=== PATIENT | female | born 1940 | race Caucasian/White ===

== ENCOUNTER → 2017-12-10 16:22 | Outpatient (CLI) | payer MEDICARE, SELFPAY ==
[2017-12-10 17:37] LABS: Absolute Lymphocyte Count 1.61 X10^3/ul (0.83-4.51); Absolute Neutrophil Count 7.6 X10^3/uL (2.0-7.7); Basophil# 0.01 X10^3/uL; Basophil% 0.1 % (0-1); Hematocrit 39.4 % (37-47); Hemoglobin 12.5 g/dl (12.0-15.0); Lymphocyte # 1.61 X10^3/ul (4.0); Lymphocyte % 16.7 % (19-41); Mean Corp Hgb Conc 31.7 g/gl (32-36); Mean Corpuscular Hgb 28.2 pg (27.0-32.0); Mean Corpuscular Volume 88.7 fL (81-99); Mean Platelet Vol. 10.1 fl (6.2-12.0); Monocyte# 0.37 X10^3/uL; Monocyte% 3.8 % (0-10); Neutrophil # 7.59 X10^3/uL (2.7-7.7); Neutrophil % 78.9 % (47-70); Platelet Count 373 K/mm3 (150-450); RBC Distribution Width SD 51.9 fl (35.1-43.9); Red Blood Count 4.44 M/mm3 (4.2-5.4); White Blood Count 9.6 K/mm3 (4.4-11.0)
[2017-12-10 17:45] LABS: POSITIVE COUNT NO; POSITIVE DIFFERENTIAL NO; POSITIVE MORPHOLOGY NO
[2017-12-10 18:10] LABS: ALB/GLOB Ratio 0.9 RATIO (0.9-2.4); AST(SGOT) 12 U/L (15-37); Alanine Aminotransfer ALT/SGPT 16 U/L (13-56); Albumin, Serum 3.5 g/dL (3.2-5.0); Alkaline Phosphatase 145 U/L (45-117); Anion Gap 9 (5-15); BUN 31 mg/dL (7-18); BUN/Creat Ratio 24.6 RATIO (10-20); Calcium,Total 9.5 mg/dL (8.5-10.1); Chloride 109 mmol/L (98-107); Creatinine, Serum 1.26 mg/dL (0.55-1.02); EST Glomerular Filtration Rate 44 mL/min (>60); Est Glom Filt Rate - Afr Amer 53 mL/min (>60); Glucose 130 mg/dL (74-106); Potassium 4.3 mmol/L (3.5-5.1); Protein, Total 7.5 g/dL (6.4-8.2); Sodium Level 143 mmol/L (136-145); Thyroid Stim Hormone (TSH) 0.48 uIU/mL (0.358-3.74)
[2017-12-11 09:48] LABS: Vitamin D,25 Hydroxy 20.3 ng/mL (29.95-100.01)
== END ==
PROVIDERS: Visit Provider Family Medicine Geriatric Medicine
DX: I50.9 Heart failure, unspecified (principal); E55.9 Vitamin D deficiency, unspecified; R68.83 Chills (without fever)
CPT/HCPCS: 36415; 80053; 82306; 84443; 85025; 87633

== ENCOUNTER 2018-01-10 20:33 | Emergency (ER) | payer MEDICARE, SELFPAY ==
[2018-01-10 20:35] VITALS: BP 104/63; PULSE 68; PULSE 70; RESP 15; RESP 17; TEMP 36.8; O2SAT 96; O2SAT 99; BMI 35.1
--- NOTE | 2018-01-10 20:51 | ED.VISSUMM ---
- ER Visit Summary Date of Service: 01/10/18 Chief Complaint: Vomiting and diarrhea History of Present Illness: The patient is a 77 F who states this morning she had a very large bowel movement. This was followed by diarrhea and vomiting. This is going on most the day. At one point she felt like she was could have a syncopal episode. She found her way back to her chair and called the ambulance. No reported fevers. She has a history of partial small bowel obstruction/ileus. Last admitted in October with vomiting diarrhea with acute kidney injury. Physical Examination: Afebrile vital signs are stable Gen: Well-nourished well-developed Head: Normocephalic atraumatic Eyes: Perrl EOMI ENT: TMs clear no rhinorrhea moist mucous membranes Neck: Supple no lymphadenopathy no JVD nontender CVS: Regular rate rhythm no murmurs normal S1-S2 Respiratory: No distress clear to auscultation bilaterally chest nontender Abdomen: Soft nontender nondistended normal bowel sounds no masses Back: Nontender Extremity: Nontender no edema Skin: Normal color no rash Neuro: alert orientated ?3 CN II-XII intact normal strength sensation reflexes gait cerebellar Psych: Normal affect normal mood Test Results: White count is 8.5. BUN is 53 with a creatinine 1.66. Liver lipase negative. Emergency Department Course and Treatment: Patient received a liter of IV fluids and Zofran. She has been resting comfortably has had no further symptoms since arriving in the department. Patient is drinking fluids and tolerating them normally. We discussed the possibility of admission for fluid hydration versus outpatient oral hydration and the patient and I both agree that outpatient oral hydration would be better. If she should worsen she can return for repeat examination. Impression: 1. Acute gastroenteritis 2. Dehydration This note was generated with [employer] dictation software. It may contain incorrect words, spelling, and punctuation that were not noted in review of the chart prior to signing ED Disposition - Plan for ED Patient: Disposition: Home or Assisted Living Chief Complaint: Nausea/Vomiting/Diarrhea Instructions: ED Gastroenteritis Viral Prescriptions: Ondansetron [Zofran Odt] 4 mg PO Q6H PRN PRN #20 tab PRN Reason: Nausea Referrals: Corey Nicole Chi, MD [Primary Care Provider] - 3-5 Days if not improving
[2018-01-10 21:09] LABS: Absolute Lymphocyte Count 1.62 X10^3/ul (0.83-4.51); Absolute Neutrophil Count 6.4 X10^3/uL (2.0-7.7); Basophil# 0.02 X10^3/uL; Basophil% 0.2 % (0-1); Eosinophil# 0.05 X10^3/uL; Eosinophils% 0.6 % (0-5); Hematocrit 46.2 % (37-47); Hemoglobin 14.5 g/dl (12.0-15.0); Lymphocyte # 1.62 X10^3/ul (4.0); Mean Corp Hgb Conc 31.4 g/gl (32-36); Mean Corpuscular Hgb 28.3 pg (27.0-32.0); Mean Corpuscular Volume 90.2 fL (81-99); Mean Platelet Vol. 10.2 fl (6.2-12.0); Monocyte% 4.7 % (0-10); Neutrophil # 6.42 X10^3/uL (2.7-7.7); Neutrophil % 75.4 % (47-70); Platelet Count 394 K/mm3 (150-450); RBC Distribution Width CV 16.3 % (11.6-14.6); RBC Distribution Width SD 53.9 fl (35.1-43.9); Red Blood Count 5.12 M/mm3 (4.2-5.4); White Blood Count 8.5 K/mm3 (4.4-11.0)
[2018-01-10 21:11] LABS: POSITIVE COUNT NO; POSITIVE DIFFERENTIAL NO; POSITIVE MORPHOLOGY NO
[2018-01-10] MEDS: 0.9% Normal Saline 1,000 ML 1000 ML IV (21:20)
[2018-01-10] MEDS: Ondansetron 4 MG/2 ML Vial IV (21:20)
[2018-01-10 21:22] VITALS: BP 109/59; PULSE 62; RESP 16; O2SAT 95
[2018-01-10 21:23] LABS: ALB/GLOB Ratio 0.9 RATIO (0.9-2.4); AST(SGOT) 17 U/L (15-37); Alanine Aminotransfer ALT/SGPT 22 U/L (13-56); Albumin, Serum 3.9 g/dL (3.2-5.0); Alkaline Phosphatase 147 U/L (45-117); Anion Gap 9 (5-15); BUN 53 mg/dL (7-18); BUN/Creat Ratio 31.9 RATIO (10-20); Calcium,Total 9.8 mg/dL (8.5-10.1); Chloride 110 mmol/L (98-107); Creatinine, Serum 1.66 mg/dL (0.55-1.02); EST Glomerular Filtration Rate 32 mL/min (>60); Est Glom Filt Rate - Afr Amer 38 mL/min (>60); Estimated Creatinine Clearance 25.54 ml/min; Globulin 4.2 g/dL (2.2-4.2); Glucose 144 mg/dL (74-106); Lipase 97 U/L (73-393); Potassium 4.2 mmol/L (3.5-5.1); Protein, Total 8.1 g/dL (6.4-8.2); Sodium Level 143 mmol/L (136-145)
[2018-01-10] MEDS: Ondansetron ODT 4 MG Tablet PO (23:07)
[2018-01-10 23:08] VITALS: BP 109/54; PULSE 64; RESP 16; O2SAT 96
--- NOTE | 2018-01-10 23:52 | ED.RN ---
PT WAITING FOR RIDE HOME FROM FRIEND. SENT HOME WITH HOME OF [facility] X [facility] TABS. REVIEWED INSTRUCTION FOR HOME USE. PT DENIES ANY QUESTIONS OR CONCERNS.
== END 2018-01-11 00:41 | disposition home or self-care (01) ==
PROVIDERS: Emergency Provider Emergency Medicine; Family Provider Family Medicine Geriatric Medicine; PCP Family Medicine Geriatric Medicine
DX: K52.9 Noninfective gastroenteritis and colitis, unspecified (principal); E86.0 Dehydration; I48.91 Unspecified atrial fibrillation; I10 Essential (primary) hypertension; F20.9 Schizophrenia, unspecified; Z79.01 Long term (current) use of anticoagulants; Z79.899 Other long term (current) drug therapy; Z87.19 Personal history of other diseases of the digestive system; Z86.73 Personal history of transient ischemic attack (TIA), and cerebral infarction without residual deficits
CPT/HCPCS: 80053; 83690; 85025; 96361; 96374; 99283; J7030; J2405

== ENCOUNTER → 2018-03-30 10:36 | Outpatient (CLI) | payer MEDICARE, SELFPAY ==
[2018-03-30 12:44] LABS: Absolute Lymphocyte Count 2.11 X10^3/ul (0.83-4.51); Basophil# 0.05 X10^3/uL; Basophil% 0.7 % (0-1); Eosinophil# 0.16 X10^3/uL; Eosinophils% 2.3 % (0-5); Hematocrit 40.6 % (37-47); Hemoglobin 12.9 g/dl (12.0-15.0); Lymphocyte # 2.11 X10^3/ul (4.0); Lymphocyte % 30.8 % (19-41); Mean Corp Hgb Conc 31.8 g/gl (32-36); Mean Corpuscular Hgb 28.5 pg (27.0-32.0); Mean Corpuscular Volume 89.8 fL (81-99); Mean Platelet Vol. 10.5 fl (6.2-12.0); Monocyte# 0.49 X10^3/uL; Monocyte% 7.2 % (0-10); Neutrophil # 4.01 X10^3/uL (2.7-7.7); Neutrophil % 58.7 % (47-70); Platelet Count 302 K/mm3 (150-450); RBC Distribution Width CV 15.6 % (11.6-14.6); RBC Distribution Width SD 50.6 fl (35.1-43.9); Red Blood Count 4.52 M/mm3 (4.2-5.4); White Blood Count 6.8 K/mm3 (4.4-11.0)
[2018-03-30 12:51] LABS: POSITIVE COUNT NO; POSITIVE DIFFERENTIAL NO; POSITIVE MORPHOLOGY NO
[2018-03-30 13:03] LABS: ALB/GLOB Ratio 0.9 RATIO (0.9-2.4); AST(SGOT) 12 U/L (15-37); Alanine Aminotransfer ALT/SGPT 18 U/L (13-56); Albumin, Serum 3.3 g/dL (3.2-5.0); Alkaline Phosphatase 120 U/L (45-117); Anion Gap 8 (5-15); BUN 33 mg/dL (7-18); BUN/Creat Ratio 25.8 RATIO (10-20); Chloride 109 mmol/L (98-107); Creatinine, Serum 1.28 mg/dL (0.55-1.02); EST Glomerular Filtration Rate 43 mL/min (>60); Est Glom Filt Rate - Afr Amer 52 mL/min (>60); Globulin 3.6 g/dL (2.2-4.2); Glucose 108 mg/dL (74-106); Potassium 4.3 mmol/L (3.5-5.1); Protein, Total 6.9 g/dL (6.4-8.2); Sodium Level 145 mmol/L (136-145); Thyroid Stim Hormone (TSH) 4.28 uIU/mL (0.358-3.74)
[2018-03-31 10:20] LABS: Vitamin D,25 Hydroxy 28.3 ng/mL (29.95-100.01)
== END ==
PROVIDERS: Family Provider Family Medicine Geriatric Medicine; PCP Family Medicine Geriatric Medicine; Visit Provider Family Medicine Geriatric Medicine
DX: E55.9 Vitamin D deficiency, unspecified (principal); R53.83 Other fatigue
CPT/HCPCS: 36415; 80053; 82306; 84443; 85025

== ENCOUNTER 2018-04-28 20:16 | Emergency (ER) | payer MEDICARE, SELFPAY ==
[2018-04-28 20:18] VITALS: BP 120/73; PULSE 74; RESP 16; TEMP 37.3; O2SAT 93; BMI 35.9
--- NOTE | 2018-04-28 20:34 | US_ITS ---
STUDY: VENOUS DOPPLER ULTRASOUND - BILATERAL LOWER EXTREMITIES REASON FOR EXAM: Female, 78 years old. Right calf pain and bruising TECHNIQUE: Ultrasound evaluation of the deep vein system to include sosa-scale imaging and compression was performed. Sosa-scale imaging and Doppler sonographic evaluation, including duplex spectral analysis and qualitative color flow sonography, was performed. COMPARISON: None. FINDINGS: RIGHT LEG Common Femoral Vein: Normal compression, spontaneity and augmentation. Normal color Doppler. Common Femoral Vein/Greater Saphenous Junction: Normal compression, spontaneity and augmentation. Normal color Doppler. Deep Femoral Vein: Normal compression, spontaneity and augmentation. Normal color Doppler. Femoral Proximal: Normal compression, spontaneity and augmentation. Normal color Doppler. Femoral Middle: Normal compression, spontaneity and augmentation. Normal color Doppler. Femoral Distal: Normal compression, spontaneity and augmentation. Normal color Doppler. Popliteal Vein: Partial compression with internal echoes in the right popliteal vein noted. Posterior Tibial Vein: Normal compression, spontaneity and augmentation. Normal color Doppler. Peroneal Vein: Normal compression, spontaneity and augmentation. Normal color Doppler. LEFT LEG Common Femoral Vein: Normal compression, spontaneity and augmentation. Normal color Doppler. Common Femoral Vein/Greater Saphenous Junction: Normal compression, spontaneity and augmentation. Normal color Doppler. Deep Femoral Vein: Normal compression, spontaneity and augmentation. Normal color Doppler. Femoral Proximal: Normal compression, spontaneity and augmentation. Normal color Doppler. Femoral Middle: Normal compression, spontaneity and augmentation. Normal color Doppler. Femoral Distal: Normal compression, spontaneity and augmentation. Normal color Doppler. Popliteal Vein: Normal compression, spontaneity and augmentation. Normal color Doppler. Posterior Tibial Vein: Normal compression, spontaneity and augmentation. Normal color Doppler. Peroneal Vein: Normal compression, spontaneity and augmentation. Normal color Doppler. US/Venous Duplex Imag/Juan Extrem IMPRESSION: Partial compression of the right popliteal vein with internal echoes suggestive of thrombosis Electronically Signed: Iván Jimenez, at 21:34 EDT Tel , Service support ,
[2018-04-28 20:57] LABS: Absolute Lymphocyte Count 2.32 X10^3/ul (0.83-4.51); Absolute Neutrophil Count 4.2 X10^3/uL (2.0-7.7); Basophil# 0.04 X10^3/uL; Basophil% 0.5 % (0-1); Eosinophil# 0.19 X10^3/uL; Eosinophils% 2.6 % (0-5); Hematocrit 36.5 % (37-47); Hemoglobin 11.5 g/dl (12.0-15.0); Lymphocyte # 2.32 X10^3/ul (4.0); Lymphocyte % 31.6 % (19-41); Mean Corp Hgb Conc 31.5 g/gl (32-36); Mean Platelet Vol. 9.4 fl (6.2-12.0); Monocyte# 0.57 X10^3/uL; Monocyte% 7.8 % (0-10); Neutrophil # 4.22 X10^3/uL (2.7-7.7); Neutrophil % 57.4 % (47-70); Platelet Count 264 K/mm3 (150-450); RBC Distribution Width CV 14.7 % (11.6-14.6); White Blood Count 7.4 K/mm3 (4.4-11.0)
[2018-04-28 20:58] LABS: POSITIVE COUNT NO; POSITIVE DIFFERENTIAL NO; POSITIVE MORPHOLOGY NO
[2018-04-28 21:12] LABS: Anion Gap 5 (5-15); BUN 30 mg/dL (7-18); BUN/Creat Ratio 23.8 RATIO (10-20); Calcium,Total 9.1 mg/dL (8.5-10.1); Chloride 105 mmol/L (98-107); Creatinine, Serum 1.26 mg/dL (0.55-1.02); EST Glomerular Filtration Rate 44 mL/min (>60); Est Glom Filt Rate - Afr Amer 53 mL/min (>60); Estimated Creatinine Clearance 33.11 ml/min; Glucose 101 mg/dL (74-106); Potassium 3.9 mmol/L (3.5-5.1); Prothrombin Time (Protime)PT. 13.5 SECONDS (11.7-14.9); Sodium Level 142 mmol/L (136-145)
--- NOTE | 2018-04-28 22:56 | ED.DCSUM_ITS ---
- ER Visit Summary Date of Service: 04/28/18 Chief Complaint: Right leg pain History of Present Illness: The patient is a 78 F reports a red spot on her right lower leg for the past 1 month. It is mildly tender to palpation. She noted bruises on her legs as well. Patient states her dust mop maker wanted her to come in for some blood work. She is currently on Eliquis for A. fib. Physical Examination: Vital signs unremarkable. Patient sitting upright in bed no acute distress. Head and neck examination is unremarkable with no sign of trauma. Heart is slightly irregular. Lung sounds are clear. Abdomen is soft. She is a few ecchymoses on the abdominal wall with no focal tenderness. Lower external examination reveals a 3 cm diameter area of erythema on the medial right calf. It is mildly firm to touch. She has strong distal pulses. She has 2+ symmetric edema. There is an old appearing ecchymosis in the left thigh. Test Results: CBC reveals a normal white count with hemoglobin 11.5. Chemistry studies revealed creatinine 1.26. Coags are normal. Venous ultrasound of the right leg shows partial compression of the right popliteal vein with internal echoes suggestive of thrombosis. Emergency Department Course and Treatment: When I went back to discuss the test results with the patient, she now admits to me that she has not been taking her Eliquis since April 06. She was seen by her commercial green building architect in the [place] at that time who recommended she stop taking the Eliquis due to her bruising. She never restarted the medication but has not advised her dust mop maker of this. At this time patient will be given her dose of Eliquis here. She has the medication to restart at home. I recommended following with her primary care physician for repeat ultrasound of her leg. Treatment Plan: [] Disposition: Discharge Impression: DVT right leg This note was generated with [employer] dictation software. It may contain incorrect words, spelling, and punctuation that were not noted in review of the chart prior to signing ED Disposition - Plan for ED Patient: Disposition: Home or Assisted Living Chief Complaint: Lower Extremity Injury Instructions: ED DVT Referrals: Corey Nicole Chi, MD [Primary Care Provider] - 1 Week Additional Instructions: Restart your Eliquis as discussed. Call Dr Nicole for follow-up. You will likely need a repeat ultrasound of your leg.
[2018-04-28 22:58] VITALS: BP 154/62; PULSE 69; RESP 18; O2SAT 97
[2018-04-28] MEDS: APIXABAN 5 MG TABLET PO (23:05)
== END 2018-04-28 23:13 | disposition home or self-care (01) ==
PROVIDERS: Emergency Provider Emergency Medicine; Family Provider Family Medicine Geriatric Medicine; PCP Family Medicine Geriatric Medicine
DX: I82.431 Acute embolism and thrombosis of right popliteal vein (principal); T45.516A Underdosing of anticoagulants, initial encounter; Z91.128 Patient's intentional underdosing of medication regimen for other reason; Y92.9 Unspecified place or not applicable; I48.91 Unspecified atrial fibrillation; M54.9 Dorsalgia, unspecified; K21.9 Gastro-esophageal reflux disease without esophagitis; F20.9 Schizophrenia, unspecified; Z79.01 Long term (current) use of anticoagulants; Z79.899 Other long term (current) drug therapy; Z86.73 Personal history of transient ischemic attack (TIA), and cerebral infarction without residual deficits
CPT/HCPCS: 80048; 85025; 85610; 85730; 93970; 99285; A4216

== ENCOUNTER 2018-05-07 14:33 | Inpatient (IN) | payer MEDICARE, SELFPAY ==
[2018-05-07] VITALS (15 sets, daily range): BP systolic 98–125; BP diastolic 50–57; PULSE 50–70; RESP 12–18; TEMP 36.6–36.8; O2SAT 95–98; BMI 36.0; BMI 35.2
--- NOTE | 2018-05-07 15:08 | EKG12_ITS ---
Test Reason : SOB Blood Pressure : / mmHG Vent. Rate : 062 BPM Atrial Rate : 062 BPM P-R Int : 198 ms QRS Dur : 098 ms QT Int : 410 ms P-R-T Axes : 031 009 046 degrees QTc Int : 416 ms Normal sinus rhythm Normal ECG Confirmed by CIELO AYALA, MANJIT ([id number]), editor city [place] BR[place]GES ([id number]) on 05/10/2018 1:25:10 PM Referred By: Lizeth Dutton Confirmed By:MANJIT BUCK MD
--- NOTE | 2018-05-07 15:08 | CT_ITS ---
STUDY: CTA CHEST REASON FOR EXAM: Female, 78 years old. Shortness of breath. RADIATION DOSAGE (If Supplied By Facility): CTDIvol = ( 15.06 ) mGy, DLP = ( 665.4 ) mGycm TECHNIQUE: The examination was performed with the intravenous administration of 100 ml of Isovue 370 contrast material. Post-processing of the angiographic images was performed, with multiplanar reformation and 3D reconstruction. Individualized dose optimization techniques were used for this CT. COMPARISON: None. FINDINGS: There are filling defects within subsegmental pulmonary arteries throughout the right lung consistent with pulmonary emboli. There is atherosclerotic calcification of the aortic arch and descending thoracic aorta. There is no demonstrated aortic dissection. There are calcifications of the coronary arteries. There is a small hiatal hernia present. Normal hilar regions. Normal visualized trachea and bronchi. There is minimal bibasilar atelectasis. Normal chest wall structures. Normal osseous structures. Limited images of the upper abdomen demonstrate peripheral calcifications of the abdominal aorta branches. CT/CTA Chest W/WO Contrast IMPRESSION: Pulmonary emboli throughout the right lung. Atherosclerosis. N.B. : The above information has been verbally conveyed by Jessica Pierre MD to Dr Tracey , Referring Physician, on 05/07/2018 16:28:48 (ET). Electronically Signed: Jessica Pierre MD at 16:18 EDT Tel , Service support ,
[2018-05-07] MEDS: Ipratropium/Albuterol Sulfate 3 ML AMPUL.NEB INHALATION (15:19)
[2018-05-07 15:43] LABS: Anion Gap 4 (5-15); BUN 25 mg/dL (7-18); BUN/Creat Ratio 21.9 RATIO (10-20); Calcium,Total 8.9 mg/dL (8.5-10.1); Chloride 111 mmol/L (98-107); Creatinine, Serum 1.14 mg/dL (0.55-1.02); EST Glomerular Filtration Rate 49 mL/min (>60); Est Glom Filt Rate - Afr Amer 59 mL/min (>60); Glucose 115 mg/dL (74-106); Potassium 4.1 mmol/L (3.5-5.1); Sodium Level 145 mmol/L (136-145)
[2018-05-07 15:53] LABS: Absolute Neutrophil Count 4.2 X10^3/uL (2.0-7.7); Basophil# 0.03 X10^3/uL; Basophil% 0.5 % (0-1); Eosinophils% 1.5 % (0-5); Hematocrit 38.5 % (37-47); Hemoglobin 11.9 g/dl (12.0-15.0); Lymphocyte % 27.2 % (19-41); Mean Corp Hgb Conc 30.9 g/gl (32-36); Mean Corpuscular Hgb 28.1 pg (27.0-32.0); Mean Platelet Vol. 9.8 fl (6.2-12.0); Monocyte# 0.51 X10^3/uL; Monocyte% 7.7 % (0-10); Neutrophil # 4.16 X10^3/uL (2.7-7.7); Neutrophil % 62.9 % (47-70); Platelet Count 263 K/mm3 (150-450); RBC Distribution Width CV 15.2 % (11.6-14.6); RBC Distribution Width SD 50.5 fl (35.1-43.9); Red Blood Count 4.23 M/mm3 (4.2-5.4); White Blood Count 6.6 K/mm3 (4.4-11.0)
[2018-05-07 16:01] LABS: POSITIVE COUNT NO; POSITIVE DIFFERENTIAL NO; POSITIVE MORPHOLOGY NO
[2018-05-07 16:30] LABS: BNP,B-Type NATRIURETIC PEPTIDE 46.4 pg/mL (0-100)
--- NOTE | 2018-05-07 16:56 | NURSING ---
DR LARISA SCHWARZ
--- NOTE | 2018-05-07 16:57 | NURSING ---
PCU ACUTE RT LUNG SUBSEGMENTAL MULTIPLE PE ASEHELFAH
--- NOTE | 2018-05-07 16:58 | ED.VISSUMM ---
- ER Visit Summary Date of Service: 05/07/18 Chief Complaint: Shortness of breath History of Present Illness: The patient is a 78 F with shortness of breath and trouble breathing that came on this morning when she woke up. She denies cough or sputum. Denies fevers. Denies any chest pain. She has a history of CHF, atrial fibrillation, [place], and DVT. She does take Eliquis. She is not on home oxygen and denies any history of COPD. Physical Examination: Borderline blood pressure 98/52. Otherwise vitals unremarkable. Afebrile. No acute distress. Sitting and breathing comfortably. Heart regular. Lungs clear. Abdomen soft. Trace bilateral lower extremity edema. Strong pulses. Legs nontender. Test Results: EKG showed sinus rhythm at a rate of 62. No sign of acute ischemia or infarction pattern. Hemoglobin 11.9. Platelets normal. BUN 25 and creatinine 1.14. GFR 49. Troponin normal. BNP 46. CT chest showed subsegmental pulmonary emboli throughout the right lung. Emergency Department Course and Treatment: Patient was placed on a monitor and IV was obtained while awaiting results. She was treated with a DuoNeb. This seemed to help some of her breathing. She did have very brief right-sided chest pain while in CT. Results indicated right side subsegmental pulmonary emboli. These are small, but I am concerned that she is having symptoms despite taking Eliquis regularly. She says she is taking it as scheduled and is not out of it. Patient was on warfarin in the past but switched to Eliquis because she thought the warfarin was causing her hair to fall out. She is willing to take warfarin if it is the best option for her. I spoke with the hospitalist who will admit for further care. He did request that we start heparin. Patient is stable and symptom-free on reevaluation. Treatment Plan: As above Disposition: Admission to PCU Impression: 1. Pulmonary emboli right lung This note was generated with [employer] dictation software. It may contain incorrect words, spelling, and punctuation that were not noted in review of the chart prior to signing ED Disposition - Plan for ED Patient: Chief Complaint: Shortness of Breath Referrals: Corey Nicole Chi, MD [Primary Care Provider] -
--- NOTE | 2018-05-07 17:02 | ED.DCSUM_ITS ---
- ER Visit Summary Date of Service: 05/07/18 Chief Complaint: Shortness of breath History of Present Illness: The patient is a 78 F with shortness of breath and trouble breathing that came on this morning when she woke up. She denies cough or sputum. Denies fevers. Denies any chest pain. She has a history of CHF, atrial fibrillation, [place], and DVT. She does take Eliquis. She is not on home oxygen and denies any history of COPD. Physical Examination: Borderline blood pressure 98/52. Otherwise vitals unremarkable. Afebrile. No acute distress. Sitting and breathing comfortably. Heart regular. Lungs clear. Abdomen soft. Trace bilateral lower extremity edema. Strong pulses. Legs nontender. Test Results: EKG showed sinus rhythm at a rate of 62. No sign of acute ischemia or infarction pattern. Hemoglobin 11.9. Platelets normal. BUN 25 and creatinine 1.14. GFR 49. Troponin normal. BNP 46. CT chest showed subsegmental pulmonary emboli throughout the right lung. Emergency Department Course and Treatment: Patient was placed on a monitor and IV was obtained while awaiting results. She was treated with a DuoNeb. This seemed to help some of her breathing. She did have very brief right-sided chest pain while in CT. Results indicated right side subsegmental pulmonary emboli. These are small, but I am concerned that she is having symptoms despite taking Eliquis regularly. She says she is taking it as scheduled and is not out of it. Patient was on warfarin in the past but switched to Eliquis because she thought the warfarin was causing her hair to fall out. She is willing to take warfarin if it is the best option for her. I spoke with the hospitalist who will admit for further care. He did request that we start heparin. Patient is stable and symptom-free on reevaluation. Treatment Plan: As above Disposition: Admission to PCU Impression: 1. Pulmonary emboli right lung This note was generated with [employer] dictation software. It may contain incorrect words, spelling, and punctuation that were not noted in review of the chart prior to signing ED Disposition - Plan for ED Patient: Chief Complaint: Shortness of Breath Referrals: Corey Nicole Chi, MD [Primary Care Provider] -
--- NOTE | 2018-05-07 17:11 | HP.PCM_ITS ---
Problem List (1) HLD (hyperlipidemia) Status: Chronic (2) GERD (gastroesophageal reflux disease) Status: Chronic (3) Schizophrenia Status: Chronic Qualifiers: (4) Hypertension Status: Chronic Qualifiers: (5) Atrial fibrillation Status: Chronic Qualifiers: History of Present Illness Date of Admission: 05/07/18 Chief Complaint: Shortness of breath. The patient is a 78 year old F with past medical history as mentioned above presented to the medicine because of shortness of breath. Her illness started today morning around 11 AM with shortness of breath on minimal exertion, aggravated by activity, somewhat relieved by rest and associated with generalized weakness and fatigue. She denied cough or sputum production. She denied fever chills. She denied chest pain but she mentioned that when she went to CT scan chest, she was asked her to move her arms up and she had little pain on the right side. At this time, she has no chest pain. She has history of paroxysmal atrial fibrillation and she has been on metoprolol for rate control as well as Eliquis for anti-cognition for almost 2 years now and she stated that she is compliant and she takes her Eliquis every day but she missed one dose yesterday. She has a history of hypertension which seemed to be under control with lisinopril and metoprolol. She has history of schizophrenia and she has been on Seroquel and Klonopin. Upon review of her chart, she had a history of chronic CHF, unspecified type and she has been following up with [facility] cardiology as outpatient. In the emergency department, her blood pressure was borderline, other vital signs are stable. Her routine blood work was remarkable for BUN of 25 and creatinine 1.14, GFR is 49. EKG revealed normal sinus rhythm, normal VA interval, normal QRS, no acute ischemic changes. Troponin is negative. BNP was normal. CTA chest revealed multiple filling defects within the subsegmental pulmonary arteries throughout the right lung consistent with multiple subsegmental PEs. She is being admitted for acute subsegmental right multiple pulmonary emboli. Past Medical History Past Medical History (Chronic Problems): Chronic Problems (Last Reviewed 05/07/18 @ 17:19 by Lizeth Dutton MD) Schizophrenia (Chronic) Hypertension (Chronic) Rotator cuff syndrome of left shoulder (Chronic) Atrial fibrillation (Chronic) GERD (gastroesophageal reflux disease) (Chronic) HLD (hyperlipidemia) (Chronic) Segmental and somatic dysfunction of pelvic region (Chronic) Segmental and somatic dysfunction of thoracic region (Chronic) DDD (degenerative disc disease), lumbar (Chronic) Medical History: Medical History (Last Reviewed 05/07/18 @ 17:19 by Lizeth Dutton MD) DDD (degenerative disc disease), lumbar (Chronic) M51.36 Arthritis M19.90 Atrial fibrillation with RVR I48.91 Cataracts, bilateral H26.9 Environmental allergies Z91.09 Heart disease I51.9 Heart failure I50.9 High cholesterol E78.00 High triglycerides E78.1 History of gallstones Z87.19 History of stroke Z86.73 History of uterine cancer Z85.42 Melanoma C43.9 Osteoarthritis M19.90 Allergies risperidone [From Risperdal] Allergy (Verified 05/07/18 14:40) Shortness of breath verapamil [Verapamil] Allergy (Verified 05/07/18 14:40) Itching baclofen Adverse Reaction (Verified 05/07/18 14:40) agitation, mean benztropine mesylate [From Cogentin] Adverse Reaction (Verified 05/07/18 14:40) Itching codeine Adverse Reaction (Verified 05/07/18 14:40) Nausea Home Medications: Ambulatory Orders Medication Instructions Recorded Apixaban [Eliquis] 5 mg PO BID 12/04/16 Atorvastatin Calcium [Lipitor] 10 mg PO QHS 12/04/16 Lisinopril [Zestril] 5 mg PO DAILY 12/04/16 Metoprolol Tartrate [Lopressor 12.5 mg PO BID 12/04/16 (beta juan f)] Omeprazole [Prilosec] 20 mg PO DAILY 12/04/16 Polyethylene Glycol 3350 [Miralax] 17 gm PO DAILY PRN PRN 05/20/17 Furosemide [Lasix] 20 mg PO DAILY 06/09/17 Loratadine 10 mg PO DAILY 10/13/17 Quetiapine Fumarate [Seroquel XR] 50 mg PO QHS 10/13/17 Clonazepam [Klonopin] 1 mg PO BID 05/07/18 Surgical History: Surgical History (Last Reviewed 04/01/18 @ 10:11 by Melisa Dodd) History of appendectomy Z90.49 History of cholecystectomy Z90.49 History of hysterectomy Z90.710 Surgical History: appendectomy, cholecystectomy, hysterectomy - For a uterine cancer, rotator cuff repair, - - Resection of melanomas Psychiatric History: Schizophrenia, - NETWORK DIRECTOR History: No pertinent NETWORK DIRECTOR history Smoking Status: Former smoker Alcohol: None Drugs: None - *Family History Maternal Family History: Family History (Last Reviewed 04/01/18 @ 10:11 by Melisa Dodd) Other Arthritis Asthma COPD (chronic obstructive pulmonary disease) Hypertension Kidney disease History Items: Diabetes, - - No underlying lung disease Paternal Family History: Family History (Last Reviewed 04/01/18 @ 10:11 by Melisa Dodd) Other Arthritis Asthma COPD (chronic obstructive pulmonary disease) Hypertension Kidney disease History Items: Diabetes, - - No underlying lung disease Sibling Family History: Family History (Last Reviewed 04/01/18 @ 10:11 by Melisa Dodd) Other Arthritis Asthma COPD (chronic obstructive pulmonary disease) Hypertension Kidney disease History Items: Diabetes Review of Systems Constitutional: Reports: Weakness. Denies: Anorexia, Chills, Fever Eyes: Denies: Blurred vision, Double vision, Drainage, Redness HEENT: Denies: Difficulty Hearing, Ear Pain, Eye Pain, Nasal Congestion, Sore Throat Cardiovascular: Denies: Chest Pain, Chest Pressure, Chest Tightness, Palpitations, Syncope Respiratory: Reports: Shortness of Breath, Shortness of breath upon exertion. Denies: Cough, Pleuritic Pain, Sputum production, Wheezing Gastrointestinal: Denies: Abdominal Pain, Constipation, Diarrhea, Nausea, Vomiting Genitourinary: Denies: Dysuria, Frequency, Hematuria Musculoskeletal: Denies: Arm Pain, Back Pain, Foot Pain Skin: Denies: Dryness, Rash Neurological: Denies: Balance problems, Double vision, Change in Speech, Slurred speech, Confusion, Focal weakness, Headaches, Incoordination, Numbness Psychiatric: Denies: Anxiety, Depression Endocrine: Denies: Change in Body Habitus, Polydipsia VTE Information - Inpt Only VTE Present on Admission: No VTE Mechan Device Prophylaxis: None VTE Pharm Prophylaxis ordered?: No - Physical Exam General: Alert, Oriented x3, Cooperative, No apparent distress HEENT: Atraumatic, PERRLA, EOMI, Normocephalic Oral: Moist Mucosa, No Gingival or Mucosal Lesions/ Ulcerations Neck: Supple, No JVD, Negative Carotid Bruits, Trachea Midline, Thyroid Normal Size and Texture Lungs: Clear to auscultation, No wheeze, No rales, Diminished, Rhonchi Cardiovascular: Regular rate, Regular Rhythm, Normal S1, Normal S2, PMI Normal Abdomen: Bowel Sounds Present, Soft, Non Tender, Non-Distended, No Hepato- splenomegaly, Obese Extremities: No clubbing, No cyanosis, No edema Skin: No rashes, No breakdown Lymphatic: No Cervical, Supraclavicular, or Inguinal Adenopathy Neurological: Cranial nerves II-XII grossly intact, Motor Exam 5/5 strength throughout Psych/Mental Status: Normal Affect, Appropriate, Alert and oriented to time, place, person, mood and affect Vital Signs Temp Pulse Resp BP Pulse Ox 97.8 F 60 16 98/52 L 98 05/07/18 14:34 05/07/18 15:20 05/07/18 15:20 05/07/18 14:34 05/07/18 15:24 Oxygen Flow Rate (L/min) 2 Oxygen Delivery Method Nasal Cannula Weight: 216 lb 7.903 oz Body Mass Index (BMI) 36.0 Laboratory Tests Past 24 Hrs 05/07/18 05/07/18 05/07/18 15:20 15:20 15:20 WBC 6.6 RBC 4.23 Hgb 11.9 L Hct 38.5 MCV 91.0 MCH 28.1 MCHC 30.9 L RDW 15.2 H RDW Differential 50.5 H Plt Count 263 MPV 9.8 Immature Gran % (Auto) 0.200 Neut % (Auto) 62.9 Lymph % (Auto) 27.2 [place] % (Auto) 7.7 Eos % (Auto) 1.5 Baso % (Auto) 0.5 Absolute Neuts (auto) 4.2 Absolute Lymphs (auto) 1.80 Total Counted Not Reportable Sodium 145 Potassium 4.1 Chloride 111 H Carbon Dioxide 30.0 Anion Gap 4 L BUN 25 H Creatinine 1.14 H Estim Creat Clear Calc 36.60 Est GFR (MDRD) Af Amer 59 L Est GFR (MDRD) Non-Af 49 L BUN/Creatinine Ratio 21.9 H Glucose 115 H Calcium 8.9 Troponin I < 0.015 B-Natriuretic Peptide 46.4 Clinical Impression(s) from Imaging Studies Chest CTA 05/07/18 15:08 IMPRESSION: Pulmonary emboli throughout the right lung. Atherosclerosis. N.B. : The above information has been verbally conveyed by Jessica Pierre MD to Dr Tracey , Referring Physician, on 05/07/2018 16:28:48 (ET). Electronically Signed: Jessica Pierre MD at 16:18 EDT Tel , Service support , Assessment/Plan All Active Problems (Last Reviewed 05/07/18 @ 17:19 by Lizeth Dutton MD) Gram-negative pneumonia (Resolved) PARTIAL SBO (Resolved) This is a 78 years old female patient presented to the emergency room because of shortness of breath and she was found to have multiple acute right subsegmental pulmonary emboli and she is being admitted for treatment. #1 acute right multiple subsegmental pulmonary emboli: CTA chest reviewed. This is considered provoked secondary to her sedentary life although she was on Eliquis for paroxysmal atrial fibrillation. No indication for hypercoagulability workup. At this time, pulse ox is maintained on 2 L. Blood pressure borderline, improved when I saw the patient. Reviewed normal sinus rhythm, no ischemic changes and no cardiac arrhythmias. Troponin is negative. Plan: Admit to PCU, cardiac monitoring, start IV heparin drip, start Coumadin 5 mg p.o. daily, daily pro time and INR, venous Doppler of both lower extremities , repeat CBC and BMP tomorrow morning, PT OT evaluation and treatment. #2 paroxysmal atrial fibrillation: At this time, she is sinus rhythm, rate is controlled. Plan to continue metoprolol for rate control, discontinue liquids, start IV heparin drip as above. #3 hypertension: Blood pressure is borderline but improved. Plan to continue metoprolol, hold lisinopril and Lasix. #4 stage III chronic kidney disease: Baseline creatinine has been around 1.2- 1.6 mg/dL. Admission creatinine is 1.14, stable at baseline. Her GFR has been always around 40s-50s. Plan for gentle IV fluids for hydration, hold Lasix for now, repeat BMP tomorrow morning. #5 schizophrenia: Continue Seroquel and Klonopin. #6 hyperlipidemia: Continue statins. #7 GERD: Continue PPI. #8 DVT prophylaxis: She will be on IV heparin drip. This note was generated with [employer] software. It may contain incorrect words, spelling, and punctuation that were not noted in checking the note before signing. Code Visit Inpatient E&M: 99372 Init Hosp L3
[2018-05-07] MEDS: 0.9% Saline Lock 10 ML Syringe IV (18:01)
[2018-05-07] MEDS: 0.9% Normal Saline 1,000 ML 75 ML IV (18:01)
[2018-05-07 18:38] LABS: International Normalized Ratio 1.1; Prothrombin Time (Protime)PT. 14.6 SECONDS (11.7-14.9)
[2018-05-07 19:00] LABS: Partial Thromboplast Time 31.9 Seconds (24.1-36.2)
[2018-05-07] MEDS: HEPARIN/D5w 25,000 UNITS 25,000 UNITS/250 ML IV.SOLN. 14 UNITS IV (19:40)
[2018-05-07] MEDS: clonazePAM 1 MG Tablet PO (22:46)
[2018-05-07] MEDS: Atorvastatin Calcium 10 MG Tablet PO (22:50)
[2018-05-07] MEDS: QUEtiapine 25 MG Tablet 50 MG PO (22:51)
[2018-05-08] VITALS (15 sets, daily range): BP systolic 104–130; BP diastolic 44–56; PULSE 49–69; RESP 16–18; TEMP 36.3–37; O2SAT 93–98
[2018-05-08 02:32] LABS: International Normalized Ratio 1.1; Prothrombin Time (Protime)PT. 14.4 SECONDS (11.7-14.9)
[2018-05-08 06:51] LABS: Absolute Lymphocyte Count 2.05 X10^3/ul (0.83-4.51); Absolute Neutrophil Count 2.5 X10^3/uL (2.0-7.7); Basophil# 0.04 X10^3/uL; Basophil% 0.8 % (0-1); Eosinophils% 3.8 % (0-5); Hematocrit 35.5 % (37-47); Hemoglobin 10.9 g/dl (12.0-15.0); Lymphocyte # 2.05 X10^3/ul (4.0); Lymphocyte % 38.8 % (19-41); Mean Corp Hgb Conc 30.7 g/gl (32-36); Mean Corpuscular Hgb 28.7 pg (27.0-32.0); Mean Corpuscular Volume 93.4 fL (81-99); Mean Platelet Vol. 10.1 fl (6.2-12.0); Monocyte# 0.47 X10^3/uL; Monocyte% 8.9 % (0-10); Neutrophil # 2.51 X10^3/uL (2.7-7.7); Neutrophil % 47.5 % (47-70); Platelet Count 222 K/mm3 (150-450); RBC Distribution Width CV 15.4 % (11.6-14.6); RBC Distribution Width SD 50.3 fl (35.1-43.9); White Blood Count 5.3 K/mm3 (4.4-11.0)
[2018-05-08 06:53] LABS: POSITIVE COUNT NO; POSITIVE DIFFERENTIAL NO; POSITIVE MORPHOLOGY NO
[2018-05-08 07:01] LABS: Anion Gap 5 (5-15); BUN 23 mg/dL (7-18); BUN/Creat Ratio 24.8 RATIO (10-20); Calcium,Total 8.2 mg/dL (8.5-10.1); Chloride 114 mmol/L (98-107); Creatinine, Serum 0.93 mg/dL (0.55-1.02); EST Glomerular Filtration Rate 62 mL/min (>60); Est Glom Filt Rate - Afr Amer 75 mL/min (>60); Estimated Creatinine Clearance 44.86 ml/min; Glucose 89 mg/dL (74-106); Potassium 3.8 mmol/L (3.5-5.1); Sodium Level 146 mmol/L (136-145)
[2018-05-08] MEDS: Pantoprazole Sodium 20 MG Tablet PO (07:49)
[2018-05-08] MEDS: QUEtiapine 25 MG Tablet 50 MG PO ×2 (07:49→22:25)
[2018-05-08] MEDS: Loratadine 10 MG Tablet PO (07:49)
[2018-05-08] MEDS: clonazePAM 1 MG Tablet PO ×2 (07:53→22:24)
[2018-05-08 08:55] LABS: Partial Thromboplast Time 91.1 Seconds (24.1-36.2)
--- NOTE | 2018-05-08 09:14 | PCM.PN.HOSP ---
Subjective: Patient reports no interval complaints but would like to restart her furosemide Objective: Resting comfortably Vitals/I&O's: Vital Signs Temp Pulse Resp BP Pulse Ox 97.5 F L 56 L 18 130/52 H 97 05/08/18 07:36 05/08/18 07:48 05/08/18 07:36 05/08/18 07:48 05/08/18 07:36 Oxygen Flow Rate (L/min) 2 Oxygen Delivery Method Room Air Weight: 211 lb 6.773 oz Body Mass Index (BMI) 35.2 Intake and Output for Last 24 Hours 05/06/18 05/07/18 05/08/18 23:59 23:59 23:59 Intake Total 618.4 / 618.4 500.3 / 500.3 Output Total 200 / 200 Balance 618.4 / 618.4 300.3 / 300.3 General: Alert, Cooperative, Well developed, Well nourished, - - Obese HEENT: PERRLA Oral: Moist Mucosa Neck: No JVD Lungs: Clear to auscultation Cardiovascular: Regular rate, Regular Rhythm, Normal S1, Normal S2 Abdomen: Soft, Non Tender, Obese Extremities: - - Trace edema Psych/Mental Status: Appropriate Laboratory Results 05/07/18 18:05: PT 14.6, INR 1.1 05/07/18 18:05: APTT 31.9 05/08/18 02:00: PT 14.4, INR 1.1 05/08/18 02:00: APTT 149.0 H* 05/08/18 06:10: Sodium 146 H, Potassium 3.8, Chloride 114 H, Carbon Dioxide 27.0, Anion Gap 5, BUN 23 H, Creatinine 0.93, Estim Creat Clear Calc 44.86, Est GFR (MDRD) Af Amer 75, Est GFR (MDRD) Non-Af 62, BUN/Creatinine Ratio 24.8 H, Glucose 89, Calcium 8.2 L 05/08/18 06:10: WBC 5.3, RBC 3.80 L, Hgb 10.9 L, Hct 35.5 L, MCV 93.4, MCH 28.7, MCHC 30.7 L, RDW 15.4 H, RDW Differential 50.3 H, Plt Count 222, MPV 10.1, Immature Gran % (Auto) 0.200, Neut % (Auto) 47.5, Lymph % (Auto) 38.8, [place] % (Auto) 8.9, Eos % (Auto) 3.8, Baso % (Auto) 0.8, Absolute Neuts (auto) 2.5, Absolute Lymphs (auto) 2.05, Total Counted Not Reportable 05/08/18 08:28: APTT 91.1 H* Current Medications Atorvastatin Calcium (Lipitor) 10 mg PO QHS [facility] Last Admin: 05/07/18 22:50 Dose: 10 mg Clonazepam (Klonopin) 1 mg PO BID [facility] Last Admin: 05/08/18 07:53 Dose: 1 mg Furosemide (Lasix) 20 mg PO DAILY [facility] Heparin Sodium/Dextrose () 25,000 units in 250 mls @ 14 mls/hr IV .[id number] [facility]; As Directed PRN Reason: Protocol Last Admin: 05/07/18 19:40 Dose: 14 mls/hr Loratadine (Claritin) 10 mg PO DAILY [facility] Last Admin: 05/08/18 07:49 Dose: 10 mg Magnesium Hydroxide (Milk Of Magnesia) 30 ml PO DAILY PRN PRN Reason: Constipation Metoprolol Tartrate (Lopressor (Beta Stephen)) 12.5 mg PO BID [facility] Last Admin: 05/08/18 07:48 Dose: Not Given Pantoprazole Sodium (Protonix) 20 mg PO DAILY [facility] Last Admin: 05/08/18 07:49 Dose: 20 mg Quetiapine Fumarate (Seroquel) 50 mg PO BID [facility] Last Admin: 05/08/18 07:49 Dose: 50 mg Warfarin Sodium (Coumadin (Pbkc)) 10 mg PO DAILY@1700 [facility] Medical Necessity - Tobacco Use Smoking Status: Former smoker Assessment/Plan All Active Problems (Last Reviewed 05/07/18 @ 17:19 by Lizeth Dutton MD) Gram-negative pneumonia (Resolved) PARTIAL SBO (Resolved) 78-year-old female with past medical history hyperlipidemia, obesity, GERD, hypertension, schizophrenia, paroxysmal atrial fibrillation prior on Eliquis, chronic CHF followed at [facility], who presented to the emergency department 05/07/2018 with shortness of breath and right-sided pain. She had missed 1 dose of Eliquis prior to admission. Routine blood work was remarkable for BUN 25, creatinine 1.14, GFR 49, EKG normal, troponin normal, BNP normal. CTA chest revealed multiple filling defects within the subsegmental right lung pulmonary arteries consistent with multiple sub-segmental PEs. She was placed on IV heparin bridge to Coumadin anticoagulation. She has done well overnight. She feels a bit puffy and would like to restart her Lasix. She does not feel short of breath and denies pain. music publicist reveals normal sinus rhythm. Today's laboratories reviewed, acceptable/stable, creatinine 0.93 hemoglobin and platelet count stable. Medications prior to admission included metoprolol 12.5 mg twice daily, Eliquis 5 mg twice daily, omeprazole 20 mg daily, atorvastatin gram at bedtime, lisinopril 5 mg daily, Lasix 20 mg daily, Klonopin 1 mg p.o. twice daily, Seroquel 50 mg twice daily, vitamin D2 50,000 unit weekly, loratadine 10 mg daily 1. Acute right lung subsegmental PE. Treating as Eliquis failure. Heparin drip to warfarin bridge. Increase warfarin to 10 mg daily. Continue heparin drip protocol, INR daily. Continue mobilization and IS. PT/OT ordered. Awaiting LE ultrasounds 2. PAF. Continue metoprolol hold heart rate less than 60, continue heparin drip/warfarin protocol; stop drip when INR greater than 2 3. Hypertension Continue furosemide 20 mg daily, metoprolol 12.5 mg twice daily hold heart rate less than 60. Lisinopril held. Can restart prn 4. Hyperlipidemia On statin 5. GERD On PPI 6. Schizophrenia Quetiapine, clonazepam No evidence of QT prolongation 7. DVT prophy - on therapeutic anticoagulation Code Visit Inpatient E&M: 17048 Subs Hosp L2
[2018-05-08] MEDS: Furosemide 20 MG Tablet PO (09:23)
--- NOTE | 2018-05-08 09:27 | PN_ITS ---
Subjective: Patient reports no interval complaints but would like to restart her furosemide Objective: Resting comfortably Vitals/I&O's: Vital Signs Temp Pulse Resp BP Pulse Ox 97.5 F L 56 L 18 130/52 H 97 05/08/18 07:36 05/08/18 07:48 05/08/18 07:36 05/08/18 07:48 05/08/18 07:36 Oxygen Flow Rate (L/min) 2 Oxygen Delivery Method Room Air Weight: 211 lb 6.773 oz Body Mass Index (BMI) 35.2 Intake and Output for Last 24 Hours 05/06/18 05/07/18 05/08/18 23:59 23:59 23:59 Intake Total 618.4 / 618.4 500.3 / 500.3 Output Total 200 / 200 Balance 618.4 / 618.4 300.3 / 300.3 General: Alert, Cooperative, Well developed, Well nourished, - - Obese HEENT: PERRLA Oral: Moist Mucosa Neck: No JVD Lungs: Clear to auscultation Cardiovascular: Regular rate, Regular Rhythm, Normal S1, Normal S2 Abdomen: Soft, Non Tender, Obese Extremities: - - Trace edema Psych/Mental Status: Appropriate Laboratory Results 05/07/18 18:05: PT 14.6, INR 1.1 05/07/18 18:05: APTT 31.9 05/08/18 02:00: PT 14.4, INR 1.1 05/08/18 02:00: APTT 149.0 H* 05/08/18 06:10: Sodium 146 H, Potassium 3.8, Chloride 114 H, Carbon Dioxide 27.0 , Anion Gap 5, BUN 23 H, Creatinine 0.93, Estim Creat Clear Calc 44.86, Est GFR (MDRD) Af Amer 75, Est GFR (MDRD) Non-Af 62, BUN/Creatinine Ratio 24.8 H, Glucose 89, Calcium 8.2 L 05/08/18 06:10: WBC 5.3, RBC 3.80 L, Hgb 10.9 L, Hct 35.5 L, MCV 93.4, MCH 28.7 , MCHC 30.7 L, RDW 15.4 H, RDW Differential 50.3 H, Plt Count 222, MPV 10.1, Immature Gran % (Auto) 0.200, Neut % (Auto) 47.5, Lymph % (Auto) 38.8, [place] % ( Auto) 8.9, Eos % (Auto) 3.8, Baso % (Auto) 0.8, Absolute Neuts (auto) 2.5, Absolute Lymphs (auto) 2.05, Total Counted Not Reportable 05/08/18 08:28: APTT 91.1 H* Current Medications Atorvastatin Calcium (Lipitor) 10 mg PO QHS [facility] Last Admin: 05/07/18 22:50 Dose: 10 mg Clonazepam (Klonopin) 1 mg PO BID [facility] Last Admin: 05/08/18 07:53 Dose: 1 mg Furosemide (Lasix) 20 mg PO DAILY [facility] Heparin Sodium/Dextrose () 25,000 units in 250 mls @ 14 mls/hr IV .[id number] [facility] ; As Directed PRN Reason: Protocol Last Admin: 05/07/18 19:40 Dose: 14 mls/hr Loratadine (Claritin) 10 mg PO DAILY [facility] Last Admin: 05/08/18 07:49 Dose: 10 mg Magnesium Hydroxide (Milk Of Magnesia) 30 ml PO DAILY PRN PRN Reason: Constipation Metoprolol Tartrate (Lopressor (Beta Stephen)) 12.5 mg PO BID [facility] Last Admin: 05/08/18 07:48 Dose: Not Given Pantoprazole Sodium (Protonix) 20 mg PO DAILY [facility] Last Admin: 05/08/18 07:49 Dose: 20 mg Quetiapine Fumarate (Seroquel) 50 mg PO BID [facility] Last Admin: 05/08/18 07:49 Dose: 50 mg Warfarin Sodium (Coumadin (Pbkc)) 10 mg PO DAILY@1700 [facility] Medical Necessity - Tobacco Use Smoking Status: Former smoker Assessment/Plan All Active Problems (Last Reviewed 05/07/18 @ 17:19 by Lizeth Dutton MD) Gram-negative pneumonia (Resolved) PARTIAL SBO (Resolved) 78-year-old female with past medical history hyperlipidemia, obesity, GERD, hypertension, schizophrenia, paroxysmal atrial fibrillation prior on Eliquis, chronic CHF followed at [facility], who presented to the emergency department 05/07/2018 with shortness of breath and right-sided pain. She had missed 1 dose of Eliquis prior to admission. Routine blood work was remarkable for BUN 25, creatinine 1.14, GFR 49, EKG normal, troponin normal, BNP normal. CTA chest revealed multiple filling defects within the subsegmental right lung pulmonary arteries consistent with multiple sub-segmental PEs. She was placed on IV heparin bridge to Coumadin anticoagulation. She has done well overnight. She feels a bit puffy and would like to restart her Lasix. She does not feel short of breath and denies pain. product support sales representative reveals normal sinus rhythm. Today's laboratories reviewed, acceptable/stable, creatinine 0.93 hemoglobin and platelet count stable. Medications prior to admission included metoprolol 12.5 mg twice daily, Eliquis 5 mg twice daily, omeprazole 20 mg daily, atorvastatin gram at bedtime, lisinopril 5 mg daily, Lasix 20 mg daily, Klonopin 1 mg p.o. twice daily, Seroquel 50 mg twice daily, vitamin D2 50,000 unit weekly, loratadine 10 mg daily 1. Acute right lung subsegmental PE. Treating as Eliquis failure. Heparin drip to warfarin bridge. Increase warfarin to 10 mg daily. Continue heparin drip protocol, INR daily. Continue mobilization and IS. PT/OT ordered. Awaiting LE ultrasounds 2. PAF. Continue metoprolol hold heart rate less than 60, continue heparin drip/ warfarin protocol; stop drip when INR greater than 2 3. Hypertension Continue furosemide 20 mg daily, metoprolol 12.5 mg twice daily hold heart rate less than 60. Lisinopril held. Can restart prn 4. Hyperlipidemia On statin 5. GERD On PPI 6. Schizophrenia Quetiapine, clonazepam No evidence of QT prolongation 7. DVT prophy - on therapeutic anticoagulation Code Visit Inpatient E&M: 25733 Subs Hosp L2
--- NOTE | 2018-05-08 11:20 | CASEMGMT ---
TARUN ALTMAN Face to Face with patient for initial transition planning/care coordination assessment. TARUN ALTMAN introduced self and role at [facility]. Patient lying in bed, alert and oriented. Patient willing to participate in assessment and is able to answer all questions appropriately. Care providers, pharmacy, and demographics verified. See link attached. Patient wishes to discharge home with possible HHC, no preference for HHC. Patient receives waiver program and was told by [employer] that she would need to find aide service. SW updated regarding waiver program and request for aide services. Patient states she has no further needs or concerns at this time. CM to follow for discharge planning needs that may arise. Disposition Plan: Patient to discharge with possible HHC, waiver program, family support, and follow-up plans in place. Will monitor for need for home oxygen.
--- NOTE | 2018-05-08 12:59 | CASEMGMT ---
Social Work Case management reporting that patient is requesting for an increase in [employer] services in regards to aides. Telephone call to [email or web address] (patient corrections caseworker) - [phone]. Voicemail left requesting for an increase in services. Social Work to follow as needed. Colleen ALEJANDRA, RESIDENT HALL DIRECTOR
[2018-05-08 15:09] LABS: Partial Thromboplast Time 82.2 Seconds (24.1-36.2)
[2018-05-08] MEDS: HEPARIN/D5w 25,000 UNITS 25,000 UNITS/250 ML IV.SOLN. 14 UNITS IV (16:29)
[2018-05-08] MEDS: Ketoconazole Cream 1 APPLIC TOPICAL (22:24)
[2018-05-08] MEDS: Metoprolol Tartrate 25 MG Tablet 12.5 MG PO (22:24)
[2018-05-08] MEDS: Atorvastatin Calcium 10 MG Tablet PO (22:26)
[2018-05-08 22:33] LABS: Partial Thromboplast Time 62.8 Seconds (24.1-36.2)
[2018-05-09] VITALS (13 sets, daily range): BP systolic 99–140; BP diastolic 47–65; PULSE 57–64; RESP 16–20; TEMP 36.1–36.9; O2SAT 92–98
[2018-05-09 06:51] LABS: Absolute Lymphocyte Count 1.68 X10^3/ul (0.83-4.51); Absolute Neutrophil Count 2.6 X10^3/uL (2.0-7.7); Basophil# 0.02 X10^3/uL; Basophil% 0.4 % (0-1); Hematocrit 35.8 % (37-47); Hemoglobin 11.1 g/dl (12.0-15.0); Lymphocyte # 1.68 X10^3/ul (4.0); Lymphocyte % 33.4 % (19-41); Mean Corpuscular Hgb 28.5 pg (27.0-32.0); Mean Platelet Vol. 9.9 fl (6.2-12.0); Monocyte# 0.51 X10^3/uL; Monocyte% 10.1 % (0-10); Neutrophil # 2.62 X10^3/uL (2.7-7.7); Neutrophil % 52.1 % (47-70); Platelet Count 223 K/mm3 (150-450); RBC Distribution Width CV 15.1 % (11.6-14.6); RBC Distribution Width SD 49.3 fl (35.1-43.9); Red Blood Count 3.89 M/mm3 (4.2-5.4)
[2018-05-09 06:58] LABS: POSITIVE COUNT NO; POSITIVE DIFFERENTIAL NO; POSITIVE MORPHOLOGY NO
[2018-05-09 07:07] LABS: Partial Thromboplast Time 61.9 Seconds (24.1-36.2)
[2018-05-09 07:14] LABS: Anion Gap 7 (5-15); BUN 19 mg/dL (7-18); BUN/Creat Ratio 20.5 RATIO (10-20); Chloride 111 mmol/L (98-107); Creatinine, Serum 0.92 mg/dL (0.55-1.02); EST Glomerular Filtration Rate 62 mL/min (>60); Est Glom Filt Rate - Afr Amer 75 mL/min (>60); Estimated Creatinine Clearance 45.35 ml/min; Glucose 84 mg/dL (74-106); Potassium 3.9 mmol/L (3.5-5.1); Sodium Level 146 mmol/L (136-145)
[2018-05-09] MEDS: QUEtiapine 25 MG Tablet 50 MG PO ×2 (08:31→21:56)
[2018-05-09] MEDS: Pantoprazole Sodium 20 MG Tablet PO (08:31)
[2018-05-09] MEDS: Loratadine 10 MG Tablet PO (08:31)
[2018-05-09] MEDS: Furosemide 20 MG Tablet PO (08:32)
[2018-05-09] MEDS: Ketoconazole Cream 1 APPLIC TOPICAL ×2 (08:33→22:00)
[2018-05-09] MEDS: clonazePAM 1 MG Tablet PO ×2 (08:37→22:02)
--- NOTE | 2018-05-09 08:48 | PCM.PN.HOSP ---
Subjective: Would like Miralax Breathing stable R sided chest pain with interval improvement She has been OOB She is doing IS Objective: Pleasant and well appearing Vitals/I&O's: Vital Signs Temp Pulse Resp BP Pulse Ox 96.9 F L 58 L 18 140/65 H 98 05/09/18 08:30 05/09/18 08:30 05/09/18 08:30 05/09/18 08:30 05/09/18 08:30 Oxygen Flow Rate (L/min) 2 Oxygen Delivery Method Room Air Weight: 211 lb 6.773 oz Body Mass Index (BMI) 35.2 Intake and Output for Last 24 Hours 05/07/18 05/08/18 05/09/18 23:59 23:59 23:59 Intake Total 618.4 / 618.4 1163.3 / 1163.3 85.5 / 85.5 Output Total 400 / 400 600 / 600 Balance 618.4 / 618.4 763.3 / 763.3 -514.5 / -514.5 General: Alert, Oriented x3, Cooperative, No apparent distress Oral: Moist Mucosa Neck: No JVD Lungs: Clear to auscultation, Normal air movement, No wheeze Cardiovascular: Regular rate, Regular Rhythm, Normal S1, Normal S2, - Abdomen: Obese Extremities: Edema Psych/Mental Status: Normal Affect, Appropriate Laboratory Results 05/08/18 08:28: APTT 91.1 H* 05/08/18 14:50: APTT 82.2 H 05/08/18 21:36: APTT 62.8 H 05/09/18 06:15: Sodium 146 H, Potassium 3.9, Chloride 111 H, Carbon Dioxide 28.0, Anion Gap 7, BUN 19 H, Creatinine 0.92, Estim Creat Clear Calc 45.35, Est GFR (MDRD) Af Amer 75, Est GFR (MDRD) Non-Af 62, BUN/Creatinine Ratio 20.5 H, Glucose 84, Calcium 9.0 05/09/18 06:15: WBC 5.0, RBC 3.89 L, Hgb 11.1 L, Hct 35.8 L, MCV 92.0, MCH 28.5, MCHC 31.0 L, RDW 15.1 H, RDW Differential 49.3 H, Plt Count 223, MPV 9.9, Immature Gran % (Auto) 0.000, Neut % (Auto) 52.1, Lymph % (Auto) 33.4, [place] % (Auto) 10.1 H, Eos % (Auto) 4.0, Baso % (Auto) 0.4, Absolute Neuts (auto) 2.6, Absolute Lymphs (auto) 1.68, Total Counted Not Reportable 05/09/18 06:15: APTT 61.9 H Current Medications Acetaminophen (Tylenol) 650 mg PO Q6H PRN PRN PRN Reason: Non-cardiac pain, fever Atorvastatin Calcium (Lipitor) 10 mg PO QHS [facility] Last Admin: 05/08/18 22:26 Dose: 10 mg Clonazepam (Klonopin) 1 mg PO BID [facility] Last Admin: 05/09/18 08:37 Dose: 1 mg Furosemide (Lasix) 20 mg PO DAILY [facility] Last Admin: 05/09/18 08:32 Dose: 10 mg Heparin Sodium/Dextrose () 25,000 units in 250 mls @ 14 mls/hr IV .[id number] [facility]; As Directed PRN Reason: Protocol Last Admin: 05/08/18 16:29 Dose: 14 mls/hr Ketoconazole (Nizoral) 1 applic TOPICAL BID [facility] PRN Reason: Protocol Last Admin: 05/09/18 08:33 Dose: 1 applicatio Loratadine (Claritin) 10 mg PO DAILY [facility] Last Admin: 05/09/18 08:31 Dose: 10 mg Magnesium Hydroxide (Milk Of Magnesia) 30 ml PO DAILY PRN PRN Reason: Constipation Metoprolol Tartrate (Lopressor (Beta Stephen)) 12.5 mg PO BID [facility] Last Admin: 05/09/18 08:31 Dose: Not Given Pantoprazole Sodium (Protonix) 20 mg PO DAILY [facility] Last Admin: 05/09/18 08:31 Dose: 20 mg Quetiapine Fumarate (Seroquel) 50 mg PO BID [facility] Last Admin: 05/09/18 08:31 Dose: 50 mg Warfarin Sodium (Coumadin (Pbkc)) 10 mg PO DAILY@1700 [facility] Last Admin: 05/08/18 16:30 Dose: 10 mg Medical Necessity - Tobacco Use Smoking Status: Former smoker Assessment/Plan All Active Problems (Last Reviewed 05/09/18 @ 08:47 by Irina Wetzel MD) Gram-negative pneumonia (Resolved) PARTIAL SBO (Resolved) 78-year-old female with past medical history hyperlipidemia, obesity, GERD, hypertension, schizophrenia, paroxysmal atrial fibrillation prior on Eliquis, chronic CHF followed at [facility], who presented to the emergency department 05/07/2018 with shortness of breath and right-sided pain. She had missed 1 dose of Eliquis prior to admission. Routine blood work was remarkable for BUN 25, creatinine 1.14, GFR 49, EKG normal, troponin normal, BNP normal. CTA chest revealed multiple filling defects within the subsegmental right lung pulmonary arteries consistent with multiple sub-segmental PEs. She was placed on IV heparin bridge to Coumadin anticoagulation. laboratory monitor reveals normal sinus rhythm. Today's laboratories reviewed, acceptable/stable, creatinine 0.92 hemoglobin and platelet count stable. Medications prior to admission included metoprolol 12.5 mg twice daily, Eliquis 5 mg twice daily, omeprazole 20 mg daily, atorvastatin gram at bedtime, lisinopril 5 mg daily, Lasix 20 mg daily, Klonopin 1 mg p.o. twice daily, Seroquel 50 mg twice daily, vitamin D2 50,000 unit weekly, loratadine 10 mg daily 1. Acute right lung subsegmental PE. Treating as Eliquis failure. Heparin drip to warfarin bridge. Increase warfarin to 10 mg daily. Continue heparin drip protocol, INR daily. Continue mobilization and IS. PT/OT ordered. Awaiting LE ultrasounds RA sats 92 - 98% now off O2 2. PAF. Continue metoprolol hold heart rate less than 60, continue heparin drip/warfarin protocol; stop drip when INR greater than 2 3. Hypertension Home meds were lisinoprl 5 mg daily, Lasix 20 mg daily, metoprolol 12.5 mg BID Continue furosemide 20 mg daily, metoprolol 12.5 mg twice daily hold heart rate less than 60. Home lisinopril held. Can restart prn 4. Hyperlipidemia On statin 5. GERD On PPI 6. Schizophrenia Quetiapine, clonazepam No evidence of QT prolongation 7. constipation Miralax prn 8. DVT prophy - on therapeutic anticoagulation d/c planning PT OT eval ordered Code Visit Inpatient E&M: 43208 Subs Hosp L2
[2018-05-09] MEDS: Acetaminophen 325 MG Tablet 650 MG PO ×2 (08:53→20:02)
--- NOTE | 2018-05-09 08:57 | PN_ITS ---
Subjective: Would like Miralax Breathing stable R sided chest pain with interval improvement She has been OOB She is doing IS Objective: Pleasant and well appearing Vitals/I&O's: Vital Signs Temp Pulse Resp BP Pulse Ox 96.9 F L 58 L 18 140/65 H 98 05/09/18 08:30 05/09/18 08:30 05/09/18 08:30 05/09/18 08:30 05/09/18 08:30 Oxygen Flow Rate (L/min) 2 Oxygen Delivery Method Room Air Weight: 211 lb 6.773 oz Body Mass Index (BMI) 35.2 Intake and Output for Last 24 Hours 05/07/18 05/08/18 05/09/18 23:59 23:59 23:59 Intake Total 618.4 / 618.4 1163.3 / 1163.3 85.5 / 85.5 Output Total 400 / 400 600 / 600 Balance 618.4 / 618.4 763.3 / 763.3 -514.5 / -514.5 General: Alert, Oriented x3, Cooperative, No apparent distress Oral: Moist Mucosa Neck: No JVD Lungs: Clear to auscultation, Normal air movement, No wheeze Cardiovascular: Regular rate, Regular Rhythm, Normal S1, Normal S2, - Abdomen: Obese Extremities: Edema Psych/Mental Status: Normal Affect, Appropriate Laboratory Results 05/08/18 08:28: APTT 91.1 H* 05/08/18 14:50: APTT 82.2 H 05/08/18 21:36: APTT 62.8 H 05/09/18 06:15: Sodium 146 H, Potassium 3.9, Chloride 111 H, Carbon Dioxide 28.0 , Anion Gap 7, BUN 19 H, Creatinine 0.92, Estim Creat Clear Calc 45.35, Est GFR (MDRD) Af Amer 75, Est GFR (MDRD) Non-Af 62, BUN/Creatinine Ratio 20.5 H, Glucose 84, Calcium 9.0 05/09/18 06:15: WBC 5.0, RBC 3.89 L, Hgb 11.1 L, Hct 35.8 L, MCV 92.0, MCH 28.5 , MCHC 31.0 L, RDW 15.1 H, RDW Differential 49.3 H, Plt Count 223, MPV 9.9, Immature Gran % (Auto) 0.000, Neut % (Auto) 52.1, Lymph % (Auto) 33.4, [place] % ( Auto) 10.1 H, Eos % (Auto) 4.0, Baso % (Auto) 0.4, Absolute Neuts (auto) 2.6, Absolute Lymphs (auto) 1.68, Total Counted Not Reportable 05/09/18 06:15: APTT 61.9 H Current Medications Acetaminophen (Tylenol) 650 mg PO Q6H PRN PRN PRN Reason: Non-cardiac pain, fever Atorvastatin Calcium (Lipitor) 10 mg PO QHS [facility] Last Admin: 05/08/18 22:26 Dose: 10 mg Clonazepam (Klonopin) 1 mg PO BID [facility] Last Admin: 05/09/18 08:37 Dose: 1 mg Furosemide (Lasix) 20 mg PO DAILY [facility] Last Admin: 05/09/18 08:32 Dose: 10 mg Heparin Sodium/Dextrose () 25,000 units in 250 mls @ 14 mls/hr IV .[id number] [facility] ; As Directed PRN Reason: Protocol Last Admin: 05/08/18 16:29 Dose: 14 mls/hr Ketoconazole (Nizoral) 1 applic TOPICAL BID [facility] PRN Reason: Protocol Last Admin: 05/09/18 08:33 Dose: 1 applicatio Loratadine (Claritin) 10 mg PO DAILY [facility] Last Admin: 05/09/18 08:31 Dose: 10 mg Magnesium Hydroxide (Milk Of Magnesia) 30 ml PO DAILY PRN PRN Reason: Constipation Metoprolol Tartrate (Lopressor (Beta Stephen)) 12.5 mg PO BID [facility] Last Admin: 05/09/18 08:31 Dose: Not Given Pantoprazole Sodium (Protonix) 20 mg PO DAILY [facility] Last Admin: 05/09/18 08:31 Dose: 20 mg Quetiapine Fumarate (Seroquel) 50 mg PO BID [facility] Last Admin: 05/09/18 08:31 Dose: 50 mg Warfarin Sodium (Coumadin (Pbkc)) 10 mg PO DAILY@1700 [facility] Last Admin: 05/08/18 16:30 Dose: 10 mg Medical Necessity - Tobacco Use Smoking Status: Former smoker Assessment/Plan All Active Problems (Last Reviewed 05/09/18 @ 08:47 by Irina Wetzel MD) Gram-negative pneumonia (Resolved) PARTIAL SBO (Resolved) 78-year-old female with past medical history hyperlipidemia, obesity, GERD, hypertension, schizophrenia, paroxysmal atrial fibrillation prior on Eliquis, chronic CHF followed at [facility], who presented to the emergency department 05/07/2018 with shortness of breath and right-sided pain. She had missed 1 dose of Eliquis prior to admission. Routine blood work was remarkable for BUN 25, creatinine 1.14, GFR 49, EKG normal, troponin normal, BNP normal. CTA chest revealed multiple filling defects within the subsegmental right lung pulmonary arteries consistent with multiple sub-segmental PEs. She was placed on IV heparin bridge to Coumadin anticoagulation. monitoring coordinator reveals normal sinus rhythm. Today's laboratories reviewed, acceptable/stable, creatinine 0.92 hemoglobin and platelet count stable. Medications prior to admission included metoprolol 12.5 mg twice daily, Eliquis 5 mg twice daily, omeprazole 20 mg daily, atorvastatin gram at bedtime, lisinopril 5 mg daily, Lasix 20 mg daily, Klonopin 1 mg p.o. twice daily, Seroquel 50 mg twice daily, vitamin D2 50,000 unit weekly, loratadine 10 mg daily 1. Acute right lung subsegmental PE. Treating as Eliquis failure. Heparin drip to warfarin bridge. Increase warfarin to 10 mg daily. Continue heparin drip protocol, INR daily. Continue mobilization and IS. PT/OT ordered. Awaiting LE ultrasounds RA sats 92 - 98% now off O2 2. PAF. Continue metoprolol hold heart rate less than 60, continue heparin drip/ warfarin protocol; stop drip when INR greater than 2 3. Hypertension Home meds were lisinoprl 5 mg daily, Lasix 20 mg daily, metoprolol 12.5 mg BID Continue furosemide 20 mg daily, metoprolol 12.5 mg twice daily hold heart rate less than 60. Home lisinopril held. Can restart prn 4. Hyperlipidemia On statin 5. GERD On PPI 6. Schizophrenia Quetiapine, clonazepam No evidence of QT prolongation 7. constipation Miralax prn 8. DVT prophy - on therapeutic anticoagulation d/c planning PT OT eval ordered Code Visit Inpatient E&M: 93172 Subs Hosp L2
[2018-05-09 09:30] LABS: Prothrombin Time (Protime)PT. 13.6 SECONDS (11.7-14.9)
[2018-05-09] MEDS: Polyethylene Glycol 3350 17 GM PACKET PO (10:11)
[2018-05-09] MEDS: Metoprolol Tartrate 25 MG Tablet 12.5 MG PO (22:01)
[2018-05-09] MEDS: HEPARIN/D5w 25,000 UNITS 25,000 UNITS/250 ML IV.SOLN. 14 UNITS IV (22:03)
[2018-05-09] MEDS: Atorvastatin Calcium 10 MG Tablet PO (22:09)
[2018-05-10] VITALS (8 sets, daily range): BP systolic 109–139; BP diastolic 57–62; PULSE 53–62; RESP 16–18; TEMP 36.5–37.1; O2SAT 93–98
[2018-05-10 05:26] LABS: Anion Gap 8 (5-15); BUN 23 mg/dL (7-18); BUN/Creat Ratio 23.8 RATIO (10-20); Calcium,Total 8.8 mg/dL (8.5-10.1); Chloride 109 mmol/L (98-107); Creatinine, Serum 0.97 mg/dL (0.55-1.02); EST Glomerular Filtration Rate 59 mL/min (>60); Est Glom Filt Rate - Afr Amer 72 mL/min (>60); Estimated Creatinine Clearance 43.01 ml/min; Glucose 89 mg/dL (74-106); Potassium 4.3 mmol/L (3.5-5.1); Sodium Level 146 mmol/L (136-145)
[2018-05-10 05:55] LABS: International Normalized Ratio 1.3; Prothrombin Time (Protime)PT. 16.1 SECONDS (11.7-14.9)
[2018-05-10 05:57] LABS: Partial Thromboplast Time 70.7 Seconds (24.1-36.2)
--- NOTE | 2018-05-10 07:00 | VDLE_ITS ---
Reason For Study: PE RIGHT LEFT GSV is normal. GSV is normal. CFV is compressible, spontaneous, phasic, CFV is compressible, spontaneous, phasic, competent and demonstrates normal competent, and demonstrates normal augmentation. augmentation. FV is compressible, spontaneous, phasic, FV is compressible, spontaneous, phasic, competent and demonstrates normal competent and demonstrates normal augmentation. augmentation. POP V is compressible, spontaneous, phasic, POP V is compressible, spontaneous, phasic, competent and demonstrates normal competent and demonstrates normal augmentation. augmentation. T/P Trunk is compressible. T/P Trunk is compressible. PTV is compressible. PTV is compressible. RT PerV is compressible. LT PerV is compressible. Procedure Exam performed portable in patient room. A preliminary report was called and/or faxed to [facility]. Interpretation Summary Deep veins of the lower extremities are bilaterally patent and compressible segmentally. There is no evidence of deep vein thrombosis on either side. Valvular competence appears intact within the proximal deep venous systems bilaterally. The greater saphenous veins appear bilaterally patent and compressible segmentally. Ordering Physician: Irina Wetzel Referring Physician: Corey Nicole Chi Performed By: Janina Guerrero RVT
[2018-05-10] MEDS: Loratadine 10 MG Tablet PO (10:08)
[2018-05-10] MEDS: Furosemide 20 MG Tablet PO (10:08)
[2018-05-10] MEDS: Pantoprazole Sodium 20 MG Tablet PO (10:10)
[2018-05-10] MEDS: Ketoconazole Cream 1 APPLIC TOPICAL (10:10)
[2018-05-10] MEDS: QUEtiapine 25 MG Tablet 50 MG PO (10:10)
[2018-05-10] MEDS: Metoprolol Tartrate 25 MG Tablet 12.5 MG PO (10:18)
[2018-05-10] MEDS: Acetaminophen 325 MG Tablet 650 MG PO (10:20)
[2018-05-10] MEDS: clonazePAM 1 MG Tablet PO (10:22)
--- NOTE | 2018-05-10 11:26 | CASEMGMT ---
TARUN CM prescription review. Per [facility] prescription review-2018. Eliquis is covered Tier 2 cost $3.70-8.35. No Prior Auth is required. Saji DIAZN RN ACM
--- NOTE | 2018-05-10 12:18 | DCINST_ITS ---
You will use the following diet at home:: Cardiac Your food should be the consistency of: Regular Your liquids should be the consistency of: Regular/Thin Discharge Activity: Return to Normal Activity Allergies/Adverse Reactions: Allergies benztropine mesylate [From Cogentin] Allergy (Verified 05/07/18 17:27) Itching risperidone [From Risperdal] Allergy (Verified 05/07/18 14:40) Shortness of breath verapamil [Verapamil] Allergy (Verified 05/07/18 14:40) Itching baclofen Adverse Reaction (Verified 05/07/18 14:40) agitation, mean codeine Adverse Reaction (Verified 05/07/18 14:40) Nausea Medications to take at Discharge Atorvastatin Calcium [Lipitor] 10 mg PO QHS 12/04/16 Lisinopril [Zestril] 5 mg PO DAILY 12/04/16 Metoprolol Tartrate [Lopressor (beta juan f)] 12.5 mg PO BID 12/04/16 Omeprazole [Prilosec] 20 mg PO DAILY 12/04/16 Polyethylene Glycol 3350 [Miralax] 17 gm PO DAILY PRN PRN 05/20/17 Furosemide [Lasix] 20 mg PO DAILY 06/09/17 Loratadine 10 mg PO DAILY 10/13/17 Ammonium Lactate [Amlactin] 1 applicatio TP BID 05/07/18 Cholecalciferol (Vitamin D3) [Vitamin D3] 50,000 unit PO QWEEK 05/07/18 Clonazepam [Klonopin] 1 mg PO BID 05/07/18 Ketoconazole 1 applic TP BID 05/07/18 Quetiapine Fumarate [Seroquel] 50 mg PO BID 05/07/18 Apixaban [Eliquis] 5 mg PO BID #28 05/10/18 Apixaban [Eliquis] 10 mg PO BID #26 tab 05/10/18 The following prescriptions were given: Apixaban [Eliquis] 10 mg PO BID #26 tab Primary Care Physician: Corey Nicole Chi, MD [Primary Care Provider] - Please follow up with your Primary Care Physician in: 1-2 weeks Test Results: Test results from this visit will be discussed in further detail at your follow- up appointment, if applicable. Please Follow Up With: Psychiatry - your own When: 1-2 weeks Proposed Discharge Date: 05/10/18
--- NOTE | 2018-05-10 12:18 | PCM.DC.SUM ---
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 Schizophrenia HLD GERD HTN Paroxysmal Afib - Secondary Discharge Diagnosis Chronic Problems (Last Reviewed 05/09/18 @ 08:47 by Irina Wetzel MD) Schizophrenia (Chronic) Hypertension (Chronic) Rotator cuff syndrome of left shoulder (Chronic) Atrial fibrillation (Chronic) GERD (gastroesophageal reflux disease) (Chronic) HLD (hyperlipidemia) (Chronic) Segmental and somatic dysfunction of pelvic region (Chronic) Segmental and somatic dysfunction of thoracic region (Chronic) DDD (degenerative disc disease), lumbar (Chronic) Hospital Course and Treatment Imaging Results: CT/CTA Chest W/WO Contrast IMPRESSION: Pulmonary emboli throughout the right lung. Atherosclerosis. Operations: None Procedures: None Summary of Care Provided: Physical exam on day of discharge: General: Resting comfortably NAD Psych: A/Ox3 normal affect HEENT: PEARRLA AT NC Neck: Supple NT CV: RRR no m/t/r/g/h Resp: CTA Abd: [id number] Soft NT no guarding or rigidity Ext: DP2+= no edema Skin: W/D normal turgor Lymph/Heme: No active bleeding or adenopathy Neuro: CN2-12 intact Hospital course: The patient is a 78 year old F with a hx of PE, paroxysmal Afib, htn, hld, schizophrenia, who presented to the ER with increased SOB worse with light activity, weakness, fatigue, some pain on the right side. A CTA was obtained showing right sided PEs. She initially had reported complaince with eliquis, however later admitted that about April 06 that something had told her she should not be taking it anymore and she had discontinued its use. Initially she was placed on heparin and warfarin bridge therapy. After it was revealed that she had been noncompliant, she was resumed on eliquis. She did not require O2 going forward. She will need to follow up with her PCP. She also inquired about having her schizophrenia medications decreased while here as she felt they were making her too tired. I did not alter these, and advised her instead to follow up sooner with her psychiatrist to see if they need adjusted. She was discharged home in stable condition. She will complete Eliquis 10mg BID for 7 days and then go back to the normal dose of 5 bid. This patient was seen by Lazaro Dias PA-C under the supervision of Dr. Domingo. [] Discharge Diet: Low fat/ Low Cholesterol, 2000 mg Sodium Diet Discharge Activity: Return to Normal Activity Home Medications: Medications to take at Discharge Atorvastatin Calcium [Lipitor] 10 mg PO QHS 12/04/16 Lisinopril [Zestril] 5 mg PO DAILY 12/04/16 Metoprolol Tartrate [Lopressor (beta juan f)] 12.5 mg PO BID 12/04/16 Omeprazole [Prilosec] 20 mg PO DAILY 12/04/16 Polyethylene Glycol 3350 [Miralax] 17 gm PO DAILY PRN PRN 05/20/17 Furosemide [Lasix] 20 mg PO DAILY 06/09/17 Loratadine 10 mg PO DAILY 10/13/17 Ammonium Lactate [Amlactin] 1 applicatio TP BID 05/07/18 Cholecalciferol (Vitamin D3) [Vitamin D3] 50,000 unit PO QWEEK 05/07/18 Clonazepam [Klonopin] 1 mg PO BID 05/07/18 Ketoconazole 1 applic TP BID 05/07/18 Quetiapine Fumarate [Seroquel] 50 mg PO BID 05/07/18 Apixaban [Eliquis] 5 mg PO BID #28 05/10/18 Apixaban [Eliquis] 10 mg PO BID #26 tab 05/10/18 Following Prescrptions Were Given to Patient: Apixaban [Eliquis] 10 mg PO BID #26 tab Primary Care Physician: Corey Nicole Chi, MD [Primary Care Provider] - Please follow up with your Primary Care Physician in: 1-2 weeks Please Follow Up With: Psychiatry - your own When: 1-2 weeks Disposition: Home Minutes spent on discharge:: 35 Patient Condition:: Stable Medical Necessity - Tobacco Use Smoking Status: Former smoker Meaningful Use Info Meaningful Use Diagnoses (Choose all that apply): VTE - VTE Anticoag overlap given w/in hospital stay or rx'd at id?: No Pt receive overlap for 5 days?: No Reason overlap not ordered, prescribed, or given for 5 days: Procedure Not Indicated
[2018-05-10] MEDS: APIXABAN 5 MG TABLET 10 MG PO (12:47)
--- NOTE | 2018-05-10 14:54 | CHAPLAIN ---
Type of Pastoral Visit _x__ Initial Visit ___ Follow-up Visit ___ On-call Visit ___ General Patient Visit ___ Spiritual Assessment ___ Family Conference ___ Bereavement ___ Rapid Response ___ Code Blue ___ Other (describe below) Pastoral Care Referral From _x__ Patient ___ Family ___ Nurse ___ Physician ___ Production Sampler ___ Ceramic Tiler ___ Other (describe below) Sacrament/Intervention _x__ Active listening ___ Anointing ___ Muslim ___ Bereavement ___ Communion ___ Kelly exploration ___ _x__ Life review _x__ Prayer ___ Reconciliation ___ Sacrament of Sick _x__ Supportive presence ___ Wedding ___ Other (describe below) Pastoral Comments
--- NOTE | 2018-05-10 15:07 | CASEMGMT ---
TARUN ALTMAN Note. Referral made to [facility] for PT/OT/Aide on dc. Call to Agency, they will review insurance and notify TARUN ALTMAN if they can accomodate pt. [facility] PH: FX:
--- NOTE | 2018-05-10 16:43 | CASEMGMT ---
TARUN Note: Call to [facility] requesting call back. Call back received. Order for [facility] needs to have physician signature, date and NPI#. Will have physician sign order and refax in am. [facility] can then accept pt and see her on Thu am. Saji RODRIGUEZ RN AC
--- NOTE | 2018-05-10 16:55 | CASEMGMT ---
Social Work Met with pt in room. Pt currently has Waiver Services which include 14 meals a week, a medical alert and pt had previously had a APPLICATIONS PROGRAMMER 6xweek from 9-12. Pt has fired the two companies that she was previously using. Message from Neel casework supervisor states she is attempting to find pt a new home home company. Pt does go to [facility] 2x week. SW suggested pt go more frequently to assist through her day however pt denies stating it wears her out too much to go more. [facility] for OT/PT/Aid to be set up. TARUN FisherCM notified. Pt notified of home health and of conversation with Neel. She is agreeable. Pt does have transportation to return home. [facility] waiver program involved. JUSTYN Poe
--- NOTE | 2018-05-11 11:08 | CASEMGMT ---
TARUN CM Note. Face to Face, signed order for home health faxed to [facility]. Saji RODRIGUEZ RN ACM
--- NOTE | 2018-05-11 15:07 | CASEMGMT ---
RN CM Discharge Phone Call. Home Health is seeing pt this afternoon. Pt has [employer] CM working on aides for home Saji BSN RN ACM
== END 2018-05-10 17:56 | disposition home health service (06) | DRG 176 ==
LOC: ED 15:46 → PCU 17:40
PROVIDERS: Internal Medicine; Admitting Provider Hospitalist; Emergency Provider Emergency Medicine; Family Provider Family Medicine Geriatric Medicine; PCP Family Medicine Geriatric Medicine; Visit Provider Internal Medicine
DX: I26.99 Other pulmonary embolism without acute cor pulmonale (principal); T45.516A Underdosing of anticoagulants, initial encounter; Z91.128 Patient's intentional underdosing of medication regimen for other reason; Y92.9 Unspecified place or not applicable; I13.0 Hypertensive heart and chronic kidney disease with heart failure and stage 1 through stage 4 chronic kidney disease, or unspecified chronic kidney disease; I50.9 Heart failure, unspecified; N18.3 Chronic kidney disease, stage 3 (moderate); I48.0 Paroxysmal atrial fibrillation; K59.00 Constipation, unspecified; E78.5 Hyperlipidemia, unspecified; F20.9 Schizophrenia, unspecified; M19.90 Unspecified osteoarthritis, unspecified site; K21.9 Gastro-esophageal reflux disease without esophagitis; I25.2 Old myocardial infarction; Z79.01 Long term (current) use of anticoagulants; Z79.899 Other long term (current) drug therapy; Z86.718 Personal history of other venous thrombosis and embolism; Z86.73 Personal history of transient ischemic attack (TIA), and cerebral infarction without residual deficits; Z85.42 Personal history of malignant neoplasm of other parts of uterus; Z87.891 Personal history of nicotine dependence
CPT/HCPCS: 36415; 71275; 80048; 83880; 84484; 85025; 85610; 85730; 93005; 93970; 94640; 97110; 97162; 97166; 97535; 99285; J7030; Q9967; A4216

== ENCOUNTER → 2018-05-20 15:14 | Outpatient (CLI) | payer MEDICARE, SELFPAY | PROVIDERS: Family Provider Family Medicine Geriatric Medicine; PCP Family Medicine Geriatric Medicine; Visit Provider Family Medicine Geriatric Medicine | DX: R60.0 Localized edema (principal) | CPT/HCPCS: 93970 ==

== ENCOUNTER 2018-06-06 13:17 | Emergency (ER) | payer MEDICARE, SELFPAY ==
[2018-06-06 13:19] VITALS: BP 145/68; PULSE 60; RESP 22; TEMP 36.6; O2SAT 97; BMI 33.9
--- NOTE | 2018-06-06 13:50 | ED.VISSUMM ---
- ER Visit Summary Date of Service: 06/06/18 Chief Complaint: Abdominal wound History of Present Illness: The patient is a 78 F was recently placed on Eliquis for DVT and PE her grandson who is autistic pulled at her belly and she developed ecchymoses. She is wondering if these are blood clots consistent with her prior blood clots. She wants to know if they are dangerous or not. She has no other injuries. She has no chest pain shortness of breath fever chills or any other symptoms. Physical Examination: Not appear in acute distress. Moist mucous membranes, no obvious facial deformity No C-spine tenderness supple neck. Regular rate and rhythm without any obvious murmurs Clear lungs bilaterally speaking in full sentences without any obvious respiratory distress Abdomen soft and nontender no guarding or rebound. She has tenderness only over to different regions of ecchymoses on the right side of her abdomen. Each is about 5 cm in diameter. Moves all extremities without any difficulty or pain. Skin does not show any other obvious rashes or lesions, no other trauma other than the abdomen.. Alert oriented ?3 with no gross focal deficit Emergency Department Course and Treatment: Patient was reassured, these are abdominal wall ecchymoses and no further treatment is needed. I did educate her about Eliquis and the fact that she will be more prone to bleeding and bruising. Discharge stable condition Impression: Abdominal wall ecchymoses This note was generated with Vpon dictation software. It may contain incorrect words, spelling, and punctuation that were not noted in review of the chart prior to signing ED Disposition - Plan for ED Patient: Disposition: Home or Assisted Living Chief Complaint: Wound Check Instructions: ED Contusion Soft Tissue Referrals: Corey Nicole Chi, MD [Primary Care Provider] - 3-5 Days
[2018-06-06 13:58] VITALS: BP 121/56; PULSE 85; RESP 16; O2SAT 98
== END 2018-06-06 13:58 | disposition home or self-care (01) ==
PROVIDERS: Emergency Provider Emergency Medicine; Family Provider Family Medicine Geriatric Medicine; PCP Family Medicine Geriatric Medicine
DX: S30.1XXA Contusion of abdominal wall, initial encounter (principal); W23.0XXA Caught, crushed, jammed, or pinched between moving objects, initial encounter; Y93.9 Activity, unspecified; Y92.9 Unspecified place or not applicable; Y99.9 Unspecified external cause status; M06.9 Rheumatoid arthritis, unspecified; I10 Essential (primary) hypertension; Z79.01 Long term (current) use of anticoagulants; Z79.899 Other long term (current) drug therapy; Z86.711 Personal history of pulmonary embolism; Z86.718 Personal history of other venous thrombosis and embolism
CPT/HCPCS: 99284

== ENCOUNTER 2018-06-17 16:42 | Emergency (ER) | payer MEDICARE, MEDICAID, SELFPAY ==
[2018-06-17 16:43] VITALS: BP 134/58; PULSE 68; RESP 18; TEMP 36.8; O2SAT 98; BMI 33.9
--- NOTE | 2018-06-17 16:51 | ED.VISSUMM ---
- ER Visit Summary Date of Service: 06/17/18 Chief Complaint: Right leg pain History of Present Illness: The patient is a 78 F who has right leg pain. She is concerned for another DVT. At the beginning of May she was diagnosed with a DVT. She was started on Eliquis area today she noted a hardened area in the proximal medial calf on the right side. She states it was turning méndez. She called 911 and came in. She has been compliant with Eliquis, taking 5 mg twice a day. Denies any shortness of breath. Denies any fevers. Physical Examination: Vital signs reviewed. Right leg exam reveals a small tender area in the right medial proximal thigh. There is a varicose vein there. There is no palpable cord. There is no erythema. No drainage. She has no popliteal pain. There is no leg swelling. No leg erythema Test Results: Ultrasound reveals no evidence of DVT Emergency Department Course and Treatment: Patient will continue her Eliquis will follow up with her PCP. Pain is likely due to a small varicose vein. She will use ice and warm compresses Treatment Plan: [] Disposition: Discharge Impression: Right leg pain This note was generated with [employer] dictation software. It may contain incorrect words, spelling, and punctuation that were not noted in review of the chart prior to signing ED Disposition - Plan for ED Patient: Chief Complaint: Lower Extremity Injury Referrals: Corey Nicole Chi, MD [Primary Care Provider] -
--- NOTE | 2018-06-17 16:54 | US_ITS ---
STUDY: VENOUS DOPPLER ULTRASOUND - RIGHT LOWER EXTREMITY REASON FOR EXAM: Female, 78 years old. Calf pain. TECHNIQUE: Ultrasound evaluation of the deep vein system to include sosa-scale imaging and compression was performed. Sosa-scale imaging and Doppler sonographic evaluation, including duplex spectral analysis and qualitative color flow sonography, was performed. COMPARISON: None. FINDINGS: Common Femoral Vein: Normal compression, spontaneity and augmentation. Normal color Doppler. Common Femoral Vein/Greater Saphenous Junction: Normal compression. Femoral Proximal: Normal compression. Femoral Middle: Normal compression, spontaneity and augmentation. Normal color Doppler. Femoral Distal: Normal compression. Popliteal Vein: Normal compression, spontaneity and augmentation. Normal color Doppler. Visualized calf veins are patent. Door Closer Mechanic reports superficial thrombophlebitis, not clearly demonstrated on the images submitted. US/Venous Duplex Imag/Limited/Uni IMPRESSION: No evidence of DVT. Electronically Signed: Shelli Barakat MD at 17:55 EDT Tel , Service support ,
--- NOTE | 2018-06-17 18:22 | ED.DEP ---
ED Disposition - Plan for ED Patient: Disposition: Home or Assisted Living Chief Complaint: Lower Extremity Injury Instructions: ED Leg Swelling Unilateral Referrals: Corey Nicole Chi, MD [Primary Care Provider] -
== END 2018-06-17 18:33 | disposition home or self-care (01) ==
PROVIDERS: Emergency Provider Emergency Medicine; Family Provider Family Medicine Geriatric Medicine; PCP Family Medicine Geriatric Medicine
DX: M79.604 Pain in right leg (principal); I83.91 Asymptomatic varicose veins of right lower extremity; I48.91 Unspecified atrial fibrillation; I10 Essential (primary) hypertension; K21.9 Gastro-esophageal reflux disease without esophagitis; Z79.01 Long term (current) use of anticoagulants; Z79.899 Other long term (current) drug therapy; Z86.711 Personal history of pulmonary embolism; Z86.718 Personal history of other venous thrombosis and embolism
CPT/HCPCS: 93971; 99284

== ENCOUNTER → 2018-07-14 10:40 | Outpatient (CLI) | payer MEDICARE, MEDICAID, SELFPAY ==
[2018-07-14 12:44] LABS: Absolute Lymphocyte Count 1.71 X10^3/ul (0.83-4.51); Basophil# 0.03 X10^3/uL; Basophil% 0.5 % (0-1); Eosinophil# 0.19 X10^3/uL; Eosinophils% 2.9 % (0-5); Hematocrit 37.8 % (37-47); Lymphocyte # 1.71 X10^3/ul (4.0); Lymphocyte % 26.3 % (19-41); Mean Corp Hgb Conc 31.7 g/gl (32-36); Mean Corpuscular Hgb 28.5 pg (27.0-32.0); Mean Corpuscular Volume 89.8 fL (81-99); Mean Platelet Vol. 10.8 fl (6.2-12.0); Monocyte# 0.56 X10^3/uL; Monocyte% 8.6 % (0-10); Neutrophil % 61.5 % (47-70); Platelet Count 261 K/mm3 (150-450); RBC Distribution Width CV 14.9 % (11.6-14.6); RBC Distribution Width SD 49.3 fl (35.1-43.9); Red Blood Count 4.21 M/mm3 (4.2-5.4); White Blood Count 6.5 K/mm3 (4.4-11.0)
[2018-07-14 12:50] LABS: POSITIVE COUNT NO; POSITIVE DIFFERENTIAL NO; POSITIVE MORPHOLOGY NO
[2018-07-14 13:00] LABS: Vitamin D,25 Hydroxy 33.1 ng/mL (29.95-100.01)
[2018-07-14 13:16] LABS: ALB/GLOB Ratio 0.8 RATIO (0.9-2.4); AST(SGOT) 11 U/L (15-37); Alanine Aminotransfer ALT/SGPT 14 U/L (13-56); Albumin, Serum 3.1 g/dL (3.2-5.0); Alkaline Phosphatase 137 U/L (45-117); Anion Gap 8 (5-15); BUN 31 mg/dL (7-18); BUN/Creat Ratio 25.4 RATIO (10-20); Calcium,Total 8.8 mg/dL (8.5-10.1); Chloride 107 mmol/L (98-107); Creatinine, Serum 1.22 mg/dL (0.55-1.02); EST Glomerular Filtration Rate 45 mL/min (>60); Est Glom Filt Rate - Afr Amer 55 mL/min (>60); Globulin 3.7 g/dL (2.2-4.2); Glucose 92 mg/dL (74-106); Potassium 3.3 mmol/L (3.5-5.1); Protein, Total 6.8 g/dL (6.4-8.2); Sodium Level 142 mmol/L (136-145); Thyroid Stim Hormone (TSH) 2.35 uIU/mL (0.358-3.74)
== END ==
PROVIDERS: Family Provider Family Medicine Geriatric Medicine; PCP Family Medicine Geriatric Medicine; Visit Provider Family Medicine Geriatric Medicine
DX: R53.83 Other fatigue (principal); E55.9 Vitamin D deficiency, unspecified
CPT/HCPCS: 36415; 80053; 82306; 84443; 85025

== ENCOUNTER → 2018-12-15 11:15 | Outpatient (CLI) | payer MEDICARE, SELFPAY ==
[2018-12-15 12:44] LABS: Absolute Lymphocyte Count 1.63 X10^3/ul (0.83-4.51); Absolute Neutrophil Count 6.9 X10^3/uL (2.0-7.7); Basophil# 0.01 X10^3/uL; Basophil% 0.1 % (0-1); Hematocrit 41.1 % (37-47); Hemoglobin 12.8 g/dl (12.0-15.0); Lymphocyte # 1.63 X10^3/ul (4.0); Lymphocyte % 17.8 % (19-41); Mean Corp Hgb Conc 31.1 g/gl (32-36); Mean Corpuscular Hgb 27.9 pg (27.0-32.0); Mean Corpuscular Volume 89.5 fL (81-99); Mean Platelet Vol. 11.2 fl (6.2-12.0); Monocyte# 0.55 X10^3/uL; Neutrophil # 6.94 X10^3/uL (2.7-7.7); Platelet Count 202 K/mm3 (150-450); RBC Distribution Width CV 16.3 % (11.6-14.6); RBC Distribution Width SD 53.7 fl (35.1-43.9); Red Blood Count 4.59 M/mm3 (4.2-5.4); White Blood Count 9.1 K/mm3 (4.4-11.0)
[2018-12-15 12:47] LABS: POSITIVE COUNT NO; POSITIVE DIFFERENTIAL NO; POSITIVE MORPHOLOGY NO
[2018-12-15 13:06] LABS: Vitamin D,25 Hydroxy 21.2 ng/mL (29.95-100.01)
[2018-12-15 13:11] LABS: ALB/GLOB Ratio 0.8 RATIO (0.9-2.4); AST(SGOT) 28 U/L (15-37); Alanine Aminotransfer ALT/SGPT 16 U/L (13-56); Albumin, Serum 3.2 g/dL (3.2-5.0); Alkaline Phosphatase 94 U/L (45-117); Anion Gap 11 (5-15); BUN 43 mg/dL (7-18); BUN/Creat Ratio 14.9 RATIO (10-20); Calcium,Total 8.3 mg/dL (8.5-10.1); Chloride 103 mmol/L (98-107); Creatinine, Serum 2.89 mg/dL (0.55-1.02); EST Glomerular Filtration Rate 17 mL/min (>60); Est Glom Filt Rate - Afr Amer 20 mL/min (>60); Globulin 3.8 g/dL (2.2-4.2); Glucose 106 mg/dL (74-106); Potassium 3.5 mmol/L (3.5-5.1); Sodium Level 137 mmol/L (136-145); Thyroid Stim Hormone (TSH) 1.02 uIU/mL (0.358-3.74)
== END ==
LOC: POLAB3 11:33 → PSN 12:25
PROVIDERS: Family Provider Family Medicine Geriatric Medicine; PCP Family Medicine Geriatric Medicine; Referring Provider Family Medicine Geriatric Medicine; Visit Provider Family Medicine Geriatric Medicine
DX: R50.9 Fever, unspecified (principal); E55.9 Vitamin D deficiency, unspecified; R53.83 Other fatigue
CPT/HCPCS: 36415; 80053; 82306; 84443; 85025; 87633

== ENCOUNTER → 2018-12-23 12:28 | Outpatient (CLI) | payer MEDICARE, SELFPAY ==
--- NOTE | 2018-12-23 12:31 | RAD_ITS ---
STUDY: X-RAY CHEST REASON FOR EXAM: Female, 78 years old. Flulike symptoms x2 weeks TECHNIQUE: PA and lateral views of the chest. COMPARISON: 02/20/2017 FINDINGS: There are interstitial fibrotic changes of the lungs. There is no demonstrated pleural abnormality. Normal size heart. Normal mediastinum and or[place]. Normal visualized pulmonary arteries. There is atherosclerotic calcification of the aortic arch with tortuosity. There are diffuse degenerative changes of the visualized thoracic spine. There is degenerative osteoarthritis of the bilateral shoulders. There is no demonstrated abnormality of the visualized soft tissue structures of the upper abdomen. RAD/Chest PA and Lateral IMPRESSION: No acute pulmonary process Electronically Signed: Cooper Vivas MD at 18:19 EDT , Service support ,
[2018-12-23 14:34] LABS: Anion Gap 7 (5-15); BUN 16 mg/dL (7-18); BUN/Creat Ratio 13.9 RATIO (10-20); Calcium,Total 7.9 mg/dL (8.5-10.1); Chloride 115 mmol/L (98-107); Creatinine, Serum 1.15 mg/dL (0.55-1.02); EST Glomerular Filtration Rate 48 mL/min (>60); Est Glom Filt Rate - Afr Amer 59 mL/min (>60); Glucose 98 mg/dL (74-106); Potassium 3.7 mmol/L (3.5-5.1); Sodium Level 146 mmol/L (136-145)
== END ==
PROVIDERS: Family Provider Family Medicine Geriatric Medicine; PCP Family Medicine Geriatric Medicine; Referring Provider Family Medicine Geriatric Medicine; Visit Provider Family Medicine Geriatric Medicine
DX: R06.89 Other abnormalities of breathing (principal); N17.9 Acute kidney failure, unspecified
CPT/HCPCS: 36415; 71046; 80048

== ENCOUNTER 2019-01-18 16:08 | Emergency (ER) | payer MEDICARE, SELFPAY ==
[2019-01-18 16:09] VITALS: BP 128/86; PULSE 69; RESP 20; TEMP 36.6; O2SAT 96; BMI 32.3
--- NOTE | 2019-01-18 16:47 | ED.DCSUM_ITS ---
- ER Visit Summary Date of Service: 01/18/19 Chief Complaint: Nausea, vomiting, diarrhea History of Present Illness: The patient is a 78 F with GI illness for the past 3 days. She states she had similar illness recently with the flu but has been feeling better. She does describe some lower abdominal pain. She had subjective fever at home but states it only measured 99. She denies dysuria. She states she has been able to keep her medications down. Physical Examination: Vital signs are unremarkable. Patient lying in bed no acute distress. She is nontoxic appearing. Head neck examination is unremarkable. Heart is regular rate and rhythm. Lung sounds are clear. Abdomen is soft with mild diffuse tenderness, worse in the lower abdomen. No guarding or rebound. Hypoactive bowel sounds are present throughout. Test Results: CBC is unremarkable. Chemistry studies reveal BUN of 29 and creatinine 1.36. LFTs and lipase are normal. Urinalysis shows 10-25 white cells but no bacteria. Emergency Department Course and Treatment: Patient was given IV fluids and Zofran. On repeat evaluation she feels significantly improved. She is able to tolerate p.o. We discussed possibility of cystitis and she does have pain in that area. She will be covered with 5 days of Macrobid and sent home with Zofran. Treatment Plan: [] Disposition: Discharge Impression: 1. Vomiting, improved 2. Cystitis This note was generated with [employer] dictation software. It may contain incorrect words, spelling, and punctuation that were not noted in review of the chart prior to signing ED Disposition - Plan for ED Patient: Referrals: Corey Nicole Chi, MD [Primary Care Provider] -
[2019-01-18] MEDS: Ondansetron 4 MG/2 ML Vial IV (17:19)
[2019-01-18 17:37] LABS: Absolute Lymphocyte Count 2.22 X10^3/ul (0.83-4.51); Absolute Neutrophil Count 4.4 X10^3/uL (2.0-7.7); Basophil# 0.05 X10^3/uL; Basophil% 0.7 % (0-1); Eosinophil# 0.15 X10^3/uL; Hematocrit 43.2 % (37-47); Hemoglobin 13.7 g/dl (12.0-15.0); Lymphocyte # 2.22 X10^3/ul (4.0); Lymphocyte % 30.2 % (19-41); Mean Corp Hgb Conc 31.7 g/gl (32-36); Mean Corpuscular Hgb 27.8 pg (27.0-32.0); Mean Corpuscular Volume 87.6 fL (81-99); Mean Platelet Vol. 10.3 fl (6.2-12.0); Monocyte# 0.56 X10^3/uL; Monocyte% 7.6 % (0-10); Neutrophil # 4.35 X10^3/uL (2.7-7.7); Neutrophil % 59.2 % (47-70); Platelet Count 261 K/mm3 (150-450); RBC Distribution Width CV 16.7 % (11.6-14.6); RBC Distribution Width SD 53.1 fl (35.1-43.9); Red Blood Count 4.93 M/mm3 (4.2-5.4); White Blood Count 7.4 K/mm3 (4.4-11.0)
[2019-01-18 17:49] LABS: AST(SGOT) 11 U/L (15-37); Alanine Aminotransfer ALT/SGPT 14 U/L (13-56); Albumin, Serum 3.3 g/dL (3.2-5.0); Alkaline Phosphatase 125 U/L (45-117); Anion Gap 6 (5-15); BUN 29 mg/dL (7-18); BUN/Creat Ratio 21.3 RATIO (10-20); Calcium,Total 8.9 mg/dL (8.5-10.1); Chloride 114 mmol/L (98-107); Creatinine, Serum 1.36 mg/dL (0.55-1.02); EST Glomerular Filtration Rate 40 mL/min (>60); Est Glom Filt Rate - Afr Amer 48 mL/min (>60); Estimated Creatinine Clearance 30.68 ml/min; Globulin 3.8 g/dL (2.2-4.2); Glucose 109 mg/dL (74-106); Lipase 80 U/L (73-393); Protein, Total 7.1 g/dL (6.4-8.2); Sodium Level 144 mmol/L (136-145)
[2019-01-18 17:58] LABS: POSITIVE COUNT NO; POSITIVE DIFFERENTIAL NO; POSITIVE MORPHOLOGY NO
[2019-01-18] MEDS: 0.9% Normal Saline 1,000 ML 150 ML IV (18:08)
[2019-01-18 18:20] LABS: Bacteria 0 SEEN /hpf (None Seen); Red Blood Cells-Urine 0 SEEN /hpf (0-5)
[2019-01-18 18:25] LABS: Color, Urine Yellow (Yellow); Glucose, Dipstick Normal (Normal); Ketone-Dipstick 5 mg/dl (Negative); Leukocyte Esterase-Dipstick 100 /ul (Negative); Nitrite-Dipstick Negative (Negative); Occult Blood-Urine 10 /ul (Negative); Protein-Dipstick 30 mg/dl (Negative); Specific Gravity, Urine 1.025 (1.002-1.030); Urine Bilirubin Dipstick 1 mg/dL (Negative); Urine Clarity Sl. Cloudy (Clear); Urine Urobilinogen 1 mg/dl (Normal)
[2019-01-18 18:33] LABS: Calcium Oxalate Crystals Ur 1+ /hpf (<or=2+); Hyaline Cast 0-5 SEEN /lpf (0-5); Mucous, Urine RARE /hpf (<or=2+); Squamous Epithelial Cells - UA 0-5 SEEN /hpf (5-10); White Blood Cells 10-25 SEEN /hpf (0-5)
[2019-01-18 19:00] VITALS: BP 116/46; PULSE 63; RESP 16; O2SAT 97
--- NOTE | 2019-01-18 19:15 | ED.DEP ---
ED Disposition - Plan for ED Patient: Disposition: Home or Assisted Living Instructions: ED Diet Vomiting Diarrhea, ED UTI Cystitis Female Prescriptions: Ondansetron [Zofran Odt] 4 mg PO Q8H PRN PRN #10 tablet PRN Reason: Nausea Nitrofurantoin Macrocrystals [Macrobid] 100 mg PO Q12 #10 capsule Referrals: Corey Nicole Chi, MD [Primary Care Provider] - 5-7 Days
[2019-01-18 19:21] VITALS: BP 116/46; PULSE 60; RESP 16; O2SAT 96
[2019-01-18] MEDS: Nitrofurantoin Macrocrystals 100 MG Capsule PO (19:22)
== END 2019-01-18 19:31 | disposition home or self-care (01) ==
PROVIDERS: Emergency Provider Emergency Medicine; Family Provider Family Medicine Geriatric Medicine; PCP Family Medicine Geriatric Medicine
DX: R11.2 Nausea with vomiting, unspecified (principal); N30.00 Acute cystitis without hematuria; I10 Essential (primary) hypertension; K21.9 Gastro-esophageal reflux disease without esophagitis; F20.9 Schizophrenia, unspecified; I48.91 Unspecified atrial fibrillation; Z86.711 Personal history of pulmonary embolism; Z79.01 Long term (current) use of anticoagulants; Z79.899 Other long term (current) drug therapy
CPT/HCPCS: 80048; 80076; 81001; 83690; 85025; 96361; 96374; 99283; J7030; J7040; J2405

== ENCOUNTER → 2019-02-02 16:18 | Outpatient (CLI) | payer MEDICARE, SELFPAY ==
[2019-01-18 16:09] VITALS: BMI 32.3
--- NOTE | 2019-02-02 16:22 | RAD_ITS ---
STUDY: X-RAY - ABDOMEN/PELVIS REASON FOR EXAM: Female, 78 years old. Abdominal pain TECHNIQUE: AP supine and upright views of the abdomen and pelvis. COMPARISON: June 05, 2017. FINDINGS: Normal visualized lung bases. There is an unremarkable bowel gas pattern. There is no demonstrated free abdominal air. The visualized liver, spleen and kidneys are grossly normal in size and morphology. There are atherosclerotic calcifications. There are surgical clips in the right upper quadrant of the abdomen. There is degenerative change of the spine with levoscoliosis. RAD/Abd Inc Decub and/or Erect IMPRESSION: No obstruction. Electronically Signed: Noé Fox MD at 17:21 EDT , Service support ,
== END ==
PROVIDERS: Family Provider Family Medicine Geriatric Medicine; PCP Family Medicine Geriatric Medicine; Referring Provider Family Medicine Geriatric Medicine; Visit Provider Family Medicine Geriatric Medicine
DX: R10.9 Unspecified abdominal pain (principal)
CPT/HCPCS: 74019

== ENCOUNTER → 2019-03-29 14:17 | Outpatient (CLI) | payer MEDICARE, SELFPAY ==
[2019-03-29 17:25] LABS: Absolute Lymphocyte Count 2.64 X10^3/ul (0.83-4.51); Absolute Neutrophil Count 3.4 X10^3/uL (2.0-7.7); Basophil# 0.05 X10^3/uL; Basophil% 0.8 % (0-1); Eosinophil# 0.15 X10^3/uL; Eosinophils% 2.3 % (0-5); Hematocrit 42.1 % (37-47); Hemoglobin 13.1 g/dl (12.0-15.0); Lymphocyte # 2.64 X10^3/ul (4.0); Mean Corp Hgb Conc 31.1 g/gl (32-36); Mean Corpuscular Hgb 27.7 pg (27.0-32.0); Mean Platelet Vol. 10.3 fl (6.2-12.0); Monocyte% 6.1 % (0-10); Neutrophil # 3.35 X10^3/uL (2.7-7.7); Neutrophil % 50.6 % (47-70); Platelet Count 289 K/mm3 (150-450); RBC Distribution Width CV 15.8 % (11.6-14.6); RBC Distribution Width SD 51.7 fl (35.1-43.9); Red Blood Count 4.73 M/mm3 (4.2-5.4); White Blood Count 6.6 K/mm3 (4.4-11.0)
[2019-03-29 17:32] LABS: POSITIVE COUNT NO; POSITIVE DIFFERENTIAL NO; POSITIVE MORPHOLOGY NO
[2019-03-29 17:53] LABS: Vitamin D,25 Hydroxy 20.1 ng/mL (29.95-100.01)
[2019-03-29 18:06] LABS: ALB/GLOB Ratio 0.9 RATIO (0.9-2.4); AST(SGOT) 16 U/L (15-37); Alanine Aminotransfer ALT/SGPT 18 U/L (13-56); Albumin, Serum 3.4 g/dL (3.2-5.0); Alkaline Phosphatase 126 U/L (45-117); Anion Gap 11 (5-15); BUN 34 mg/dL (7-18); BUN/Creat Ratio 26.8 RATIO (10-20); Calcium,Total 9.1 mg/dL (8.5-10.1); Chloride 105 mmol/L (98-107); Creatinine, Serum 1.27 mg/dL (0.55-1.02); EST Glomerular Filtration Rate 43 mL/min (>60); Est Glom Filt Rate - Afr Amer 52 mL/min (>60); Globulin 3.7 g/dL (2.2-4.2); Glucose 89 mg/dL (74-106); Potassium 3.9 mmol/L (3.5-5.1); Protein, Total 7.1 g/dL (6.4-8.2); Sodium Level 143 mmol/L (136-145); Thyroid Stim Hormone (TSH) 2.27 uIU/mL (0.358-3.74)
== END ==
PROVIDERS: PCP Family Medicine Geriatric Medicine; Visit Provider Family Medicine Geriatric Medicine
DX: E55.9 Vitamin D deficiency, unspecified (principal); R53.83 Other fatigue
CPT/HCPCS: 36415; 80053; 82306; 84443; 85025

== ENCOUNTER 2019-07-12 14:25 | Emergency (ER) | payer MEDICARE, SELFPAY ==
[2019-07-12 14:27] VITALS: BP 174/70; PULSE 54; RESP 18; TEMP 36.6; O2SAT 92; BMI 33.3
--- NOTE | 2019-07-12 14:47 | EKG12_ITS ---
Test Reason : MENTAL HEALTH Blood Pressure : / mmHG Vent. Rate : 045 BPM Atrial Rate : 045 BPM P-R Int : 202 ms QRS Dur : 098 ms QT Int : 452 ms P-R-T Axes : 033 001 047 degrees QTc Int : 390 ms Sinus bradycardia Moderate voltage criteria for LVH, may be normal variant Borderline ECG Confirmed by PROSPER PATEL ([id number]), newspaper photo editor BRAD BRIDGES ([id number]) on 07/18/2019 3:45:34 PM Referred By: NOHEMI Confirmed By:PROSPER PATEL
--- NOTE | 2019-07-12 14:50 | RAD_ITS ---
STUDY: X-RAY CHEST REASON FOR EXAM: Female, 79 years old. Cyanosis TECHNIQUE: Single AP portable view of the chest. COMPARISON: 12/23/2018 FINDINGS: The lungs are clear and expanded. There is no demonstrated pleural abnormality. Normal size heart. Normal mediastinum and [place]. Normal visualized pulmonary arteries. There is atherosclerotic calcification of the aortic arch with tortuosity. Normal visualized thoracic spine. Normal visualized ribs, clavicles, and shoulders. There is no demonstrated abnormality of the visualized soft tissue structures of the upper abdomen. RAD/Chest 1 View (Portable) IMPRESSION: No acute findings Electronically Signed: Luis Krause DO at 15:14 EDT Tel , Service support ,
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
[2019-07-12 15:15] LABS: Absolute Neutrophil Count 3.6 X10^3/uL (2.0-7.7); Basophil# 0.05 X10^3/uL; Basophil% 0.8 % (0-1); Eosinophil# 0.23 X10^3/uL; Eosinophils% 3.6 % (0-5); Hematocrit 42.5 % (37-47); Hemoglobin 13.2 g/dL (12.0-15.0); Lymphocyte % 31.2 % (19-41); Mean Corp Hgb Conc 31.1 g/dL (32-36); Mean Corpuscular Volume 90.2 fL (81-99); Mean Platelet Vol. 10.1 fl (6.2-12.0); Monocyte# 0.52 X10^3/uL; Monocyte% 8.1 % (0-10); NRBC Flagged by Analyzer 0 % (0-5); Neutrophil # 3.59 X10^3/uL (2.7-7.7); Neutrophil % 55.8 % (47-70); Platelet Count 249 K/mm3 (150-450); RBC Distribution Width CV 14.6 % (11.6-14.6); RBC Distribution Width SD 47.8 fl (35.1-43.9); Red Blood Count 4.71 M/mm3 (4.2-5.4); White Blood Count 6.4 K/mm3 (4.4-11.0)
[2019-07-12 15:22] LABS: Bacteria 0 SEEN /hpf (None Seen); Mucous, Urine 0 SEEN /hpf (<or=2+); Squamous Epithelial Cells - UA 0 SEEN /hpf (5-10); White Blood Cells 0 SEEN /hpf (0-5)
--- NOTE | 2019-07-12 15:36 | ED.RN ---
PT VERBALLY AGGRESSIVE AND RUDE TO STAFF.
[2019-07-12 15:38] LABS: Color, Urine Yellow (Yellow); Glucose, Dipstick Normal (Normal); Ketone-Dipstick Negative (Negative); Leukocyte Esterase-Dipstick Negative /ul (Negative); Nitrite-Dipstick Negative (Negative); Occult Blood-Urine 150 /ul (Negative); Protein-Dipstick Negative (Negative); Urine Bilirubin Dipstick Negative (Negative); Urine Clarity Clear (Clear); Urine Urobilinogen Normal (Normal)
[2019-07-12 15:49] LABS: ALB/GLOB Ratio 0.9 RATIO (0.9-2.4); AST(SGOT) 9 U/L (15-37); Alanine Aminotransfer ALT/SGPT 12 U/L (13-56); Albumin, Serum 3.6 g/dL (3.2-5.0); Alkaline Phosphatase 137 U/L (45-117); Anion Gap 4 (5-15); BUN 29 mg/dL (7-18); BUN/Creat Ratio 25.4 RATIO (10-20); Calcium,Total 9.5 mg/dL (8.5-10.1); Chloride 108 mmol/L (98-107); Creatinine, Serum 1.14 mg/dL (0.55-1.02); EST Glomerular Filtration Rate 49 mL/min (>60); Est Glom Filt Rate - Afr Amer 59 mL/min (>60); Estimated Creatinine Clearance 36.01 ml/min; Globulin 3.9 g/dL (2.2-4.2); Glucose 93 mg/dL (74-106); Potassium 3.8 mmol/L (3.5-5.1); Protein, Total 7.5 g/dL (6.4-8.2); Sodium Level 142 mmol/L (136-145)
[2019-07-12 15:55] LABS: Red Blood Cells-Urine 0-5 SEEN /hpf (0-5)
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
[2019-07-12 17:02] LABS: Amphetamine Urine VISTA NEGATIVE (<1000 ng/mL); Barbiturate Urine VISTA NEGATIVE (< 200 ng/mL); Benzodiazepine Urine VISTA NEGATIVE (< 200 ng/mL); Cocaine Urine VISTA NEGATIVE (< 300 ng/mL); Ecstacy Urine VISTA NEGATIVE (< 500 ng/mL); Methadone Urine VISTA NEGATIVE (< 300 ng/mL); PCP Urine VISTA NEGATIVE (< 25 ng/mL); THC Urine VISTA NEGATIVE (< 50 ng/mL); Vista UDS pH Range 5
[2019-07-12 17:13] VITALS: BP 168/74; PULSE 87; RESP 16; O2SAT 99
== END 2019-07-12 17:16 | disposition home or self-care (01) ==
PROVIDERS: Emergency Provider Emergency Medicine; Family Provider Family Medicine Geriatric Medicine; PCP Family Medicine Geriatric Medicine
DX: F20.0 Paranoid schizophrenia (principal); I73.89 Other specified peripheral vascular diseases; Z91.14 Patient's other noncompliance with medication regimen; I48.20 Chronic atrial fibrillation, unspecified; I10 Essential (primary) hypertension; M99.05 Segmental and somatic dysfunction of pelvic region; E78.5 Hyperlipidemia, unspecified; K21.9 Gastro-esophageal reflux disease without esophagitis; Z79.01 Long term (current) use of anticoagulants; Z79.899 Other long term (current) drug therapy; Z88.8 Allergy status to other drugs, medicaments and biological substances; Z88.5 Allergy status to narcotic agent; Z90.710 Acquired absence of both cervix and uterus; Z90.49 Acquired absence of other specified parts of digestive tract
CPT/HCPCS: 71045; 80053; 80307; 80320; 81001; 85025; 93005; 99285; P9612; A4216; G0480

== ENCOUNTER 2019-07-12 19:59 | Observation (INO) | payer MEDICARE, MEDICAID, SELFPAY ==
[2019-07-12] VITALS (7 sets, daily range): BP systolic 84–151; BP diastolic 42–82; PULSE 56–68; RESP 16–24; TEMP 36.6–36.9; O2SAT 94–100; BMI 33.3; BMI 33.1
--- NOTE | 2019-07-12 20:24 | RAD_ITS ---
STUDY: X-RAY - LEFT KNEE REASON FOR EXAM: Female, 79 years old. Pain for TECHNIQUE: 4 view(s) of the knee. COMPARISON: None. FINDINGS: There is demineralization of the visualized distal femur. There is demineralization of the tibia and fibula. Normal proximal tibiofibular articulation. There is mild degenerative arthrosis of the medial femorotibial compartment. There is moderate degenerative arthrosis of the lateral femorotibial compartment with moderate joint space narrowing. There is moderate degenerative arthrosis of the patellofemoral articulation. The soft tissue structures are unremarkable. RAD/Knee 4 or More Views IMPRESSION: Moderate arthrosis. Bony osteopenia. No visualized fracture. Electronically Signed: Adelita Richards MD at 21:52 EDT Tel , Service support ,
--- NOTE | 2019-07-12 20:24 | CT_ITS ---
STUDY: CT CERVICAL SPINE WITHOUT CONTRAST REASON FOR EXAM: Female, 79 years old. Syncopal episode RADIATION DOSAGE (If Supplied By Facility): CTDIvol = ( 26.31 ) mGy, DLP = ( 517.32 ) mGycm TECHNIQUE: High resolution transaxial imaging was performed without contrast material. Sagittal and coronal images were reconstructed. Individualized dose optimization techniques were used for this CT. COMPARISON: None FINDINGS: Normal craniovertebral junction. There are degenerative changes of the anterior atlantoaxial articulation. Normal odontoid process. Normal cervical lordosis. Is multilevel spondylosis both anteriorly and posteriorly. There is multilevel disc space narrowing. C2-3: There is disc space narrowing spondylosis without neural foramina narrowing or central stenosis there is facet arthropathy. C3-4: There is disc space narrowing spondylosis. There is central disc osteophyte protrusion with minimal effacement of the anterior thecal sac. There is facet arthropathy mild bilateral neural foramina narrowing. C4-5: There is disc space narrowing and anterior posterior spondylosis broad disc osteophyte and central osteophyte minimal neural foramina narrowing. Minimal central stenosis. There is facet arthropathy. C5-6: There is disc space narrowing and broad disc osteophyte minimal neural foramina narrowing is significant central stenosis. C6-7: There is disc space narrowing spondylosis broad disc osteophyte mild to moderate neural foramina narrowing no significant central stenosis. There is facet arthropathy. C7-T1: There is spondylosis.. Normal disc height and morphology. Normal central canal and intervertebral neuroforamina. The visualized atherosclerotic disease of the aortic arch and the take off of the subclavian and innominate arteries. There is calcification of the visualized bilateral carotid arteries which may be hemodynamically significant CT image #[address]/Spine Cervical without Contras IMPRESSION: Degenerative change no visualized evidence of an acute fracture. Dense atherosclerotic disease of the carotid arteries which may be hemodynamically significant. Electronically Signed: Adelita Richards MD at 22:19 EDT Tel , Service support ,
--- NOTE | 2019-07-12 20:24 | CT_ITS ---
STUDY: CT BRAIN WITHOUT CONTRAST REASON FOR EXAM: Female, 79 years old. RADIATION DOSAGE (If Supplied By Facility): CTDIvol = ( 44.99 ) mGy, DLP = ( 880.47 ) mGycm TECHNIQUE: Transaxial CT imaging of the brain was performed without administration of intravenous contrast material. Individualized dose optimization techniques were used for this CT. COMPARISON: Unremarkable episode FINDINGS: Normal soft tissue structures. Normal calvarium. There is calcification of the cavernous carotid arteries and vertebral arteries. There is mild cerebral atrophy with widening of the extra-axial spaces and ventricular dilatation. There are areas of decreased attenuation within the white matter tracts of the supratentorial brain, consistent with microvascular disease changes. Normal basal ganglia and thalami. Normal brainstem. There is mild cerebellar atrophy. There is no intracranial hemorrhage. There are no findings of an acute ischemic infarction. Normal visualized paranasal sinuses. There are calcifications within the tonsillar tissues. CT/Brain/Head without Contrast IMPRESSION: Atrophy no evidence of acute hemorrhage infarct or edema. Electronically Signed: Adelita Richards MD at 22:01 EDT Tel , Service support ,
--- NOTE | 2019-07-12 20:25 | EKG12_ITS ---
Test Reason : SYNCOPE Blood Pressure : / mmHG Vent. Rate : 055 BPM Atrial Rate : 055 BPM P-R Int : 194 ms QRS Dur : 104 ms QT Int : 452 ms P-R-T Axes : 029 005 050 degrees QTc Int : 432 ms Sinus bradycardia Minimal voltage criteria for LVH, may be normal variant Borderline ECG Confirmed by PROSPER PATEL ([id number]), manuscript editor BRAD BRIDGES ([id number]) on 07/18/2019 3:35:31 PM Referred By: Paresh Scott Confirmed By:PROSPER PATEL
--- NOTE | 2019-07-12 20:28 | CT_ITS ---
STUDY: CT ABDOMEN AND PELVIS WITH CONTRAST REASON FOR EXAM: Female, 79 years old. A couple episode abdominal distention pain history of appendectomy cholecystectomy uterine cancer melanoma brain tumor RADIATION DOSAGE (If Supplied By Facility): CTDIvol = ( 16.70 ) mGy, DLP = ( 1221.84 ) mGycm TECHNIQUE: Transaxial images were obtained from the dome of the diaphragm to the symphysis pubis without oral contrast. IV Isovue 300 100ml was administered. Sagittal and coronal images were reconstructed. Individualized dose optimization techniques were used for this CT. COMPARISON: September 04, 2017 CT scan abdomen and pelvis FINDINGS: The visualized lung bases are unremarkable. Coronary calcifications. Normal liver. There are surgical clips in the gallbladder fossa consistent with a prior cholecystectomy. Normal spleen. There is diffuse atrophy of the pancreas. Normal bilateral adrenal glands. Normal right kidney. Normal left kidney. There is a small hiatal hernia. Normal small intestine. There is diverticulosis without visualized diverticulitis. The appendix is visualized and appears normal. Art is tortuous partially calcified. There is calcification of the bilateral common iliac arteries. Normal inferior vena cava. Normal retroperitoneum. Normal urinary bladder. There is absence of the uterus consistent with a prior hysterectomy. Then a hernia mesh placed. There is a diastases of the rectus muscle without significant herniation. There is slight anterolisthesis at the level of L4-L5 stable since prior study. There is multilevel spondylosis. There is vacuum phenomenon L3-L4 L4-L5. L1-L2 there is a broad disc osteophyte protrusion with severe neural foramina narrowing and moderate to severe central stenosis. L2-L3 there is a right lateral large disc osteophyte protrusion with moderate to severe right neural foramina narrowing, moderate central stenosis. At L3-L4 there is a minimal broad disc bulge facet arthropathy with mild neural foramina narrowing. At L4-L5 there is a broad disc osteophyte complex anterolisthesis facet arthropathy moderate neural foramina narrowing moderate central stenosis. L5-S1 there is a broad disc bulge minimal neural foramina narrowing there is facet arthropathy. There is no apparent acute loss of height or alignment. There is mild degenerative change of both hip joints. CT/Abdomen/Pelvis W IV Cont ONLY IMPRESSION: No visualized evidence of acute loss of height or alignment multilevel degenerative changes detailed above. Status post cholecystectomy Status post hysterectomy. Status post abdominal wall hernia repair Diverticulosis no evidence of diverticulitis Minimal hiatal hernia No evidence of acute intra-abdominal injury. No visualized bowel obstruction. Electronically Signed: Adelita Richards MD at 22:23 EDT Tel , Service support ,
--- NOTE | 2019-07-12 20:29 | RAD_ITS ---
STUDY: X-RAY - RIGHT KNEE REASON FOR EXAM: Female, 79 years old. Pain fall TECHNIQUE: 4 view(s) of the knee. COMPARISON: None. FINDINGS: There is demineralization of the visualized distal femur. There is demineralization of the tibia and fibula. There is arthrosis of the proximal tibiofibular articulation. There is mild degenerative arthrosis of the medial femorotibial compartment. There is moderate degenerative arthrosis of the lateral femorotibial compartment with moderate joint space narrowing. There is moderate degenerative arthrosis of the patellofemoral articulation. There are atherosclerotic calcifications. RAD/Knee 4 or More Views IMPRESSION: Degenerative arthrosis. Electronically Signed: Adelita Richards MD at 21:52 EDT Tel , Service support ,
[2019-07-12 21:07] LABS: Absolute Lymphocyte Count 1.99 X10^3/uL (0.83-4.51); Absolute Neutrophil Count 6.9 X10^3/uL (2.0-7.7); Basophil# 0.05 X10^3/uL; Basophil% 0.5 % (0-1); Eosinophil# 0.14 X10^3/uL; Eosinophils% 1.4 % (0-5); Hematocrit 40.5 % (37-47); Hemoglobin 12.3 g/dL (12.0-15.0); Lymphocyte # 1.99 X10^3/ul (4.0); Lymphocyte % 20.4 % (19-41); Mean Corp Hgb Conc 30.4 g/dL (32-36); Mean Platelet Vol. 10.3 fl (6.2-12.0); Monocyte# 0.64 X10^3/uL; Monocyte% 6.6 % (0-10); NRBC Flagged by Analyzer 0 % (0-5); Neutrophil # 6.86 X10^3/uL (2.7-7.7); Neutrophil % 70.5 % (47-70); Platelet Count 247 K/mm3 (150-450); RBC Distribution Width CV 14.7 % (11.6-14.6); RBC Distribution Width SD 49.6 fl (35.1-43.9); White Blood Count 9.7 K/mm3 (4.4-11.0)
[2019-07-12] MEDS: 0.9% Normal Saline 1,000 ML 999 ML IV ×3 (21:10→23:32)
[2019-07-12 21:15] LABS: International Normalized Ratio 1.3; Prothrombin Time (Protime)PT. 15.5 SECONDS (11.7-14.9)
[2019-07-12 21:16] LABS: Partial Thromboplast Time 28.2 Seconds (24.1-36.2)
--- NOTE | 2019-07-12 21:20 | RAD_ITS ---
STUDY: X-RAY CHEST REASON FOR EXAM: Female, 79 years old. Syncope TECHNIQUE: Single AP portable view of the chest. COMPARISON: July 12, 2019 chest x-ray FINDINGS: The lungs are clear and expanded. There is no demonstrated pleural abnormality. There is borderline cardiomegaly. Normal mediastinum and [place]. Normal visualized pulmonary arteries. There is atherosclerotic tortuosity of the aortic arch and descending thoracic aorta. There are diffuse degenerative changes of the visualized thoracic spine. Normal visualized ribs, clavicles, and shoulders. There is no demonstrated abnormality of the visualized soft tissue structures of the upper abdomen. RAD/Chest 1 View (Portable) IMPRESSION: Stable chest no evidence of acute focal infiltrate. Electronically Signed: Adelita Richards MD at 21:50 EDT Tel , Service support ,
[2019-07-12 21:28] LABS: ALB/GLOB Ratio 0.9 RATIO (0.9-2.4); AST(SGOT) 10 U/L (15-37); Alanine Aminotransfer ALT/SGPT 13 U/L (13-56); Albumin, Serum 3.2 g/dL (3.2-5.0); Alkaline Phosphatase 120 U/L (45-117); Anion Gap 6 (5-15); BUN 30 mg/dL (7-18); Calcium,Total 8.7 mg/dL (8.5-10.1); Chloride 111 mmol/L (98-107); Creatinine, Serum 1.43 mg/dL (0.55-1.02); EST Glomerular Filtration Rate 38 mL/min (>60); Est Glom Filt Rate - Afr Amer 46 mL/min (>60); Globulin 3.5 g/dL (2.2-4.2); Glucose 149 mg/dL (74-106); Potassium 3.7 mmol/L (3.5-5.1); Protein, Total 6.7 g/dL (6.4-8.2); Sodium Level 144 mmol/L (136-145)
[2019-07-12 21:36] LABS: Lactic Acid 3.2 mmol/L (0.4-2.0)
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
[2019-07-12] MEDS: fentaNYL 100 MCG/2 ML Ampul 25 MCG IV (22:51)
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
[2019-07-13] VITALS (14 sets, daily range): BP systolic 133–152; BP diastolic 52–87; PULSE 52–65; RESP 16–18; TEMP 36.7–37.1; O2SAT 93–97; BMI 33.0
[2019-07-13 01:02] LABS: Reflex Lactate? Y
[2019-07-13] MEDS: Lactated Ringers 1,000 ML 100 ML IV ×3 (01:04→20:15)
[2019-07-13] MEDS: 0.9% NaCl Peripheral Flush Adult/Peds IV ×2 (01:04→04:46)
[2019-07-13 01:41] LABS: Magnesium 1.6 mg/dL (1.6-2.6)
[2019-07-13 01:42] LABS: Lactic Acid 2.2 mmol/L (0.4-2.0)
[2019-07-13 03:46] LABS: Absolute Lymphocyte Count 1.63 X10^3/uL (0.83-4.51); Absolute Neutrophil Count 6.2 X10^3/uL (2.0-7.7); Basophil# 0.03 X10^3/uL; Basophil% 0.4 % (0-1); Eosinophil# 0.08 X10^3/uL; Hematocrit 36.7 % (37-47); Hemoglobin 11.2 g/dL (12.0-15.0); Lymphocyte # 1.63 X10^3/ul (4.0); Lymphocyte % 19.4 % (19-41); Mean Corp Hgb Conc 30.5 g/dL (32-36); Mean Corpuscular Hgb 28.1 pg (27.0-32.0); Mean Platelet Vol. 10.4 fl (6.2-12.0); Monocyte# 0.47 X10^3/uL; Monocyte% 5.6 % (0-10); NRBC Flagged by Analyzer 0 % (0-5); Neutrophil # 6.15 X10^3/uL (2.7-7.7); Neutrophil % 73.2 % (47-70); Platelet Count 228 K/mm3 (150-450); RBC Distribution Width CV 14.6 % (11.6-14.6); RBC Distribution Width SD 49.4 fl (35.1-43.9); Red Blood Count 3.99 M/mm3 (4.2-5.4); White Blood Count 8.4 K/mm3 (4.4-11.0)
[2019-07-13 04:09] LABS: Anion Gap 7 (5-15); BUN 26 mg/dL (7-18); Chloride 115 mmol/L (98-107); Cholesterol 143 mg/dL (200); Creatinine, Serum 1.18 mg/dL (0.55-1.02); EST Glomerular Filtration Rate 47 mL/min (>60); Est Glom Filt Rate - Afr Amer 57 mL/min (>60); Estimated Creatinine Clearance 34.79 ml/min; Glucose 154 mg/dL (74-106); High Density Lipoprotein 47 mg/dL; Potassium 3.6 mmol/L (3.5-5.1); Sodium Level 148 mmol/L (136-145); Thyroid Stim Hormone (TSH) 1.27 uIU/mL (0.358-3.74); Triglycerides 116 mg/dL; Very Low Density Lipoprotein 23 mg/dL (5-40)
[2019-07-13] MEDS: Morphine 2 MG/ML Syringe IV ×3 (04:43→13:04)
[2019-07-13] MEDS: Levothyroxine 25 MCG TABLET PO (05:37)
--- NOTE | 2019-07-13 05:55 | ECHOCS_ITS ---
Reason For Study: Syncope Procedure This was a 2D Doppler, Color Flow transthoracic echocardiogram. The study was technically difficult. Patient scanned supine due to back pain from syncopal episode. Exam performed portable in patient room. Left Ventricle Mild concentric left ventricular hypertrophy. The estimated ejection fraction is 65 %. Stage 1 diastolic dysfunction. No regional wall motion abnormalities noted. Right Ventricle Mildly dilated right ventricle. Normal systolic function. Atria Normal left atrium. Normal right atrium. Normal atrial septum. Mitral Valve The mitral valve is structurally normal. No prolapse or stenosis seen. Tricuspid Valve Normal tricuspid valve. Trivial tricuspid valve insufficiency. Right ventricular systolic pressure estimated to be 36 mmHg. Mild pulmonary hypertension. Aortic Valve Normal aortic valve. Trisinus/trileaflet aortic valve. Pulmonic Valve The pulmonic valve is not well visualized. Great Vessels Normal aortic root. Normal arch. Normal inferior vena cava. Inferior vena cava collapse with sniff. Pericardium/Pleural No pericardial effusion. Medication Diluted definity 1.5ml given slow IV push to enhance endocardial definition. MMode/2D Measurements & Calculations LVIDd: 3.4 cm IVSd: 1.3 cm Ao root diam: 3.4 cm LVIDs: 2.0 cm LVPWd: 1.2 cm RVDd: 3.7 cm FS: 43.0 % LAV(MOD-bp): 47.6 ml LA A4 area: 16.6 cm2 LA dimension(2D): 3.9 cm LAV(MOD-bp) Indexed: 24.2 ml/m2 LAV(MOD-sp2): 50.1 ml LAV(MOD-sp4): 40.0 ml RA A4 area: 13.1 cm2 Doppler Measurements & Calculations MV E max javi: 67.1 cm/sec Lat Peak E' Javi: 13.0 cm/sec Med Peak E' Javi: 9.1 cm/sec MV A max javi: 91.2 cm/sec E/E' lat: 5.2 E/E' med: 7.4 MV E/A: 0.73 Ao V2 max: 160.7 cm/sec LV V1 max: 109.5 cm/sec TR max javi: 273.9 cm/sec Ao max P.3 mmHg LV V1 max P.8 mmHg TR max P.0 mmHg Interpretation Summary Mild concentric left ventricular hypertrophy. The estimated ejection fraction is 65 %. Stage 1 diastolic dysfunction. Mildly dilated right ventricle. Trivial tricuspid valve insufficiency. Right ventricular systolic pressure estimated to be 36 mmHg. Mild pulmonary hypertension. The study was technically difficult. Contrast injection was performed. Ordering Physician: Paresh Scott Referring Physician: Corey Nicole Chi Performed By: Oma Mcgowan RDCS
[2019-07-13] MEDS: Acetaminophen 325 MG Tablet 650 MG PO ×2 (09:10→20:15)
[2019-07-13] MEDS: clonazePAM 1 MG Tablet PO ×2 (09:11→21:15)
[2019-07-13] MEDS: Famotidine 20 MG Tablet 40 MG PO (09:12)
[2019-07-13] MEDS: Lisinopril 5 MG Tablet PO (09:12)
[2019-07-13] MEDS: Pantoprazole Sodium 20 MG Tablet PO (09:13)
[2019-07-13] MEDS: Metoprolol Tartrate 25 MG Tablet 12.5 MG PO ×2 (09:13→21:16)
[2019-07-13] MEDS: QUEtiapine 25 MG Tablet 50 MG PO ×2 (09:15→21:16)
[2019-07-13] MEDS: APIXABAN 5 MG TABLET PO (09:16)
[2019-07-13] MEDS: Polyethylene Glycol 3350 17 GM PACKET PO (09:16)
--- NOTE | 2019-07-13 09:26 | CASEMGMT ---
Addendum entered by Radha Byers 07/13/19 09:33: SW left a voice mail for Marci at [facility]. Radha REDD Original Note: SW met with patient, introduced self and role at [facility]. SW explained what SW was already aware of regarding her eventual plan. She agreed to go to [facility] SNF pending insurance approval. While she is at the SNF her CM with [facility] can work on a waiver to get her into their assisted living. She was in agreement with this plan. SW asked if she has had any emergency psych admissions or had troubles managing daily activities because of her Schizophrenia. She said no to both questions. SW called patient's CM with [facility] and left her a voice mail requesting a return call. JOCELYN will make contact with [facility]. Radha REDD
--- NOTE | 2019-07-13 09:52 | CASEMGMT ---
As per the admitting RN, pt has a living will but is unable to bring in the form at this time. Pt does not have a POA and declined any additional information at this time. MARIO Benavides
--- NOTE | 2019-07-13 11:44 | CASEMGMT ---
JOCELYN spoke with Marci at [facility] and let her know about referral and that SW faxed information. SW completed PASRR. JOCELYN spoke with patient about answers to the questions. JOCELYN also called [facility] and spoke with Concepción in the PASRR Dept to have her clarify a question on the PASRR. JOCELYN then faxed all necessary information to [facility] to obtain clearance on PASS. JOCELYN will fax PT/OT evaluations as soon as they complete them and put in the computer. Radha GIORDANO ACCREDITED LEGAL SECRETARY
--- NOTE | 2019-07-13 13:09 | CHAPLAIN ---
Type of Pastoral Visit _x__ Initial Visit ___ Follow-up Visit ___ On-call Visit ___ General Patient Visit ___ Spiritual Assessment ___ Family Conference ___ Bereavement ___ Rapid Response ___ Code Blue ___ Other (describe below) Pastoral Care Referral From _x__ Patient ___ Family ___ Nurse ___ Physician ___ Barrer And Tacker ___ Apartment Rental Clerk ___ Other (describe below) Sacrament/Intervention _x__ Active listening ___ Anointing ___ Adventist ___ Bereavement ___ Communion ___ Kelly exploration ___ ___ Life review _x__ Prayer ___ Reconciliation ___ Sacrament of Sick _x__ Supportive presence ___ Wedding ___ Other (describe below) Pastoral Comments
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
--- NOTE | 2019-07-13 14:32 | CASEMGMT ---
SW received PASRR results. Faxed PT/OT evaluations to [facility]. Plan: [facility] pending insurance approval. Radha GIORDANO MSW
[2019-07-13] MEDS: traMADol 50 MG Tablet PO (15:46)
[2019-07-13] MEDS: predniSONE 20 MG Tablet 60 MG PO (17:47)
[2019-07-13] MEDS: proCHLORPERazine 10 MG/2 ML Vial 5 MG IV (17:53)
[2019-07-13] MEDS: Atorvastatin Calcium 10 MG Tablet PO (21:15)
[2019-07-14] VITALS (14 sets, daily range): BP systolic 132–160; BP diastolic 55–80; PULSE 46–68; RESP 16–18; TEMP 36.3–36.8; O2SAT 92–97
[2019-07-14] MEDS: Lactated Ringers 1,000 ML 100 ML IV ×2 (05:43→15:38)
[2019-07-14] MEDS: Levothyroxine 25 MCG TABLET PO (05:43)
[2019-07-14] MEDS: traMADol 50 MG Tablet PO ×3 (05:44→18:47)
[2019-07-14] MEDS: Polyethylene Glycol 3350 17 GM PACKET PO (08:16)
[2019-07-14] MEDS: predniSONE 20 MG Tablet 60 MG PO (08:16)
[2019-07-14] MEDS: Lisinopril 5 MG Tablet PO (08:17)
[2019-07-14] MEDS: Famotidine 20 MG Tablet 40 MG PO (08:17)
[2019-07-14] MEDS: Pantoprazole Sodium 20 MG Tablet PO (08:18)
[2019-07-14] MEDS: QUEtiapine 25 MG Tablet 50 MG PO ×2 (08:19→21:42)
[2019-07-14] MEDS: Ammonium Lactate 225 gm Bottle 1 APPLIC TOPICAL (08:20)
[2019-07-14] MEDS: clonazePAM 1 MG Tablet PO ×2 (08:28→21:42)
--- NOTE | 2019-07-14 09:55 | CASEMGMT ---
RN ANUPAMA NOTE: To room to talk with pt. Pt resting in bed. Reviewed ESPINAL form with pt and questions answered. ESPINAL form signed by pt, copy made and placed on chart, and original given to pt. Pt made aware if she has any further questions to ask for CM. Pt voices understanding. Sorin DIAZN RN CM
--- NOTE | 2019-07-14 13:41 | CASEMGMT ---
Patient was approved to go to [facility]. Per physician she will be ready tomorrow. JOCELYN let Marci know this information. JOCELYN also let patient know she was approved to go to [facility] for rehab. JOCELYN called patient's child welfare caseworker with [facility] and let her know patient was approved to go to [facility] and SW received her PASS results. JOCELYN told her she is getting a procedure done tomorrow and she will likely go after that. She asked JOCELYN to fax patient's d/c summary to [phone]. Plan: d/c to [facility] when medically ready. Patient has been approved by insurance and SW received her PASRR results. Radha GIORDANO MSW
--- NOTE | 2019-07-14 17:12 | MRI_ITS ---
HISTORY: c/o severe back pain, h/o uterine ca/ melanoma TECHNIQUE: Routine MRI of the lumbar spine was performed without IV Gadolinium. COMPARISON: CT scan of the abdomen and pelvis from July 12, 2019 FINDINGS: # of images incl. paperwork: 126 Vertebral body height is normal. L4 is anteriorly subluxed on L5 by 5 mm. L1 is posteriorly subluxed on L2 by 3 mm. Degenerative disc disease is present at every level within the lumbar spine. Degenerative disc disease is manifested by loss of disc height and disc desiccation. Fatty marrow endplate changes are present at many levels. No significant fatty marrow edematous change is present except at the anterior inferior aspect of the L1 vertebral body. Anterior and posterior enthesophytes are present at many levels. The conus medullaris is posterior to the L1 vertebral body. Cord signal and cord diameter within the lower thoracic and upper lumbar spine are normal. No metastatic disease is perceived. The abdominal aorta is with out aneurysm. At the L1-L2 level malalignment, facet arthropathy, ligamentum thickening, and disc bulge contribute to moderate spinal canal stenosis. At the L2-L3 level facet arthropathy, ligamentum flavum thickening, disc protrusion, and enthesophytes contribute to mild spinal canal stenosis. At the L3-L4 level facet arthropathy ligamentum flavum thickening and disc bulge cause mild spinal canal stenosis. At the L4-L5 level malalignment, facet arthropathy, ligamentum thickening, and disc bulge contribute to moderate spinal canal stenosis. Minimal ligamental thickening is present at L5-S1. A levoscoliosis is present. The apex of the levoscoliosis is at the L3-L4 interspace. This levoscoliosis contributes to right-sided neural foraminal stenosis at the L2-L3, L3-L4, and L4 L5 levels. Due to the malalignment of the L4-L5 level, with the anterior subluxation of L4 on L5 by 8 mm, this may cause impingement of the right exiting L4 nerve in the subarticular region. MRI/Spine Lumbar (Routine) IMPRESSION: Levoscoliosis. Degenerative disc disease at every level. Facet arthropathy. No acute fracture. No evidence of metastatic disease to the lumbar spine. Various degrees of stenosis at many levels. The stenosis is perhaps most severe at the L4-L5 level. Facet arthropathy, ligamentum thickening, malalignment, and disc bulge contribute to the spinal canal stenosis at the L4-L5 level. Due to the levoscoliosis this causes for neural foraminal stenosis on the right side, the concavity of the scoliosis, at the L2-L3, L3-L4, and L4-L5 levels with possible impingement of the right L4 nerve in the subarticular region. at 2140 Reported and signed by: Alex Monge MD Electronically Signed: Alex Monge MD at 21:38 EDT Tel , Service support ,
--- NOTE | 2019-07-14 19:59 | PN_ITS ---
Subjective: The prednisone has been effective and she was able to sit up in the chair today. She denies pain radiating into the legs. She has been seen by Dr. Carreon and he has scheduled her for a caudal block on Thursday. Anticoagulants are on hold. Telemetry overnight shows marked bradycardia. I suspect she has sleep apnea and a overnight trending pulse ox has been ordered. I also suspect she is non- compliant with beta juan f as an OP and now that we have restarted the meds she is supposed to be taking she has become bradycardic. Objective: - Physical Exam General: Alert, Oriented x3, Cooperative, Well developed, Well nourished, is more comfortable today HEENT: Atraumatic, PERRLA, EOMI, Normocephalic Oral: Moist mucosa Neck: No JVD, Negative Carotid Bruits Lungs: Clear to auscultation Cardiovascular: Regular rate, Regular Rhythm, Normal S1, Normal S2, No murmurs, No Gallop Abdomen: Bowel Sounds Present, Soft, Non Tender, Non-Distended Extremities: No clubbing, No cyanosis, No edema Skin: No rashes Neurological: Cranial nerves II-XII grossly intact, Neuro grossly intact Psych/Mental Status: Normal Affect, Appropriate - Physical Exam Vital Signs Temp Pulse Resp BP Pulse Ox 98.2 F 63 16 156/80 H 97 07/14/19 18:56 07/14/19 18:56 07/14/19 18:56 07/14/19 18:56 07/14/19 18:56 Oxygen Flow Rate (L/min) 2 Oxygen Delivery Method Room Air Weight: 198 lb 10.184 oz Body Mass Index (BMI) 33.0 Orthostatic Vital Signs Start: 07/13/19 03:22 Freq: q24h Status: Active Protocol: Activity Type Activity Date Activity User E-Sign Co-Sign Detail Recorded Client Recorded Date Recorded By Document 07/13/19 00:20 DEVIN [id number] 07/13/19 03:23 DEVIN 07/13/19 00:20 Orthostatic Vitals Sitting -Blood Pressure (90/60-120/80 mm Hg) 152/68 H -Extremity Use Right Arm -Pulse Rate (60-100 beats/min) 61 Lying -Blood Pressure (90/60-120/80 mm Hg) 146/87 H -Extremity Use Right Arm -Pulse Rate (60-100 beats/min) 64 Intake and Output for Last 24 Hours 07/12/19 07/13/19 07/14/19 23:59 23:59 23:59 Intake Total 1999 4608.33 / 4608.33 3075.01 / 3075.01 Output Total 710 / 710 Balance 1999 4608.33 / 4608.33 2365.01 / 2365.01 Medical Necessity - Tobacco Use Smoking Status: Never smoker Assessment/Plan All Active Problems (Last Reviewed 05/09/18 @ 08:47 by Irina Wetzel MD) Syncope and collapse (Acute) Bradycardia (Acute) Dehydration (Acute) Abdominal pain (Resolved) Gram-negative pneumonia (Resolved) PARTIAL SBO (Resolved) Impressions 1. Syncope and collapse with hypotension secondary to dehydration-IV fluids ordered. She is adequately rehydrated. 2. Intractable back pain secondary to a fall due to hypotension and dehydration - Prednisone started yesterday and is helping with the pain. Dr. Dr. Carreon plans a epidural on Thursday. Will order MRI of the lumbosacral spine. 3. Dehydration-resolved 4. Historical noncompliance with medication. Home meds restarted. 5. marked bradycardia while sleeping. Suspect secondary to the combined effects of sleep disordered breathing/MIRIAN and restarting metoprolol which she is apparently not tolerating well. Beta-juan f has been discontinued. 6. Chronic medical problems include paroxysmal atrial fibrillation/obesity/grade 1 diastolic dysfunction/mild pulmonary hypertension/schizophrenia/hypertension/GERD/hyperlipidemia MRI of the LS spine Continue PT/OT Continue the prednisone Caudal block by Dr. Carreon tomorrow Code Visit Inpatient E&M: [id number] Subs Hosp L2
[2019-07-14] MEDS: Atorvastatin Calcium 10 MG Tablet PO (21:42)
[2019-07-14] MEDS: Acetaminophen 325 MG Tablet 650 MG PO (21:42)
[2019-07-14] MEDS: Metoprolol Tartrate 25 MG Tablet 12.5 MG PO (21:43)
[2019-07-15] VITALS (10 sets, daily range): BP systolic 112–151; BP diastolic 49–51; PULSE 33–52; RESP 16; TEMP 36.6–36.8; O2SAT 92–98
[2019-07-15] MEDS: Lactated Ringers 1,000 ML 100 ML IV (01:24)
[2019-07-15 08:45] LABS: Hematocrit 35.7 % (37-47); Hemoglobin 11.1 g/dL (12.0-15.0); Mean Corp Hgb Conc 31.1 g/dL (32-36); Mean Corpuscular Hgb 28.4 pg (27.0-32.0); Mean Corpuscular Volume 91.3 fL (81-99); Mean Platelet Vol. 10.5 fl (6.2-12.0); Platelet Count 214 K/mm3 (150-450); RBC Distribution Width CV 14.7 % (11.6-14.6); RBC Distribution Width SD 49.3 fl (35.1-43.9); Red Blood Count 3.91 M/mm3 (4.2-5.4); White Blood Count 9.8 K/mm3 (4.4-11.0)
[2019-07-15 09:05] LABS: Anion Gap 6 (5-15); BUN 22 mg/dL (7-18); BUN/Creat Ratio 24.3 RATIO (10-20); Calcium,Total 8.6 mg/dL (8.5-10.1); Chloride 110 mmol/L (98-107); EST Glomerular Filtration Rate 64 mL/min (>60); Est Glom Filt Rate - Afr Amer 77 mL/min (>60); Estimated Creatinine Clearance 45.61 ml/min; Glucose 110 mg/dL (74-106); Magnesium 1.7 mg/dL (1.6-2.6); Potassium 3.9 mmol/L (3.5-5.1); Sodium Level 144 mmol/L (136-145)
[2019-07-15] MEDS: QUEtiapine 25 MG Tablet 50 MG PO (10:20)
[2019-07-15] MEDS: Famotidine 20 MG Tablet 40 MG PO (10:20)
[2019-07-15] MEDS: Lisinopril 5 MG Tablet PO (10:20)
[2019-07-15] MEDS: Pantoprazole Sodium 20 MG Tablet PO (10:20)
[2019-07-15] MEDS: predniSONE 20 MG Tablet 60 MG PO (10:20)
[2019-07-15] MEDS: clonazePAM 1 MG Tablet PO (10:25)
--- NOTE | 2019-07-15 15:45 | CASEMGMT ---
Late entry Patient is being discharged to [facility] today under skilled level of care. A green sheet was left on chart as SW was leaving for the day. A PASRR was completed and results received indicating further review not needed. Plan: d/c to [facility] under skilled level of care on a PASRR as she was observation status. Radha GIORDANO MSW
[2019-07-15] MEDS: traMADol 50 MG Tablet PO (16:35)
--- NOTE | 2019-07-15 16:49 | TREXTCAR_ITS ---
- Diet 07/15/19 08:58 Diet: Cardiac/Low Cholesterol/Carb control Is pt able to select menu?: Yes - Routine Orders/Code Status Enema Type: Fleetz Enema Frequency: Daily PRN Suppository Type: Dulcolax 10mg Suppository Frequency: Daily PRN O2 Liters per Minute: 2-3 O2 Frequency: PRN - She should wear the oxygen for all naps and every night while sleeping Keep PO Greater than or Equal to (%): 90 Routine Lab Work: CBC - in 1 week, BMP - in 1 week - Therapies Weight Bearing: Full weight bearing Extremity Affected:: low back Physical Therapy: Eval and Treat Occupational Therapy: Eval and Treat - Problem/Diagnosis (1) Abdominal pain Status: Resolved Current Visit: Yes (2) Syncope and collapse Status: Acute Comment: with hypotension due to dehydration Current Visit: Yes (3) DDD (degenerative disc disease), lumbar Status: Chronic Comment: with mild to moderate multilevel Lumbar canal stenosis and foraminal stenosis Current Visit: No (4) GERD (gastroesophageal reflux disease) Status: Chronic Current Visit: No (5) HLD (hyperlipidemia) Status: Chronic Current Visit: No (6) Hypertension Status: Chronic Current Visit: No (7) Rotator cuff syndrome of left shoulder Status: Chronic Current Visit: No (8) Schizophrenia Status: Chronic Current Visit: No (9) Segmental and somatic dysfunction of pelvic region Status: Chronic Current Visit: No (10) Segmental and somatic dysfunction of thoracic region Status: Chronic Current Visit: No (11) Paroxysmal atrial fibrillation Status: Chronic Current Visit: Yes (12) Bradycardia Status: Acute Comment: suspect due to MIRIAN .....mostly at night Current Visit: Yes (13) Obesity (BMI 30-39.9) Status: Chronic Current Visit: Yes (14) Dehydration Status: Acute Current Visit: Yes (15) Grade I diastolic dysfunction Status: Chronic Current Visit: Yes (16) Mild pulmonary hypertension Status: Chronic Current Visit: Yes (17) Sleep-disordered breathing Status: Chronic Current Visit: Yes - Allergies/Procedures Done in Hospital Allergies/Adverse Reactions: Allergies benztropine mesylate [From Cogentin] Allergy (Verified 07/13/19 00:15) Itching risperidone [From Risperdal] Allergy (Verified 07/13/19 00:15) Shortness of breath verapamil [Verapamil] Allergy (Verified 07/13/19 00:15) Itching baclofen Adverse Reaction (Verified 07/13/19 00:15) agitation, mean codeine Adverse Reaction (Verified 07/13/19 00:15) Nausea Procedures: 2-D Echocardiogram - Interpretation Summary Mild concentric left ventricular hypertrophy. The estimated ejection fraction is 65 %. Stage 1 diastolic dysfunction. Mildly dilated right ventricle. Trivial tricuspid valve insufficiency. Right ventricular systolic pressure estimated to be 36 mmHg. Mild pulmonary hypertension. The study was technically difficult. Contrast injection was performed. - Type of Care/Length of Stay Estimated LOS: Convalescent Care Less Than 30 days Type of Care Needed: Skilled Rehab Potential: Good Prognosis: Good - Additional Orders/Day of Discharge Additional Orders: She quits breathing at night and gets bradycardic. Please keep oxygen on her ANYTIME she is sleeping. H&P will serve as current which was dated: 07/12/19 Day of Discharge: 07/15/19 - Dietary and Speech Recommendations Dietitian Recommendations/Changes: Consider Carbohydrate-controlled/cardiac/low cholesterol since blood glucose elevated. Will d/c Ensure Enlive 120mL 4x/day on medpass as PO improved & BMI 33.1. Rec d/c Ensure Clear with meals. - Follow Up Care Primary Care Physician: Corey Nicole Chi, MD [Primary Care Provider] - Please follow up with your Primary Care Physician in: following DC from [facility] Please Follow Up With: Luther Carreon MD When: 1-2 weeks for a caudal block in the office Please Follow Up With: pulmonary office When: Liv Greene within the next 2-3 weeks to schedule for a sleep study
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
--- NOTE | 2019-07-15 17:47 | NURSING ---
report called to [facility] maria fernanda good
== END 2019-07-15 17:02 | disposition skilled nursing facility (03) ==
LOC: ED 22:29 → PCU 23:27
PROVIDERS: Admitting Provider Internal Medicine; Emergency Provider Emergency Medicine; Family Provider Family Medicine Geriatric Medicine; PCP Family Medicine Geriatric Medicine; Referring Provider Internal Medicine; Visit Provider Internal Medicine
DX: R55 Syncope and collapse (principal); I95.9 Hypotension, unspecified; E86.0 Dehydration; R19.7 Diarrhea, unspecified; F20.0 Paranoid schizophrenia; K21.9 Gastro-esophageal reflux disease without esophagitis; E78.5 Hyperlipidemia, unspecified; M99.05 Segmental and somatic dysfunction of pelvic region; I11.0 Hypertensive heart disease with heart failure; I50.9 Heart failure, unspecified; I48.20 Chronic atrial fibrillation, unspecified; M99.02 Segmental and somatic dysfunction of thoracic region; M19.90 Unspecified osteoarthritis, unspecified site; M51.36 Other intervertebral disc degeneration, lumbar region; I48.0 Paroxysmal atrial fibrillation; E66.9 Obesity, unspecified; I73.89 Other specified peripheral vascular diseases; I27.20 Pulmonary hypertension, unspecified; G47.33 Obstructive sleep apnea (adult) (pediatric); G89.29 Other chronic pain; Z79.899 Other long term (current) drug therapy; Z79.01 Long term (current) use of anticoagulants; Z91.14 Patient's other noncompliance with medication regimen; Z86.711 Personal history of pulmonary embolism; Z68.33 Body mass index [BMI] 33.0-33.9, adult; Z71.3 Dietary counseling and surveillance; Z88.8 Allergy status to other drugs, medicaments and biological substances; Z88.5 Allergy status to narcotic agent; Z90.710 Acquired absence of both cervix and uterus; Z90.49 Acquired absence of other specified parts of digestive tract
CPT/HCPCS: 36415; 70450; 71045; 72125; 72148; 73564; 74177; 80048; 80053; 80061; 80307; 80320; 81001; 83605; 83735; 84443; 84484; 85025; 85027; 85610; 85730; 87040; 93005; 93306; 96361; 96374; 96375; 96376; 97163; 97166; 97530; 97535; 97802; 99218; 99285; J7030; J7120; P9612; Q9957; A4216; C8929; G0378; G0480

== ENCOUNTER → 2019-09-12 13:11 | Outpatient (CLI) | payer MEDICARE, MEDICAID, SELFPAY ==
[2019-07-25 08:53] VITALS: BMI 33.1
--- NOTE | 2019-09-12 13:39 | CPS ---
Patient ordered a Complete Pulmonary Function test, only performed a flow volume loop. Patient felt unable to perform any other testing.
--- NOTE | 2019-09-12 14:44 | SPIR_ITS ---
Spirometry PFT Testing Spirometry PFT Testing: COMPLETE PULMONARY FUNCTION TEST INTERPRETATION Brief HPI: Patient is a 79 year old female, currently under the care of myself, who presents to [facility] for complete pulmonary function tests secondary to diagnosis of hypoxia. Respiratory therapist reports good effort, but had significant difficulty with testing and was unable to produce reproducible results ATS criteria. Interpretation: Forced expiration spirometry shows no large airways obstructive ventilatory defect with an FEV1 of 123% predicted. There was no bronchodilator attempted. Spirograms are of poor quality and recorded exhalation for only approximately 1- 1/2 seconds. The respiratory flow volume loop shows a normal pattern. No previous pulmonary function tests were available for review. Impression: No obstruction is appreciated. Interpret with caution given difficulty with testing
== END ==
PROVIDERS: Family Provider Family Medicine Geriatric Medicine; PCP Family Medicine Geriatric Medicine; Referring Provider Internal Medicine Critical Care Medicine; Visit Provider Internal Medicine Critical Care Medicine
DX: G47.34 Idiopathic sleep related nonobstructive alveolar hypoventilation (principal)
CPT/HCPCS: 94010

== ENCOUNTER 2019-11-12 13:27 | Inpatient (IN) | payer MEDICARE, MEDICAID, SELFPAY ==
[2019-07-25 08:53] VITALS: BMI 33.1
[2019-11-12 13:28] VITALS: BP 134/65; PULSE 67; RESP 13; TEMP 37.1; O2SAT 93; BMI 31.4
--- NOTE | 2019-11-12 13:46 | CT_ITS ---
STUDY: CT ABDOMEN AND PELVIS WITH CONTRAST REASON FOR EXAM: Female, 79 years old. ABD PAIN, N/V/D RADIATION DOSAGE (If Supplied By Facility): CTDIvol = ( 16.33 ) mGy, DLP = ( 1193.29 ) mGycm TECHNIQUE: Transaxial images were obtained from the dome of the diaphragm to the symphysis pubis with oral contrast. IV 100mL Isovue-300 was administered. Sagittal and coronal images were reconstructed. Individualized dose optimization techniques were used for this CT. COMPARISON: None. FINDINGS: The visualized lung bases are unremarkable. The visualized portions of the heart are within normal limits. Normal liver. There are surgical clips in the gallbladder fossa consistent with a prior cholecystectomy. Normal spleen. Normal pancreas. Normal bilateral adrenal glands. Normal right kidney. Normal left kidney. Normal visualized stomach. Multiple loops of mildly dilated fluid-filled small bowel which may represent a partial small bowel obstruction or ileus from gastroenteritis. A definite transition point is not identified. Mildly dilated colon with fluid and air-fluid levels suggestive of diarrhea. The appendix is visualized and appears normal. There is diffuse atherosclerotic calcification of the abdominal aorta, without a demonstrated aneurysm. Normal inferior vena cava. Normal retroperitoneum. Normal urinary bladder. Normal abdominal wall. Mild levoscoliosis of the lumbar spine with degenerative disc disease. CT/Abdomen/Pelvis WITH Contrast IMPRESSION: Multiple loops of the mildly dilated fluid-filled small bowel and colon possibly consistent with a partial small bowel obstruction or ileus from gastroenteritis. No ischemia or perforation. Electronically Signed: Diaz Francois MD at 17:05 EST Tel , Service support ,
--- NOTE | 2019-11-12 13:48 | ED.DCSUM_ITS ---
- ER Visit Summary Date of Service: 11/12/19 Chief Complaint: Abdominal pain History of Present Illness: The patient is a 79 F presenting with abdominal pain, nausea, vomiting, diarrhea. She states this started last night. She states the diarrhea has now slowed down but she continues to have abdominal pa in, nausea, vomiting. She had an x-ray performed at the [facility] which showed early small bowel obstruction. She denies fever. Denies chest pain or shortness of breath. Denies other complaints. Physical Examination: Vitals are stable. Patient is afebrile. Alert no acute distress. HEENT exam is unremarkable. Neck is supple. Lungs are clear and equal bilaterally. Heart is regular rate and rhythm. Abdomen is soft diffuse tenderness with no rebound or guarding Extremities are unremarkable. Skin is warm and dry. No focal neurologic deficit. Remainder of exam is unremarkable. Emergency Department Course and Treatment: CBC shows white count 12.0. Chemistries show glucose 114, BUN 37, creatinine 1.09. Alk phos 120, lipase 40. CT abdomen pelvis shows multiple loops of the mildly dilated fluid-filled small bowel and colon possibly consistent with a partial small bowel obstruction or ileus from gastroenteritis. No ischemia or perforation. Patient refuses NG tube. Discussed with the hospitalist for admission. Disposition: Admission Impression: Partial small bowel obstruction This note was generated with [employer] dictation software. It may contain incorrect words, spelling, and punctuation that were not noted in review of the chart prior to signing ED Disposition - Plan for ED Patient: Referrals: Corey Nicole Chi, MD [Primary Care Provider] -
[2019-11-12 13:55] LABS: Absolute Lymphocyte Count 2.45 X10^3/uL (0.83-4.51); Absolute Neutrophil Count 8.5 X10^3/uL (2.0-7.7); Basophil# 0.05 X10^3/uL; Basophil% 0.4 % (0-1); Eosinophil# 0.06 X10^3/uL; Eosinophils% 0.5 % (0-5); Hematocrit 42.9 % (37-47); Hemoglobin 13.7 g/dL (12.0-15.0); Lymphocyte # 2.45 X10^3/ul (4.0); Lymphocyte % 20.3 % (19-41); Mean Corp Hgb Conc 31.9 g/dL (32-36); Mean Corpuscular Hgb 28.6 pg (27.0-32.0); Mean Corpuscular Volume 89.6 fL (81-99); Mean Platelet Vol. 9.9 fl (6.2-12.0); Monocyte# 0.89 X10^3/uL; Monocyte% 7.4 % (0-10); NRBC Flagged by Analyzer 0 % (0-5); Neutrophil # 8.54 X10^3/uL (2.7-7.7); Platelet Count 365 K/mm3 (150-450); RBC Distribution Width SD 49.4 fl (35.1-43.9); Red Blood Count 4.79 M/mm3 (4.2-5.4)
[2019-11-12] MEDS: Ondansetron 4 MG/2 ML Vial IV (14:04)
[2019-11-12] MEDS: Morphine 4 MG/ML Syringe IV (14:05)
[2019-11-12 14:12] LABS: ALB/GLOB Ratio 0.9 RATIO (0.9-2.4); AST(SGOT) 8 U/L (15-37); Alanine Aminotransfer ALT/SGPT 18 U/L (13-56); Albumin, Serum 3.6 g/dL (3.2-5.0); Alkaline Phosphatase 120 U/L (45-117); Anion Gap 6 (5-15); BUN 37 mg/dL (7-18); BUN/Creat Ratio 33.9 RATIO (10-20); Chloride 110 mmol/L (98-107); Creatinine, Serum 1.09 mg/dL (0.55-1.02); EST Glomerular Filtration Rate 51 mL/min (>60); Est Glom Filt Rate - Afr Amer 62 mL/min (>60); Estimated Creatinine Clearance 37.66 ml/min; Globulin 3.8 g/dL (2.2-4.2); Glucose 114 mg/dL (74-106); Lipase 40 U/L (73-393); Protein, Total 7.4 g/dL (6.4-8.2); Sodium Level 143 mmol/L (136-145)
[2019-11-12 15:27] VITALS: BP 126/55; PULSE 63; RESP 14; O2SAT 96
[2019-11-12 16:46] LABS: Bacteria 0 SEEN /hpf (None Seen); Red Blood Cells-Urine 0 SEEN /hpf (0-5); Squamous Epithelial Cells - UA 0 SEEN /hpf (5-10)
[2019-11-12 16:55] LABS: Color, Urine Yellow (Yellow); Glucose, Dipstick Normal (Normal); Ketone-Dipstick 5 mg/dl (Negative); Leukocyte Esterase-Dipstick Negative /ul (Negative); Nitrite-Dipstick Negative (Negative); Occult Blood-Urine Negative /ul (Negative); Protein-Dipstick Negative (Negative); Urine Bilirubin Dipstick Negative (Negative); Urine Clarity Cloudy (Clear); Urine Urobilinogen Normal (Normal)
[2019-11-12 17:00] VITALS: BP 109/51; PULSE 65; RESP 16; O2SAT 97
[2019-11-12 17:31] LABS: Mucous, Urine 4+ /hpf (<or=2+)
[2019-11-12 17:32] LABS: Hyaline Cast 0-5 SEEN /lpf (0-5)
[2019-11-12 17:34] LABS: White Blood Cells 0-5 SEEN /hpf (0-5)
[2019-11-12 17:40] LABS: Renal Epithelial Cells 0-5 SEEN /hpf (0-5)
--- NOTE | 2019-11-12 17:54 | ED.RN ---
SPOKE WITH DANIEL AT [facility] TO UPDATE ON THE PLAN OF ADMITTING THE PATIENT HERE AT [facility].
--- NOTE | 2019-11-12 17:58 | HP.PCM_ITS ---
History of Present Illness Date of Admission: 11/12/19 Chief Complaint: Nausea, vomiting, diarrhea, abdominal pain The patient is a 79 year old F with PMH as below presents from the long-term with 24 to 48 hours of nausea, vomiting, diarrhea, abdominal pain. She has had small bowel obstructions in the past and this feels somewhat similar. She has had an NG tube in the past and absolutely refuses to have one at this time. She also states that she does want to have surgery unless absolutely necessary. She denies any fevers or chills. No significant shortness of breath. She states that she does feel like she is bloated and full but Cariefran took care of any of her nausea. In the ER CT scan of her abdomen and pelvis demonstrated dilated loops of small bowel possibly consistent with SBO versus ileus from gastroenteritis. She also has a slight slight leukocytosis and she does appear little bit dry with creatinine of 1.09. Past Medical History Past Medical History (Chronic Problems): Chronic Problems (Last Reviewed 07/25/19 @ 14:23 by Angi Sauceda) Paroxysmal atrial fibrillation (Chronic) Obesity (BMI 30-39.9) (Chronic) Grade I diastolic dysfunction (Chronic) Mild pulmonary hypertension (Chronic) Sleep-disordered breathing (Chronic) Schizophrenia (Chronic) Hypertension (Chronic) Rotator cuff syndrome of left shoulder (Chronic) GERD (gastroesophageal reflux disease) (Chronic) HLD (hyperlipidemia) (Chronic) Segmental and somatic dysfunction of pelvic region (Chronic) Segmental and somatic dysfunction of thoracic region (Chronic) DDD (degenerative disc disease), lumbar (Chronic) with mild to moderate multilevel Lumbar canal stenosis and foraminal stenosis Medical History: Medical History (Last Reviewed 07/25/19 @ 14:23 by Angi Sauceda) DDD (degenerative disc disease), lumbar (Chronic) M51.36 with mild to moderate multilevel Lumbar canal stenosis and foraminal stenosis Arthritis M19.90 Atrial fibrillation with RVR I48.91 Cataracts, bilateral H26.9 Environmental allergies Z91.09 Heart disease I51.9 Heart failure I50.9 High cholesterol E78.00 High triglycerides E78.1 History of gallstones Z87.19 History of stroke Z86.73 History of uterine cancer Z85.42 Melanoma C43.9 Osteoarthritis M19.90 Allergies benztropine mesylate [From Cogentin] Allergy (Verified 11/12/19 13:30) Itching risperidone [From Risperdal] Allergy (Verified 11/12/19 13:30) Shortness of breath verapamil [Verapamil] Allergy (Verified 11/12/19 13:30) Itching baclofen Adverse Reaction (Verified 11/12/19 13:30) agitation, mean codeine Adverse Reaction (Verified 11/12/19 13:30) Nausea Home Medications: Ambulatory Orders Medication Instructions Recorded Atorvastatin Calcium [Lipitor] 10 mg PO QHS 12/04/16 Omeprazole [Prilosec] 20 mg PO DAILY 12/04/16 Polyethylene Glycol 3350 [Miralax] 17 gm PO DAILY PRN PRN 05/20/17 Loratadine 10 mg PO DAILY 10/13/17 Cholecalciferol (Vitamin D3) 50,000 unit PO QWEEK 05/07/18 [Vitamin D3] Quetiapine Fumarate [Seroquel] 50 mg PO DAILY 05/07/18 Apixaban [Eliquis] 5 mg PO BID #28 05/10/18 Famotidine 40 mg PO DAILY 06/17/18 Ondansetron [Zofran Odt] 4 mg PO Q8H PRN PRN #10 tab 01/18/19 Furosemide [Lasix] 20 mg PO Q48H #1 07/15/19 Lisinopril [Zestril] 10 mg PO DAILY #1 07/15/19 Antacid Liquid 30 ml Q4H PRN PRN 11/12/19 Bisacodyl 10 mg PA DAILY PRN PRN 11/12/19 Guaifenesin 10 ml Q4H PRN PRN 11/12/19 Loperamide HCl [Imodium A-D] 2 mg PO Q4H PRN PRN 11/12/19 Magnesium Hydroxide [Milk Of 30 ml PO DAILY PRN PRN 11/12/19 Magnesia] Quetiapine Fumarate [Seroquel] 100 mg PO QHS 11/12/19 proMETHazine suppository 25 mg RECTAL Q6H PRN PRN 11/12/19 [Phenergan] traMADol [Ultram] 50 mg Q6H PRN PRN 11/12/19 Surgical History: Surgical History (Last Reviewed 07/25/19 @ 14:23 by Angi Sauceda) History of appendectomy Z90.49 History of cholecystectomy Z90.49 History of hysterectomy Z90.710 Surgical History: appendectomy, cholecystectomy, hysterectomy - For a uterine cancer, rotator cuff repair, - - Resection of melanomas Psychiatric History: Schizophrenia, - 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 SALES PROFESSIONAL BILINGUAL history Smoking Status: Never smoker Alcohol: None Drugs: None - *Family History Maternal Family History: Family History (Last Reviewed 07/25/19 @ 14:23 by Angi Sauceda) Other Arthritis Asthma COPD (chronic obstructive pulmonary disease) Hypertension Kidney disease History Items: Diabetes, - - No underlying lung disease Paternal Family History: Family History (Last Reviewed 07/25/19 @ 14:23 by Angi Sauceda) Other Arthritis Asthma COPD (chronic obstructive pulmonary disease) Hypertension Kidney disease History Items: Diabetes, - - No underlying lung disease Sibling Family History: Family History (Last Reviewed 07/25/19 @ 14:23 by Angi Sauceda) Other Arthritis Asthma COPD (chronic obstructive pulmonary disease) Hypertension Kidney disease History Items: Diabetes Review of Systems Constitutional: Denies: Chills, Fever, Weight Change HEENT: Denies: Head Aches, Sinus Congestion, Sinus Drainage Cardiovascular: Denies: Chest Pain, Palpitations Respiratory: Denies: Cough, Shortness of breath at rest, Sputum production Gastrointestinal: Reports: Abdominal Pain, Diarrhea, Nausea, Vomiting Genitourinary: Denies: Dysuria Musculoskeletal: Denies: Joint Pain, Joint Tenderness Skin: Denies: Rash, Wounds Neurological: Denies: Numbness, Tingling, Focal weakness Psychiatric: Denies: Anxiety, Depression Hematologic/ Lymphatic: Denies: Easy Bruising, Easy Bleeding VTE Information - Inpt Only VTE Present on Admission: No - Physical Exam Vitals/I&O's: Vital Signs Temp Pulse Resp BP Pulse Ox 98.8 F 65 16 109/51 L 97 11/12/19 13:28 11/12/19 17:00 11/12/19 17:00 11/12/19 17:00 11/12/19 17:00 Oxygen Delivery Method Room Air Weight: 189 lb Body Mass Index (BMI) 31.4 General: Alert, Oriented x3, Cooperative, No apparent distress HEENT: Atraumatic, PERRLA, EOMI, Normocephalic Oral: Dry Mucosa Neck: Supple, No JVD Lungs: Clear to auscultation, Normal air movement, No rhonchi, No wheeze, No rales, Diminished Cardiovascular: Regular rate, Regular Rhythm, Normal S1, Normal S2, No murmurs Abdomen: Soft, Non-Distended, No Hepato-splenomegaly, Obese, Tender - Mild, global Extremities: Capillary Refill Less than 3 Seconds, Edema - 1+ nonpitting bilat eral lower extremity edema Skin: No rashes, No breakdown Neurological: Neuro grossly intact, Sensory exam intact to light touch and pain Laboratory Results 11/12/19 13:39: WBC 12.0 H, RBC 4.79, Hgb 13.7, Hct 42.9, MCV 89.6, MCH 28.6, MCHC 31.9 L, RDW Std Deviation 49.4 H, RDW Coeff of Lamine 15.0 H, Plt Count 365, MPV 9.9, Immature Gran % (Auto) 0.400, Neut % (Auto) 71.0 H, Lymph % (Auto) 20.3, [place] % (Auto) 7.4, Eos % (Auto) 0.5, Baso % (Auto) 0.4, Absolute Neuts (auto) 8.5 H, Absolute Lymphs (auto) 2.45, Nucleated RBC % 0 11/12/19 13:39: Sodium 143, Potassium 4.0, Chloride 110 H, Carbon Dioxide 27.0, Anion Gap 6, BUN 37 H, Creatinine 1.09 H, Estim Creat Clear Calc 37.66, Est GFR (MDRD) Af Amer 62, Est GFR (MDRD) Non-Af 51 L, BUN/Creatinine Ratio 33.9 H, Glucose 114 H, Calcium 10.0, Total Bilirubin 0.50, AST 8 L, ALT 18, Alkaline Phosphatase 120 H, Total Protein 7.4, Albumin 3.6, Globulin 3.8, Albumin/Globulin Ratio 0.9, Lipase 40 L 11/12/19 16:40: Urine Color Yellow, Urine Clarity Cloudy, Urine pH 5.0, Ur Specific [place] 1.020, Urine Protein Negative, Urine Glucose (UA) Normal, Urine Ketones 5 H, Urine Occult Blood Negative, Urine Nitrite Negative, Urine Bilirubin Negative, Urine Urobilinogen Normal, Ur Leukocyte Esterase Negative, Urine RBC 0 SEEN, Urine WBC 0-5 SEEN, Ur Squamous Epith Cells 0 SEEN, Ur Renal Epithelial Cell 0-5 SEEN, Urine Bacteria 0 SEEN, Hyaline Casts 0-5 SEEN, Urine Mucus 4+ Assessment/Plan All Active Problems (Last Reviewed 07/25/19 @ 14:23 by Angi Sauceda) Syncope and collapse (Acute) Bradycardia (Acute) Dehydration (Acute) Nocturnal hypoxemia (Acute) Abdominal pain (Resolved) Gram-negative pneumonia (Resolved) PARTIAL SBO (Resolved) 1. Partial small bowel obstruction versus ileus from gastroenteritis -This could be an early SBO despite the diarrhea therefore will make her n.p.o. and give her IV fluids -We will hold off on consulting general surgery as she is not sure she wants to do surgery -No NG tube at this time however I did discuss with her that if she starts having increasing nausea or vomiting she will need to have one placed 2. A. fib/chronic diastolic CHF/mild pulmonary hypertension/HTN/HLD/history of stroke -We will place her on 80 mg of Lovenox twice daily and hold her Eliquis -We will hold all of her medications until she is able to take p.o. -If necessary can transition to IV blood pressure medications 3. GERD -Stable -We will hold her Prilosec until able to take p.o. DVT: Therapeutic Lovenox Code Visit Inpatient E&M: 35074 Init Hosp L3
--- NOTE | 2019-11-12 17:59 | NURSING ---
MED SURG PARTIAL SBO? GASTROENTERITIS?
[2019-11-12 19:42] VITALS: BMI 34.0
[2019-11-12 19:44] VITALS: BP 110/39; PULSE 59; RESP 18; TEMP 36.6; O2SAT 97
[2019-11-12 19:51] VITALS: BMI 34.0
[2019-11-12] MEDS: 0.9% Normal Saline 1,000 ML 75 ML IV (20:09)
[2019-11-12] MEDS: Enoxaparin 80 MG/0.8 ML Syringe SC (22:50)
[2019-11-13 02:15] VITALS: BP 122/55; PULSE 59; RESP 16; TEMP 36.8; O2SAT 93
[2019-11-13 06:41] LABS: Absolute Lymphocyte Count 2.27 X10^3/uL (0.83-4.51); Absolute Neutrophil Count 3.9 X10^3/uL (2.0-7.7); Basophil# 0.05 X10^3/uL; Basophil% 0.7 % (0-1); Eosinophil# 0.31 X10^3/uL; Eosinophils% 4.3 % (0-5); Hematocrit 36.3 % (37-47); Lymphocyte # 2.27 X10^3/ul (4.0); Lymphocyte % 31.5 % (19-41); Mean Corp Hgb Conc 30.3 g/dL (32-36); Mean Corpuscular Hgb 28.1 pg (27.0-32.0); Mean Corpuscular Volume 92.6 fL (81-99); Mean Platelet Vol. 10.2 fl (6.2-12.0); Monocyte# 0.61 X10^3/uL; Monocyte% 8.5 % (0-10); NRBC Flagged by Analyzer 0 % (0-5); Neutrophil # 3.94 X10^3/uL (2.7-7.7); Neutrophil % 54.6 % (47-70); Platelet Count 271 K/mm3 (150-450); RBC Distribution Width CV 15.4 % (11.6-14.6); RBC Distribution Width SD 52.4 fl (35.1-43.9); Red Blood Count 3.92 M/mm3 (4.2-5.4); White Blood Count 7.2 K/mm3 (4.4-11.0)
[2019-11-13 06:53] LABS: Anion Gap 5 (5-15); BUN 29 mg/dL (7-18); BUN/Creat Ratio 33.8 RATIO (10-20); Calcium,Total 8.5 mg/dL (8.5-10.1); Chloride 112 mmol/L (98-107); Creatinine, Serum 0.86 mg/dL (0.55-1.02); EST Glomerular Filtration Rate 68 mL/min (>60); Est Glom Filt Rate - Afr Amer 82 mL/min (>60); Estimated Creatinine Clearance 47.73 ml/min; Glucose 85 mg/dL (74-106); Potassium 3.6 mmol/L (3.5-5.1); Sodium Level 145 mmol/L (136-145)
[2019-11-13 08:15] VITALS: BP 138/64; PULSE 60; RESP 18; TEMP 37; O2SAT 96
[2019-11-13] MEDS: 0.9% Normal Saline 1,000 ML 75 ML IV ×2 (08:26→21:09)
--- NOTE | 2019-11-13 09:52 | PCM.PN.HOSP ---
Subjective: Feels better, states that her nausea is resolved and she does not have any more abdominal pain. She is still having episodes of diarrhea though. Vitals/I&O's: Vital Signs Temp Pulse Resp BP Pulse Ox 98.6 F 60 18 138/64 H 96 11/13/19 08:15 11/13/19 08:15 11/13/19 08:15 11/13/19 08:15 11/13/19 08:15 Oxygen Delivery Method Room Air Weight: 204 lb 5.896 oz Body Mass Index (BMI) 34.0 Intake and Output for Last 24 Hours 11/11/19 11/12/19 11/13/19 23:59 23:59 23:59 Intake Total 500 / 500 921.25 / 921.25 Output Total 0 / 0 Balance 500 / 500 921.25 / 921.25 General: Alert, Oriented x3, Cooperative, No apparent distress HEENT: Atraumatic, PERRLA, EOMI, Normocephalic Oral: Dry Mucosa Neck: Supple, No JVD Lungs: Clear to auscultation, Normal air movement, No rhonchi, No wheeze, No rales, Diminished Cardiovascular: Regular rate, Regular Rhythm, Normal S1, Normal S2, No murmurs Abdomen: Soft, Non-Distended, No Hepato-splenomegaly, Obese, nontender Extremities: Capillary Refill Less than 3 Seconds, Edema - 1+ nonpitting bilateral lower extremity edema Skin: No rashes, No breakdown Neurological: Neuro grossly intact, Sensory exam intact to light touch and pain Laboratory Results 11/12/19 13:39: WBC 12.0 H, RBC 4.79, Hgb 13.7, Hct 42.9, MCV 89.6, MCH 28.6, MCHC 31.9 L, RDW Std Deviation 49.4 H, RDW Coeff of Lamine 15.0 H, Plt Count 365, MPV 9.9, Immature Gran % (Auto) 0.400, Neut % (Auto) 71.0 H, Lymph % (Auto) 20.3, [place] % (Auto) 7.4, Eos % (Auto) 0.5, Baso % (Auto) 0.4, Absolute Neuts (auto) 8.5 H, Absolute Lymphs (auto) 2.45, Nucleated RBC % 0 11/12/19 13:39: Sodium 143, Potassium 4.0, Chloride 110 H, Carbon Dioxide 27.0, Anion Gap 6, BUN 37 H, Creatinine 1.09 H, Estim Creat Clear Calc 37.66, Est GFR (MDRD) Af Amer 62, Est GFR (MDRD) Non-Af 51 L, BUN/Creatinine Ratio 33.9 H, Glucose 114 H, Calcium 10.0, Total Bilirubin 0.50, AST 8 L, ALT 18, Alkaline Phosphatase 120 H, Total Protein 7.4, Albumin 3.6, Globulin 3.8, Albumin/Globulin Ratio 0.9, Lipase 40 L 11/12/19 16:40: Urine Color Yellow, Urine Clarity Cloudy, Urine pH 5.0, Ur Specific [place] 1.020, Urine Protein Negative, Urine Glucose (UA) Normal, Urine Ketones 5 H, Urine Occult Blood Negative, Urine Nitrite Negative, Urine Bilirubin Negative, Urine Urobilinogen Normal, Ur Leukocyte Esterase Negative, Urine RBC 0 SEEN, Urine WBC 0-5 SEEN, Ur Squamous Epith Cells 0 SEEN, Ur Renal Epithelial Cell 0-5 SEEN, Urine Bacteria 0 SEEN, Hyaline Casts 0-5 SEEN, Urine Mucus 4+ 11/13/19 05:52: WBC 7.2, RBC 3.92 L, Hgb 11.0 L, Hct 36.3 L, MCV 92.6, MCH 28.1, MCHC 30.3 L, RDW Std Deviation 52.4 H, RDW Coeff of Lamine 15.4 H, Plt Count 271, MPV 10.2, Immature Gran % (Auto) 0.400, Neut % (Auto) 54.6, Lymph % (Auto) 31.5, [place] % (Auto) 8.5, Eos % (Auto) 4.3, Baso % (Auto) 0.7, Absolute Neuts (auto) 3.9, Absolute Lymphs (auto) 2.27, Nucleated RBC % 0 11/13/19 05:52: Sodium 145, Potassium 3.6, Chloride 112 H, Carbon Dioxide 28.0, Anion Gap 5, BUN 29 H, Creatinine 0.86, Estim Creat Clear Calc 47.73, Est GFR (MDRD) Af Amer 82, Est GFR (MDRD) Non-Af 68, BUN/Creatinine Ratio 33.8 H, Glucose 85, Calcium 8.5 Current Medications Enoxaparin Sodium (Lovenox) 80 mg SC BID [facility] Last Admin: 11/12/19 22:50 Dose: 80 mg Documented by: Sodium Chloride () 1,000 mls @ 75 mls/hr IV .[id number] [facility] Last Admin: 11/13/19 08:26 Dose: 75 mls/hr Documented by: Sodium Chloride () 250 mls @ 15 mls/hr IV .[id number] PRN PRN Reason: Saline Flush Sodium Chloride () 250 mls @ 15 mls/hr IV .[id number] PRN PRN Reason: Additional IVPB Infusion Morphine Sulfate () 2 mg IV Q3H PRN PRN PRN Reason: Pain Score 6-10/10 Ondansetron HCl (Zofran) 4 mg IV Q8H PRN PRN PRN Reason: NAUSEA/VOMITING Promethazine HCl (Phenergan) 12.5 mg IV Q6H PRN PRN PRN Reason: Breakthrough nausea/vomiting Sodium Chloride () 10 - 40 ml IV UD PRN PRN Reason: SALINE FLUSH Sodium Chloride () 10 - 40 ml IV UD PRN PRN Reason: SALINE FLUSH STROKE Vital Signs/Narrative: Vital Signs Temp Pulse Resp BP Pulse Ox 11/13/19 08:15 98.6 F 60 18 138/64 H 96 Medical Necessity - Tobacco Use Smoking Status: Never smoker Assessment/Plan All Active Problems (Last Reviewed 07/25/19 @ 14:23 by Angi Sauceda) Syncope and collapse (Acute) Bradycardia (Acute) Dehydration (Acute) Nocturnal hypoxemia (Acute) Abdominal pain (Resolved) Gram-negative pneumonia (Resolved) PARTIAL SBO (Resolved) 1. Partial small bowel obstruction versus ileus from gastroenteritis -She would like to try diet today, will advance her to clears and monitor as symptomatically she seems to be improving -We will hold off on consulting general surgery as she is not sure she wants to do surgery -No NG tube at this time however I did discuss with her that if she starts having increasing nausea or vomiting she will need to have one placed 2. A. fib/chronic diastolic CHF/mild pulmonary hypertension/HTN/HLD/history of stroke -We will place her on 80 mg of Lovenox twice daily and hold her Eliquis -We will hold all of her medications until she is able to take p.o. -If necessary can transition to IV blood pressure medications 3. GERD -Stable -We will hold her Prilosec until able to take p.o. DVT: Therapeutic Lovenox Code Visit Inpatient E&M: 67429 Subs Hosp L2
[2019-11-13 10:20] VITALS: PULSE 76
[2019-11-13] MEDS: Enoxaparin 80 MG/0.8 ML Syringe SC ×2 (10:23→21:09)
[2019-11-13 14:10] VITALS: BP 134/57; PULSE 61; RESP 18; TEMP 36.8; O2SAT 93
[2019-11-13 21:13] VITALS: BP 159/61; PULSE 64; RESP 18; TEMP 37.3; O2SAT 93
[2019-11-14 03:15] VITALS: BP 160/57; PULSE 65; RESP 18; TEMP 36.9; O2SAT 93
[2019-11-14 06:04] LABS: Absolute Lymphocyte Count 2.14 X10^3/uL (0.83-4.51); Basophil# 0.06 X10^3/uL; Basophil% 0.8 % (0-1); Eosinophil# 0.24 X10^3/uL; Eosinophils% 3.4 % (0-5); Hematocrit 37.4 % (37-47); Hemoglobin 11.4 g/dL (12.0-15.0); Lymphocyte # 2.14 X10^3/ul (4.0); Lymphocyte % 30.1 % (19-41); Mean Corp Hgb Conc 30.5 g/dL (32-36); Mean Corpuscular Hgb 27.9 pg (27.0-32.0); Mean Corpuscular Volume 91.4 fL (81-99); Mean Platelet Vol. 9.6 fl (6.2-12.0); Monocyte# 0.61 X10^3/uL; Monocyte% 8.6 % (0-10); NRBC Flagged by Analyzer 0 % (0-5); Neutrophil # 4.01 X10^3/uL (2.7-7.7); Neutrophil % 56.4 % (47-70); Platelet Count 262 K/mm3 (150-450); RBC Distribution Width CV 14.8 % (11.6-14.6); RBC Distribution Width SD 49.3 fl (35.1-43.9); Red Blood Count 4.09 M/mm3 (4.2-5.4); White Blood Count 7.1 K/mm3 (4.4-11.0)
[2019-11-14 06:30] LABS: Anion Gap 2 (5-15); BUN 15 mg/dL (7-18); BUN/Creat Ratio 17.8 RATIO (10-20); Calcium,Total 8.6 mg/dL (8.5-10.1); Chloride 115 mmol/L (98-107); Creatinine, Serum 0.84 mg/dL (0.55-1.02); EST Glomerular Filtration Rate 69 mL/min (>60); Est Glom Filt Rate - Afr Amer 84 mL/min (>60); Estimated Creatinine Clearance 48.87 ml/min; Glucose 104 mg/dL (74-106); Potassium 3.3 mmol/L (3.5-5.1); Sodium Level 144 mmol/L (136-145)
[2019-11-14] MEDS: QUEtiapine 25 MG Tablet 50 MG PO (09:14)
[2019-11-14 09:15] VITALS: BP 148/62; PULSE 63; RESP 18; TEMP 36.6; O2SAT 98
[2019-11-14] MEDS: Lisinopril 10 MG Tablet PO (09:15)
[2019-11-14] MEDS: Pantoprazole Sodium 20 MG Tablet PO (09:15)
[2019-11-14] MEDS: Loratadine 10 MG Tablet PO (09:15)
[2019-11-14] MEDS: Furosemide 20 MG/2 ML VIAL IV (09:15)
[2019-11-14] MEDS: 0.9% Saline Lock 10 ML Syringe IV (09:15)
--- NOTE | 2019-11-14 10:35 | PCM.PN.HOSP ---
Subjective: No nausea or vomiting, abdominal pain has resolved and her last episode of diarrhea was yesterday morning she tolerated clear liquid diet yesterday without issue Vitals/I&O's: Vital Signs Temp Pulse Resp BP Pulse Ox 98 F 63 18 148/62 H 98 11/14/19 09:15 11/14/19 09:15 11/14/19 09:15 11/14/19 09:15 11/14/19 09:15 Oxygen Delivery Method Room Air Weight: 204 lb 5.896 oz Body Mass Index (BMI) 34.0 Intake and Output for Last 24 Hours 11/12/19 11/13/19 11/14/19 23:59 23:59 23:59 Intake Total 500 / 500 3235.00 / 3235.00 907.5 / 907.5 Output Total 0 / 0 Balance 500 / 500 3235.00 / 3235.00 907.5 / 907.5 General: Alert, Oriented x3, Cooperative, No apparent distress HEENT: Atraumatic, PERRLA, EOMI, Normocephalic Oral: Moist Mucosa Neck: Supple, No JVD Lungs: Clear to auscultation, Normal air movement, No rhonchi, No wheeze, No rales, Diminished Cardiovascular: Regular rate, Regular Rhythm, Normal S1, Normal S2, No murmurs Abdomen: Soft, Non-Distended, No Hepato-splenomegaly, Obese, nontender Extremities: Capillary Refill Less than 3 Seconds, Edema - 1+ nonpitting bilateral lower extremity edema Skin: No rashes, No breakdown Neurological: Neuro grossly intact, Sensory exam intact to light touch and pain Laboratory Results 11/14/19 05:45: WBC 7.1, RBC 4.09 L, Hgb 11.4 L, Hct 37.4, MCV 91.4, MCH 27.9, MCHC 30.5 L, RDW Std Deviation 49.3 H, RDW Coeff of Lamine 14.8 H, Plt Count 262, MPV 9.6, Immature Gran % (Auto) 0.700, Neut % (Auto) 56.4, Lymph % (Auto) 30.1, [place] % (Auto) 8.6, Eos % (Auto) 3.4, Baso % (Auto) 0.8, Absolute Neuts (auto) 4.0, Absolute Lymphs (auto) 2.14, Nucleated RBC % 0 11/14/19 05:45: Sodium 144, Potassium 3.3 L, Chloride 115 H, Carbon Dioxide 27.0, Anion Gap 2 L, BUN 15, Creatinine 0.84, Estim Creat Clear Calc 48.87, Est GFR (MDRD) Af Amer 84, Est GFR (MDRD) Non-Af 69, BUN/Creatinine Ratio 17.8, Glucose 104, Calcium 8.6 Current Medications Apixaban (Eliquis) 5 mg PO BID [facility] Atorvastatin Calcium (Lipitor) 10 mg PO QHS [facility] Ergocalciferol (Vitamin D) 50,000 unit PO Th@1000 [facility] Famotidine (Pepcid) 40 mg PO DINNER [facility] Furosemide (Lasix) 20 mg PO Q48H [facility] Sodium Chloride () 250 mls @ 15 mls/hr IV .[id number] PRN PRN Reason: Saline Flush Sodium Chloride () 250 mls @ 15 mls/hr IV .[id number] PRN PRN Reason: Additional IVPB Infusion Lisinopril (Zestril) 10 mg PO DAILY [facility] Last Admin: 11/14/19 09:15 Dose: 10 mg Documented by: Loratadine (Claritin) 10 mg PO DAILY [facility] Last Admin: 11/14/19 09:15 Dose: 10 mg Documented by: Morphine Sulfate () 2 mg IV Q3H PRN PRN PRN Reason: Pain Score 6-10/10 Ondansetron HCl (Zofran) 4 mg IV Q8H PRN PRN PRN Reason: NAUSEA/VOMITING Pantoprazole Sodium (Protonix) 20 mg PO DAILY [facility] Last Admin: 11/14/19 09:15 Dose: 20 mg Documented by: Promethazine HCl (Phenergan) 12.5 mg IV Q6H PRN PRN PRN Reason: Breakthrough nausea/vomiting Quetiapine Fumarate (Seroquel) 50 mg PO DAILY [facility] Last Admin: 11/14/19 09:14 Dose: 50 mg Documented by: Quetiapine Fumarate (Seroquel) 100 mg PO QHS [facility] Sodium Chloride () 10 - 40 ml IV UD PRN PRN Reason: SALINE FLUSH Last Admin: 11/14/19 09:15 Dose: 10 ml Documented by: Sodium Chloride () 10 - 40 ml IV UD PRN PRN Reason: SALINE FLUSH STROKE Vital Signs/Narrative: Vital Signs Temp Pulse Resp BP Pulse Ox 11/14/19 09:15 98 F 63 18 148/62 H 98 Medical Necessity - Tobacco Use Smoking Status: Never smoker Assessment/Plan All Active Problems (Last Reviewed 07/25/19 @ 14:23 by Angi Sauceda) Syncope and collapse (Acute) Bradycardia (Acute) Dehydration (Acute) Nocturnal hypoxemia (Acute) Abdominal pain (Resolved) Gram-negative pneumonia (Resolved) PARTIAL SBO (Resolved) 1. Partial small bowel obstruction versus ileus from gastroenteritis -She would like to try diet today, will advance her to clears and monitor as symptomatically she seems to be improving -We will advance her to a full liquid diet and restart her home medications -This was likely ileus from gastroenteritis which is resolving if she tolerated a full liquid diet for breakfast can switch her to a regular diet for lunch and see how she does 2. A. fib/chronic diastolic CHF/mild pulmonary hypertension/HTN/HLD/history of stroke -Restart Eliquis -Her home medications for her chronic conditions -We will give her potassium today for potassium of 3.3 3. GERD -Stable -We will hold her Prilosec until able to take p.o. DVT: Yeyo Code Visit Inpatient E&M: 71591 Subs Hosp L2
--- NOTE | 2019-11-14 10:45 | CASEMGMT ---
Addendum entered by Shyla Michelle 11/14/19 14:56: SW attempted to speak with pt again regarding discharge plans. Pt soundly sleeping, didn't awake when this worker entered the room. Addendum entered by Shyla Michelle 11/14/19 12:15: SW received a call from pt's son Alfred. Alfred confirms that pt came from [facility] and he states pt will need to return there at discharge. Alfred states pt lived with him for 15 years and it got to the point where he could no longer care for her at home. Alfred states he has a 20 year old Autistic son and he has now began to have seizures and he needs to devote his time to caring for his son and not pt. Alfred states pt will not be able to return to his home. Alfred states the only other option would be for pt to call her other son Maverick to see if he is able to care for her. SW asked Alfred for Maverick number as Maverick is not listed on pt's demographics. Alfred states he and Maverick hasn't talked in years and don't speak to each other. Alfred states he doesn't know Maverick's number so pt will need to give this worker Maverick's number. Alfred states he would be surprised if once pt finds out he would only be able to go to Maverick's house if pt would then just say she will go back to [facility]. SW informed Alfred that this worker will keep him updated. JOCELYN faxed updated clinicals to [facility]. Plan: Likely back to [facility]. SW to speak with pt again later today Original Note: Social Work Note Pt is listed as being from [facility]. JOCELYN placed a call to Ana at [facility] who states pt is director long term care and is able to return whenever. Per physician, pt is not medically cleared for discharge today but will likely be ready tomorrow. JOCELYN reviewed notes, per PT/OT pt had informed them that she was going to go home at discharge to one of her son's home and not back to [facility]. SW in to speak with pt. JOCELYN introduced self and role at [facility]. Pt is alert and orientated x3. Pt confirms that she came from [facility] and has been at [facility] since 2018. Pt states she would like to return to one of her son's home at discharge. SW asked pt if she has spoke with her son's regarding her living with one of them and pt states she has not. Pt states her son Alfred lives in [place] and son Maverick lives in [place]. SW informed pt that this worker has Alfred listed on contact sheet but not Maverick. SW asked pt if this worker could call her son Alfred to discuss discharge plans and pt was agreeable to this. SW informed pt that she will need to speak to her son's regarding her moving back in with them but that this worker can call Alfred as well. SW informed pt that she can go to different SNF that [facility] but also informed pt that per PT/OT notes, they are recommending pt go home at discharge so pt would likely get denied to go to different SNF. Pt states understanding. SW placed a call to pt's son Alfred and left message requesting call back. Shyla Michelle IT TECHNICIAN, WORM PACKER
[2019-11-14] MEDS: APIXABAN 5 MG TABLET PO ×2 (10:47→21:59)
--- NOTE | 2019-11-14 12:51 | CASEMGMT ---
As per admitting RN, pt has LW/POA but is unable to bring in the forms. As per pt, Maverick and Alfred are pt's medical POAs. MARIO Benavides
--- NOTE | 2019-11-14 15:05 | CHAPLAIN ---
Type of Pastoral Visit _x__ Initial Visit ___ Follow-up Visit ___ On-call Visit ___ General Patient Visit ___ Spiritual Assessment ___ Family Conference ___ Bereavement ___ Rapid Response ___ Code Blue ___ Other (describe below) Pastoral Care Referral From _x__ Patient ___ Family ___ Nurse ___ Physician ___ Toy Electric Train Repairer ___ Stock Letterer ___ Other (describe below) Sacrament/Intervention _x__ Active listening ___ Anointing ___ Islam ___ Bereavement ___ Communion ___ Kelly exploration ___ ___ Life review _x__ Prayer ___ Reconciliation ___ Sacrament of Sick ___ Supportive presence ___ Wedding ___ Other (describe below) Pastoral Comments
[2019-11-14 15:46] VITALS: BP 115/54; PULSE 65; RESP 18; TEMP 36.3; O2SAT 98
--- NOTE | 2019-11-14 16:02 | CASEMGMT ---
Social Work Note SW back in to speak with pt. SW updated pt that this worker had spoken with her son Alfred who said pt was unable to move in with him so pt's only option would be her other son's Maverick home. Pt states she doesn't remember Maverick's number. SW updated pt that this worker did ask Alfred for Maverick's number but Alfred stated that he and Maverick don't talk so he didn't have Maverick's number either. Pt states that she also spoke with Alfred and pt is agreeable to returning to [facility]. Plan: Return to [facility] once medically cleared Shyla Michelle SOLAR ENGINEER, SAUSAGE CUTTER
[2019-11-14] MEDS: Famotidine 20 MG Tablet 40 MG PO (16:18)
[2019-11-14 21:45] VITALS: BP 135/64; PULSE 60; RESP 18; TEMP 36.7; O2SAT 95
[2019-11-14] MEDS: QUEtiapine 100 MG Tablet PO (21:59)
[2019-11-14] MEDS: Atorvastatin Calcium 10 MG Tablet PO (21:59)
[2019-11-15 03:22] VITALS: BP 153/69; PULSE 67; RESP 18; TEMP 36.2; O2SAT 97
[2019-11-15 07:12] LABS: Anion Gap 6 (5-15); BUN 13 mg/dL (7-18); Calcium,Total 8.6 mg/dL (8.5-10.1); Chloride 113 mmol/L (98-107); Creatinine, Serum 0.77 mg/dL (0.55-1.02); EST Glomerular Filtration Rate 77 mL/min (>60); Est Glom Filt Rate - Afr Amer 93 mL/min (>60); Estimated Creatinine Clearance 41.05 ml/min; Glucose 88 mg/dL (74-106); Potassium 3.2 mmol/L (3.5-5.1); Sodium Level 144 mmol/L (136-145)
--- NOTE | 2019-11-15 09:01 | TREXTCAR_ITS ---
- Diet 11/14/19 11:03 Diet: Regular Diet Type of Dietary Supplement:: Ensure Clear Is pt able to select menu?: Yes - Routine Orders/Code Status Routine Lab Work: [facility] Code Status: DNRCC-A - Therapies Physical Therapy: Eval and Treat Occupational Therapy: Eval and Treat - Allergies/Procedures Done in Hospital Allergies/Adverse Reactions: Allergies benztropine mesylate [From Cogentin] Allergy (Verified 11/12/19 13:30) Itching risperidone [From Risperdal] Allergy (Verified 11/12/19 13:30) Shortness of breath verapamil [Verapamil] Allergy (Verified 11/12/19 13:30) Itching baclofen Adverse Reaction (Verified 11/12/19 13:30) agitation, mean codeine Adverse Reaction (Verified 11/12/19 13:30) Nausea - Type of Care/Length of Stay Estimated LOS: Convalescent Care Less Than 30 days Type of Care Needed: Skilled Rehab Potential: Good Prognosis: Good - Additional Orders/Day of Discharge Day of Discharge: 11/15/19 - Dietary and Speech Recommendations Dietitian Recommendations/Changes: Rec diet advanced as pt medically able to Cardiac/Low Cholesterol. - Follow Up Care Primary Care Physician: Corey Nicole Chi, MD [Primary Care Provider] - Please follow up with your Primary Care Physician in: 3-5 days
[2019-11-15 09:24] LABS: Magnesium 1.5 mg/dL (1.6-2.6)
[2019-11-15] MEDS: APIXABAN 5 MG TABLET PO (09:59)
[2019-11-15] MEDS: QUEtiapine 25 MG Tablet 50 MG PO (09:59)
[2019-11-15] MEDS: Pantoprazole Sodium 20 MG Tablet PO (09:59)
[2019-11-15] MEDS: Lisinopril 10 MG Tablet PO (10:00)
[2019-11-15] MEDS: Loratadine 10 MG Tablet PO (10:00)
--- NOTE | 2019-11-15 11:05 | DS.PCM_ITS ---
Discharge Date and Diagnosis Date of Admission: 11/12/19 Date of Discharge: 11/15/19 - Secondary Discharge Diagnosis Chronic Problems (Last Reviewed 07/25/19 @ 14:23 by Angi Sauceda) Paroxysmal atrial fibrillation (Chronic) Obesity (BMI 30-39.9) (Chronic) Grade I diastolic dysfunction (Chronic) Mild pulmonary hypertension (Chronic) Sleep-disordered breathing (Chronic) Schizophrenia (Chronic) Hypertension (Chronic) Rotator cuff syndrome of left shoulder (Chronic) GERD (gastroesophageal reflux disease) (Chronic) HLD (hyperlipidemia) (Chronic) Segmental and somatic dysfunction of pelvic region (Chronic) Segmental and somatic dysfunction of thoracic region (Chronic) DDD (degenerative disc disease), lumbar (Chronic) with mild to moderate multilevel Lumbar canal stenosis and foraminal stenosis Hospital Course and Treatment Imaging Results: CT Abd/Pelvis: IMPRESSION: Multiple loops of the mildly dilated fluid-filled small bowel and colon possibly consistent with a partial small bowel obstruction or ileus from gastroenteritis. No ischemia or perforation. Consults: None Operations: None Procedures: None Summary of Care Provided: Per HPI: The patient is a 79 year old F with PMH as below [facility] with 24 to 48 hours of nausea, vomiting, diarrhea, abdominal pain. She has had small bowel obstructions in the past and this feels somewhat similar. She has had an NG tube in the past and absolutely refuses to have one at this time. She also states that she does want to have surgery unless absolutely necessary. She denies any fevers or chills. No significant shortness of breath. She states that she does feel like she is bloated and full but Zofran took care of any of her nausea. In the ER CT scan of her abdomen and pelvis demonstrated dilated loops of small bowel possibly consistent with SBO versus ileus from gastroenteritis. She also has a slight slight leukocytosis and she does appear little bit dry with creatinine of 1.09. Hospital Course: 1. Partial small bowel stricture versus ileus from [id number]-old female presents from a [facility] with 24 to 48 hours of nausea, vomiting, diarrhea, and abdominal pain. She did not want an NG tube placed therefore she was made n.p.o. and started on IV fluids. Her creatinine did improve by the day of discharge, and by about the second or third day of admission she stopped having any nausea or abdominal pain. She was cautiously started on clear liquid diet and then advance to a full liquid diet. Yesterday she had a regular diet for dinner and then another regular diet for breakfast today. She states that she has been doing fine she has been passing gas and having bowel movements with a number of diarrhea stools went down to just 1 yesterday. I discussed with her the risks and benefits of going home and she would really like to get back to retirement facility, she understands that she will have to take the advancement in her diet fairly slow, but it looks like she had ileus from gastroenteritis and not a pure small bowel obstruction despite her surgical history. She will need to follow-up with her primary care doctor in 3 to 5 days. 2. Her other medical diagnoses were evaluated and her home medications were continued where appropriate - Physical Exam Vitals/I&O's: Vital Signs Temp Pulse Resp BP Pulse Ox 97.2 F L 67 18 153/69 H 97 11/15/19 03:22 11/15/19 03:22 11/15/19 03:22 11/15/19 03:22 11/15/19 03:22 Oxygen Delivery Method Room Air Weight: 204 lb 5.896 oz Body Mass Index (BMI) 34.0 Intake and Output for Last 24 Hours 11/13/19 11/14/19 11/15/19 23:59 23:59 23:59 Intake Total 3235.00 / 3235.00 2194.5 / 2194.5 200 / 200 Output Total 0 / 0 800 / 800 300 / 300 Balance 3235.00 / 3235.00 1394.5 / 1394.5 -100 / -100 General: Alert, Oriented x3, Cooperative, No apparent distress HEENT: Atraumatic, PERRLA, EOMI, Normocephalic Oral: Moist Mucosa Neck: Supple, No JVD Lungs: Clear to auscultation, Normal air movement, No rhonchi, No wheeze, No rales, Diminished Cardiovascular: Regular rate, Regular Rhythm, Normal S1, Normal S2, No murmurs Abdomen: Soft, Non-Distended, No Hepato-splenomegaly, Obese, nontender Extremities: Capillary Refill Less than 3 Seconds, Edema - 1+ nonpitting bilateral lower extremity edema Skin: No rashes, No breakdown Neurological: Neuro grossly intact, Sensory exam intact to light touch and pain Laboratory Results 11/15/19 06:14: Sodium 144, Potassium 3.2 L, Chloride 113 H, Carbon Dioxide 25.0, Anion Gap 6, BUN 13, Creatinine 0.77, Estim Creat Clear Calc 41.05, Est GFR (MDRD) Af Amer 93, Est GFR (MDRD) Non-Af 77, BUN/Creatinine Ratio 17.0, Glucose 88, Calcium 8.6 11/15/19 06:18: Phosphorus 3.0, Magnesium 1.5 L Current Medications Apixaban (Eliquis) 5 mg PO BID [facility] Last Admin: 11/15/19 09:59 Dose: 5 mg Documented by: Atorvastatin Calcium (Lipitor) 10 mg PO QHS [facility] Last Admin: 11/14/19 21:59 Dose: 10 mg Documented by: Ergocalciferol (Vitamin D) 50,000 unit PO Th@1000 [facility] Famotidine (Pepcid) 40 mg PO DINNER [facility] Last Admin: 11/14/19 16:18 Dose: 40 mg Documented by: Furosemide (Lasix) 20 mg PO Q48H [facility] Sodium Chloride () 250 mls @ 15 mls/hr IV .[id number] PRN PRN Reason: Saline Flush Sodium Chloride () 250 mls @ 15 mls/hr IV .[id number] PRN PRN Reason: Additional IVPB Infusion Magnesium Sulfate 2 gm/ Sodium (Chloride) 104 mls @ 52 mls/hr IV X1 ONE Stop: 11/15/19 12:44 Lisinopril (Zestril) 10 mg PO DAILY [facility] Last Admin: 11/15/19 10:00 Dose: 10 mg Documented by: Loratadine (Claritin) 10 mg PO DAILY [facility] Last Admin: 11/15/19 10:00 Dose: 10 mg Documented by: Morphine Sulfate () 2 mg IV Q3H PRN PRN PRN Reason: Pain Score 6-10/10 Ondansetron HCl (Zofran) 4 mg IV Q8H PRN PRN PRN Reason: NAUSEA/VOMITING Pantoprazole Sodium (Protonix) 20 mg PO DAILY [facility] Last Admin: 11/15/19 09:59 Dose: 20 mg Documented by: Promethazine HCl (Phenergan) 12.5 mg IV Q6H PRN PRN PRN Reason: Breakthrough nausea/vomiting Quetiapine Fumarate (Seroquel) 50 mg PO DAILY [facility] Last Admin: 11/15/19 09:59 Dose: 50 mg Documented by: Quetiapine Fumarate (Seroquel) 100 mg PO QHS [facility] Last Admin: 11/14/19 21:59 Dose: 100 mg Documented by: Sodium Chloride () 10 - 40 ml IV UD PRN PRN Reason: SALINE FLUSH Last Admin: 11/14/19 09:15 Dose: 10 ml Documented by: Sodium Chloride () 10 - 40 ml IV UD PRN PRN Reason: SALINE FLUSH Home Medications: Medications to take at Discharge Atorvastatin Calcium [Lipitor] 10 mg PO QHS 12/04/16 Omeprazole [Prilosec] 20 mg PO DAILY 12/04/16 Polyethylene Glycol 3350 [Miralax] 17 gm PO DAILY PRN PRN 05/20/17 Loratadine 10 mg PO DAILY 10/13/17 Cholecalciferol (Vitamin D3) [Vitamin D3] 50,000 unit PO TH 05/07/18 Quetiapine Fumarate [Seroquel] 50 mg PO DAILY 05/07/18 Apixaban [Eliquis] 5 mg PO BID #28 05/10/18 Famotidine 40 mg PO DINNER 06/17/18 Ondansetron [Zofran Odt] 4 mg PO Q8H PRN PRN #10 tab 01/18/19 Furosemide [Lasix] 20 mg PO Q48H #1 07/15/19 Lisinopril [Zestril] 10 mg PO DAILY #1 07/15/19 Antacid Liquid 30 ml PO Q4H PRN PRN 11/12/19 Bisacodyl 10 mg ME DAILY PRN PRN 11/12/19 Guaifenesin 10 ml Q4H PRN PRN 11/12/19 Loperamide HCl [Imodium A-D] 2 mg PO Q4H PRN PRN 11/12/19 Magnesium Hydroxide [Milk Of Magnesia] 30 ml PO DAILY PRN PRN 11/12/19 Quetiapine Fumarate [Seroquel] 100 mg PO QHS 11/12/19 proMETHazine suppository [Phenergan Suppository] 25 mg RECTAL Q6H PRN PRN 11/12/19 traMADol [Ultram] 50 mg PO Q6H PRN PRN 11/12/19 Primary Care Physician: Corey Nicole Chi, MD [Primary Care Provider] - Please follow up with your Primary Care Physician in: 3-5 days Disposition: Correction facility Minutes spent on discharge:: 35 Patient Condition:: Stable Medical Necessity - Tobacco Use Smoking Status: Never smoker Meaningful Use Info Meaningful Use Diagnoses (Choose all that apply): None applicable Code Visit Inpatient E&M: 67254 Disch Hosp
--- NOTE | 2019-11-15 11:05 | CASEMGMT ---
Addendum entered by Shyla Michelle 11/15/19 12:17: JOCELYN spoke with RN who states once pt eats lunch she can discharge to [facility]. JOCELYN placed a call to [employer] and arranged transportation via wheelchair van for 2:30pm. JOCELYN faxed completed discharge paperwork to [facility] including transfer to extended care facility, signed medication list and any scripts. Original in SNF folder and copy on pt's chart. JOCELYN completed transportation form and placed on SNF folder and copy on pt's chart. JOCELYN updated RN and pt on transportation time and placed a call to pt's son Alfred and left him a message updating him on discharge and transportation time. JOCELYN placed a call to Ana at [facility] and updated her on discharge and transportation time. Plan: Return to [facility] intermodal dispatcher with [employer] transporting via wheelchair van at 2:30pm JUSTYN Braswell Original Note: Social Work Note Pt is discharging back to [facility] today but has to wait until some tests come back. JOCELYN spoke with RN who will let this worker know when transportation can be arranged. Plan: Back to [facility] intermodal dispatcher today JUSTYN Braswell
[2019-11-15 14:10] VITALS: BP 138/65; PULSE 62; RESP 16; TEMP 36.4; O2SAT 97
--- NOTE | 2019-11-15 15:34 | NURSING ---
Addendum entered by Renetta Aceves 11/15/19 18:47: *and notified of need for KDUR and mag. This RN left name and phone number to have them return call-- no return call received. Attempted to call all 3 units multiple times with no answer. Original Note: Patient picked up by michel and this RN was not notified. Pt had requested to wait to take her PO potassium and PO magnesium until after she ate lunch-- however, pt ate lunch and was promptly picked up. This RN attempted to call [facility]-- no answer. This RN then called [facility] and left message on machine regarding patient not taking 60mcg of KDUR and 400mg of Magnesium oxide. prior to d/c
== END 2019-11-15 14:07 | disposition skilled nursing facility (03) | DRG 389 ==
LOC: ED 15:43 → MS3 18:10
PROVIDERS: Admitting Provider Family Medicine; Emergency Provider Emergency Medicine; PCP Family Medicine Geriatric Medicine; Visit Provider Family Medicine
DX: K56.600 Partial intestinal obstruction, unspecified as to cause (principal); K56.7 Ileus, unspecified; K52.9 Noninfective gastroenteritis and colitis, unspecified; I11.0 Hypertensive heart disease with heart failure; I50.32 Chronic diastolic (congestive) heart failure; I48.0 Paroxysmal atrial fibrillation; I27.20 Pulmonary hypertension, unspecified; E78.5 Hyperlipidemia, unspecified; M19.90 Unspecified osteoarthritis, unspecified site; K21.9 Gastro-esophageal reflux disease without esophagitis; F20.9 Schizophrenia, unspecified; Z79.01 Long term (current) use of anticoagulants; Z79.899 Other long term (current) drug therapy; E66.9 Obesity, unspecified; Z68.34 Body mass index [BMI] 34.0-34.9, adult; Z86.73 Personal history of transient ischemic attack (TIA), and cerebral infarction without residual deficits; Z85.42 Personal history of malignant neoplasm of other parts of uterus; Z85.820 Personal history of malignant melanoma of skin
CPT/HCPCS: 36415; 74177; 80048; 80053; 81001; 83690; 83735; 84100; 85025; 97110; 97116; 97162; 97165; 97530; 97535; 99285; J7030; Q9967; A4216; J1940; J2405

== ENCOUNTER 2020-01-09 12:49 | Emergency (ER) | payer MEDICARE, MEDICAID, SELFPAY ==
[2020-01-09 12:50] VITALS: BP 158/72; PULSE 82; RESP 18; TEMP 36.4; O2SAT 96; BMI 33.3
--- NOTE | 2020-01-09 13:05 | CT_ITS ---
STUDY: CT BRAIN WITHOUT CONTRAST REASON FOR EXAM: Female, 79 years old. Confusion, combative at correction, SOB. Hx schizophrenia, CVA. RADIATION DOSAGE (If Supplied By Facility): CTDIvol = ( 44.99 ) mGy, DLP = ( 829.85 ) mGycm TECHNIQUE: Transaxial CT imaging of the brain was performed without administration of intravenous contrast material. Individualized dose optimization techniques were used for this CT. COMPARISON: 07/12/2019 FINDINGS: Normal soft tissue structures. Normal calvarium. There is moderate cerebral atrophy with widening of the extra-axial spaces and ventricular dilatation. There are areas of decreased attenuation within the white matter tracts of the supratentorial brain, consistent with microvascular disease changes. Normal basal ganglia and thalami. Normal brainstem. Normal cerebellum. There is no intracranial hemorrhage. There are no findings of an acute ischemic infarction. Normal visualized paranasal sinuses. CT/Brain/Head without Contrast IMPRESSION: Chronic involutional changes of the brain. Electronically Signed: Diaz Francois MD at 14:13 EDT Tel , Service support ,
--- NOTE | 2020-01-09 13:05 | EKG12_ITS ---
Test Reason : MEDICALCLEARANCE Blood Pressure : / mmHG Vent. Rate : 073 BPM Atrial Rate : 073 BPM P-R Int : 234 ms QRS Dur : 112 ms QT Int : 386 ms P-R-T Axes : 043 008 054 degrees QTc Int : 425 ms Sinus rhythm with 1st degree A-V block Otherwise normal ECG Confirmed by CIELO AYALA, MANJIT ([id number]), newspaper or periodical editor LETICIA WEINBERG ([id number]) on 01/10/2020 1:27:35 PM Referred By: JONATHAN Confirmed By:MANJIT BUCK MD
--- NOTE | 2020-01-09 13:06 | RAD_ITS ---
STUDY: X-RAY CHEST REASON FOR EXAM: Female, 79 years old. COUGH, SOB, COMBATIVE SINCE THIS A.M. TECHNIQUE: Single AP portable view of the chest. COMPARISON: 07/12/2019 FINDINGS: The lungs are clear and expanded. There is no demonstrated pleural abnormality. There is moderate cardiac enlargement. Normal mediastinum and [place]. Normal visualized pulmonary arteries. There is atherosclerotic tortuosity of the aortic arch and descending thoracic aorta. Normal visualized thoracic spine. Normal visualized ribs, clavicles, and shoulders. There is no demonstrated abnormality of the visualized soft tissue structures of the upper abdomen. RAD/Chest 1 View (Portable) IMPRESSION: No active disease. Electronically Signed: Diaz Francois MD at 14:23 EDT Tel , Service support ,
[2020-01-09 13:23] LABS: Absolute Lymphocyte Count 2.13 X10^3/uL (0.83-4.51); Absolute Neutrophil Count 6.1 X10^3/uL (2.0-7.7); Basophil# 0.06 X10^3/uL; Basophil% 0.7 % (0-1); Eosinophil# 0.13 X10^3/uL; Eosinophils% 1.4 % (0-5); Hematocrit 39.9 % (37-47); Hemoglobin 12.4 g/dL (12.0-15.0); Lymphocyte # 2.13 X10^3/ul (4.0); Lymphocyte % 23.5 % (19-41); Mean Corp Hgb Conc 31.1 g/dL (32-36); Mean Corpuscular Hgb 27.7 pg (27.0-32.0); Mean Corpuscular Volume 89.1 fL (81-99); Monocyte# 0.65 X10^3/uL; Monocyte% 7.2 % (0-10); NRBC Flagged by Analyzer 0 % (0-5); Neutrophil # 6.06 X10^3/uL (2.7-7.7); Neutrophil % 66.6 % (47-70); Platelet Count 254 K/mm3 (150-450); RBC Distribution Width CV 13.9 % (11.6-14.6); Red Blood Count 4.48 M/mm3 (4.2-5.4); White Blood Count 9.1 K/mm3 (4.4-11.0)
[2020-01-09 13:39] LABS: ALB/GLOB Ratio 0.9 RATIO (0.9-2.4); AST(SGOT) 11 U/L (15-37); Alanine Aminotransfer ALT/SGPT 15 U/L (13-56); Albumin, Serum 3.3 g/dL (3.2-5.0); Alkaline Phosphatase 134 U/L (45-117); Anion Gap 7 (5-15); BUN 27 mg/dL (7-18); BUN/Creat Ratio 27.9 RATIO (10-20); Calcium,Total 9.1 mg/dL (8.5-10.1); Chloride 107 mmol/L (98-107); Creatinine, Serum 0.97 mg/dL (0.55-1.02); EST Glomerular Filtration Rate 59 mL/min (>60); Est Glom Filt Rate - Afr Amer 71 mL/min (>60); Estimated Creatinine Clearance 42.32 ml/min; Globulin 3.5 g/dL (2.2-4.2); Glucose 149 mg/dL (74-106); Potassium 3.6 mmol/L (3.5-5.1); Protein, Total 6.8 g/dL (6.4-8.2); Sodium Level 141 mmol/L (136-145)
[2020-01-09 13:48] VITALS: PULSE 75; RESP 18; O2SAT 96
[2020-01-09 13:48] LABS: Alcohol, Blood (Medical)-Serum < 3.0 mg/dL
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
[2020-01-09 14:28] VITALS: PULSE 76; RESP 18; O2SAT 98
[2020-01-09 14:28] LABS: Bacteria 0 SEEN /hpf (None Seen); Mucous, Urine 0 SEEN /hpf (<or=2+); Red Blood Cells-Urine 0 SEEN /hpf (0-5)
[2020-01-09 14:34] LABS: Color, Urine Yellow (Yellow); Glucose, Dipstick Normal (Normal); Ketone-Dipstick Negative (Negative); Leukocyte Esterase-Dipstick 25 /ul (Negative); Nitrite-Dipstick Negative (Negative); Occult Blood-Urine 10 /ul (Negative); Protein-Dipstick Negative (Negative); Urine Bilirubin Dipstick Negative (Negative); Urine Clarity Clear (Clear); Urine Urobilinogen Normal (Normal)
[2020-01-09 14:40] LABS: Squamous Epithelial Cells - UA 0-5 SEEN /hpf (5-10); White Blood Cells 0-5 SEEN /hpf (0-5)
[2020-01-09 14:43] LABS: Amphetamine Urine VISTA NEGATIVE (<1000 ng/mL); Barbiturate Urine VISTA NEGATIVE (< 200 ng/mL); Benzodiazepine Urine VISTA NEGATIVE (< 200 ng/mL); Cocaine Urine VISTA NEGATIVE (< 300 ng/mL); Ecstacy Urine VISTA NEGATIVE (< 500 ng/mL); Methadone Urine VISTA NEGATIVE (< 300 ng/mL); PCP Urine VISTA NEGATIVE (< 25 ng/mL); THC Urine VISTA NEGATIVE (< 50 ng/mL); Vista UDS pH Range 6
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
--- NOTE | 2020-01-09 15:19 | CM.ED ---
SOCIAL WORK REFERRAL CALLED TO AZUCENA AT [facility]. AZUCENA TO REVIEW REFERRAL AND GET BACK TO THIS WORKER. REFERRAL FAXED. Riley SINGH, MEDICAL DELIVERY TECHNICIAN, BLOCKER POLISHING.
[2020-01-09 15:44] VITALS: BP 166/103; PULSE 81; RESP 16; O2SAT 98
--- NOTE | 2020-01-09 16:22 | CM.ED ---
SOCIAL WORK RECEIVED CALL FROM [facility] WITH [facility] REQUESTING ADDITIONAL CLINICAL INFORMATION. REQUESTED INFORMATION FAXED AT THIS TIME. Riley SINGH MSW, OCCUPATIONAL THERAPY PROGRAM DIRECTOR.
[2020-01-09 17:00] VITALS: BP 184/85; PULSE 78; RESP 16; O2SAT 98
--- NOTE | 2020-01-09 17:22 | CM.ED ---
SOCIAL WORK RECEIVED CALL FROM [facility] WITH [facility]. PATIENT ACCEPTED BY DR. GREGORY. NURSE TO CALL REPORT TO . [facility] HAS SET UP TRANSPORTATION WITH [facility] FOR A 6-6:30P ENVIRONMENTAL SERVICES TECHNICIAN. STAFF SHIRLENE. Riley SINGH, AVIATION PROJECT MANAGER, ALUMNI RELATIONS COORDINATOR.
--- NOTE | 2020-01-09 17:30 | ED.RN ---
ATTEMPTED TO CALL REPORT TO [facility], NO ANSWER.
[2020-01-09 17:45] VITALS: BP 168/83; PULSE 80; RESP 16; O2SAT 98
--- NOTE | 2020-01-09 18:02 | CM.ED ---
SOCIAL WORK CALL TO [facility] TO UPDATE ON ACCEPTANCE TO [facility]. Riley SINGH, SENIOR ANALYST DEVELOPER, AUXILIARY POWER EQUIPMENT OPERATOR.
--- NOTE | 2020-01-09 18:05 | ED.RN ---
ATTEMPT #2 TO CONTACT [facility] FOR REPORT.
== END 2020-01-09 18:12 ==
PROVIDERS: Emergency Provider Emergency Medicine; PCP Family Medicine Geriatric Medicine
DX: F20.9 Schizophrenia, unspecified (principal); I10 Essential (primary) hypertension; E78.5 Hyperlipidemia, unspecified; Z91.14 Patient's other noncompliance with medication regimen; Z79.01 Long term (current) use of anticoagulants; Z79.899 Other long term (current) drug therapy; Z87.19 Personal history of other diseases of the digestive system; Z86.73 Personal history of transient ischemic attack (TIA), and cerebral infarction without residual deficits; Z88.8 Allergy status to other drugs, medicaments and biological substances; Z88.5 Allergy status to narcotic agent; Z90.49 Acquired absence of other specified parts of digestive tract; Z90.710 Acquired absence of both cervix and uterus
CPT/HCPCS: 70450; 71045; 80053; 80307; 80320; 81001; 85025; 93005; 99285; P9612; A4216; G0480

== ENCOUNTER → 2020-01-27 17:30 | Outpatient (REF) | payer MEDICARE, MEDICAID, SELFPAY ==
[2020-01-09 12:50] VITALS: BMI 33.3
== END ==
LOC: MTDU 17:30
PROVIDERS: PCP Family Medicine Geriatric Medicine; Visit Provider Nurse Practitioner Adult Health
DX: U07.1 COVID-19 (principal)
CPT/HCPCS: 87635; U0004

== ENCOUNTER 2020-01-29 08:17 | Inpatient (IN) | payer MEDICARE, MEDICAID, SELFPAY ==
[2020-01-29] VITALS (12 sets, daily range): BP systolic 76–102; BP diastolic 27–48; PULSE 51–65; RESP 13–23; TEMP 36.4–37.2; O2SAT 84–100; BMI 35.4; BMI 34.2; BMI 34.3
--- NOTE | 2020-01-29 08:30 | EKG12_ITS ---
Test Reason : Blood Pressure : / mmHG Vent. Rate : 062 BPM Atrial Rate : 062 BPM P-R Int : 190 ms QRS Dur : 098 ms QT Int : 432 ms P-R-T Axes : 027 017 062 degrees QTc Int : 438 ms Normal sinus rhythm Nonspecific ST and T wave abnormality Abnormal ECG Confirmed by PROSPER PATEL ([id number]), scientific editor BRAD BRIDGES ([id number] on 02/03/2020 10:30:25 AM Referred By: BARBARA Confirmed By:PROSPER PATEL
--- NOTE | 2020-01-29 08:30 | RAD_ITS ---
STUDY: X-RAY CHEST REASON FOR EXAM: Female, 79 years old. HYPOTENSION X 4 DAYS. SEPSIS. ALSO HX HTN TECHNIQUE: Single AP portable view of the chest. COMPARISON: 09 January 2020 FINDINGS: Left lower lobe linear atelectatic changes are present with early region of airspace disease not completely excluded. There is no demonstrated pleural abnormality. Normal size heart. Normal mediastinum and orladno. Normal visualized pulmonary arteries. There is atherosclerotic calcification of the aortic arch with tortuosity. Normal visualized thoracic spine. Normal visualized ribs, clavicles, and shoulders. There is no demonstrated abnormality of the visualized soft tissue structures of the upper abdomen. RAD/Chest 1 View (Portable) IMPRESSION: Left lower lobe atelectatic changes with early region of airspace disease not completely excluded. Electronically Signed: Mian Dunlap DO at 9:47 EDT , Service support ,
--- NOTE | 2020-01-29 08:32 | ED.DCSUM_ITS ---
- ER Visit Summary Date of Service: 01/29/20 Chief Complaint: Nausea, vomiting and diarrhea. Low blood pressure. History of Present Illness: The patient is a 79 F extensive past medical history including prior stroke, PR, CHF, small bowel obstructions, schizophrenia, hypertension, prior pulmonary emboli on the blood thinner Eliquis. Patient is a resident at an area alf. States she is had 3 to 4 days of nausea, vomiting and diarrhea. Denies hematemesis. Denies melena. Reportedly may have had a fever. Denies any dysuria. Only mild abdominal cramping. She is had extensive past surgical history including an appendectomy, cholecystectomy and hysterectomy. Physical Examination: Elderly female initial blood pressure 89/48. Temperature 98. Pulse ox 84% on room air hypoxic. She will be placed on oxygen. HEENT exam dry mucous membranes. No facial droop. Normal speech. Pupils are round reactive light. Neck nontender. No lymphadenopathy. Lungs clear to auscultation bilaterally. Heart regular rhythm rate about 65 no murmur. Abdomen soft. Mildly distended. No peritoneal signs. No hernias or masses. Positive bowel sounds. Patient is moving all 4 extremities. Calves are nontender without edema or cords. Neurologically she is awake and alert. She is moving all 4 extremities. She is answering questions and following commands. Test Results: EKG shows normal sinus rhythm rate of 62 no acute signs of PR or ischemia. CBC shows a white count of 7. Hemoglobin 13. No bands. Chemistries unremarkable gap of 13. She has an acute kidney injury with a BUN of 55 and creatinine of 3.2. Her most recent creatinine was 0.9. Liver enzymes normal. Lipase normal. PT PTT normal. Troponin normal. Lactic acid 1.6. Chest x-ray portable 1 view shows no acute abnormality. No infiltrate. Normal cardiac silhouette. COVID test is pending. Emergency Department Course and Treatment: Patient will undergo a work-up for sepsis and hypoxia. She will be admitted to the hospital. She will be given 1 L normal saline wide open and a blood pressure reassessed. Cariefrcharli for nausea. Currently with 2 large-bore IVs in her right upper extremity. Treatment Plan: Patient has received 1 L fluid. She remains hypotensive with a systolic blood pressure of 85. She is now getting a second liter of fluid. Hospitalist will be on page for admission. Patient is awake alert currently and showing improvement. Disposition: Admission to the ICU. Impression: Acute hypotension Acute hypoxia rule out COVID Acute nausea, vomiting and diarrhea Acute hypovolemic shock Dehydration Acute kidney injury with a creatinine of 3.2 History of prior C VA. History of prior PR. History of A. fib on blood thinner Eliquis History of prior pulmonary emboli. History of prior A. fib CC Time = 35 min. This note was generated with [employer] dictation software. It may contain incorrect words, spelling, and punctuation that were not noted in review of the chart prior to signing ED Disposition - Plan for ED Patient: Referrals: Corey Nicole Chi, MD [COURTESY STAFF PHYSICIAN] -
[2020-01-29] MEDS: 0.9% Normal Saline 1,000 ML 999 ML IV ×2 (08:35→09:29)
[2020-01-29] MEDS: Ondansetron 4 MG/2 ML Vial IV (08:35)
[2020-01-29 08:45] LABS: Absolute Neutrophil Count 5.6 X10^3/uL (2.0-7.7); Basophil# 0.01 X10^3/uL; Basophil% 0.1 % (0-1); Hematocrit 41.7 % (37-47); Hemoglobin 13.3 g/dL (12.0-15.0); Lymphocyte % 16.4 % (19-41); Mean Corp Hgb Conc 31.9 g/dL (32-36); Mean Corpuscular Hgb 27.7 pg (27.0-32.0); Mean Corpuscular Volume 86.7 fL (81-99); Mean Platelet Vol. 10.5 fl (6.2-12.0); Monocyte# 0.51 X10^3/uL; NRBC Flagged by Analyzer 0 % (0-5); Neutrophil # 5.56 X10^3/uL (2.7-7.7); Neutrophil % 76.1 % (47-70); Platelet Count 262 K/mm3 (150-450); RBC Distribution Width CV 15.7 % (11.6-14.6); RBC Distribution Width SD 49.4 fl (35.1-43.9); Red Blood Count 4.81 M/mm3 (4.2-5.4); White Blood Count 7.3 K/mm3 (4.4-11.0)
[2020-01-29 08:53] LABS: Mucous, Urine 0 SEEN /hpf (<or=2+); Red Blood Cells-Urine 0 SEEN /hpf (0-5); Squamous Epithelial Cells - UA 0 SEEN /hpf (5-10); White Blood Cells 0 SEEN /hpf (0-5)
[2020-01-29 09:10] LABS: Lactic Acid 1.6 mmol/L (0.4-1.9)
[2020-01-29 09:10] LABS: International Normalized Ratio 1.3
[2020-01-29 09:11] LABS: Partial Thromboplast Time 33.4 Seconds (24.1-36.2)
[2020-01-29 09:20] LABS: ALB/GLOB Ratio 0.8 RATIO (0.9-2.4); AST(SGOT) 32 U/L (15-37); Alanine Aminotransfer ALT/SGPT 25 U/L (13-56); Albumin, Serum 3.1 g/dL (3.2-5.0); Alkaline Phosphatase 105 U/L (45-117); Anion Gap 13 (5-15); BUN 55 mg/dL (7-18); BUN/Creat Ratio 17.1 RATIO (10-20); Calcium,Total 8.8 mg/dL (8.5-10.1); Chloride 104 mmol/L (98-107); Creatinine, Serum 3.21 mg/dL (0.55-1.02); EST Glomerular Filtration Rate 15 mL/min (>60); Est Glom Filt Rate - Afr Amer 18 mL/min (>60); Estimated Creatinine Clearance 12.79 ml/min; Glucose 164 mg/dL (74-106); Lipase 96 U/L (73-393); Potassium 3.9 mmol/L (3.5-5.1); Protein, Total 7.1 g/dL (6.4-8.2); Sodium Level 140 mmol/L (136-145)
[2020-01-29 09:21] LABS: Color, Urine Yellow (Yellow); Glucose, Dipstick Normal (Normal); Ketone-Dipstick Negative (Negative); Leukocyte Esterase-Dipstick Negative /ul (Negative); Nitrite-Dipstick Negative (Negative); Occult Blood-Urine Negative /ul (Negative); Protein-Dipstick Negative (Negative); Specific Gravity, Urine 1.025 (1.002-1.030); Urine Bilirubin Dipstick Negative (Negative); Urine Clarity Clear (Clear); Urine Urobilinogen Normal (Normal)
[2020-01-29 09:30] LABS: Bacteria RARE /hpf (None Seen)
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
[2020-01-29 11:08] LABS: Ferritin 299 ng/mL (8-252); LDH 251 U/L (84-246); Magnesium 2.2 mg/dL (1.6-2.6)
[2020-01-29 11:10] LABS: Procalcitonin 0.61 ng/mL (0.00-0.09)
[2020-01-29] MEDS: APIXABAN 5 MG TABLET PO ×2 (11:50→21:10)
[2020-01-29 11:51] LABS: D-Dimer Quantitative (DVT/PE) 0.55 FEU/ug/m (0.27-0.49)
[2020-01-29] MEDS: 0.9% Normal Saline 1,000 ML 100 ML IV ×2 (11:51→21:49)
[2020-01-29 11:58] LABS: Hemoglobin A1c 6.5 % (4.2-6.3)
[2020-01-29] MEDS: oxyCODONE 5 MG Tablet PO (12:34)
[2020-01-29] MEDS: Nystatin Powder 15gm Bottle 1 APPLIC TOPICAL ×2 (12:34→21:12)
--- NOTE | 2020-01-29 13:38 | PHA.PHARE_ITS ---
Consult Pharmacy has been consulted to manage selected antiobiotic: Vancomycin Type of Consult: New start Suspected Infection: Pneumonia Labs: Sodium 140 mmol/L (136-145) 01/29/20 08:50 Potassium 3.9 mmol/L (3.5-5.1) 01/29/20 08:50 Chloride 104 mmol/L (98-107) 01/29/20 08:50 Carbon Dioxide 23.0 mmol/L (21.0-32.0) 01/29/20 08:50 Anion Gap 13 (5-15) 01/29/20 08:50 BUN 55 mg/dL (7-18) H 01/29/20 08:50 Creatinine 3.21 mg/dL (0.55-1.02) H 01/29/20 08:50 Est GFR (MDRD) Af Amer 18 mL/min (>60) L 01/29/20 08:50 Est GFR (MDRD) Non-Af 15 mL/min (>60) L 01/29/20 08:50 BUN/Creatinine Ratio 17.1 RATIO (10-20) 01/29/20 08:50 Glucose 164 mg/dL (74-106) H 01/29/20 08:50 Microbiology: Microbiology 01/29/20 08:45 Urine Catheter - [place] Streptococcus pneumoniae Antigen (M - Final 01/29/20 08:45 Urine Catheter - [place] Legionella Antigen - Final Weight used for dosin.4 kg Estimated Creatinine Clearance: 16ml/min Goal Trough: 15-20 mcg/mL Pharmacy Plan for Drug Dosing: Give initial loading dose of 2000mg IV x1. Will then dose according to [facility] protocol for patients with CrCl<20 and not on dialysis. A random vanc level will be ordered to be drawn with the 2nd AM labs (which will be 01/31/20). If that level is <20mg/L, the next dose will then be determined by pharmacy at that time. The patient's CrCl of 16 was calculated using an adjusted body weight of 71.6kg. Pharmacy Service will continue to monitor and adjust dosing as required. Follow-Up Labs: Trough Vancomycin - random Labs to be done on [date and time ordered]: 01/31/20 06:00
[2020-01-29 14:58] LABS: M R Staph aureus DNA By PCR Negative (Negative); Probe Check PASS; Specimen Processing Control PASS
[2020-01-29] MEDS: MELATONIN 10 MG TABLET 5 MG PO (21:11)
[2020-01-29] MEDS: Atorvastatin Calcium 10 MG Tablet PO (21:11)
[2020-01-29] MEDS: OLANZapine 2.5 MG Tablet 5 MG PO (21:14)
[2020-01-29] MEDS: OLANZapine 10 MG Tablet PO (21:14)
[2020-01-29] MEDS: Acetaminophen 325 MG Tablet 650 MG PO (21:23)
[2020-01-30] VITALS (8 sets, daily range): BP systolic 81–106; BP diastolic 29–46; PULSE 52–66; RESP 16–20; TEMP 36.3–38.8; O2SAT 92–100
--- NOTE | 2020-01-30 04:42 | RAD_ITS ---
HISTORY: dyspnea, cough EXAMINATION/TECHNIQUE: XR Chest 1 View: Portable COMPARISON: 01/29/2020 FINDINGS: No significant change. Normal heart size. Left basilar small atelectasis or infiltrate. The right lung shows no focal infiltrates. No vascular congestion or pleural effusion. No pneumothorax. Atherosclerotic thoracic aorta. RAD/Chest 1 View (Portable) IMPRESSION: Left basilar small atelectasis or infiltrate, unchanged. No new or progressive disease. at 0732 Reported and signed by: Stone Godinez MD Electronically Signed: Stone Godinez, at 7:31 EDT Tel , Service support ,
[2020-01-30] MEDS: Acetaminophen 325 MG Tablet 650 MG PO ×2 (05:31→16:06)
[2020-01-30] MEDS: Nystatin Powder 15gm Bottle 1 APPLIC TOPICAL ×3 (05:32→21:59)
[2020-01-30 07:36] LABS: Absolute Lymphocyte Count 1.22 X10^3/uL (0.83-4.51); Absolute Neutrophil Count 3.5 X10^3/uL (2.0-7.7); Basophil# 0.01 X10^3/uL; Basophil% 0.2 % (0-1); Eosinophil# 0.01 X10^3/uL; Eosinophils% 0.2 % (0-5); Hematocrit 31.8 % (37-47); Hemoglobin 9.9 g/dL (12.0-15.0); Lymphocyte # 1.22 X10^3/ul (4.0); Lymphocyte % 24.5 % (19-41); Mean Corp Hgb Conc 31.1 g/dL (32-36); Mean Corpuscular Hgb 27.8 pg (27.0-32.0); Mean Corpuscular Volume 89.3 fL (81-99); Mean Platelet Vol. 10.3 fl (6.2-12.0); Monocyte# 0.17 X10^3/uL; Monocyte% 3.4 % (0-10); NRBC Flagged by Analyzer 0 % (0-5); Neutrophil # 3.54 X10^3/uL (2.7-7.7); Neutrophil % 71.3 % (47-70); POSITIVE MORPHOLOGY YES; Platelet Count 160 K/mm3 (150-450); RBC Distribution Width CV 15.2 % (11.6-14.6); RBC Distribution Width SD 50.4 fl (35.1-43.9); Red Blood Count 3.56 M/mm3 (4.2-5.4)
[2020-01-30 07:39] LABS: Differential Indicated SCAN CRITERIA MET
[2020-01-30] MEDS: APIXABAN 5 MG TABLET PO ×2 (07:56→21:59)
[2020-01-30] MEDS: 0.9% Normal Saline 1,000 ML 100 ML IV ×2 (07:57→16:58)
[2020-01-30 08:06] LABS: Platelet Estimate ADEQUATE (ADEQ); Red Cell Morphology NORM C+C NORMAL (NORM C&C)
[2020-01-30 08:18] LABS: ALB/GLOB Ratio 0.8 RATIO (0.9-2.4); AST(SGOT) 23 U/L (15-37); Alanine Aminotransfer ALT/SGPT 17 U/L (13-56); Albumin, Serum 2.2 g/dL (3.2-5.0); Alkaline Phosphatase 72 U/L (45-117); Anion Gap 7 (5-15); BUN 57 mg/dL (7-18); BUN/Creat Ratio 30.5 RATIO (10-20); Calcium,Total 7.3 mg/dL (8.5-10.1); Chloride 111 mmol/L (98-107); Creatinine, Serum 1.87 mg/dL (0.55-1.02); EST Glomerular Filtration Rate 28 mL/min (>60); Est Glom Filt Rate - Afr Amer 33 mL/min (>60); Estimated Creatinine Clearance 21.95 ml/min; Globulin 2.9 g/dL (2.2-4.2); Glucose 81 mg/dL (74-106); Potassium 3.4 mmol/L (3.5-5.1); Protein, Total 5.1 g/dL (6.4-8.2); Sodium Level 141 mmol/L (136-145)
[2020-01-30] MEDS: guaiFENesin 10 ML UDC (200MG/10ML) PO ×2 (12:54→17:07)
--- NOTE | 2020-01-30 13:15 | PCM.PN.HOSP ---
Patient Problems: Active and Suspected Problems (Last Reviewed 07/25/19 @ 14:23 by Angi Sauceda) Acute respiratory failure with hypoxia (Acute) Suspected COVID-19 virus infection (Acute) EPI (acute kidney injury) (Acute) History of CVA (cerebrovascular accident) (Acute) History of traumatic brain injury (Acute) History of pulmonary embolism (Acute) Reason for Visit: respiratory failure Subjective: Diarrhea improved. Vitals/I&O's: Vital Signs Temp Pulse Resp BP Pulse Ox 36.6 C 62 18 93/29 L 98 01/30/20 12:28 01/30/20 12:28 01/30/20 12:28 01/30/20 12:28 01/30/20 12:28 Oxygen Flow Rate (L/min) 3 Oxygen Delivery Method Room Air Weight: 93.8 kg Body Mass Index (BMI) 34.2 Intake and Output for Last 24 Hours 01/28/20 01/29/20 01/30/20 23:59 23:59 23:59 Intake Total 3936.67 / 3936.67 1500 / 1500 Output Total 660 / 660 750 / 750 Balance 3276.67 / 3276.67 750 / 750 General: Alert, Cooperative, No apparent distress HEENT: Atraumatic Oral: Moist Mucosa, No Gingival or Mucosal Lesions/ Ulcerations Neck: No Nodes, Trachea Midline Lungs: Clear to auscultation, Normal air movement, No rhonchi, No wheeze, No rales Cardiovascular: Regular rate, Regular Rhythm, Normal S1, Normal S2, No murmurs Abdomen: Bowel Sounds Present, Soft, Non Tender, Non-Distended, No Hepato-splenomegaly Extremities: No edema, No Calf Tenderness Psych/Mental Status: Normal Affect, Appropriate Microbiology Past 72 Hours 01/29/20 08:45 Urine, Catheterized Urine Culture - Preliminary Culture exhibits no growth. 01/29/20 12:20 Stool Enteric Bacteriology - Final 01/29/20 12:20 Stool C. difficile DNA Amplification - Final 01/29/20 09:45 Mucosa - Nasopharyngeal Respiratory Panel (PCR) - Final 01/29/20 08:45 Urine Catheter - [place] Streptococcus pneumoniae Antigen (M - Final 01/29/20 08:45 Urine Catheter - [place] Legionella Antigen - Final Laboratory Results 01/29/20 12:00: Troponin I < 0.015 01/29/20 12:00: MRSA (PCR) Negative 01/30/20 06:50: WBC 5.0, RBC 3.56 L, Hgb 9.9 L, Hct 31.8 L, MCV 89.3, MCH 27.8, MCHC 31.1 L, RDW Std Deviation 50.4 H, RDW Coeff of Lamine 15.2 H, Plt Count 160, MPV 10.3, Immature Gran % (Auto) 0.400, Neut % (Auto) 71.3 H, Lymph % (Auto) 24.5, [place] % (Auto) 3.4, Eos % (Auto) 0.2, Baso % (Auto) 0.2, Absolute Neuts (auto) 3.5, Absolute Lymphs (auto) 1.22, Nucleated RBC % 0, Differential Comment , Platelet Estimate ADEQUATE, RBC Morphology NORM C+C 01/30/20 06:50: Sodium 141, Potassium 3.4 L, Chloride 111 H, Carbon Dioxide 23.0, Anion Gap 7, BUN 57 H, Creatinine 1.87 H, Estim Creat Clear Calc 21.95, Est GFR (MDRD) Af Amer 33 L, Est GFR (MDRD) Non-Af 28 L, BUN/Creatinine Ratio 30.5 H, Glucose 81, Calcium 7.3 L, Total Bilirubin 0.20, AST 23, ALT 17, Alkaline Phosphatase 72, Total Protein 5.1 L, Albumin 2.2 L, Globulin 2.9, Albumin/Globulin Ratio 0.8 L Current Medications Acetaminophen (Tylenol) 650 mg PO Q6H PRN PRN PRN Reason: Pain Score 1-10/Temp > 100.7 F Last Admin: 01/30/20 05:31 Dose: 650 mg Documented by: Albuterol Sulfate (Ventolin Hfa (Sp)) 2 puff INHALATION Q2H PRN PRN PRN Reason: Dyspnea, wheezing Apixaban (Eliquis) 5 mg PO BID [facility] Last Admin: 01/30/20 07:56 Dose: 5 mg Documented by: Atorvastatin Calcium (Lipitor) 10 mg PO QHS [facility] Last Admin: 01/29/20 21:11 Dose: 10 mg Documented by: Dextrose (D50w Syringe) 0 gm IV X1 PRN; Protocol PRN Reason: Hypoglycemia Diphenoxylate HCl/Atropine (Lomotil) 1 tablet PO 4X/DAY PRN PRN Reason: Diarrhea Fluticasone Propionate (Flovent Diskus 100 Mcg) 1 puff INHALATION BID [facility] Last Admin: 01/30/20 07:57 Dose: 1 puff Documented by: Glucagon () 1 mg IM .X1 PRN PRN Reason: Hypoglycemia Guaifenesin (Robitussin) 10 ml PO Q4H PRN PRN PRN Reason: COUGH Last Admin: 01/30/20 12:54 Dose: 10 ml Documented by: Hydralazine HCl (Apresoline Iv) 10 mg IV Q4H PRN PRN PRN Reason: SBP > 160 Sodium Chloride () 1,000 mls @ 100 mls/hr IV .Q10H [facility] Last Admin: 01/30/20 07:57 Dose: 100 mls/hr Documented by: Piperacillin Sod/Tazobactam (Sod 3.375 gm/ Sodium Chloride) 50 mls @ 12.5 mls/hr IV Q12 [facility] Last Infusion: 01/30/20 12:20 Dose: Infused Documented by: Sodium Chloride () 250 mls @ 15 mls/hr IV .[id number] PRN PRN Reason: Saline Flush Sodium Chloride () 250 mls @ 15 mls/hr IV .[id number] PRN PRN Reason: Additional IVPB Infusion Melatonin (Melatonin) 5 mg PO QHS [facility] Last Admin: 01/29/20 21:11 Dose: 5 mg Documented by: Miscellaneous Information (Pocket Chamber) 1 each INHALATION Q2H PRN PRN Reason: FOR USE WITH ALBUTEROL Morphine Sulfate () 2 mg IV Q3H PRN PRN PRN Reason: Pain Score 6-10/10 Nitroglycerin (Nitrostat) 0.4 mg SUBLINGUAL Q5M PRN PRN Reason: CARDIAC/CHEST PAIN Nutritional Formula (Lactose Free) (Ensure Enlive) 120 ml PO 4X/DAY [facility] Last Admin: 01/30/20 12:30 Dose: 120 ml Documented by: Nystatin (Mycostatin Powder) 1 applic TOPICAL TID [facility]; Protocol Last Admin: 01/30/20 12:30 Dose: 1 applicatio Documented by: Olanzapine (Zyprexa) 5 mg PO QHS [facility] Last Admin: 01/29/20 21:14 Dose: 5 mg Documented by: Olanzapine (Zyprexa) 10 mg PO QHS [facility] Last Admin: 01/29/20 21:14 Dose: 10 mg Documented by: Ondansetron HCl (Zofran) 4 mg IV Q8H PRN PRN PRN Reason: NAUSEA/VOMITING Oxycodone HCl (Oxyir) 5 mg PO Q4H PRN PRN PRN Reason: Pain Score 4-5/10 Last Admin: 01/29/20 12:34 Dose: 5 mg Documented by: Prochlorperazine Edisylate (Compazine Iv) 5 mg IV Q4H PRN PRN PRN Reason: Breakthrough Nausea/Vomiting Sodium Chloride () 10 - 40 ml IV UD PRN PRN Reason: SALINE FLUSH Throat Lozenges (Cepacol Sore Throat Lozenge) 1 lozenge MUCOUS MEM Q2H PRN PRN PRN Reason: SORE THROAT STROKE Vital Signs/Narrative: Vital Signs Temp Pulse Resp BP Pulse Ox 01/30/20 12:28 36.6 C 62 18 93/29 L 98 01/30/20 09:48 36.6 C 56 L 16 86/31 L 96 Medical Necessity - Tobacco Use Smoking Status: Never smoker Assessment/Plan All Active Problems (Last Reviewed 07/25/19 @ 14:23 by Angi Sauceda) Syncope and collapse (Acute) Bradycardia (Acute) Dehydration (Acute) Acute respiratory failure with hypoxia (Acute) Suspected COVID-19 virus infection (Acute) EPI (acute kidney injury) (Acute) History of CVA (cerebrovascular accident) (Acute) History of traumatic brain injury (Acute) History of pulmonary embolism (Acute) Nocturnal hypoxemia (Acute) Abdominal pain (Resolved) Gram-negative pneumonia (Resolved) PARTIAL SBO (Resolved) 1. Acute COVID-19 supportive mgmt + test from the CXR today was unremarkable on pip/tazo, consider discontinuation of abx if cx negative 2. EPI Cr 3.21, baseline 0.97 IVF monitor suspect prerenal 3. hypotension probably with dehydration improved 4. paroxysmal afib anticoagulated on apixaban 5. VTE prophylaxis: anticoagulation DW patient's son. Inpatient E&M: 35121 [facility] Hosp L2
--- NOTE | 2020-01-30 13:29 | CASEMGMT ---
Social Work Note Pt is listed as being from [facility]. JOCELYN updated that pt has positive test for COVID. JOCELYN attempted to call pt's room, no answer. JOCELYN attempted to call pt's son Alfred and there was no answer. JOCELYN left message with JOCELYN number to give this worker a call back. JOCELYN placed a call to [facility] and spoke with Radha in admissions. 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 JOCELYN updated Radha that pt has tested positive for COVID. Radha states that they have two wings assigned for COVID patients and is able to take pt back with positive COVID. JOCELYN faxed updated clinicals to [facility]. Plan: Return to [facility] when medically cleared Shyla Michelle DENTAL FINANCIAL COORDINATOR, USED CAR SALES SUPERVISOR
[2020-01-30] MEDS: Atorvastatin Calcium 10 MG Tablet PO (21:59)
[2020-01-30] MEDS: MELATONIN 10 MG TABLET 5 MG PO (21:59)
[2020-01-30] MEDS: OLANZapine 2.5 MG Tablet 5 MG PO (22:00)
[2020-01-30] MEDS: OLANZapine 10 MG Tablet PO (22:00)
--- NOTE | 2020-01-30 22:49 | NURSING ---
Despite education, pt refusing to wear continuous pulse ox and nasal cannula. Pt currently 95% on room air. Will continue to monitor and assess.
[2020-01-31] VITALS (9 sets, daily range): BP systolic 94–113; BP diastolic 34–49; PULSE 55–64; RESP 16; TEMP 37.2–38.4; O2SAT 86–96
[2020-01-31] MEDS: 0.9% Normal Saline 1,000 ML 100 ML IV ×2 (02:26→12:41)
[2020-01-31] MEDS: Nystatin Powder 15gm Bottle 1 APPLIC TOPICAL ×3 (05:59→20:09)
[2020-01-31 07:36] LABS: Absolute Lymphocyte Count 0.95 X10^3/uL (0.83-4.51); Absolute Neutrophil Count 2.4 X10^3/uL (2.0-7.7); Basophil# 0.01 X10^3/uL; Basophil% 0.3 % (0-1); Eosinophil# 0.01 X10^3/uL; Eosinophils% 0.3 % (0-5); Hematocrit 33.2 % (37-47); Hemoglobin 10.3 g/dL (12.0-15.0); Lymphocyte # 0.95 X10^3/ul (4.0); Lymphocyte % 26.6 % (19-41); Mean Corpuscular Hgb 27.5 pg (27.0-32.0); Mean Corpuscular Volume 88.8 fL (81-99); Mean Platelet Vol. 10.5 fl (6.2-12.0); Monocyte# 0.14 X10^3/uL; Monocyte% 3.9 % (0-10); NRBC Flagged by Analyzer 0 % (0-5); Neutrophil # 2.44 X10^3/uL (2.7-7.7); Neutrophil % 68.3 % (47-70); Platelet Count 134 K/mm3 (150-450); RBC Distribution Width SD 48.5 fl (35.1-43.9); Red Blood Count 3.74 M/mm3 (4.2-5.4); White Blood Count 3.6 K/mm3 (4.4-11.0)
[2020-01-31 08:12] LABS: ALB/GLOB Ratio 0.7 RATIO (0.9-2.4); AST(SGOT) 25 U/L (15-37); Alanine Aminotransfer ALT/SGPT 17 U/L (13-56); Albumin, Serum 2.2 g/dL (3.2-5.0); Alkaline Phosphatase 69 U/L (45-117); Anion Gap 6 (5-15); BUN 30 mg/dL (7-18); Calcium,Total 7.3 mg/dL (8.5-10.1); Chloride 113 mmol/L (98-107); Creatinine, Serum 1.11 mg/dL (0.55-1.02); EST Glomerular Filtration Rate 50 mL/min (>60); Est Glom Filt Rate - Afr Amer 61 mL/min (>60); Estimated Creatinine Clearance 36.98 ml/min; Globulin 3.2 g/dL (2.2-4.2); Glucose 90 mg/dL (74-106); Potassium 3.6 mmol/L (3.5-5.1); Protein, Total 5.4 g/dL (6.4-8.2); Sodium Level 141 mmol/L (136-145)
[2020-01-31] MEDS: oxyCODONE 5 MG Tablet PO (09:25)
[2020-01-31] MEDS: APIXABAN 5 MG TABLET PO ×2 (09:25→20:08)
--- NOTE | 2020-01-31 11:29 | CASEMGMT ---
Addendum entered by Shyla Michelle 01/31/20 13:55: JOCELYN faxed updated clinicals to [facility]. Per physician, anticipate discharge tomorrow. Addendum entered by Shyla Michelle 01/31/20 13:38: RN updated this worker that she spoke with pt, pt agreeable to returning to [facility] at discharge. Original Note: Social Work Note JOCELYN attempted to call pt's room again to discuss discharge plans, no answer. JOCELYN placed a call to pt's son Alfred. Alfred states that he wished pt didn't have to return to [facility] as they have a COVID outbreak but understands that [facility] is the only place pt will be able to return. Alfred states he wish he could take pt home but admits that bringing pt home is unrealistic. JOCELYN informed Alfred that nursing homes are not accepting new COVID patients so it does seem that [facility] is the only F that is able to take pt at this time. Alfred confirms that the plan is for pt to return to [facility] at discharge. JOCELYN spoke with RN, asked RN to speak with pt regarding discharge plans when RN goes back into pt's room. JOCELYN informed RN and Charge Nurse that [facility] is able to accept pt back once pt is medically cleared. [facility] is able to accept pt with positive COVID test. Plan: Return to [facility] once medically cleared Shyla Michelle HEAD HOUSEKEEPER, UNMANNED AIRCRAFT SYSTEMS ROBOTICIST
--- NOTE | 2020-01-31 13:40 | PN_ITS ---
Patient Problems: Active and Suspected Problems (Last Reviewed 07/25/19 @ 14:23 by Angi Sauceda) Acute respiratory failure with hypoxia (Acute) Suspected COVID-19 virus infection (Acute) EPI (acute kidney injury) (Acute) History of CVA (cerebrovascular accident) (Acute) History of traumatic brain injury (Acute) History of pulmonary embolism (Acute) Reason for Visit: COVID Subjective: Fevers overnight. Feels better overall. Vitals/I&O's: Vital Signs Temp Pulse Resp BP Pulse Ox 37.7 C H 64 16 105/41 L 94 01/31/20 09:15 01/31/20 09:15 01/31/20 09:15 01/31/20 09:15 01/31/20 09:15 Oxygen Flow Rate (L/min) 2 Oxygen Delivery Method Nasal Cannula Weight: 93.7 kg Body Mass Index (BMI) 34.2 Intake and Output for Last 24 Hours 01/29/20 01/30/20 01/31/20 23:59 23:59 23:59 Intake Total 3936.67 / 3936.67 2641.67 / 2641.67 2476.67 / 2476.67 Output Total 660 / 660 1475 / 1475 975 / 975 Balance 3276.67 / 3276.67 1166.67 / 1166.67 1501.67 / 1501.67 General: Alert, No apparent distress HEENT: Atraumatic, Normocephalic Oral: Moist Mucosa, No Gingival or Mucosal Lesions/ Ulcerations Neck: No Nodes, Trachea Midline Lungs: Clear to auscultation, Normal air movement, No rhonchi, No wheeze, No rales Cardiovascular: Regular rate, Regular Rhythm, Normal S1, Normal S2, No murmurs Abdomen: Bowel Sounds Present, Soft, Non Tender, Non-Distended, No Hepato- splenomegaly Extremities: No Calf Tenderness, Edema Skin: No rashes, No breakdown Psych/Mental Status: Normal Affect, Appropriate Microbiology Past 72 Hours 01/29/20 08:45 Urine, Catheterized Urine Culture - Final Culture exhibits no growth. 01/29/20 12:20 Stool Enteric Bacteriology - Final 01/29/20 12:20 Stool C. difficile DNA Amplification - Final 01/29/20 09:45 Mucosa - Nasopharyngeal Respiratory Panel (PCR) - Final 01/29/20 08:45 Urine Catheter - [place] Streptococcus pneumoniae Antigen (M - Final 01/29/20 08:45 Urine Catheter - [place] Legionella Antigen - Final Laboratory Results 01/31/20 07:10: WBC 3.6 L, RBC 3.74 L, Hgb 10.3 L, Hct 33.2 L, MCV 88.8, MCH 27.5, MCHC 31.0 L, RDW Std Deviation 48.5 H, RDW Coeff of Lamine 15.0 H, Plt Count 134 L, MPV 10.5, Immature Gran % (Auto) 0.600, Neut % (Auto) 68.3, Lymph % (Auto) 26.6, [place] % (Auto) 3.9, Eos % (Auto) 0.3, Baso % (Auto) 0.3, Absolute Neuts (auto) 2.4, Absolute Lymphs (auto) 0.95, Nucleated RBC % 0 01/31/20 07:10: Sodium 141, Potassium 3.6, Chloride 113 H, Carbon Dioxide 22.0, Anion Gap 6, BUN 30 H, Creatinine 1.11 H, Estim Creat Clear Calc 36.98, Est GFR (MDRD) Af Amer 61, Est GFR (MDRD) Non-Af 50 L, BUN/Creatinine Ratio 27.0 H, Glucose 90, Calcium 7.3 L, Total Bilirubin 0.20, AST 25, ALT 17, Alkaline Phosphatase 69, Total Protein 5.4 L, Albumin 2.2 L, Globulin 3.2, Albumin/Globulin Ratio 0.7 L Current Medications Acetaminophen (Tylenol) 650 mg PO Q6H PRN PRN PRN Reason: Pain Score 1-10/Temp > 100.7 F Last Admin: 01/30/20 16:06 Dose: 650 mg Documented by: Albuterol Sulfate (Ventolin Hfa (Sp)) 2 puff INHALATION Q2H PRN PRN PRN Reason: Dyspnea, wheezing Apixaban (Eliquis) 5 mg PO BID [facility] Last Admin: 01/31/20 09:25 Dose: 5 mg Documented by: Atorvastatin Calcium (Lipitor) 10 mg PO QHS [facility] Last Admin: 01/30/20 21:59 Dose: 10 mg Documented by: Dextrose (D50w Syringe) 0 gm IV X1 PRN; Protocol PRN Reason: Hypoglycemia Diphenoxylate HCl/Atropine (Lomotil) 1 tablet PO 4X/DAY PRN PRN Reason: Diarrhea Fluticasone Propionate (Flovent Diskus 100 Mcg) 1 puff INHALATION BID [facility] Last Admin: 01/31/20 09:25 Dose: 1 puff Documented by: Glucagon () 1 mg IM .X1 PRN PRN Reason: Hypoglycemia Guaifenesin (Robitussin) 10 ml PO Q4H PRN PRN PRN Reason: COUGH Last Admin: 01/30/20 17:07 Dose: 10 ml Documented by: Hydralazine HCl (Apresoline Iv) 10 mg IV Q4H PRN PRN PRN Reason: SBP > 160 Sodium Chloride () 1,000 mls @ 100 mls/hr IV .Q10H [facility] Last Admin: 01/31/20 12:41 Dose: 100 mls/hr Documented by: Sodium Chloride () 250 mls @ 15 mls/hr IV .[id number] PRN PRN Reason: Saline Flush Sodium Chloride () 250 mls @ 15 mls/hr IV .[id number] PRN PRN Reason: Additional IVPB Infusion Piperacillin Sod/Tazobactam (Sod 3.375 gm/ Sodium Chloride) 50 mls @ 12.5 mls/hr IV Q8 [facility] Melatonin (Melatonin) 5 mg PO QHS [facility] Last Admin: 01/30/20 21:59 Dose: 5 mg Documented by: Miscellaneous Information (Pocket Chamber) 1 each INHALATION Q2H PRN PRN Reason: FOR USE WITH ALBUTEROL Morphine Sulfate () 2 mg IV Q3H PRN PRN PRN Reason: Pain Score 6-10/10 Nitroglycerin (Nitrostat) 0.4 mg SUBLINGUAL Q5M PRN PRN Reason: CARDIAC/CHEST PAIN Nutritional Formula (Lactose Free) (Ensure Enlive) 120 ml PO 4X/DAY [facility] Last Admin: 01/31/20 09:25 Dose: Not Given Documented by: Nystatin (Mycostatin Powder) 1 applic TOPICAL TID [facility]; Protocol Last Admin: 01/31/20 12:41 Dose: 1 applicatio Documented by: Olanzapine (Zyprexa) 5 mg PO QHS [facility] Last Admin: 01/30/20 22:00 Dose: 5 mg Documented by: Olanzapine (Zyprexa) 10 mg PO QHS [facility] Last Admin: 01/30/20 22:00 Dose: 10 mg Documented by: Ondansetron HCl (Zofran) 4 mg IV Q8H PRN PRN PRN Reason: NAUSEA/VOMITING Oxycodone HCl (Oxyir) 5 mg PO Q4H PRN PRN PRN Reason: Pain Score 4-5/10 Last Admin: 01/31/20 09:25 Dose: 5 mg Documented by: Polyethylene Glycol (Miralax) 17 gm PO DAILY JUNE Prochlorperazine Edisylate (Compazine Iv) 5 mg IV Q4H PRN PRN PRN Reason: Breakthrough Nausea/Vomiting Sodium Chloride () 10 - 40 ml IV UD PRN PRN Reason: SALINE FLUSH Throat Lozenges (Cepacol Sore Throat Lozenge) 1 lozenge MUCOUS MEM Q2H PRN PRN PRN Reason: SORE THROAT Medical Necessity - Tobacco Use Smoking Status: Never smoker Assessment/Plan All Active Problems (Last Reviewed 07/25/19 @ 14:23 by Angi Sauceda) Syncope and collapse (Acute) Bradycardia (Acute) Dehydration (Acute) Acute respiratory failure with hypoxia (Acute) Suspected COVID-19 virus infection (Acute) EPI (acute kidney injury) (Acute) History of CVA (cerebrovascular accident) (Acute) History of traumatic brain injury (Acute) History of pulmonary embolism (Acute) Nocturnal hypoxemia (Acute) Abdominal pain (Resolved) Gram-negative pneumonia (Resolved) PARTIAL SBO (Resolved) 1. Acute COVID-19 * supportive mgmt * + test from the 24th * CXR today was unremarkable * on pip/tazo, consider discontinuation of abx if cx negative 2. EPI * Cr 3.21, baseline 0.97 * HLIV * suspect prerenal 3. hypotension * probably with dehydration * improved 4. paroxysmal afib * anticoagulated on apixaban 5. VTE prophylaxis: anticoagulation Dispostion: anticipate discharge 01/31, if remains stable and cultures negative. Inpatient E&M: [id number] Subs Hosp L2
[2020-01-31] MEDS: Polyethylene Glycol 3350 17 GM PACKET PO (14:30)
[2020-01-31] MEDS: Acetaminophen 325 MG Tablet 650 MG PO (14:38)
[2020-01-31] MEDS: MELATONIN 10 MG TABLET 5 MG PO (20:08)
[2020-01-31] MEDS: Atorvastatin Calcium 10 MG Tablet PO (20:08)
[2020-01-31] MEDS: Loratadine 10 MG Tablet PO (20:08)
[2020-01-31] MEDS: OLANZapine 10 MG Tablet PO (20:09)
[2020-01-31] MEDS: OLANZapine 2.5 MG Tablet 5 MG PO (20:09)
[2020-02-01] VITALS (7 sets, daily range): BP systolic 103–141; BP diastolic 42–48; PULSE 57–67; RESP 18–20; TEMP 37.1–39.1; O2SAT 92–96
[2020-02-01] MEDS: Acetaminophen 325 MG Tablet 650 MG PO ×2 (02:25→17:57)
[2020-02-01] MEDS: Nystatin Powder 15gm Bottle 1 APPLIC TOPICAL ×3 (06:01→21:02)
[2020-02-01 07:09] LABS: Absolute Lymphocyte Count 1.15 X10^3/uL (0.83-4.51); Basophil# 0.01 X10^3/uL; Basophil% 0.3 % (0-1); Eosinophil# 0.01 X10^3/uL; Eosinophils% 0.3 % (0-5); Hematocrit 33.1 % (37-47); Hemoglobin 10.4 g/dL (12.0-15.0); Lymphocyte # 1.15 X10^3/ul (4.0); Lymphocyte % 34.1 % (19-41); Mean Corp Hgb Conc 31.4 g/dL (32-36); Mean Corpuscular Hgb 27.5 pg (27.0-32.0); Mean Corpuscular Volume 87.6 fL (81-99); Mean Platelet Vol. 10.4 fl (6.2-12.0); Monocyte# 0.16 X10^3/uL; Monocyte% 4.7 % (0-10); NRBC Flagged by Analyzer 0 % (0-5); Neutrophil # 2.02 X10^3/uL (2.7-7.7); POSITIVE MORPHOLOGY YES; Platelet Count 137 K/mm3 (150-450); RBC Distribution Width SD 48.2 fl (35.1-43.9); Red Blood Count 3.78 M/mm3 (4.2-5.4); White Blood Count 3.4 K/mm3 (4.4-11.0)
[2020-02-01 07:17] LABS: Differential Indicated SCAN CRITERIA MET
[2020-02-01 07:28] LABS: Differential Comment SCANNED; Reactive Lymphocyte RARE
[2020-02-01 07:39] LABS: ALB/GLOB Ratio 0.6 RATIO (0.9-2.4); AST(SGOT) 31 U/L (15-37); Alanine Aminotransfer ALT/SGPT 16 U/L (13-56); Albumin, Serum 1.9 g/dL (3.2-5.0); Alkaline Phosphatase 61 U/L (45-117); Anion Gap 5 (5-15); BUN 22 mg/dL (7-18); BUN/Creat Ratio 25.4 RATIO (10-20); Calcium,Total 7.4 mg/dL (8.5-10.1); Chloride 114 mmol/L (98-107); Creatinine, Serum 0.87 mg/dL (0.55-1.02); EST Glomerular Filtration Rate 67 mL/min (>60); Est Glom Filt Rate - Afr Amer 81 mL/min (>60); Estimated Creatinine Clearance 47.18 ml/min; Globulin 3.3 g/dL (2.2-4.2); Glucose 89 mg/dL (74-106); Potassium 3.7 mmol/L (3.5-5.1); Protein, Total 5.2 g/dL (6.4-8.2); Sodium Level 142 mmol/L (136-145)
[2020-02-01] MEDS: Polyethylene Glycol 3350 17 GM PACKET PO (08:17)
[2020-02-01] MEDS: APIXABAN 5 MG TABLET PO ×2 (08:17→21:08)
[2020-02-01] MEDS: Pantoprazole Sodium 20 MG Tablet PO (08:17)
[2020-02-01] MEDS: guaiFENesin 10 ML UDC (200MG/10ML) PO ×2 (10:31→20:48)
[2020-02-01] MEDS: oxyCODONE 5 MG Tablet PO ×2 (14:00→20:49)
--- NOTE | 2020-02-01 14:03 | CASEMGMT ---
Social Work Nte
--- NOTE | 2020-02-01 14:04 | CASEMGMT ---
Addendum entered by Shyla Michelle 02/01/20 14:43: JOCELYN received call from Carey at [facility]. JOCELYN updated Carey that per notes, pt is not medically cleared for discharge today. Carey states she will update staff. Original Note: Social Work Note SW received message from Carey at [facility] asking if pt will be discharged today. JOCELYN spoke with RN who states pt had temperature last night and is had to be bumped up to 4 L oxygen, likely no discharge today. JOCELYN attempted twice to call Carey at [facility] with no answer. Plan: [facility] once medically cleared Shyla Michelle GLUE LINE OPERATOR, [employer]
--- NOTE | 2020-02-01 14:27 | PN_ITS ---
Patient Problems: Active and Suspected Problems (Last Reviewed 07/25/19 @ 14:23 by Angi Sauceda) Acute respiratory failure with hypoxia (Acute) Suspected COVID-19 virus infection (Acute) EPI (acute kidney injury) (Acute) History of CVA (cerebrovascular accident) (Acute) History of traumatic brain injury (Acute) History of pulmonary embolism (Acute) Reason for Visit: COVID-19 Subjective: Feels better. Still with fevers. Vitals/I&O's: Vital Signs Temp Pulse Resp BP Pulse Ox 37.5 C H 61 18 141/46 H 96 02/01/20 13:51 02/01/20 13:51 02/01/20 13:51 02/01/20 13:51 02/01/20 13:51 Oxygen Flow Rate (L/min) 4 Oxygen Delivery Method Nasal Cannula Weight: 93.7 kg Body Mass Index (BMI) 34.2 Intake and Output for Last 24 Hours 01/30/20 01/31/20 02/01/20 23:59 23:59 23:59 Intake Total 2641.67 / 2641.67 3250.00 / 3250.00 200 / 200 Output Total 1475 / 1475 1225 / 1225 575 / 575 Balance 1166.67 / 1166.67 2025.00 / 2025.00 -375 / -375 General: Alert, No apparent distress HEENT: Atraumatic, Normocephalic Oral: Moist Mucosa, No Gingival or Mucosal Lesions/ Ulcerations Neck: No Nodes, Trachea Midline Lungs: Clear to auscultation, Normal air movement, No rhonchi, No wheeze, No rales Cardiovascular: Regular rate, Regular Rhythm, Normal S1, Normal S2, No murmurs Abdomen: Bowel Sounds Present, Soft, Non Tender, Non-Distended, No Hepato- splenomegaly Extremities: No Calf Tenderness, Edema Skin: No rashes, No breakdown Psych/Mental Status: Normal Affect, Appropriate Microbiology Past 72 Hours 01/29/20 08:30 Blood Culture (Wb) #2 - Anticubital Right Blood Culture - Preliminary No growth in 48 hours. 01/29/20 08:30 Blood Culture (Wb) - Right Forearm Blood Culture - Preliminary No growth in 48 hours. 01/29/20 08:45 Urine, Catheterized Urine Culture - Final Culture exhibits no growth. 01/29/20 12:20 Stool Enteric Bacteriology - Final 01/29/20 12:20 Stool C. difficile DNA Amplification - Final 01/29/20 09:45 Mucosa - Nasopharyngeal Respiratory Panel (PCR) - Final 01/29/20 08:45 Urine Catheter - [place] Streptococcus pneumoniae Antigen (M - Final 01/29/20 08:45 Urine Catheter - [place] Legionella Antigen - Final Laboratory Results 02/01/20 06:50: WBC 3.4 L, RBC 3.78 L, Hgb 10.4 L, Hct 33.1 L, MCV 87.6, MCH 27.5, MCHC 31.4 L, RDW Std Deviation 48.2 H, RDW Coeff of Lamine 15.0 H, Plt Count 137 L, MPV 10.4, Immature Gran % (Auto) 0.600, Neut % (Auto) 60.0, Lymph % (Auto) 34.1, [place] % (Auto) 4.7, Eos % (Auto) 0.3, Baso % (Auto) 0.3, Absolute Neuts (auto) 2.0, Absolute Lymphs (auto) 1.15, Nucleated RBC % 0, Differential Comment SCANNED, Reactive Lymphocytes RARE 02/01/20 06:50: Sodium 142, Potassium 3.7, Chloride 114 H, Carbon Dioxide 23.0, Anion Gap 5, BUN 22 H, Creatinine 0.87, Estim Creat Clear Calc 47.18, Est GFR (MDRD) Af Amer 81, Est GFR (MDRD) Non-Af 67, BUN/Creatinine Ratio 25.4 H, Glucose 89, Calcium 7.4 L, Total Bilirubin 0.20, AST 31, ALT 16, Alkaline Phosphatase 61, Total Protein 5.2 L, Albumin 1.9 L, Globulin 3.3, Albumin/Globulin Ratio 0.6 L Current Medications Acetaminophen (Tylenol) 650 mg PO Q6H PRN PRN PRN Reason: Pain Score 1-10/Temp > 100.7 F Last Admin: 02/01/20 02:25 Dose: 650 mg Documented by: Albuterol Sulfate (Ventolin Hfa (Sp)) 2 puff INHALATION Q2H PRN PRN PRN Reason: Dyspnea, wheezing Apixaban (Eliquis) 5 mg PO BID JUNE Last Admin: 02/01/20 08:17 Dose: 5 mg Documented by: Atorvastatin Calcium (Lipitor) 10 mg PO QHS [facility] Last Admin: 01/31/20 20:08 Dose: 10 mg Documented by: Dextrose (D50w Syringe) 0 gm IV X1 PRN; Protocol PRN Reason: Hypoglycemia Diphenoxylate HCl/Atropine (Lomotil) 1 tablet PO 4X/DAY PRN PRN Reason: Diarrhea Fluticasone Propionate (Flovent Diskus 100 Mcg) 1 puff INHALATION BID [facility] Last Admin: 02/01/20 08:18 Dose: 1 puff Documented by: Glucagon () 1 mg IM .X1 PRN PRN Reason: Hypoglycemia Guaifenesin (Robitussin) 10 ml PO Q4H PRN PRN PRN Reason: COUGH Last Admin: 02/01/20 10:31 Dose: 10 ml Documented by: Hydralazine HCl (Apresoline Iv) 10 mg IV Q4H PRN PRN PRN Reason: SBP > 160 Sodium Chloride () 250 mls @ 15 mls/hr IV .[id number] PRN PRN Reason: Saline Flush Sodium Chloride () 250 mls @ 15 mls/hr IV .[id number] PRN PRN Reason: Additional IVPB Infusion Piperacillin Sod/Tazobactam (Sod 3.375 gm/ Sodium Chloride) 50 mls @ 12.5 mls/hr IV Q8 [facility] Last Admin: 02/01/20 13:44 Dose: 12.5 mls/hr Documented by: Loratadine (Claritin) 10 mg PO QHS [facility] Last Admin: 01/31/20 20:08 Dose: 10 mg Documented by: Melatonin (Melatonin) 5 mg PO QHS [facility] Last Admin: 01/31/20 20:08 Dose: 5 mg Documented by: Miscellaneous Information (Pocket Chamber) 1 each INHALATION Q2H PRN PRN Reason: FOR USE WITH ALBUTEROL Morphine Sulfate () 2 mg IV Q3H PRN PRN PRN Reason: Pain Score 6-10/10 Nitroglycerin (Nitrostat) 0.4 mg SUBLINGUAL Q5M PRN PRN Reason: CARDIAC/CHEST PAIN Nystatin (Mycostatin Powder) 1 applic TOPICAL TID [facility]; Protocol Last Admin: 02/01/20 13:44 Dose: 1 applicatio Documented by: Olanzapine (Zyprexa) 5 mg PO QHS [facility] Last Admin: 01/31/20 20:09 Dose: 5 mg Documented by: Olanzapine (Zyprexa) 10 mg PO QHS [facility] Last Admin: 01/31/20 20:09 Dose: 10 mg Documented by: Ondansetron HCl (Zofran) 4 mg IV Q8H PRN PRN PRN Reason: NAUSEA/VOMITING Oxycodone HCl (Oxyir) 5 mg PO Q4H PRN PRN PRN Reason: Pain Score 4-5/10 Last Admin: 02/01/20 14:00 Dose: 5 mg Documented by: Pantoprazole Sodium (Protonix) 20 mg PO DAILY [facility] Last Admin: 02/01/20 08:17 Dose: 20 mg Documented by: Polyethylene Glycol (Miralax) 17 gm PO DAILY [facility] Last Admin: 02/01/20 08:17 Dose: 17 gm Documented by: Prochlorperazine Edisylate (Compazine Iv) 5 mg IV Q4H PRN PRN PRN Reason: Breakthrough Nausea/Vomiting Sodium Chloride () 10 - 40 ml IV UD PRN PRN Reason: SALINE FLUSH Throat Lozenges (Cepacol Sore Throat Lozenge) 1 lozenge MUCOUS MEM Q2H PRN PRN PRN Reason: SORE THROAT STROKE Vital Signs/Narrative: Vital Signs Temp Pulse Resp BP Pulse Ox 02/01/20 13:51 37.5 C H 61 18 141/46 H 96 Medical Necessity - Tobacco Use Smoking Status: Never smoker Assessment/Plan All Active Problems (Last Reviewed 07/25/19 @ 14:23 by Angi Sauceda) Syncope and collapse (Acute) Bradycardia (Acute) Dehydration (Acute) Acute respiratory failure with hypoxia (Acute) Suspected COVID-19 virus infection (Acute) EPI (acute kidney injury) (Acute) History of CVA (cerebrovascular accident) (Acute) History of traumatic brain injury (Acute) History of pulmonary embolism (Acute) Nocturnal hypoxemia (Acute) Abdominal pain (Resolved) Gram-negative pneumonia (Resolved) PARTIAL SBO (Resolved) 1. Acute COVID-19 * supportive mgmt * + test from the * CXR today was unremarkable * on pip/tazo, consider discontinuation of abx if cx negative 2. EPI * improved * admission Cr 3.21, baseline 0.97 * HLIV * suspect prerenal 3. hypotension * probably with dehydration * improved 4. paroxysmal afib * anticoagulated on apixaban 5. VTE prophylaxis: anticoagulation 6. Disposition: still with fevers, so will continue to monitor. Inpatient E&M: [id number] Subs Hosp L2
--- NOTE | 2020-02-01 15:04 | CHAPLAIN ---
Type of Pastoral Visit _x__ Initial Visit ___ Follow-up Visit ___ On-call Visit ___ General Patient Visit ___ Spiritual Assessment ___ Family Conference ___ Bereavement ___ Rapid Response ___ Code Blue ___ Other (describe below) Pastoral Care Referral From _x__ Patient ___ Family ___ Nurse ___ Physician ___ Broke Beater Operator ___ Mixing Operator ___ Other (describe below) Sacrament/Intervention _x__ Active listening ___ Anointing ___ Jewish ___ Bereavement ___ Communion ___ Kelly exploration ___ ___ Life review _x__ Prayer ___ Reconciliation ___ Sacrament of Sick ___ Supportive presence ___ Wedding ___ Other (describe below) Pastoral Comments made contact with this patient through phone call; pt was alert and agreeable to call from this culinary manager; pt states that she is doing better with lower temp and bp; pt sounds optimistic about her recovery and discharge in the next couple of days; pt states that she is of the Spiritism kelly and is thankful to God; pt welcomes a prayer over the phone
[2020-02-01] MEDS: 0.9% Saline Lock 10 ML Syringe IV (17:58)
[2020-02-01] MEDS: MELATONIN 10 MG TABLET 5 MG PO (21:07)
[2020-02-01] MEDS: Loratadine 10 MG Tablet PO (21:08)
[2020-02-01] MEDS: Atorvastatin Calcium 10 MG Tablet PO (21:08)
[2020-02-01] MEDS: OLANZapine 10 MG Tablet PO (21:09)
[2020-02-01] MEDS: OLANZapine 2.5 MG Tablet 5 MG PO (21:09)
[2020-02-02 02:20] VITALS: BP 118/65; PULSE 60; RESP 20; TEMP 37.3; O2SAT 94
[2020-02-02] MEDS: Nystatin Powder 15gm Bottle 1 APPLIC TOPICAL ×3 (06:53→22:10)
[2020-02-02 09:25] VITALS: BP 129/86; PULSE 69; RESP 20; TEMP 36.6; O2SAT 92
[2020-02-02] MEDS: Pantoprazole Sodium 20 MG Tablet PO (09:37)
[2020-02-02] MEDS: APIXABAN 5 MG TABLET PO (09:37)
--- NOTE | 2020-02-02 09:45 | RAD_ITS ---
STUDY: X-RAY CHEST REASON FOR EXAM: Female, 79 years old. COVID POS, FEVER TECHNIQUE: Single AP portable view of the chest. COMPARISON: Comparison is made with prior examination dated January 30, 2020. FINDINGS: Since prior study, there has been progressive infiltrate in the right upper lobe as well as in the left perihilar region. There is no demonstrated pleural abnormality. Normal size heart. Normal mediastinum and [place]. Normal visualized pulmonary arteries. There is atherosclerotic calcification of the aortic arch with tortuosity. There are diffuse degenerative changes of the visualized thoracic spine. Normal visualized ribs, clavicles, and shoulders. There is no demonstrated abnormality of the visualized soft tissue structures of the upper abdomen. RAD/Chest 1 View (Portable) IMPRESSION: Progressive right upper lobe and left perihilar infiltrate as compared to prior study. Electronically Signed: Odin Faria, at 11:12 EDT , Service support ,
[2020-02-02] MEDS: 0.9% Saline Lock 10 ML Syringe IV ×2 (11:42→15:35)
[2020-02-02] MEDS: Ondansetron 4 MG/2 ML Vial IV (11:42)
--- NOTE | 2020-02-02 13:36 | PCM.PN.HOSP ---
Patient Problems: Active and Suspected Problems (Last Reviewed 07/25/19 @ 14:23 by Angi Sauceda) Acute respiratory failure with hypoxia (Acute) Suspected COVID-19 virus infection (Acute) EPI (acute kidney injury) (Acute) History of CVA (cerebrovascular accident) (Acute) History of traumatic brain injury (Acute) History of pulmonary embolism (Acute) Reason for Visit: COVID 19 Subjective: breathing slightly worse today, nauseated. Vitals/I&O's: Vital Signs Temp Pulse Resp BP Pulse Ox 36.6 C 69 20 H 129/86 H 92 02/02/20 09:25 02/02/20 09:25 02/02/20 09:25 02/02/20 09:25 02/02/20 09:25 Oxygen Flow Rate (L/min) 2 Oxygen Delivery Method Nasal Cannula Weight: 93.8 kg Body Mass Index (BMI) 34.2 Intake and Output for Last 24 Hours 01/31/20 02/01/20 02/02/20 23:59 23:59 23:59 Intake Total 3250.00 / 3250.00 1300 / 1300 390 / 390 Output Total 1225 / 1225 1925 / 1925 750 / 750 Balance 2024. / 2024.00 -625 / -625 -360 / -360 General: Alert, No apparent distress HEENT: Atraumatic, Normocephalic Oral: Moist Mucosa, No Gingival or Mucosal Lesions/ Ulcerations Neck: No Nodes, Trachea Midline Lungs: Clear to auscultation, Normal air movement, No rhonchi, No wheeze, No rales Cardiovascular: Regular rate, Regular Rhythm, Normal S1, Normal S2, No murmurs Abdomen: Bowel Sounds Present, Soft, Non Tender, Non-Distended Extremities: No Calf Tenderness, Edema Skin: No rashes, No breakdown Psych/Mental Status: Normal Affect, Appropriate Microbiology Past 72 Hours 01/29/20 08:30 Blood Culture (Wb) #2 - Anticubital Right Blood Culture - Preliminary No growth in 48 hours. 01/29/20 08:30 Blood Culture (Wb) - Right Forearm Blood Culture - Preliminary No growth in 48 hours. 01/29/20 08:45 Urine, Catheterized Urine Culture - Final Culture exhibits no growth. Current Medications Acetaminophen (Tylenol) 650 mg PO Q6H PRN PRN PRN Reason: Pain Score 1-10/Temp > 100.7 F Last Admin: 02/01/20 17:57 Dose: 650 mg Documented by: Albuterol Sulfate (Ventolin Hfa (Sp)) 2 puff INHALATION Q2H PRN PRN PRN Reason: Dyspnea, wheezing Apixaban (Eliquis) 5 mg PO BID [facility] Last Admin: 02/02/20 09:37 Dose: 5 mg Documented by: Atorvastatin Calcium (Lipitor) 10 mg PO QHS [facility] Last Admin: 02/01/20 21:08 Dose: 10 mg Documented by: Dextrose (D50w Syringe) 0 gm IV X1 PRN; Protocol PRN Reason: Hypoglycemia Diphenoxylate HCl/Atropine (Lomotil) 1 tablet PO 4X/DAY PRN PRN Reason: Diarrhea Fluticasone Propionate (Flovent Diskus 100 Mcg) 1 puff INHALATION BID [facility] Last Admin: 02/02/20 09:38 Dose: Not Given Documented by: Glucagon () 1 mg IM .X1 PRN PRN Reason: Hypoglycemia Guaifenesin (Robitussin) 10 ml PO Q4H PRN PRN PRN Reason: COUGH Last Admin: 02/01/20 20:48 Dose: 10 ml Documented by: Hydralazine HCl (Apresoline Iv) 10 mg IV Q4H PRN PRN PRN Reason: SBP > 160 Sodium Chloride () 250 mls @ 15 mls/hr IV .[id number] PRN PRN Reason: Saline Flush Sodium Chloride () 250 mls @ 15 mls/hr IV .[id number] PRN PRN Reason: Additional IVPB Infusion Piperacillin Sod/Tazobactam (Sod 3.375 gm/ Sodium Chloride) 50 mls @ 12.5 mls/hr IV Q8 [facility] Last Admin: 02/02/20 06:53 Dose: 12.5 mls/hr Documented by: Loratadine (Claritin) 10 mg PO QHS [facility] Last Admin: 02/01/20 21:08 Dose: 10 mg Documented by: Melatonin (Melatonin) 5 mg PO QHS [facility] Last Admin: 02/01/20 21:07 Dose: 5 mg Documented by: Miscellaneous Information (Pocket Chamber) 1 each INHALATION Q2H PRN PRN Reason: FOR USE WITH ALBUTEROL Morphine Sulfate () 2 mg IV Q3H PRN PRN PRN Reason: Pain Score 6-10/10 Nitroglycerin (Nitrostat) 0.4 mg SUBLINGUAL Q5M PRN PRN Reason: CARDIAC/CHEST PAIN Nystatin (Mycostatin Powder) 1 applic TOPICAL TID [facility]; Protocol Last Admin: 02/02/20 06:53 Dose: 1 applicatio Documented by: Olanzapine (Zyprexa) 5 mg PO QHS [facility] Last Admin: 02/01/20 21:09 Dose: 5 mg Documented by: Olanzapine (Zyprexa) 10 mg PO QHS [facility] Last Admin: 02/01/20 21:09 Dose: 10 mg Documented by: Ondansetron HCl (Zofran) 4 mg IV Q8H PRN PRN PRN Reason: NAUSEA/VOMITING Last Admin: 02/02/20 11:42 Dose: 4 mg Documented by: Oxycodone HCl (Oxyir) 5 mg PO Q4H PRN PRN PRN Reason: Pain Score 4-5/10 Last Admin: 02/01/20 20:49 Dose: 5 mg Documented by: Pantoprazole Sodium (Protonix) 20 mg PO DAILY [facility] Last Admin: 02/02/20 09:37 Dose: 20 mg Documented by: Polyethylene Glycol (Miralax) 17 gm PO DAILY [facility] Last Admin: 02/02/20 09:36 Dose: Not Given Documented by: Prochlorperazine Edisylate (Compazine Iv) 5 mg IV Q4H PRN PRN PRN Reason: Breakthrough Nausea/Vomiting Sodium Chloride () 10 - 40 ml IV UD PRN PRN Reason: SALINE FLUSH Last Admin: 02/02/20 11:42 Dose: 10 ml Documented by: Throat Lozenges (Cepacol Sore Throat Lozenge) 1 lozenge MUCOUS MEM Q2H PRN PRN PRN Reason: SORE THROAT Medical Necessity - Tobacco Use Smoking Status: Never smoker Assessment/Plan All Active Problems (Last Reviewed 07/25/19 @ 14:23 by Angi Sauceda) Syncope and collapse (Acute) Bradycardia (Acute) Dehydration (Acute) Acute respiratory failure with hypoxia (Acute) Suspected COVID-19 virus infection (Acute) EPI (acute kidney injury) (Acute) History of CVA (cerebrovascular accident) (Acute) History of traumatic brain injury (Acute) History of pulmonary embolism (Acute) Nocturnal hypoxemia (Acute) Abdominal pain (Resolved) Gram-negative pneumonia (Resolved) PARTIAL SBO (Resolved) 1. Acute COVID-19 supportive mgmt + test from the 24 CXR on admission was unremarkable, today it shows worsening RUL infiltrate continue pip/tazo still with fevers, which could be related to COVID-19, but will recheck blood cultures add vancomycin 2. EPI improved admission Cr 3.21, baseline 0.97 HLIV suspect prerenal 3. hypotension probably with dehydration improved 4. paroxysmal afib anticoagulated on apixaban 5. VTE prophylaxis: anticoagulation 6. Disposition: still with fevers, so will continue to monitor. Called son, left message. Inpatient E&M: [id number] Subs Hosp L2
--- NOTE | 2020-02-02 14:01 | CASEMGMT ---
Social Work Note Per notes, pt is not medically cleared for discharge today. SW faxed updated clinicals to [facility], wrote on fax coversheet that pt is not ready for discharge today. Plan: Return to [facility] once medically cleared Shyla Michelle MSW, DANCER OR CHOREOGRAPHER
[2020-02-02 15:25] VITALS: BP 136/42; PULSE 65; RESP 16; TEMP 36.9; O2SAT 94
[2020-02-02 16:45] LABS: D-Dimer Quantitative (DVT/PE) 2.79 FEU/ug/m (0.27-0.49)
--- NOTE | 2020-02-02 17:05 | PCM.RX.CS ---
Consult Pharmacy has been consulted to manage selected antiobiotic: Vancomycin Type of Consult: New start Suspected Infection: Pneumonia Labs: Sodium 142 mmol/L (136-145) 02/01/20 06:50 Potassium 3.7 mmol/L (3.5-5.1) 02/01/20 06:50 Chloride 114 mmol/L (98-107) H 02/01/20 06:50 Carbon Dioxide 23.0 mmol/L (21.0-32.0) 02/01/20 06:50 Anion Gap 5 (5-15) 02/01/20 06:50 BUN 22 mg/dL (7-18) H 02/01/20 06:50 Creatinine 0.87 mg/dL (0.55-1.02) 02/01/20 06:50 Est GFR (MDRD) Af Amer 81 mL/min (>60) 02/01/20 06:50 Est GFR (MDRD) Non-Af 67 mL/min (>60) 02/01/20 06:50 BUN/Creatinine Ratio 25.4 RATIO (10-20) H 02/01/20 06:50 Glucose 89 mg/dL (74-106) 02/01/20 06:50 Microbiology: Microbiology 01/29/20 08:30 Blood Culture (Wb) #2 - Anticubital Right Blood Culture - Preliminary No growth in 48 hours. 01/29/20 08:30 Blood Culture (Wb) - Right Forearm Blood Culture - Preliminary No growth in 48 hours. 01/29/20 08:45 Urine, Catheterized Urine Culture - Final Culture exhibits no growth. 01/29/20 12:20 Stool Enteric Bacteriology - Final 01/29/20 12:20 Stool C. difficile DNA Amplification - Final 01/29/20 09:45 Mucosa - Nasopharyngeal Respiratory Panel (PCR) - Final 01/29/20 08:45 Urine Catheter - [place] Streptococcus pneumoniae Antigen (M - Final 01/29/20 08:45 Urine Catheter - [place] Legionella Antigen - Final Weight used for dosin.8 kg Goal Trough: 15-20 mcg/mL Pharmacy Plan for Drug Dosin/30--new start Vancomycin for pt on ms2 SrCr 0.87 CrCl 47 Weight 93.8kg Height 65inches Goal Trough 15-20 25mg/kg Loading Dose of Vancomycin 2000mg given 02/01 at 1527 Initial Recommendation based on pt's weight and renal function is for Vancomycin 750mg q12h to start 02/02 at 0400 Trough level due 02/03 @ 0330 Pharmacy Service will continue to monitor and adjust dosing as required. Follow-Up Labs: Trough Vancomycin - 02/03 @ 0330
[2020-02-02 21:25] VITALS: BP 147/50; PULSE 69; RESP 18; TEMP 37.3; O2SAT 92
[2020-02-02] MEDS: MELATONIN 10 MG TABLET 5 MG PO (22:11)
[2020-02-02] MEDS: Enoxaparin 100 MG/ML Syringe 90 MG SC (22:11)
[2020-02-02] MEDS: Loratadine 10 MG Tablet PO (22:11)
[2020-02-02] MEDS: Atorvastatin Calcium 10 MG Tablet PO (22:11)
[2020-02-02] MEDS: OLANZapine 2.5 MG Tablet 5 MG PO (22:12)
[2020-02-02] MEDS: OLANZapine 10 MG Tablet PO (22:12)
[2020-02-02] MEDS: oxyCODONE 5 MG Tablet PO (23:45)
[2020-02-02] MEDS: guaiFENesin 10 ML UDC (200MG/10ML) PO (23:46)
[2020-02-03 03:25] VITALS: BP 146/52; PULSE 70; RESP 18; TEMP 38.8; O2SAT 146
[2020-02-03] MEDS: Nystatin Powder 15gm Bottle 1 APPLIC TOPICAL ×3 (05:10→21:07)
[2020-02-03 06:54] LABS: Absolute Lymphocyte Count 1.08 X10^3/uL (0.83-4.51); Absolute Neutrophil Count 2.9 X10^3/uL (2.0-7.7); Basophil# 0.01 X10^3/uL; Basophil% 0.2 % (0-1); Eosinophil# 0.02 X10^3/uL; Eosinophils% 0.5 % (0-5); Hematocrit 32.8 % (37-47); Hemoglobin 10.5 g/dL (12.0-15.0); Lymphocyte # 1.08 X10^3/ul (4.0); Lymphocyte % 24.9 % (19-41); Mean Corpuscular Hgb 27.3 pg (27.0-32.0); Mean Corpuscular Volume 85.4 fL (81-99); Mean Platelet Vol. 10.2 fl (6.2-12.0); Monocyte# 0.31 X10^3/uL; Monocyte% 7.1 % (0-10); NRBC Flagged by Analyzer 0 % (0-5); Neutrophil % 66.8 % (47-70); POSITIVE MORPHOLOGY YES; Platelet Count 178 K/mm3 (150-450); RBC Distribution Width CV 14.7 % (11.6-14.6); RBC Distribution Width SD 45.6 fl (35.1-43.9); Red Blood Count 3.84 M/mm3 (4.2-5.4); White Blood Count 4.3 K/mm3 (4.4-11.0)
[2020-02-03 07:08] LABS: Anion Gap 6 (5-15); BUN 14 mg/dL (7-18); Chloride 111 mmol/L (98-107); Creatinine, Serum 0.93 mg/dL (0.55-1.02); EST Glomerular Filtration Rate 61 mL/min (>60); Est Glom Filt Rate - Afr Amer 74 mL/min (>60); Estimated Creatinine Clearance 44.14 ml/min; Glucose 87 mg/dL (74-106); Potassium 3.7 mmol/L (3.5-5.1); Sodium Level 143 mmol/L (136-145)
[2020-02-03 07:19] LABS: Differential Indicated SCAN CRITERIA MET
[2020-02-03 07:38] VITALS: O2SAT 95
[2020-02-03 07:56] LABS: Differential Comment SCANNED; Reactive Lymphocyte 1+
[2020-02-03 10:10] VITALS: BP 128/49; PULSE 73; RESP 18; TEMP 37.4; O2SAT 93
[2020-02-03] MEDS: Enoxaparin 100 MG/ML Syringe 90 MG SC ×2 (10:14→21:08)
[2020-02-03] MEDS: Polyethylene Glycol 3350 17 GM PACKET PO (10:14)
[2020-02-03] MEDS: Pantoprazole Sodium 20 MG Tablet PO (10:14)
[2020-02-03 10:22] VITALS: O2SAT 93
--- NOTE | 2020-02-03 11:23 | PN_ITS ---
Patient Problems: Active and Suspected Problems (Last Reviewed 07/25/19 @ 14:23 by Angi Sauceda) Acute respiratory failure with hypoxia (Acute) Suspected COVID-19 virus infection (Acute) EPI (acute kidney injury) (Acute) History of CVA (cerebrovascular accident) (Acute) History of traumatic brain injury (Acute) History of pulmonary embolism (Acute) Reason for Visit: COVID-19 Subjective: Constipated for 6-7 days. Nauseated with eating, no vomiting. Vitals/I&O's: Vital Signs Temp Pulse Resp BP Pulse Ox 37.4 C H 73 18 128/49 H 93 02/03/20 10:10 02/03/20 10:10 02/03/20 10:10 02/03/20 10:10 02/03/20 10:22 Oxygen Flow Rate (L/min) 4 Oxygen Delivery Method Nasal Cannula Weight: 93.8 kg Body Mass Index (BMI) 34.2 Intake and Output for Last 24 Hours 02/01/20 02/02/20 02/03/20 23:59 23:59 23:59 Intake Total 1300 / 1300 1660 / 1660 415 / 415 Output Total 1925 / 1925 750 / 750 Balance -625 / -625 910 / 910 415 / 415 General: Alert, No apparent distress HEENT: Atraumatic, Normocephalic Neck: No Nodes, Trachea Midline Lungs: No rhonchi, No wheeze Cardiovascular: Regular rate, Regular Rhythm, Normal S1, Normal S2, No murmurs Abdomen: Bowel Sounds Present, Soft, Non Tender, Non-Distended Extremities: No Calf Tenderness, Edema Psych/Mental Status: Normal Affect, Appropriate Microbiology Past 72 Hours 01/29/20 08:30 Blood Culture (Wb) #2 - Anticubital Right Blood Culture - Final No growth in 5 days. 01/29/20 08:30 Blood Culture (Wb) - Right Forearm Blood Culture - Final No growth in 5 days. 01/29/20 08:45 Urine, Catheterized Urine Culture - Final Culture exhibits no growth. Laboratory Results 02/02/20 16:00: D-Dimer Quant (PE/DVT) 2.79 H* 02/03/20 06:18: WBC 4.3 L, RBC 3.84 L, Hgb 10.5 L, Hct 32.8 L, MCV 85.4, MCH 27.3, MCHC 32.0, RDW Std Deviation 45.6 H, RDW Coeff of Lamine 14.7 H, Plt Count 178, MPV 10.2, Immature Gran % (Auto) 0.500, Neut % (Auto) 66.8, Lymph % (Auto) 24.9, Deuel % (Auto) 7.1, Eos % (Auto) 0.5, Baso % (Auto) 0.2, Absolute Neuts (auto) 2.9, Absolute Lymphs (auto) 1.08, Nucleated RBC % 0, Differential Comment SCANNED, Reactive Lymphocytes 1+ 02/03/20 06:18: Sodium 143, Potassium 3.7, Chloride 111 H, Carbon Dioxide 26.0, Anion Gap 6, BUN 14, Creatinine 0.93, Estim Creat Clear Calc 44.14, Est GFR (MDRD) Af Amer 74, Est GFR (MDRD) Non-Af 61, BUN/Creatinine Ratio 15.0, Glucose 87, Calcium 8.0 L Current Medications Acetaminophen (Tylenol) 650 mg PO Q6H PRN PRN PRN Reason: Pain Score 1-10/Temp > 100.7 F Last Admin: 02/01/20 17:57 Dose: 650 mg Documented by: Albuterol Sulfate (Ventolin Hfa (Sp)) 2 puff INHALATION Q2H PRN PRN PRN Reason: Dyspnea, wheezing Atorvastatin Calcium (Lipitor) 10 mg PO QHS [facility] Last Admin: 02/02/20 22:11 Dose: 10 mg Documented by: Dextrose (D50w Syringe) 0 gm IV X1 PRN; Protocol PRN Reason: Hypoglycemia Diphenoxylate HCl/Atropine (Lomotil) 1 tablet PO 4X/DAY PRN PRN Reason: Diarrhea Enoxaparin Sodium (Lovenox) 90 mg SC Q12 [facility] Last Admin: 02/03/20 10:14 Dose: 90 mg Documented by: Fluticasone Propionate (Flovent Diskus 100 Mcg) 1 puff INHALATION BID [facility] Last Admin: 02/03/20 10:14 Dose: 1 puff Documented by: Glucagon () 1 mg IM .X1 PRN PRN Reason: Hypoglycemia Guaifenesin (Robitussin) 10 ml PO Q4H PRN PRN PRN Reason: COUGH Last Admin: 02/02/20 23:46 Dose: 10 ml Documented by: Hydralazine HCl (Apresoline Iv) 10 mg IV Q4H PRN PRN PRN Reason: SBP > 160 Sodium Chloride () 250 mls @ 15 mls/hr IV .[id number] PRN PRN Reason: Saline Flush Sodium Chloride () 250 mls @ 15 mls/hr IV .[id number] PRN PRN Reason: Additional IVPB Infusion Piperacillin Sod/Tazobactam (Sod 3.375 gm/ Sodium Chloride) 50 mls @ 12.5 mls/hr IV Q8 [facility] Last Admin: 02/03/20 06:20 Dose: 12.5 mls/hr Documented by: Vancomycin IV Pharmacy to Dose (1 ea/ Sodium Chloride) 500 mls @ 250 mls/hr IV X1 PRN; Protocol PRN Reason: Rx to Dose Vancomycin HCl 750 mg/ Sodium (Chloride) 265 mls @ 250 mls/hr IV Q12H [facility] Last Infusion: 02/03/20 06:08 Dose: Infused Documented by: Loratadine (Claritin) 10 mg PO QHS [facility] Last Admin: 02/02/20 22:11 Dose: 10 mg Documented by: Melatonin (Melatonin) 5 mg PO QHS [facility] Last Admin: 02/02/20 22:11 Dose: 5 mg Documented by: Miscellaneous Information (Pocket Chamber) 1 each INHALATION Q2H PRN PRN Reason: FOR USE WITH ALBUTEROL Morphine Sulfate () 2 mg IV Q3H PRN PRN PRN Reason: Pain Score 6-10/10 Nitroglycerin (Nitrostat) 0.4 mg SUBLINGUAL Q5M PRN PRN Reason: CARDIAC/CHEST PAIN Nystatin (Mycostatin Powder) 1 applic TOPICAL TID [facility]; Protocol Last Admin: 02/03/20 05:10 Dose: 1 applicatio Documented by: Olanzapine (Zyprexa) 5 mg PO QHS [facility] Last Admin: 02/02/20 22:12 Dose: 5 mg Documented by: [facility] Last Admin: 02/02/20 22:12 Dose: 10 mg Documented by: Ondansetron HCl (Zofran) 4 mg IV Q8H PRN PRN PRN Reason: NAUSEA/VOMITING Last Admin: 02/02/20 11:42 Dose: 4 mg Documented by: Oxycodone HCl (Oxyir) 5 mg PO Q4H PRN PRN PRN Reason: Pain Score 4-5/10 Last Admin: 02/02/20 23:45 Dose: 5 mg Documented by: Pantoprazole Sodium (Protonix) 20 mg PO DAILY [facility] Last Admin: 02/03/20 10:14 Dose: 20 mg Documented by: Polyethylene Glycol (Miralax) 17 gm PO DAILY [facility] Last Admin: 02/03/20 10:14 Dose: 17 gm Documented by: Prochlorperazine Edisylate (Compazine Iv) 5 mg IV Q4H PRN PRN PRN Reason: Breakthrough Nausea/Vomiting Sodium Chloride () 10 - 40 ml IV UD PRN PRN Reason: SALINE FLUSH Last Admin: 02/02/20 15:35 Dose: 10 ml Documented by: Throat Lozenges (Cepacol Sore Throat Lozenge) 1 lozenge MUCOUS MEM Q2H PRN PRN PRN Reason: SORE THROAT STROKE Vital Signs/Narrative: Vital Signs Temp Pulse Resp BP Pulse Ox 02/03/20 10:22 93 02/03/20 10:10 37.4 C H 73 18 128/49 H 93 02/03/20 07:38 95 Medical Necessity - Tobacco Use Smoking Status: Never smoker Assessment/Plan All Active Problems (Last Reviewed 07/25/19 @ 14:23 by Angi Sauceda) Syncope and collapse (Acute) Bradycardia (Acute) Dehydration (Acute) Acute respiratory failure with hypoxia (Acute) Suspected COVID-19 virus infection (Acute) EPI (acute kidney injury) (Acute) History of CVA (cerebrovascular accident) (Acute) History of traumatic brain injury (Acute) History of pulmonary embolism (Acute) Nocturnal hypoxemia (Acute) Abdominal pain (Resolved) Gram-negative pneumonia (Resolved) PARTIAL SBO (Resolved) 1. Acute COVID-19 * supportive mgmt * + test from the * CXR on admission was unremarkable, today it shows worsening RUL infiltrate * continue pip/tazo * still with fevers, which could be related to COVID-19, but will recheck blood cultures * add vancomycin * elevated D-dimer, changed apixaban to enoxaparin 2. EPI * improved * admission Cr 3.21, baseline 0.97 * HLIV * suspect prerenal 3. hypotension * probably with dehydration * improved 4. paroxysmal afib * anticoagulated 5. VTE prophylaxis: anticoagulation 6. Disposition: still with fevers, so will continue to monitor. 7. constipation: Miralax and dulcolax. Inpatient E&M: 57339 Subs Hosp L2
[2020-02-03] MEDS: Bisacodyl 5 MG Tablet 10 MG PO (13:34)
[2020-02-03] MEDS: guaiFENesin 10 ML UDC (200MG/10ML) PO (13:34)
[2020-02-03] MEDS: Ondansetron 4 MG/2 ML Vial IV (13:34)
[2020-02-03] MEDS: 0.9% Saline Lock 10 ML Syringe IV (13:34)
[2020-02-03 14:36] VITALS: BP 137/46; PULSE 68; RESP 20; TEMP 38.9; O2SAT 94
--- NOTE | 2020-02-03 14:38 | CASEMGMT ---
Social Work Pt is not ready for discharge today. Phone call to Radha at [facility] and update faxed. Pt can return to [facility] when medically ready. Plan: [facility], when medically ready JUSTYN Poe
[2020-02-03] MEDS: Acetaminophen 325 MG Tablet 650 MG PO (14:41)
[2020-02-03 20:30] VITALS: BP 142/53; PULSE 67; RESP 18; TEMP 36.4; O2SAT 95
[2020-02-03] MEDS: MELATONIN 10 MG TABLET 5 MG PO (21:06)
[2020-02-03] MEDS: OLANZapine 10 MG Tablet PO (21:06)
[2020-02-03] MEDS: Loratadine 10 MG Tablet PO (21:06)
[2020-02-03] MEDS: Atorvastatin Calcium 10 MG Tablet PO (21:06)
[2020-02-03] MEDS: guaiFENesin 600 MG Tablet PO (21:14)
[2020-02-03] MEDS: OLANZapine 2.5 MG Tablet 5 MG PO (21:14)
[2020-02-04] VITALS (9 sets, daily range): BP systolic 120–156; BP diastolic 43–65; PULSE 67–82; RESP 20; TEMP 36.8–38.4; O2SAT 83–94
[2020-02-04 03:33] LABS: Absolute Lymphocyte Count 0.76 X10^3/uL (0.83-4.51); Basophil# 0.01 X10^3/uL; Basophil% 0.2 % (0-1); Hematocrit 33.7 % (37-47); Hemoglobin 10.9 g/dL (12.0-15.0); Lymphocyte # 0.76 X10^3/ul (4.0); Mean Corp Hgb Conc 32.3 g/dL (32-36); Mean Corpuscular Hgb 27.5 pg (27.0-32.0); Mean Corpuscular Volume 84.9 fL (81-99); Mean Platelet Vol. 10.1 fl (6.2-12.0); Monocyte# 0.23 X10^3/uL; Monocyte% 4.5 % (0-10); NRBC Flagged by Analyzer 0 % (0-5); Neutrophil # 4.03 X10^3/uL (2.7-7.7); Neutrophil % 79.5 % (47-70); POSITIVE MORPHOLOGY YES; Platelet Count 207 K/mm3 (150-450); RBC Distribution Width CV 14.4 % (11.6-14.6); RBC Distribution Width SD 44.6 fl (35.1-43.9); Red Blood Count 3.97 M/mm3 (4.2-5.4); White Blood Count 5.1 K/mm3 (4.4-11.0)
[2020-02-04 03:59] LABS: Differential Indicated SCAN CRITERIA MET
[2020-02-04] MEDS: oxyCODONE 5 MG Tablet PO ×2 (04:16→22:21)
[2020-02-04 04:58] LABS: Vancomycin, Trough Level 11.9 ug/mL (5.0-15.0)
[2020-02-04 05:03] LABS: Anion Gap 10 (5-15); BUN 11 mg/dL (7-18); BUN/Creat Ratio 14.2 RATIO (10-20); Calcium,Total 7.6 mg/dL (8.5-10.1); Chloride 110 mmol/L (98-107); Creatinine, Serum 0.78 mg/dL (0.55-1.02); EST Glomerular Filtration Rate 76 mL/min (>60); Est Glom Filt Rate - Afr Amer 92 mL/min (>60); Estimated Creatinine Clearance 41.05 ml/min; Glucose 105 mg/dL (74-106); Potassium 3.5 mmol/L (3.5-5.1); Sodium Level 142 mmol/L (136-145)
--- NOTE | 2020-02-04 05:12 | PCM.RX.CS ---
Consult Pharmacy has been consulted to manage selected antiobiotic: Vancomycin Type of Consult: Follow-up Suspected Infection: Pneumonia Prior Doses of Antibiotics Received/Current Regimen: Medications Vancomycin HCl 1,250 mg/ (Sodium Chloride) 275 mls @ 167 mls/hr IV Q12H [facility] Vancomycin HCl 750 mg/ Sodium (Chloride) 265 mls @ 250 mls/hr IV Q12H [facility] Stop: 02/04/20 05:20 Last Admin: 02/04/20 04:16 Dose: 250 mls/hr Labs: Sodium 142 mmol/L (136-145) 02/04/20 03:10 Potassium 3.5 mmol/L (3.5-5.1) 02/04/20 03:10 Chloride 110 mmol/L (98-107) H 02/04/20 03:10 Carbon Dioxide 22.0 mmol/L (21.0-32.0) 02/04/20 03:10 Anion Gap 10 (5-15) 02/04/20 03:10 BUN 11 mg/dL (7-18) 02/04/20 03:10 Creatinine 0.78 mg/dL (0.55-1.02) 02/04/20 03:10 Est GFR (MDRD) Af Amer 92 mL/min (>60) 02/04/20 03:10 Est GFR (MDRD) Non-Af 76 mL/min (>60) 02/04/20 03:10 BUN/Creatinine Ratio 14.2 RATIO (10-20) 02/04/20 03:10 Glucose 105 mg/dL (74-106) 02/04/20 03:10 Vancomycin Trough 11.9 ug/mL (5.0-15.0) 02/04/20 03:10 Microbiology: Microbiology 01/29/20 08:30 Blood Culture (Wb) #2 - Anticubital Right Blood Culture - Final No growth in 5 days. 01/29/20 08:30 Blood Culture (Wb) - Right Forearm Blood Culture - Final No growth in 5 days. 01/29/20 08:45 Urine, Catheterized Urine Culture - Final Culture exhibits no growth. 01/29/20 12:20 Stool Enteric Bacteriology - Final 01/29/20 12:20 Stool C. difficile DNA Amplification - Final 01/29/20 09:45 Mucosa - Nasopharyngeal Respiratory Panel (PCR) - Final 01/29/20 08:45 Urine Catheter - [place] Streptococcus pneumoniae Antigen (M - Final 01/29/20 08:45 Urine Catheter - [place] Legionella Antigen - Final Weight used for dosin.8 kg Estimated Creatinine Clearance: 86 Goal Trough: 15-20 mcg/mL Pharmacy Plan for Drug Dosing: Trough level of 11.9 was lower than target range of 15-20, even though drawn early. Will increase dose to 1250mg q12h and re-draw trough prior to 4th dose of new regimen. Pharmacy Service will continue to monitor and adjust dosing as required. Follow-Up Labs: Trough Vancomycin Labs to be done on [date and time ordered]: 02/06/20 @[id number]
[2020-02-04] MEDS: Nystatin Powder 15gm Bottle 1 APPLIC TOPICAL ×3 (06:47→22:23)
[2020-02-04] MEDS: Polyethylene Glycol 3350 17 GM PACKET PO (09:46)
[2020-02-04] MEDS: Pantoprazole Sodium 20 MG Tablet PO (09:47)
[2020-02-04] MEDS: Bisacodyl 5 MG Tablet PO (09:47)
[2020-02-04] MEDS: guaiFENesin 600 MG Tablet PO ×2 (09:49→22:21)
[2020-02-04] MEDS: Enoxaparin 100 MG/ML Syringe 90 MG SC ×2 (09:51→22:22)
--- NOTE | 2020-02-04 11:47 | PN_ITS ---
Patient Problems: Active and Suspected Problems (Last Reviewed 07/25/19 @ 14:23 by Angi Sauceda) Acute respiratory failure with hypoxia (Acute) Suspected COVID-19 virus infection (Acute) EPI (acute kidney injury) (Acute) History of CVA (cerebrovascular accident) (Acute) History of traumatic brain injury (Acute) History of pulmonary embolism (Acute) Reason for Visit: COVID-19. Subjective: still constipated for 1 week or so. Still on 6l/m. Objective: +8818cc + over admission. though weight only slightly up. Vitals/I&O's: Vital Signs Temp Pulse Resp BP Pulse Ox 38.4 C H 76 20 H 125/44 H 90 02/04/20 09:45 02/04/20 09:45 02/04/20 09:45 02/04/20 09:45 02/04/20 09:45 Oxygen Flow Rate (L/min) 6 Oxygen Delivery Method Nasal Cannula Weight: 93.8 kg Body Mass Index (BMI) 34.2 Intake and Output for Last 24 Hours 02/02/20 02/03/20 02/04/20 23:59 23:59 23:59 Intake Total 1660 / 1660 1700 / 1700 365 / 365 Output Total 750 / 750 Balance 910 / 910 1700 / 1700 365 / 365 General: Alert, No apparent distress HEENT: Atraumatic, Normocephalic Oral: Moist Mucosa, No Gingival or Mucosal Lesions/ Ulcerations Neck: No Nodes, Trachea Midline Lungs: Normal air movement, - - crackles anteriorly. Cardiovascular: Regular rate, Regular Rhythm, Normal S1, Normal S2 Abdomen: Bowel Sounds Present, Soft, Non Tender, Non-Distended, Obese Extremities: No Calf Tenderness, Edema Skin: No rashes, No breakdown Psych/Mental Status: Appropriate, Flat Affect Microbiology Past 72 Hours 02/02/20 08:10 Blood Culture (Wb) #2 - Left Hand Blood Culture - Preliminary No growth in 48 hours. 02/02/20 08:05 Blood Culture (Wb) - Anticubital Left Blood Culture - Preliminary No growth in 48 hours. 01/29/20 08:30 Blood Culture (Wb) #2 - Anticubital Right Blood Culture - Final No growth in 5 days. 01/29/20 08:30 Blood Culture (Wb) - Right Forearm Blood Culture - Final No growth in 5 days. Laboratory Results 02/04/20 03:10: Vancomycin Trough 11.9 02/04/20 03:10: WBC 5.1, RBC 3.97 L, Hgb 10.9 L, Hct 33.7 L, MCV 84.9, MCH 27.5, MCHC 32.3, RDW Std Deviation 44.6 H, RDW Coeff of Lamine 14.4, Plt Count 207, MPV 10.1, Immature Gran % (Auto) 0.800, Neut % (Auto) 79.5 H, Lymph % (Auto) 15.0 L, Andrews % (Auto) 4.5, Eos % (Auto) 0.0, Baso % (Auto) 0.2, Absolute Neuts (auto) 4.0, Absolute Lymphs (auto) 0.76 L, Nucleated RBC % 0 02/04/20 03:10: Sodium 142, Potassium 3.5, Chloride 110 H, Carbon Dioxide 22.0, Anion Gap 10, BUN 11, Creatinine 0.78, Estim Creat Clear Calc 41.05, Est GFR (MDRD) Af Amer 92, Est GFR (MDRD) Non-Af 76, BUN/Creatinine Ratio 14.2, Glucose 105, Calcium 7.6 L Current Medications Acetaminophen (Tylenol) 650 mg PO Q6H PRN PRN PRN Reason: Pain Score 1-10/Temp > 100.7 F Last Admin: 02/03/20 14:41 Dose: 650 mg Documented by: Albuterol Sulfate (Ventolin Hfa (Sp)) 2 puff INHALATION Q2H PRN PRN PRN Reason: Dyspnea, wheezing Atorvastatin Calcium (Lipitor) 10 mg PO QHS [facility] Last Admin: 02/03/20 21:06 Dose: 10 mg Documented by: Bisacodyl (Dulcolax) 5 mg PO DAILY [facility] Last Admin: 02/04/20 09:47 Dose: 5 mg Documented by: Dextrose (D50w Syringe) 0 gm IV X1 PRN; Protocol PRN Reason: Hypoglycemia Diphenoxylate HCl/Atropine (Lomotil) 1 tablet PO 4X/DAY PRN PRN Reason: Diarrhea Enoxaparin Sodium (Lovenox) 90 mg SC Q12 [facility] Last Admin: 02/04/20 09:51 Dose: 90 mg Documented by: Fluticasone Propionate (Flovent Diskus 100 Mcg) 1 puff INHALATION BID [facility] Last Admin: 02/04/20 09:47 Dose: Not Given Documented by: Furosemide (Lasix) 40 mg IV BID@1000,1800 [facility] Furosemide (Lasix) 40 mg IV X1 ONE Stop: 02/04/20 11:46 Glucagon () 1 mg IM .X1 PRN PRN Reason: Hypoglycemia Guaifenesin (Robitussin) 10 ml PO Q4H PRN PRN PRN Reason: COUGH Last Admin: 02/03/20 13:34 Dose: 10 ml Documented by: Guaifenesin (Mucinex) 600 mg PO BID [facility] Last Admin: 02/04/20 09:49 Dose: 600 mg Documented by: Hydralazine HCl (Apresoline Iv) 10 mg IV Q4H PRN PRN PRN Reason: SBP > 160 Sodium Chloride () 250 mls @ 15 mls/hr IV .[id number] PRN PRN Reason: Saline Flush Sodium Chloride () 250 mls @ 15 mls/hr IV .[id number] PRN PRN Reason: Additional IVPB Infusion Piperacillin Sod/Tazobactam (Sod 3.375 gm/ Sodium Chloride) 50 mls @ 12.5 mls/hr IV Q8 [facility] Last Infusion: 02/04/20 10:48 Dose: Infused Documented by: Vancomycin IV Pharmacy to Dose (1 ea/ Sodium Chloride) 500 mls @ 250 mls/hr IV X1 PRN; Protocol PRN Reason: Rx to Dose Vancomycin HCl 1,250 mg/ (Sodium Chloride) 275 mls @ 167 mls/hr IV Q12H [facility] Loratadine (Claritin) 10 mg PO QHS [facility] Last Admin: 02/03/20 21:06 Dose: 10 mg Documented by: Melatonin (Melatonin) 5 mg PO QHS [facility] Last Admin: 02/03/20 21:06 Dose: 5 mg Documented by: Miscellaneous Information (Pocket Chamber) 1 each INHALATION Q2H PRN PRN Reason: FOR USE WITH ALBUTEROL Morphine Sulfate () 2 mg IV Q3H PRN PRN PRN Reason: Pain Score 6-10/10 Nitroglycerin (Nitrostat) 0.4 mg SUBLINGUAL Q5M PRN PRN Reason: CARDIAC/CHEST PAIN Nystatin (Mycostatin Powder) 1 applic TOPICAL TID [facility]; Protocol Last Admin: 02/04/20 06:47 Dose: 1 applicatio Documented by: Olanzapine (Zyprexa) 5 mg PO QHS [facility] Last Admin: 02/03/20 21:14 Dose: 5 mg Documented by: Olanzapine (Zyprexa) 10 mg PO QHS [facility] Last Admin: 02/03/20 21:06 Dose: 10 mg Documented by: Ondansetron HCl (Zofran) 4 mg IV Q8H PRN PRN PRN Reason: NAUSEA/VOMITING Last Admin: 02/03/20 13:34 Dose: 4 mg Documented by: Oxycodone HCl (Oxyir) 5 mg PO Q4H PRN PRN PRN Reason: Pain Score 4-5/10 Last Admin: 02/04/20 04:16 Dose: 5 mg Documented by: Pantoprazole Sodium (Protonix) 20 mg PO DAILY [facility] Last Admin: 02/04/20 09:47 Dose: 20 mg Documented by: Polyethylene Glycol (Miralax) 17 gm PO DAILY [facility] Last Admin: 02/04/20 09:46 Dose: 17 gm Documented by: Potassium Chloride (K-Dur) 40 meq PO X1 ONE Stop: 02/04/20 11:46 Prochlorperazine Edisylate (Compazine Iv) 5 mg IV Q4H PRN PRN PRN Reason: Breakthrough Nausea/Vomiting Sodium Chloride () 10 - 40 ml IV UD PRN PRN Reason: SALINE FLUSH Last Admin: 02/03/20 13:34 Dose: 10 ml Documented by: Throat Lozenges (Cepacol Sore Throat Lozenge) 1 lozenge MUCOUS MEM Q2H PRN PRN PRN Reason: SORE THROAT STROKE Vital Signs/Narrative: Vital Signs Temp Pulse Resp BP Pulse Ox 02/04/20 09:45 38.4 C H 76 20 H 125/44 H 90 Medical Necessity - Tobacco Use Smoking Status: Never smoker Assessment/Plan All Active Problems (Last Reviewed 07/25/19 @ 14:23 by Angi Sauceda) Syncope and collapse (Acute) Bradycardia (Acute) Dehydration (Acute) Acute respiratory failure with hypoxia (Acute) Suspected COVID-19 virus infection (Acute) EPI (acute kidney injury) (Acute) History of CVA (cerebrovascular accident) (Acute) History of traumatic brain injury (Acute) History of pulmonary embolism (Acute) Nocturnal hypoxemia (Acute) Abdominal pain (Resolved) Gram-negative pneumonia (Resolved) PARTIAL SBO (Resolved) 1. Acute COVID-19 * supportive mgmt * + test from the 24 * CXR on admission was unremarkable, today it shows worsening RUL infiltrate * continue pip/tazo * still with fevers, which could be related to COVID-19, but will recheck blood cultures * add vancomycin * elevated D-dimer, changed apixaban to enoxaparin * will initiate diuresis w IV furosemide plus fluid restriction 2. EPI * improved * admission Cr 3.21, baseline 0.97 * HLIV * suspect prerenal 3. hypotension * probably with dehydration * improved 4. paroxysmal afib * anticoagulated 5. VTE prophylaxis: anticoagulation 6. Disposition: still with fevers, so will continue to monitor. 7. constipation: ongoing. Miralax and dulcolax. Consider magnesium citrate if remains refractory. Inpatient E&M: [id number] Subs Hosp L2
[2020-02-04] MEDS: 0.9% Saline Lock 10 ML Syringe IV ×2 (12:00→17:59)
[2020-02-04] MEDS: Furosemide 40 MG/4 ML Vial IV ×2 (12:00→17:59)
--- NOTE | 2020-02-04 17:26 | NURSING ---
pt O2 level difficult to maintain due to mouth breathing, also difficult to keep good waveform with cont pulse ox as fingers are cold. hands wrapped with warm blankets and attempted venti mask at 50% but pt would not tolerate. pt O2 sats low 80s on 6L NC while resting. changed to high-flow nasal cannula tubing at 10L NC and O2 improved to 93%. will continue to monitor.
[2020-02-04] MEDS: Atorvastatin Calcium 10 MG Tablet PO (22:21)
[2020-02-04] MEDS: Loratadine 10 MG Tablet PO (22:21)
[2020-02-04] MEDS: OLANZapine 10 MG Tablet PO (22:21)
[2020-02-04] MEDS: MELATONIN 10 MG TABLET 5 MG PO (22:22)
[2020-02-04] MEDS: OLANZapine 2.5 MG Tablet 5 MG PO (22:24)
[2020-02-05] VITALS (7 sets, daily range): BP systolic 108–158; BP diastolic 44–63; PULSE 66–85; RESP 18–20; TEMP 36.9–39.4; O2SAT 92–97
[2020-02-05] MEDS: Nystatin Powder 15gm Bottle 1 APPLIC TOPICAL ×3 (06:07→21:08)
[2020-02-05 06:51] LABS: Anion Gap 5 (5-15); BUN 18 mg/dL (7-18); BUN/Creat Ratio 14.8 RATIO (10-20); Calcium,Total 7.6 mg/dL (8.5-10.1); Chloride 106 mmol/L (98-107); Creatinine, Serum 1.22 mg/dL (0.55-1.02); EST Glomerular Filtration Rate 45 mL/min (>60); Est Glom Filt Rate - Afr Amer 55 mL/min (>60); Estimated Creatinine Clearance 33.65 ml/min; Glucose 84 mg/dL (74-106); Magnesium 1.7 mg/dL (1.6-2.6); Potassium 3.3 mmol/L (3.5-5.1); Sodium Level 140 mmol/L (136-145)
[2020-02-05] MEDS: Acetaminophen 325 MG Tablet 650 MG PO (09:55)
[2020-02-05] MEDS: Polyethylene Glycol 3350 17 GM PACKET PO (09:55)
[2020-02-05] MEDS: Bisacodyl 5 MG Tablet PO (09:57)
[2020-02-05] MEDS: Pantoprazole Sodium 20 MG Tablet PO (09:57)
[2020-02-05] MEDS: guaiFENesin 600 MG Tablet PO ×2 (09:57→21:07)
[2020-02-05] MEDS: Furosemide 40 MG/4 ML Vial IV ×2 (10:01→17:33)
[2020-02-05] MEDS: 0.9% Saline Lock 10 ML Syringe IV ×2 (10:03→17:33)
[2020-02-05] MEDS: Enoxaparin 100 MG/ML Syringe 90 MG SC ×2 (10:06→21:10)
[2020-02-05] MEDS: Magnesium Citrate 300 ML PO (10:07)
--- NOTE | 2020-02-05 10:33 | NURSING ---
Resp notified of Dr. Goodson request for Air-vo to be set up in pt room.
--- NOTE | 2020-02-05 10:41 | NURSING ---
pt removed O2 and was reading 60% with good waveform on continuous pulse ox. replaced O2 at 10L hi-flow nasal cannula and O2 levels improved to 89%. attempted to have pt use I/S and she refused at this time. encouraged deep breathing exercises.
--- NOTE | 2020-02-05 10:46 | PCM.CON.CC ---
Problem List (1) Bradycardia Status: Acute Comment: suspect due to MIRIAN .....mostly at night (2) Obesity (BMI 30-39.9) Status: Chronic (3) Grade I diastolic dysfunction Status: Chronic (4) Mild pulmonary hypertension Status: Chronic (5) Sleep-disordered breathing Status: Chronic (6) Acute respiratory failure with hypoxia Status: Acute (7) Suspected COVID-19 virus infection Status: Acute (8) History of traumatic brain injury Status: Acute (9) History of pulmonary embolism Status: Acute (10) CHF (congestive heart failure) Status: Chronic Qualifiers: Heart failure type: unspecified Heart failure chronicity: chronic Qualified Code(s): I50.9 - Heart failure, unspecified (11) Nocturnal hypoxemia Status: Acute (12) Schizophrenia Status: Chronic Qualifiers: Schizophrenia type: unspecified (13) Rotator cuff syndrome of left shoulder Status: Chronic (14) HLD (hyperlipidemia) Status: Chronic Qualifiers: Hyperlipidemia type: unspecified Qualified Code(s): E78.5 - Hyperlipidemia, unspecified Reason for Consult Date of Consultation: 02/05/20 Reason for Consultation: Hypoxic respiratory failure History of Present Illness: The patient is a 79 year old F, with past medical history listed below, who presented to [facility] on 01/29/2020 secondary to nausea, vomiting, diarrhea and hypotension. Patient is currently at a intermediate with known COVID patient's and had reported a 3 to 4-day history of nausea, vomiting and diarrhea. No hematemesis, melena or dysuria had been reported at that time. Patient reportedly had had a fever. On presentation from the ER, patient had a blood pressure of 89/48 and was 84% on room air. EKG showed no signs of ischemia and patient did not have a significant leukocytosis. Patient did have acute kidney injury with creatinine of 3.2, baseline 0.9) and a lactate of 1.6. Chest x-ray was normal at that time. Patient was given 2 L of IV fluid with improvement in blood pressure, Zofran and admitted to the cohort floor. Since being on the cohort floor, patient did have significant improvement in her renal function, but has had an elevated d-dimer. Patient is on Eliquis at baseline secondary to a history of blood clots. Today, I was consulted secondary to increased oxygen requirements. Patient reportedly was requiring up to 10 L to maintain saturations. Patient reportedly was on 4 L as of February 03, 2020. On my evaluation, patient was alert and oriented x3. Patient stated that she was having difficulty with breathing despite being on 10 L nasal cannula. Patient stated that she would not want to be intubated or receive CPR, but she was willing to do other measures if it would help. Patient states she does not have a pulmonary history. Patient has never been diagnosed with COPD or asthma. Patient does not use inhalers at baseline. Long discussion with patient about treatment options. Patient is willing to use high flow nasal cannula with the Airvo system, but is not interested in using BiPAP therapy. Did discuss convalescent serum options in great detail. Patient understands that this is an experimental procedure that may help her current situation. Risks, benefits and alternatives were reviewed. After significant discussion, patient has agreed. Patient was registered with the national database and received an authorization number of [id number]. Swati Maria has agreed to be the flowers salesperson for research questions. Patient was unable to provide a full review of systems secondary to dyspnea. Past Medical History Past Medical History (Chronic Problems): Chronic Problems (Last Reviewed 07/25/19 @ 14:23 by Angi Sauceda) Paroxysmal atrial fibrillation (Chronic) Obesity (BMI 30-39.9) (Chronic) Grade I diastolic dysfunction (Chronic) Mild pulmonary hypertension (Chronic) Sleep-disordered breathing (Chronic) CHF (congestive heart failure) (Chronic) Schizophrenia (Chronic) Hypertension (Chronic) Rotator cuff syndrome of left shoulder (Chronic) GERD (gastroesophageal reflux disease) (Chronic) HLD (hyperlipidemia) (Chronic) Segmental and somatic dysfunction of pelvic region (Chronic) Segmental and somatic dysfunction of thoracic region (Chronic) DDD (degenerative disc disease), lumbar (Chronic) with mild to moderate multilevel Lumbar canal stenosis and foraminal stenosis Medical History: Medical History (Last Reviewed 07/25/19 @ 14:23 by Angi Sauceda) DDD (degenerative disc disease), lumbar (Chronic) M51.36 with mild to moderate multilevel Lumbar canal stenosis and foraminal stenosis Arthritis M19.90 Atrial fibrillation with RVR I48.91 Cataracts, bilateral H26.9 Environmental allergies Z91.09 Heart disease I51.9 Heart failure I50.9 High cholesterol E78.00 High triglycerides E78.1 History of gallstones Z87.19 History of stroke Z86.73 History of uterine cancer Z85.42 Melanoma C43.9 Osteoarthritis M19.90 Allergies benztropine mesylate [From Cogentin] Allergy (Verified 01/29/20 08:20) Itching risperidone [From Risperdal] Allergy (Verified 01/29/20 08:20) Shortness of breath verapamil [Verapamil] Allergy (Verified 01/29/20 08:20) Itching baclofen Adverse Reaction (Verified 01/29/20 08:20) agitation, mean codeine Adverse Reaction (Verified 01/29/20 08:20) Nausea Home Medications: Ambulatory Orders Medication Instructions Recorded Albuterol Sulfate [Albuterol 2 puff IH Q3H PRN 01/29/20 Sulfate HFA] Apixaban [Eliquis] 5 mg PO BID 01/29/20 Atorvastatin Calcium [Lipitor] 10 mg PO QHS 01/29/20 Azithromycin [Zithromax] 250 mg PO DAILY 01/29/20 Bisacodyl 10 mg MS PRN PRN 01/29/20 Cholecalciferol (VIT D3) [Vitamin 5,000 unit PO TH 01/29/20 D] Fluticasone Propionate [Flovent 50 mcg IH DAILY 01/29/20 Diskus] Furosemide [Lasix] 20 mg PO DAILY 01/29/20 Guaifenesin [Robitussin] 10 ml PO Q4H PRN PRN 01/29/20 Ketotifen Fumarate 1 drp OP BID 01/29/20 Lisinopril [Prinivil] 10 mg PO DAILY 01/29/20 Loperamide HCl [Loperamide] 2 mg PO Q4H PRN 01/29/20 Loratadine 10 mg PO QHS 01/29/20 Magnesium Hydroxide [Milk Of 30 ml PO DAILY PRN PRN 01/29/20 Magnesia] Magnesium Hydroxide [Milk Of 30 ml PO Q4H PRN 01/29/20 Magnesia] Melatonin 5 mg PO QHS 01/29/20 Na Phos,M-B/Na Phos,Di-Ba [Fleet 1 bottle RECTAL PRN PRN 01/29/20 Enema] Nystatin Powder [Mycostatin Powder] 1 applic TOPICAL TID 01/29/20 Olanzapine 15 mg PO QHS 01/29/20 Omeprazole 20 mg PO DAILY 01/29/20 Polyethylene Glycol 1450 17 gm PO DAILY PRN 01/29/20 Tramadol HCl [Ultram] 50 mg PO Q8H PRN 01/29/20 Surgical History: Surgical History (Last Reviewed 07/25/19 @ 14:23 by Angi Sauceda) History of appendectomy Z90.49 History of cholecystectomy Z90.49 History of hysterectomy Z90.710 Surgical History: appendectomy, cholecystectomy, hysterectomy - For a uterine cancer, rotator cuff repair - R rotator cuff repair., - - Resection of melanomas (face), Cranial surgery s/p trauma x 3. 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 Smoking Status: Never smoker Alcohol: None Drugs: None - *Family History Maternal Family History: Family History (Last Reviewed 07/25/19 @ 14:23 by Angi Sauceda) Other Arthritis Asthma COPD (chronic obstructive pulmonary disease) Hypertension Kidney disease History Items: Diabetes, High Cholesterol, Heart Disease, Hypertension Paternal Family History: Family History (Last Reviewed 07/25/19 @ 14:23 by Angi Sauceda) Other Arthritis Asthma COPD (chronic obstructive pulmonary disease) Hypertension Kidney disease History Items: Diabetes, High Cholesterol, Heart Disease, Hypertension Sibling Family History: Family History (Last Reviewed 07/25/19 @ 14:23 by Angi Sauceda) Other Arthritis Asthma COPD (chronic obstructive pulmonary disease) Hypertension Kidney disease History Items: Diabetes Review of Systems Unable to obtain accurate/complete ROS d/t: See HPI Patient Problems: Active and Suspected Problems (Last Reviewed 07/25/19 @ 14:23 by Angi Sauceda) Acute respiratory failure with hypoxia (Acute) Suspected COVID-19 virus infection (Acute) EPI (acute kidney injury) (Acute) History of CVA (cerebrovascular accident) (Acute) History of traumatic brain injury (Acute) History of pulmonary embolism (Acute) Objective: All imaging was personally reviewed. Chest x-ray shows progressive infiltrates bilaterally throughout the hospitalization. Patient does have an echocardiogram completed on 07/13/2019 showing an EF of 65% with stage I diastolic dysfunction and a right ventricular systolic pressure of 36 mmHg. Patient did have a mildly dilated RV at that time. Patient had a spirometry completed on 09/12/2019 showing no obstructive ventilatory defects and was not suggestive of any restriction. - Physical Exam Vitals/I&O's: Vital Signs Temp Pulse Resp BP Pulse Ox 39.4 C H 85 20 H 124/44 H 97 02/05/20 09:45 02/05/20 09:45 02/05/20 09:45 02/05/20 09:45 02/05/20 09:45 Oxygen Flow Rate (L/min) 10 Oxygen Delivery Method Nasal Cannula Weight: 95.6 kg Body Mass Index (BMI) 34.2 Intake and Output for Last 24 Hours 02/03/20 02/04/20 02/05/20 23:59 23:59 23:59 Intake Total 1700 / 1700 1250 / 1250 575 / 575 Output Total 2049 350 / 350 Balance 1700 / 1700 -800 / -800 225 / 225 General: Alert, Oriented x3, - - Moderate to severe distress. Conversational dyspnea noted. Obese. HEENT: Atraumatic, PERRLA, EOMI, Normocephalic, - - No scleral icterus or injection noted Oral: Moist Mucosa, No Gingival or Mucosal Lesions/ Ulcerations Neck: Supple, No JVD, No Nodes, Trachea Midline, - - JVD was difficult to assess secondary to body habitus Lungs: No rhonchi, No rales, Diminished, Wheezes Cardiovascular: Regular rate, Regular Rhythm, Normal S1, Normal S2, No murmurs, No rub noted, No Gallop Abdomen: Bowel Sounds Present, Soft, Non Tender, Non-Distended, Obese Extremities: No clubbing, No cyanosis, No edema, Capillary Refill Less than 3 Seconds Skin: No rashes, No breakdown Musculoskeletal: No Tenderness to Palpation of Joints or Extremities Lymphatic: No Cervical, Supraclavicular, or Inguinal Adenopathy Neurological: Cranial nerves II-XII grossly intact, Neuro grossly intact, Motor Exam 5/5 strength throughout Psych/Mental Status: Alert and oriented to time, place, person, mood and affect Microbiology Past 72 Hours 02/02/20 08:10 Blood Culture (Wb) #2 - Left Hand Blood Culture - Preliminary No growth in 48 hours. 02/02/20 08:05 Blood Culture (Wb) - Anticubital Left Blood Culture - Preliminary No growth in 48 hours. 01/29/20 08:30 Blood Culture (Wb) #2 - Anticubital Right Blood Culture - Final No growth in 5 days. 01/29/20 08:30 Blood Culture (Wb) - Right Forearm Blood Culture - Final No growth in 5 days. Laboratory Results 02/05/20 06:04: Sodium 140, Potassium 3.3 L, Chloride 106, Carbon Dioxide 29.0, Anion Gap 5, BUN 18, Creatinine 1.22 H, Estim Creat Clear Calc 33.65, Est GFR (MDRD) Af Amer 55 L, Est GFR (MDRD) Non-Af 45 L, BUN/Creatinine Ratio 14.8, Glucose 84, Calcium 7.6 L, Magnesium 1.7 Current Medications Acetaminophen (Tylenol) 650 mg PO Q6H PRN PRN PRN Reason: Pain Score 1-10/Temp > 100.7 F Last Admin: 02/05/20 09:55 Dose: 650 mg Documented by: Albuterol Sulfate (Ventolin Hfa (Sp)) 2 puff INHALATION Q2H PRN PRN PRN Reason: Dyspnea, wheezing Atorvastatin Calcium (Lipitor) 10 mg PO QHS [facility] Last Admin: 02/04/20 22:21 Dose: 10 mg Documented by: Bisacodyl (Dulcolax) 5 mg PO DAILY [facility] Last Admin: 02/05/20 09:57 Dose: 5 mg Documented by: Dextrose (D50w Syringe) 0 gm IV X1 PRN; Protocol PRN Reason: Hypoglycemia Diphenoxylate HCl/Atropine (Lomotil) 1 tablet PO 4X/DAY PRN PRN Reason: Diarrhea Enoxaparin Sodium (Lovenox) 90 mg SC Q12 [facility] Last Admin: 02/05/20 10:06 Dose: 90 mg Documented by: Fluticasone Propionate (Flovent Diskus 100 Mcg) 1 puff INHALATION BID [facility] Last Admin: 02/05/20 09:59 Dose: 1 puff Documented by: Furosemide (Lasix) 40 mg IV BID@1000,1800 [facility] Last Admin: 02/05/20 10:01 Dose: 40 mg Documented by: Glucagon () 1 mg IM .X1 PRN PRN Reason: Hypoglycemia Guaifenesin (Robitussin) 10 ml PO Q4H PRN PRN PRN Reason: COUGH Last Admin: 02/03/20 13:34 Dose: 10 ml Documented by: Guaifenesin (Mucinex) 600 mg PO BID [facility] Last Admin: 02/05/20 09:57 Dose: 600 mg Documented by: Hydralazine HCl (Apresoline Iv) 10 mg IV Q4H PRN PRN PRN Reason: SBP > 160 Sodium Chloride () 250 mls @ 15 mls/hr IV .[id number] PRN PRN Reason: Saline Flush Sodium Chloride () 250 mls @ 15 mls/hr IV .[id number] PRN PRN Reason: Additional IVPB Infusion Piperacillin Sod/Tazobactam (Sod 3.375 gm/ Sodium Chloride) 50 mls @ 12.5 mls/hr IV Q8 [facility] Last Infusion: 02/05/20 10:09 Dose: Infused Documented by: Vancomycin IV Pharmacy to Dose (1 ea/ Sodium Chloride) 500 mls @ 250 mls/hr IV X1 PRN; Protocol PRN Reason: Rx to Dose Vancomycin HCl 1,250 mg/ (Sodium Chloride) 275 mls @ 167 mls/hr IV Q12H [facility] Last Infusion: 02/05/20 05:43 Dose: Infused Documented by: Loratadine (Claritin) 10 mg PO QHS [facility] Last Admin: 02/04/20 22:21 Dose: 10 mg Documented by: [facility] Admin: 02/04/20 22:22 Dose: 5 mg Documented by: Miscellaneous Information (Pocket Chamber) 1 each INHALATION Q2H PRN PRN Reason: FOR USE WITH ALBUTEROL Morphine Sulfate () 2 mg IV Q3H PRN PRN PRN Reason: Pain Score 6-10/10 Nitroglycerin (Nitrostat) 0.4 mg SUBLINGUAL Q5M PRN PRN Reason: CARDIAC/CHEST PAIN Nystatin (Mycostatin Powder) 1 applic TOPICAL TID [facility]; Protocol Last Admin: 02/05/20 06:07 Dose: 1 applicatio Documented by: Olanzapine (Zyprexa) 5 mg PO QHS [facility] Last Admin: 02/04/20 22:24 Dose: 5 mg Documented by: [facility]xa) [facility] Last Admin: 02/04/20 22:21 Dose: 10 mg Documented by: Ondansetron HCl (Zofran) 4 mg IV Q8H PRN PRN PRN Reason: NAUSEA/VOMITING Last Admin: 02/03/20 13:34 Dose: 4 mg Documented by: Oxycodone HCl (Oxyir) 5 mg PO Q4H PRN PRN PRN Reason: Pain Score 4-5/10 Last Admin: 02/04/20 22:21 Dose: 5 mg Documented by: Pantoprazole Sodium (Protonix) 20 mg PO DAILY [facility] Last Admin: 02/05/20 09:57 Dose: 20 mg Documented by: Polyethylene Glycol (Miralax) 17 gm PO DAILY [facility] Last Admin: 02/05/20 09:55 Dose: 17 gm Documented by: Prochlorperazine Edisylate (Compazine Iv) 5 mg IV Q4H PRN PRN PRN Reason: Breakthrough Nausea/Vomiting Sodium Chloride () 10 - 40 ml IV UD PRN PRN Reason: SALINE FLUSH Last Admin: 02/05/20 10:03 Dose: 10 ml Documented by: Throat Lozenges (Cepacol Sore Throat Lozenge) 1 lozenge MUCOUS MEM Q2H PRN PRN PRN Reason: SORE THROAT Clinical Impression(s) from Imaging Studies Chest X-Ray 01/29/20 08:30 IMPRESSION: Left lower lobe atelectatic changes with early region of airspace disease not completely excluded. Electronically Signed: Mian Dunlap DO at 9:47 EDT , Service support , Chest X-Ray 01/30/20 04:42 IMPRESSION: Left basilar small atelectasis or infiltrate, unchanged. No new or progressive disease. at 0732 Reported and signed by: Stone Godinez MD Electronically Signed: Stone Godinez, at 7:31 EDT Tel , Service support , Chest X-Ray 02/02/20 09:45 IMPRESSION: Progressive right upper lobe and left perihilar infiltrate as compared to prior study. Electronically Signed: Odin Faria, at 11:12 EDT , Service support , Assessment/Plan Active and Suspected Problems (Last Reviewed 07/25/19 @ 14:23 by Angi Sauceda) Acute respiratory failure with hypoxia (Acute) Suspected COVID-19 virus infection (Acute) EPI (acute kidney injury) (Acute) History of CVA (cerebrovascular accident) (Acute) History of traumatic brain injury (Acute) History of pulmonary embolism (Acute) RECOMMENDATIONS: 1. Continue active diuresis and anticoagulation 2. Transition to Airvo high flow oxygen system 3. Administer convalescent serum when available 4. No intubation given CODE STATUS 5. Consider voluntary prone positioning IMPRESSIONS: 1. Acute hypoxic respiratory failure secondary to acute COVID-19 Patient still with significant fever. Patient is on empiric antibiotics, anticoagulation and diuresis. Patient does not want to be intubated, but appears to be progressing rapidly. Patient would be a good candidate for convalescent serum. Patient has been registered and the product has been ordered. We have been notified by the [email or web address] that this may take up to 7 days. Would continue with conservative measures until that time. Would recommend voluntary prone positioning and increased to high flow nasal cannula with humidification. May consider suppository given constipation as this may help with respiratory muscle fatigue. Patient could use BiPAP if she were to change her mind later as this would provide better support of respiratory muscle fatigue. Patient does not have any baseline obstructive lung disease, so it is unclear if empiric steroids would be of any use. 2. Acute kidney injury Patient has had some increasing creatinine secondary to IV Lasix. Would continue with diuresis given current condition and poor prognosis. Patient does not have any indication for renal replacement therapy at this time. It is not clear that she would consent to dialysis if indicated. 3. Hypotension And hypotensive on presentation. Likely secondary to volume depletion secondary to nausea, vomiting and diarrhea. Patient has been doing okay since that time. Would continue to diurese as tolerated as patient is significantly positive. Patient likely has an element of diastolic congestive heart failure secondary to age. 4. Paroxysmal A. fib/advanced age/chronic back pain/GERD/hyperlipidemia/schizophrenia/history of CVA/history of TBI/obesity Complicates care, management, recovery and prognosis. Unclear if patient is going to be able to tolerate p.o. medications moving forward. Would use clinical bedside evaluations and administer as able. Rate is currently controlled. No reported seizures or other complications noted. TIME: 35 minutes critical care time spent addressing patient's acute hypoxic respiratory failure, acute kidney injury, coordination of convalescent serum, review of all data and collaboration with care team (9 AM to 11:15 AM) [id number]: [id number] Critical care first hour
--- NOTE | 2020-02-05 11:30 | PCM.PN.HOSP ---
Patient Problems: Active and Suspected Problems (Last Reviewed 07/25/19 @ 14:23 by Angi Sauceda) Acute respiratory failure with hypoxia (Acute) Suspected COVID-19 virus infection (Acute) EPI (acute kidney injury) (Acute) History of CVA (cerebrovascular accident) (Acute) History of traumatic brain injury (Acute) History of pulmonary embolism (Acute) Reason for Visit: COVID19 Subjective: Increased oxygen requirements despite diuresis. Still with no BM. Vitals/I&O's: Vital Signs Temp Pulse Resp BP Pulse Ox 37.6 C H 85 20 H 124/44 H 97 02/05/20 11:22 02/05/20 09:45 02/05/20 09:45 02/05/20 09:45 02/05/20 09:45 Oxygen Flow Rate (L/min) 10 Oxygen Delivery Method Nasal Cannula Weight: 95.6 kg Body Mass Index (BMI) 34.2 Intake and Output for Last 24 Hours 02/03/20 02/04/20 02/05/20 23:59 23:59 23:59 Intake Total 1700 / 1700 1250 / 1250 1175 / 1175 Output Total 2049 / 2049 650 / 650 Balance 1700 / 1700 -800 / -800 525 / 525 General: Alert, No apparent distress HEENT: Atraumatic, Normocephalic Oral: Moist Mucosa, No Gingival or Mucosal Lesions/ Ulcerations Neck: No Nodes, Trachea Midline Lungs: Diminished, - - crackles anteriorly Cardiovascular: Regular rate, Regular Rhythm, Normal S1, Normal S2, No murmurs Abdomen: Bowel Sounds Present, Soft, Non Tender, Non-Distended, Obese Extremities: No Calf Tenderness, Edema Skin: No rashes, No breakdown Psych/Mental Status: Appropriate, Flat Affect Microbiology Past 72 Hours 02/02/20 08:10 Blood Culture (Wb) #2 - Left Hand Blood Culture - Preliminary No growth in 48 hours. 02/02/20 08:05 Blood Culture (Wb) - Anticubital Left Blood Culture - Preliminary No growth in 48 hours. 01/29/20 08:30 Blood Culture (Wb) #2 - Anticubital Right Blood Culture - Final No growth in 5 days. 01/29/20 08:30 Blood Culture (Wb) - Right Forearm Blood Culture - Final No growth in 5 days. Laboratory Results 05/03/20 06:04: Sodium 140, Potassium 3.3 L, Chloride 106, Carbon Dioxide 29.0, Anion Gap 5, BUN 18, Creatinine 1.22 H, Estim Creat Clear Calc 33.65, Est GFR (MDRD) Af Amer 55 L, Est GFR (MDRD) Non-Af 45 L, BUN/Creatinine Ratio 14.8, Glucose 84, Calcium 7.6 L, Magnesium 1.7 Current Medications Acetaminophen (Tylenol) 650 mg PO Q6H PRN PRN PRN Reason: Pain Score 1-10/Temp > 100.7 F Last Admin: 02/05/20 09:55 Dose: 650 mg Documented by: Albuterol Sulfate (Ventolin Hfa (Sp)) 2 puff INHALATION Q2H PRN PRN PRN Reason: Dyspnea, wheezing Atorvastatin Calcium (Lipitor) 10 mg PO QHS [facility] Last Admin: 02/04/20 22:21 Dose: 10 mg Documented by: Bisacodyl (Dulcolax) 5 mg PO DAILY [facility] Last Admin: 02/05/20 09:57 Dose: 5 mg Documented by: Dextrose (D50w Syringe) 0 gm IV X1 PRN; Protocol PRN Reason: Hypoglycemia Diphenoxylate HCl/Atropine (Lomotil) 1 tablet PO 4X/DAY PRN PRN Reason: Diarrhea Enoxaparin Sodium (Lovenox) 90 mg SC Q12 [facility] Last Admin: 02/05/20 10:06 Dose: 90 mg Documented by: Fluticasone Propionate (Flovent Diskus 100 Mcg) 1 puff INHALATION BID [facility] Last Admin: 02/05/20 09:59 Dose: 1 puff Documented by: Furosemide (Lasix) 40 mg IV BID@1000,1800 [facility] Last Admin: 02/05/20 10:01 Dose: 40 mg Documented by: Glucagon () 1 mg IM .X1 PRN PRN Reason: Hypoglycemia Guaifenesin (Robitussin) 10 ml PO Q4H PRN PRN PRN Reason: COUGH Last Admin: 02/03/20 13:34 Dose: 10 ml Documented by: Guaifenesin (Mucinex) 600 mg PO BID [facility] Last Admin: 02/05/20 09:57 Dose: 600 mg Documented by: Hydralazine HCl (Apresoline Iv) 10 mg IV Q4H PRN PRN PRN Reason: SBP > 160 Sodium Chloride () 250 mls @ 15 mls/hr IV .[id number] PRN PRN Reason: Saline Flush Sodium Chloride () 250 mls @ 15 mls/hr IV .[id number] PRN PRN Reason: Additional IVPB Infusion Piperacillin Sod/Tazobactam (Sod 3.375 gm/ Sodium Chloride) 50 mls @ 12.5 mls/hr IV Q8 [facility] Last Infusion: 02/05/20 10:09 Dose: Infused Documented by: Vancomycin IV Pharmacy to Dose (1 ea/ Sodium Chloride) 500 mls @ 250 mls/hr IV X1 PRN; Protocol PRN Reason: Rx to Dose Vancomycin HCl 1,250 mg/ (Sodium Chloride) 275 mls @ 167 mls/hr IV Q12H [facility] Last Infusion: 02/05/20 05:43 Dose: Infused Documented by: Loratadine (Claritin) 10 mg PO QHS [facility] Last Admin: 02/04/20 22:21 Dose: 10 mg Documented by: Melatonin (Melatonin) 5 mg PO QHS [facility] [place] Last Admin: 02/04/20 22:22 Dose: 5 mg Documented by: Miscellaneous Information (Pocket Chamber) 1 each INHALATION Q2H PRN PRN Reason: FOR USE WITH ALBUTEROL Morphine Sulfate () 2 mg IV Q3H PRN PRN PRN Reason: Pain Score 6-10/10 Nitroglycerin (Nitrostat) 0.4 mg SUBLINGUAL Q5M PRN PRN Reason: CARDIAC/CHEST PAIN Nystatin (Mycostatin Powder) 1 applic TOPICAL TID [facility]; Protocol Last Admin: 02/05/20 06:07 Dose: 1 applicatio Documented by: Olanzapine (Zyprexa) 5 mg PO QHS [facility] Last Admin: 02/04/20 22:24 Dose: 5 mg Documented by: [facility] Admin: 02/04/20 22:21 Dose: 10 mg Documented by: Ondansetron HCl (Zofran) 4 mg IV Q8H PRN PRN PRN Reason: NAUSEA/VOMITING Last Admin: 02/03/20 13:34 Dose: 4 mg Documented by: Oxycodone HCl (Oxyir) 5 mg PO Q4H PRN PRN PRN Reason: Pain Score 4-5/10 Last Admin: 02/04/20 22:21 Dose: 5 mg Documented by: Pantoprazole Sodium (Protonix) 20 mg PO DAILY [facility] [place] Last Admin: 02/05/20 09:57 Dose: 20 mg Documented by: Polyethylene Glycol (Miralax) 17 gm PO DAILY [facility] [place] Last Admin: 02/05/20 09:55 Dose: 17 gm Documented by: Prochlorperazine Edisylate (Compazine Iv) 5 mg IV Q4H PRN PRN PRN Reason: Breakthrough Nausea/Vomiting Sodium Chloride () 10 - 40 ml IV UD PRN PRN Reason: SALINE FLUSH Last Admin: 02/05/20 10:03 Dose: 10 ml Documented by: Throat Lozenges (Cepacol Sore Throat Lozenge) 1 lozenge MUCOUS MEM Q2H PRN PRN PRN Reason: SORE THROAT STROKE Vital Signs/Narrative: Vital Signs Temp Pulse Resp BP Pulse Ox 02/05/20 11:22 37.6 C H 02/05/20 09:45 39.4 C H 85 20 H 124/44 H 97 Medical Necessity - Tobacco Use Smoking Status: Never smoker Assessment/Plan All Active Problems (Last Reviewed 07/25/19 @ 14:23 by Angi Sauceda) Syncope and collapse (Acute) Bradycardia (Acute) Dehydration (Acute) Acute respiratory failure with hypoxia (Acute) Suspected COVID-19 virus infection (Acute) EPI (acute kidney injury) (Acute) History of CVA (cerebrovascular accident) (Acute) History of traumatic brain injury (Acute) History of pulmonary embolism (Acute) Nocturnal hypoxemia (Acute) Abdominal pain (Resolved) Gram-negative pneumonia (Resolved) PARTIAL SBO (Resolved) 1. Acute COVID-19 supportive mgmt + test from the 24 CXR on admission was unremarkable, worse on the 30. continue pip/tazo and vanc elevated D-dimer, changed apixaban to enoxaparin continue with furosemide consult pulmonology, who will look into convalescent plasma, which may take up to 7 days. Prone positioning if worsens, though maybe cumbersome. 2. EPI improved admission Cr 3.21, baseline 0.97 suspect prerenal 3. hypotension probably with dehydration resolved 4. paroxysmal afib anticoagulated 5. VTE prophylaxis: anticoagulation 6. Disposition: still with fevers, so will continue to monitor. 7. constipation: ongoing.will give mag citrate Inpatient E&M: 57167 Subs Hosp L2
[2020-02-05] MEDS: OLANZapine 10 MG Tablet PO (21:06)
[2020-02-05] MEDS: Atorvastatin Calcium 10 MG Tablet PO (21:07)
[2020-02-05] MEDS: Loratadine 10 MG Tablet PO (21:07)
[2020-02-05] MEDS: OLANZapine 2.5 MG Tablet 5 MG PO (21:07)
[2020-02-05] MEDS: oxyCODONE 5 MG Tablet PO (21:07)
[2020-02-05] MEDS: MELATONIN 10 MG TABLET 5 MG PO (21:07)
[2020-02-06] VITALS (10 sets, daily range): BP systolic 113–148; BP diastolic 36–55; PULSE 60–79; RESP 17–24; TEMP 37–39.1; O2SAT 87–94
--- NOTE | 2020-02-06 04:30 | CPS ---
increased FIO2 to 55%
--- NOTE | 2020-02-06 04:30 | NURSING ---
Respiratory Therapist in room adjusting settings on AirVo machine. Increased oxygen level - now at 50L, 55%. Pt. is mouth breather. Pulse ox up to 93%.
[2020-02-06] MEDS: Nystatin Powder 15gm Bottle 1 APPLIC TOPICAL ×3 (05:46→22:55)
[2020-02-06 07:07] LABS: Absolute Lymphocyte Count 1.07 X10^3/uL (0.83-4.51); Absolute Neutrophil Count 3.8 X10^3/uL (2.0-7.7); Basophil# 0.01 X10^3/uL; Basophil% 0.2 % (0-1); Eosinophil# 0.01 X10^3/uL; Eosinophils% 0.2 % (0-5); Hematocrit 29.6 % (37-47); Hemoglobin 9.7 g/dL (12.0-15.0); Lymphocyte # 1.07 X10^3/ul (4.0); Lymphocyte % 20.8 % (19-41); Mean Corp Hgb Conc 32.8 g/dL (32-36); Mean Corpuscular Volume 82.5 fL (81-99); Mean Platelet Vol. 9.8 fl (6.2-12.0); Monocyte# 0.19 X10^3/uL; Monocyte% 3.7 % (0-10); NRBC Flagged by Analyzer 0 % (0-5); Neutrophil # 3.82 X10^3/uL (2.7-7.7); Neutrophil % 74.3 % (47-70); POSITIVE MORPHOLOGY YES; Platelet Count 301 K/mm3 (150-450); RBC Distribution Width CV 14.3 % (11.6-14.6); RBC Distribution Width SD 42.6 fl (35.1-43.9); Red Blood Count 3.59 M/mm3 (4.2-5.4); White Blood Count 5.1 K/mm3 (4.4-11.0)
[2020-02-06 07:09] LABS: Differential Indicated SCAN CRITERIA MET
[2020-02-06 07:24] LABS: Differential Comment SCANNED
[2020-02-06 07:25] LABS: Atypical Lymphocyte 1+ %; Reactive Lymphocyte 1+
[2020-02-06 07:28] LABS: Anion Gap 8 (5-15); BUN 19 mg/dL (7-18); BUN/Creat Ratio 18.1 RATIO (10-20); Calcium,Total 7.6 mg/dL (8.5-10.1); Chloride 106 mmol/L (98-107); Creatinine, Serum 1.05 mg/dL (0.55-1.02); EST Glomerular Filtration Rate 54 mL/min (>60); Est Glom Filt Rate - Afr Amer 65 mL/min (>60); Estimated Creatinine Clearance 39.09 ml/min; Glucose 89 mg/dL (74-106); Potassium 2.5 mmol/L (3.5-5.1); Sodium Level 141 mmol/L (136-145)
[2020-02-06 09:12] LABS: Vancomycin, Trough Level 21.8 ug/mL (5.0-15.0)
--- NOTE | 2020-02-06 09:37 | CASEMGMT ---
Social Work Note Pt is not medically ready for discharge today. SW faxed updated clinicals to [facility]. Plan: Return to [facility] once medically cleared Shyla Michelle PUBLIC ADDRESS SYSTEM OPERATOR, ETHANOL MAINTENANCE MECHANIC
--- NOTE | 2020-02-06 10:02 | PCM.RX.CS ---
Consult Pharmacy has been consulted to manage selected antiobiotic: Vancomycin Type of Consult: Follow-up Suspected Infection: Pneumonia Prior Doses of Antibiotics Received/Current Regimen: Has been on 1250mg iv q12h. Labs: Sodium 141 mmol/L (136-145) 02/06/20 06:52 Potassium 2.5 mmol/L (3.5-5.1) L* 02/06/20 06:52 Chloride 106 mmol/L (98-107) 02/06/20 06:52 Carbon Dioxide 27.0 mmol/L (21.0-32.0) 02/06/20 06:52 Anion Gap 8 (5-15) 02/06/20 06:52 BUN 19 mg/dL (7-18) H 02/06/20 06:52 Creatinine 1.05 mg/dL (0.55-1.02) H 02/06/20 06:52 Est GFR (MDRD) Af Amer 65 mL/min (>60) 02/06/20 06:52 Est GFR (MDRD) Non-Af 54 mL/min (>60) L 02/06/20 06:52 BUN/Creatinine Ratio 18.1 RATIO (10-20) 02/06/20 06:52 Glucose 89 mg/dL (74-106) 02/06/20 06:52 Vancomycin Trough 21.8 ug/mL (5.0-15.0) H 02/06/20 08:15 Microbiology: Microbiology 02/02/20 08:10 Blood Culture (Wb) #2 - Left Hand Blood Culture - Preliminary No growth in 48 hours. 02/02/20 08:05 Blood Culture (Wb) - Anticubital Left Blood Culture - Preliminary No growth in 48 hours. 01/29/20 08:30 Blood Culture (Wb) #2 - Anticubital Right Blood Culture - Final No growth in 5 days. 01/29/20 08:30 Blood Culture (Wb) - Right Forearm Blood Culture - Final No growth in 5 days. 01/29/20 08:45 Urine, Catheterized Urine Culture - Final Culture exhibits no growth. 01/29/20 12:20 Stool Enteric Bacteriology - Final 01/29/20 12:20 Stool C. difficile DNA Amplification - Final 01/29/20 09:45 Mucosa - Nasopharyngeal Respiratory Panel (PCR) - Final 01/29/20 08:45 Urine Catheter - [place] Streptococcus pneumoniae Antigen (M - Final 01/29/20 08:45 Urine Catheter - [place] Legionella Antigen - Final Weight used for dosin.4 kg Estimated Creatinine Clearance: ~39ml/min Goal Trough: 15-20 mcg/mL Pharmacy Plan for Drug Dosing: Trough level this AM was slightly elevated at 21.8 (goal range 15-20 mcg/ml). Renal function better with Cr 1.05 and CrCl ~39 ml/min. Will hold further dosing for now and get repeat trough level in AM 5.5.20. If <20, will determine new dose at that time. Pharmacy Service will continue to monitor and adjust dosing as required. Follow-Up Labs: Trough Vancomycin - 5.5.20 @0600
[2020-02-06] MEDS: 0.9% Saline Lock 10 ML Syringe IV ×4 (10:07→19:53)
[2020-02-06] MEDS: Furosemide 40 MG/4 ML Vial IV ×2 (10:07→17:17)
[2020-02-06] MEDS: Potassium Chloride 10mEq/100mL 10 MEQ/100 ML IV.SOLN. 100 MEQ IV BOLUS ×4 (10:11→14:52)
[2020-02-06] MEDS: Enoxaparin 100 MG/ML Syringe 90 MG SC ×2 (10:14→22:55)
[2020-02-06] MEDS: Pantoprazole Sodium 20 MG Tablet PO (10:14)
[2020-02-06] MEDS: guaiFENesin 600 MG Tablet PO ×2 (10:14→22:56)
[2020-02-06 11:28] LABS: Magnesium 1.9 mg/dL (1.6-2.6)
--- NOTE | 2020-02-06 15:45 | PCM.PN.HOSP ---
Patient Problems: Active and Suspected Problems (Last Reviewed 07/25/19 @ 14:23 by Angi Sauceda) Acute respiratory failure with hypoxia (Acute) Suspected COVID-19 virus infection (Acute) EPI (acute kidney injury) (Acute) History of CVA (cerebrovascular accident) (Acute) History of traumatic brain injury (Acute) History of pulmonary embolism (Acute) Reason for Visit: COVID pneumonia. Acute hypoxic respiratory failure Objective: COVID positive. On vancomycin and Zosyn. Last fever 102.9 on 02/05/2020 at 9:45 PM. Currently on 50% FiO2, high flow oxygen Vitals/I&O's: Vital Signs Temp Pulse Resp BP Pulse Ox 98.7 F 70 20 H 133/42 H 94 02/06/20 11:31 02/06/20 11:31 02/06/20 11:31 02/06/20 11:31 02/06/20 11:31 Oxygen Flow Rate (L/min) 40 Oxygen Delivery Method Warm Humidified Isolette Weight: 208 lb 1.862 oz Body Mass Index (BMI) 34.2 Intake and Output for Last 24 Hours 02/04/20 02/05/20 02/06/20 23:59 23:59 23:59 Intake Total 1250 / 1250 2110 / 2110 840.25 / 840.25 Output Total 0 / 2049 1600 / 1600 500 / 500 Balance -800 / -800 510 / 510 340.25 / 340.25 General: Oriented x3, Cooperative, Lethargic, - - Mild respiratory distress HEENT: Atraumatic, PERRLA, EOMI, Normocephalic Neck: Supple, No JVD, Negative Carotid Bruits Lungs: Clear to auscultation, Diminished, Rhonchi, Short of Breath, Wheezes Cardiovascular: Regular rate, Regular Rhythm, Normal S1, Normal S2, No murmurs Abdomen: Bowel Sounds Present, Soft, Non Tender, Non-Distended Extremities: No edema, Capillary Refill Less than 3 Seconds Skin: No rashes, No breakdown Musculoskeletal: No Tenderness to Palpation of Joints or Extremities, Arthritic Changes Neurological: Cranial nerves II-XII grossly intact, Deep Tendon Reflexes 2+/4 and Symmetrical, Neuro grossly intact Psych/Mental Status: Normal Affect, Appropriate Microbiology Past 72 Hours 02/02/20 08:10 Blood Culture (Wb) #2 - Left Hand Blood Culture - Preliminary No growth in 48 hours. 02/02/20 08:05 Blood Culture (Wb) - Anticubital Left Blood Culture - Preliminary No growth in 48 hours. Laboratory Results 01/29/20 09:45: COVID-19 (TORSTEN) Cancelled 02/06/20 06:52: WBC 5.1, RBC 3.59 L, Hgb 9.7 L, Hct 29.6 L, MCV 82.5, MCH 27.0, MCHC 32.8, RDW Std Deviation 42.6, RDW Coeff of Lamine 14.3, Plt Count 301, MPV 9.8, Immature Gran % (Auto) 0.800, Neut % (Auto) 74.3 H, Lymph % (Auto) 20.8, [place] % (Auto) 3.7, Eos % (Auto) 0.2, Baso % (Auto) 0.2, Absolute Neuts (auto) 3.8, Absolute Lymphs (auto) 1.07, Nucleated RBC % 0, Differential Comment SCANNED, Atypical Lymphocytes 1+, Reactive Lymphocytes 1+ 02/06/20 06:52: Sodium 141, Potassium 2.5 L*, Chloride 106, Carbon Dioxide 27.0, Anion Gap 8, BUN 19 H, Creatinine 1.05 H, Estim Creat Clear Calc 39.09, Est GFR (MDRD) Af Amer 65, Est GFR (MDRD) Non-Af 54 L, BUN/Creatinine Ratio 18.1, Glucose 89, Calcium 7.6 L 02/06/20 06:52: Magnesium 1.9 02/06/20 08:15: Vancomycin Trough 21.8 H Current Medications Acetaminophen (Tylenol) 650 mg PO Q6H PRN PRN PRN Reason: Pain Score 1-10/Temp > 100.7 F Last Admin: 02/05/20 09:55 Dose: 650 mg Documented by: Albuterol Sulfate (Ventolin Hfa (Sp)) 2 puff INHALATION Q2H PRN PRN PRN Reason: Dyspnea, wheezing Atorvastatin Calcium (Lipitor) 10 mg PO QHS [facility] Last Admin: 02/05/20 21:07 Dose: 10 mg Documented by: Bisacodyl (Dulcolax) 5 mg PO DAILY [facility] Last Admin: 02/06/20 08:44 Dose: Not Given Documented by: Dextrose (D50w Syringe) 0 gm IV X1 PRN; Protocol PRN Reason: Hypoglycemia Diphenoxylate HCl/Atropine (Lomotil) 1 tablet PO 4X/DAY PRN PRN Reason: Diarrhea Enoxaparin Sodium (Lovenox) 90 mg SC Q12 [facility] Last Admin: 02/06/20 10:14 Dose: 90 mg Documented by: Fluticasone Propionate (Flovent Diskus 100 Mcg) 1 puff INHALATION BID [facility] Last Admin: 02/06/20 10:14 Dose: 1 puff Documented by: Furosemide (Lasix) 40 mg IV BID@1000,1800 [facility] Last Admin: 02/06/20 10:07 Dose: 40 mg Documented by: Glucagon () 1 mg IM .X1 PRN PRN Reason: Hypoglycemia Guaifenesin (Robitussin) 10 ml PO Q4H PRN PRN PRN Reason: COUGH Last Admin: 02/03/20 13:34 Dose: 10 ml Documented by: Guaifenesin (Mucinex) 600 mg PO BID [facility] Last Admin: 02/06/20 10:14 Dose: 600 mg Documented by: Hydralazine HCl (Apresoline Iv) 10 mg IV Q4H PRN PRN PRN Reason: SBP > 160 Sodium Chloride () 250 mls @ 15 mls/hr IV .[id number] PRN PRN Reason: Saline Flush Last Infusion: 02/06/20 05:48 Dose: 0 mls/hr Documented by: Sodium Chloride () 250 mls @ 15 mls/hr IV .[id number] PRN PRN Reason: Additional IVPB Infusion Piperacillin Sod/Tazobactam (Sod 3.375 gm/ Sodium Chloride) 50 mls @ 12.5 mls/hr IV Q8 [facility] Last Admin: 02/06/20 13:26 Dose: 12.5 mls/hr Documented by: Vancomycin IV Pharmacy to Dose (1 ea/ Sodium Chloride) 500 mls @ 250 mls/hr IV X1 PRN; Protocol PRN Reason: Rx to Dose Loratadine (Claritin) 10 mg PO QHS [facility] Last Admin: 02/05/20 21:07 Dose: 10 mg Documented by: Melatonin (Melatonin) 5 mg PO QHS [facility] Last Admin: 02/05/20 21:07 Dose: 5 mg Documented by: Miscellaneous Information (Pocket Chamber) 1 each INHALATION Q2H PRN PRN Reason: FOR USE WITH ALBUTEROL Morphine Sulfate () 2 mg IV Q3H PRN PRN PRN Reason: Pain Score 6-10/10 Nitroglycerin (Nitrostat) 0.4 mg SUBLINGUAL Q5M PRN PRN Reason: CARDIAC/CHEST PAIN Nystatin (Mycostatin Powder) 1 applic TOPICAL TID [facility]; Protocol Last Admin: 02/06/20 13:26 Dose: 1 applicatio Documented by: Olanzapine (Zyprexa) 5 mg PO QHS [facility] Last Admin: 02/05/20 21:07 Dose: 5 mg Documented by: Olanzapine (Zyprexa) 10 mg PO QHS [facility] Last Admin: 02/05/20 21:06 Dose: 10 mg Documented by: Ondansetron HCl (Zofran) 4 mg IV Q8H PRN PRN PRN Reason: NAUSEA/VOMITING Last Admin: 02/03/20 13:34 Dose: 4 mg Documented by: Oxycodone HCl (Oxyir) 5 mg PO Q4H PRN PRN PRN Reason: Pain Score 4-5/10 Last Admin: 02/05/20 21:07 Dose: 5 mg Documented by: Pantoprazole Sodium (Protonix) 20 mg PO DAILY [facility] Last Admin: 02/06/20 10:14 Dose: 20 mg Documented by: Polyethylene Glycol (Miralax) 17 gm PO DAILY [facility] Last Admin: 02/06/20 08:44 Dose: Not Given Documented by: Prochlorperazine Edisylate (Compazine Iv) 5 mg IV Q4H PRN PRN PRN Reason: Breakthrough Nausea/Vomiting Sodium Chloride () 10 - 40 ml IV UD PRN PRN Reason: SALINE FLUSH Last Admin: 02/06/20 14:52 Dose: 10 ml Documented by: Throat Lozenges (Cepacol Sore Throat Lozenge) 1 lozenge MUCOUS MEM Q2H PRN PRN PRN Reason: SORE THROAT Medical Necessity - Tobacco Use Smoking Status: Never smoker Assessment/Plan All Active Problems (Last Reviewed 07/25/19 @ 14:23 by Angi Sauceda) Syncope and collapse (Acute) Bradycardia (Acute) Dehydration (Acute) Acute respiratory failure with hypoxia (Acute) Suspected COVID-19 virus infection (Acute) EPI (acute kidney injury) (Acute) History of CVA (cerebrovascular accident) (Acute) History of traumatic brain injury (Acute) History of pulmonary embolism (Acute) Nocturnal hypoxemia (Acute) Abdominal pain (Resolved) Gram-negative pneumonia (Resolved) PARTIAL SBO (Resolved) This 79-year-old female with multiple comorbidities including NC, coronary artery disease, paroxysmal A. fib on Eliquis, CHF, unclear etiology and type and severity was admitted from [facility] for persistent nausea, vomiting and diarrhea for 3 to 4 days along with subjective fever generalized abdominal pain. Patient also has mild cough and was hypoxic in ER. 1. Acute hypoxic respiratory failure secondary to acute COVID-19 bilateral pneumonia: Chest x-ray on 02/01 shows progressive right upper lobe and left Infiltrate as compared to previous x-ray. Patient states mild improvement of shortness of breath. On high flow oxygen. On vancomycin and Zosyn. Elevated d-dimer. Eliquis changed to enoxaparin. On Lasix. Senior Research Manager consulted and advised convalescent serum when available as it might take 7 days. Continue diuresis 2. EPI mainly prerenal with hypokalemia: Creatinine is improving. K2.5. Potassium replaced. 3. hypotension probably with dehydration resolved 4. paroxysmal afib anticoagulated with Lovenox 5. VTE prophylaxis: anticoagulation 6. Constipation: Patient had bowel movement with magnesium citrate. CODE STATUS/advance directive: DNR CCA, no intubation Inpatient E&M: [id number] Subs Hosp L2
[2020-02-06] MEDS: Acetaminophen 325 MG Tablet 650 MG PO (17:23)
[2020-02-06 17:53] LABS: Potassium 3.3 mmol/L (3.5-5.1)
--- NOTE | 2020-02-06 19:00 | RAD_ITS ---
STUDY: X-RAY CHEST REASON FOR EXAM: Female, 79 years old. Fever. TECHNIQUE: Single AP portable view of the chest. COMPARISON: February 02, 2020. FINDINGS: There is worsening infiltrate in the right upper lobe and throughout the left lung when compared to prior study. Patchy densities are also now seen at the right lung base. There is no demonstrated pleural abnormality. Normal size heart. Normal mediastinum and right hilum. The left hilum is obscured. Normal visualized pulmonary arteries. There is atherosclerotic calcification of the aortic arch with tortuosity. The thoracic spine is obscured by the mediastinum. There is degenerative osteoarthritis of the bilateral shoulders. There is no demonstrated abnormality of the visualized soft tissue structures of the upper abdomen. RAD/Chest 1 View (Portable) IMPRESSION: Worsening bilateral pulmonary infiltrates when compared to the prior study. Electronically Signed: Aly Hassan DO at 19:24 EDT Tel [phone], Service support ,
--- NOTE | 2020-02-06 21:31 | NURSING ---
Paul RT notified of pt sats 82-83% on high flow, humidified O2 at 50L, 55% fiO2. Jeanne MCNEIL
[2020-02-06] MEDS: Atorvastatin Calcium 10 MG Tablet PO (22:56)
[2020-02-06] MEDS: OLANZapine 2.5 MG Tablet 5 MG PO (22:56)
[2020-02-06] MEDS: Loratadine 10 MG Tablet PO (22:56)
[2020-02-06] MEDS: OLANZapine 10 MG Tablet PO (22:56)
[2020-02-06] MEDS: MELATONIN 10 MG TABLET 5 MG PO (22:56)
[2020-02-07] VITALS (10 sets, daily range): BP systolic 118–137; BP diastolic 44–54; PULSE 56–73; RESP 18–28; TEMP 36.9–37.5; O2SAT 91–96
[2020-02-07] MEDS: Nystatin Powder 15gm Bottle 1 APPLIC TOPICAL ×3 (02:56→21:55)
[2020-02-07] MEDS: oxyCODONE 5 MG Tablet PO (03:09)
[2020-02-07 06:08] LABS: Bacteria 0 SEEN /hpf (None Seen); Mucous, Urine 0 SEEN /hpf (<or=2+); Red Blood Cells-Urine 0 SEEN /hpf (0-5); Squamous Epithelial Cells - UA 0 SEEN /hpf (5-10); White Blood Cells 0 SEEN /hpf (0-5)
[2020-02-07 06:14] LABS: Color, Urine Yellow (Yellow); Glucose, Dipstick Normal (Normal); Ketone-Dipstick Negative (Negative); Leukocyte Esterase-Dipstick Negative /ul (Negative); Nitrite-Dipstick Negative (Negative); Occult Blood-Urine 10 /ul (Negative); Protein-Dipstick 30 mg/dl (Negative); Specific Gravity, Urine 1.015 (1.002-1.030); Urine Bilirubin Dipstick Negative (Negative); Urine Clarity Clear (Clear); Urine Urobilinogen Normal (Normal)
[2020-02-07 07:07] LABS: Amorphous Sediment 1+
[2020-02-07] MEDS: 0.9% Saline Lock 10 ML Syringe IV ×5 (09:32→22:11)
[2020-02-07] MEDS: guaiFENesin 600 MG Tablet PO ×2 (09:36→21:55)
[2020-02-07] MEDS: Pantoprazole Sodium 20 MG Tablet PO (09:36)
[2020-02-07] MEDS: guaiFENesin 10 ML UDC (200MG/10ML) PO ×2 (09:36→19:58)
[2020-02-07] MEDS: Enoxaparin 100 MG/ML Syringe 90 MG SC ×2 (09:37→21:55)
[2020-02-07] MEDS: Furosemide 40 MG/4 ML Vial IV ×2 (09:37→17:50)
--- NOTE | 2020-02-07 13:30 | CASEMGMT ---
Social Work Note SW faxed updated clinicals to [facility]. Plan: Return to [facility] once medically cleared Shyla Michelle GAS ENGINE OPERATOR [employer]PRESSORS, PARTS SALESMAN
--- NOTE | 2020-02-07 17:17 | PN_ITS ---
Patient Problems: Active and Suspected Problems (Last Reviewed 07/25/19 @ 14:23 by Angi Sauceda) Acute respiratory failure with hypoxia (Acute) Suspected COVID-19 virus infection (Acute) EPI (acute kidney injury) (Acute) History of CVA (cerebrovascular accident) (Acute) History of traumatic brain injury (Acute) History of pulmonary embolism (Acute) Reason for Visit: COVID-19 pneumonia. Acute hypoxic respiratory failure The patient is still on high flow oxygen, does not have labored breathing. Objective: On high flow oxygen, 60% FiO2, high flow 60 L/min. Patient not having labored breathing. On exam General: Oriented x3, Cooperative, Lethargic, HEENT: Atraumatic, PERRLA, EOMI, Normocephalic Neck: Supple, No JVD, Negative Carotid Bruits Lungs: Diminished, Rhonchi, Short of Breath Cardiovascular: Regular rate, Regular Rhythm, Normal S1, Normal S2, No murmurs Abdomen: Bowel Sounds Present, Soft, Non Tender, Non-Distended Extremities: No edema, Capillary Refill Less than 3 Seconds Skin: No rashes, No breakdown Musculoskeletal: No Tenderness to Palpation of Joints or Extremities, Arthritic Changes Neurological: Cranial nerves II-XII grossly intact, Deep Tendon Reflexes 2+/4 and Symmetrical, Neuro grossly intact Psych/Mental Status: Normal Affect, Appropriate Vitals/I&O's: Vital Signs Temp Pulse Resp BP Pulse Ox 98.8 F 73 20 H 121/47 H 93 02/07/20 14:25 02/07/20 14:25 02/07/20 14:25 02/07/20 14:25 02/07/20 14:50 Oxygen Flow Rate (L/min) 60 Oxygen Delivery Method Warm Humidified Isolette Weight: 209 lb 10.554 oz Body Mass Index (BMI) 34.2 Intake and Output for Last 24 Hours 02/05/20 02/06/20 02/07/20 23:59 23:59 23:59 Intake Total 2110 / 2110 1357.75 / 1482.75 542.5 / 542.5 Output Total 1600 / 1600 500 / 500 250 / 250 Balance 510 / 510 857.75 / 982.75 292.5 / 292.5 Microbiology Past 72 Hours 02/02/20 08:10 Blood Culture (Wb) #2 - Left Hand Blood Culture - Final No growth in 5 days. 02/02/20 08:05 Blood Culture (Wb) - Anticubital Left Blood Culture - Final No growth in 5 days. Laboratory Results 02/06/20 17:30: Potassium 3.3 L 02/07/20 05:50: Urine Color Yellow, Urine Clarity Clear, Urine pH 6.0, Ur Specific [place] 1.015, Urine Protein 30 H, Urine Glucose (UA) Normal, Urine Ketones Negative, Urine Occult Blood 10 H, Urine Nitrite Negative, Urine Bilirubin Negative, Urine Urobilinogen Normal, Ur Leukocyte Esterase Negative, Urine RBC 0 SEEN, Urine WBC 0 SEEN, Ur Squamous Epith Cells 0 SEEN, Amorphous Sediment 1+, Urine Bacteria 0 SEEN, Urine Mucus 0 SEEN Current Medications Acetaminophen (Tylenol) 650 mg PO Q6H PRN PRN PRN Reason: Pain Score 1-10/Temp > 100.7 F Last Admin: 02/06/20 17:23 Dose: 650 mg Documented by: Albuterol Sulfate (Ventolin Hfa (Sp)) 2 puff INHALATION Q2H PRN PRN PRN Reason: Dyspnea, wheezing Atorvastatin Calcium (Lipitor) 10 mg PO QHS [facility] Last Admin: 02/06/20 22:56 Dose: 10 mg Documented by: Bisacodyl (Dulcolax) 5 mg PO DAILY [facility] Last Admin: 02/07/20 09:37 Dose: Not Given Documented by: Dextrose (D50w Syringe) 0 gm IV X1 PRN; Protocol PRN Reason: Hypoglycemia Diphenoxylate HCl/Atropine (Lomotil) 1 tablet PO 4X/DAY PRN PRN Reason: Diarrhea Enoxaparin Sodium (Lovenox) 90 mg SC Q12 [facility] Last Admin: 02/07/20 09:37 Dose: 90 mg Documented by: Fluticasone Propionate (Flovent Diskus 100 Mcg) 1 puff INHALATION BID [facility] Last Admin: 02/07/20 09:37 Dose: 1 puff Documented by: Furosemide (Lasix) 40 mg IV BID@1000,1800 [facility] Last Admin: 02/07/20 09:37 Dose: 40 mg Documented by: Glucagon () 1 mg IM .X1 PRN PRN Reason: Hypoglycemia Guaifenesin (Robitussin) 10 ml PO Q4H PRN PRN PRN Reason: COUGH Last Admin: 02/03/20 13:34 Dose: 10 ml Documented by: Guaifenesin (Mucinex) 600 mg PO BID [facility] Last Admin: 02/07/20 09:36 Dose: 600 mg Documented by: Hydralazine HCl (Apresoline Iv) 10 mg IV Q4H PRN PRN PRN Reason: SBP > 160 Sodium Chloride () 250 mls @ 15 mls/hr IV .[id number] PRN PRN Reason: Saline Flush Last Infusion: 02/07/20 14:20 Dose: 0 mls/hr Documented by: Sodium Chloride () 250 mls @ 15 mls/hr IV .[id number] PRN PRN Reason: Additional IVPB Infusion Meropenem 1 gm/ Sodium (Chloride) 120 mls @ 33 mls/hr IV Q12 [facility] Last Infusion: 02/07/20 13:10 Dose: Infused Documented by: Loratadine (Claritin) 10 mg PO QHS [facility] Last Admin: 02/06/20 22:56 Dose: 10 mg Documented by: Melatonin (Melatonin) 5 mg PO QHS [facility] Last Admin: 02/06/20 22:56 Dose: 5 mg Documented by: Miscellaneous Information (Pocket Chamber) 1 each INHALATION Q2H PRN PRN Reason: FOR USE WITH ALBUTEROL Nitroglycerin (Nitrostat) 0.4 mg SUBLINGUAL Q5M PRN PRN Reason: CARDIAC/CHEST PAIN Nystatin (Mycostatin Powder) 1 applic TOPICAL TID [facility]; Protocol Last Admin: 02/07/20 14:55 Dose: 1 applicatio Documented by: Olanzapine (Zyprexa) 5 mg PO QHS [facility] Last Admin: 02/06/20 22:56 Dose: 5 mg Documented by: Olanzapine (Zyprexa) 10 mg PO QHS [facility] Last Admin: 02/06/20 22:56 Dose: 10 mg Documented by: Ondansetron HCl (Zofran) 4 mg IV Q8H PRN PRN PRN Reason: NAUSEA/VOMITING Last Admin: 02/03/20 13:34 Dose: 4 mg Documented by: Oxycodone HCl (Oxyir) 5 mg PO Q4H PRN PRN PRN Reason: Pain Score 4-5/10 Last Admin: 02/07/20 03:09 Dose: 5 mg Documented by: Pantoprazole Sodium (Protonix) 20 mg PO DAILY [facility] Last Admin: 02/07/20 09:36 Dose: 20 mg Documented by: Polyethylene Glycol (Miralax) 17 gm PO DAILY [facility] Last Admin: 02/07/20 09:37 Dose: Not Given Documented by: Potassium Chlor[facility] (K[facility]) [facility] Last Admin: 02/07/20 09:36 Dose: 40 meq Documented by: Prochlorperazine Edisylate (Compazine Iv) 5 mg IV Q4H PRN PRN PRN Reason: Breakthrough Nausea/Vomiting Sodium Chloride () 10 - 40 ml IV UD PRN PRN Reason: SALINE FLUSH Last Admin: 02/07/20 14:55 Dose: 10 ml Documented by: Throat Lozenges (Cepacol Sore Throat Lozenge) 1 lozenge MUCOUS MEM Q2H PRN PRN PRN Reason: SORE THROAT STROKE Vital Signs/Narrative: Vital Signs Temp Pulse Resp BP Pulse Ox 02/07/20 14:50 93 02/07/20 14:25 98.8 F 73 20 H 121/47 H 96 Medical Necessity - Tobacco Use Smoking Status: Never smoker Assessment/Plan All Active Problems (Last Reviewed 07/25/19 @ 14:23 by Angi Sauceda) Syncope and collapse (Acute) Bradycardia (Acute) Dehydration (Acute) Acute respiratory failure with hypoxia (Acute) Suspected COVID-19 virus infection (Acute) EPI (acute kidney injury) (Acute) History of CVA (cerebrovascular accident) (Acute) History of traumatic brain injury (Acute) History of pulmonary embolism (Acute) Nocturnal hypoxemia (Acute) Abdominal pain (Resolved) Gram-negative pneumonia (Resolved) PARTIAL SBO (Resolved) This 79-year-old female with multiple comorbidities including [place], coronary artery disease, paroxysmal A. fib on Eliquis, CHF, unclear etiology and type and severity was admitted from [facility] for persistent nausea, vomiting and diarrhea for 3 to 4 days along with subjective fever generalized abdominal pain. Patient also has mild cough and was hypoxic in ER. 1. Acute hypoxic respiratory failure secondary to acute COVID-19 bilateral pneumonia: Chest x-ray on 02/01 shows progressive right upper lobe and left Infiltrate as compared to previous x-ray. Patient states mild improvement of shortness of breath. On high flow oxygen. On vancomycin and Zosyn. Elevated d-dimer. Eliquis changed to enoxaparin. On Lasix. Planting Material Carrier consulted and advised convalescent serum when available as it might take 7 days. Continue diuresis 02/06: Patient is spiked fever 102 point 4 in the evening yesterday. He completed 7 days of IV Zosyn. Patient also on vancomycin. Antibiotic changed to IV meropenem. MRSA nasal screen is negative. Discussed with ID. 2. EPI mainly prerenal with hypokalemia: Creatinine is improving. K2.5. Potassium replaced. 02/06: Serum magnesium normal. K low, getting replaced 3. hypotension * probably with dehydration * resolved 4. paroxysmal afib * anticoagulated with Lovenox 5. VTE prophylaxis: anticoagulation 6. Constipation: Patient had bowel movement with magnesium citrate. CODE STATUS/advance directive: DNR CCA, no intubation Microbiology Past 72 Hours 02/02/20 08:10 Blood Culture (Wb) #2 - Left Hand Blood Culture - Final No growth in 5 days. 02/02/20 08:05 Blood Culture (Wb) - Anticubital Left Blood Culture - Final No growth in 5 days. Laboratory Results 02/06/20 17:30: Potassium 3.3 L 02/07/20 05:50: Urine Color Yellow, Urine Clarity Clear, Urine pH 6.0, Ur Specific [place] 1.015, Urine Protein 30 H, Urine Glucose (UA) Normal, Urine Ketones Negative, Urine Occult Blood 10 H, Urine Nitrite Negative, Urine Bilirubin Negative, Urine Urobilinogen Normal, Ur Leukocyte Esterase Negative, Urine RBC 0 SEEN, Urine WBC 0 SEEN, Ur Squamous Epith Cells 0 SEEN, Amorphous Sediment 1+, Urine Bacteria 0 SEEN, Urine Mucus 0 SEEN Inpatient E&M: [id number] Subs Hosp L2
[2020-02-07 18:52] LABS: Absolute Lymphocyte Count 1.05 X10^3/uL (0.83-4.51); Absolute Neutrophil Count 3.6 X10^3/uL (2.0-7.7); Basophil# 0.01 X10^3/uL; Basophil% 0.2 % (0-1); Hematocrit 29.5 % (37-47); Hemoglobin 9.5 g/dL (12.0-15.0); Lymphocyte # 1.05 X10^3/ul (4.0); Lymphocyte % 21.1 % (19-41); Mean Corp Hgb Conc 32.2 g/dL (32-36); Mean Corpuscular Hgb 27.3 pg (27.0-32.0); Mean Corpuscular Volume 84.8 fL (81-99); Mean Platelet Vol. 9.9 fl (6.2-12.0); Monocyte# 0.13 X10^3/uL; Monocyte% 2.6 % (0-10); NRBC Flagged by Analyzer 0 % (0-5); Neutrophil # 3.64 X10^3/uL (2.7-7.7); Neutrophil % 73.3 % (47-70); POSITIVE MORPHOLOGY YES; Platelet Count 350 K/mm3 (150-450); RBC Distribution Width CV 14.4 % (11.6-14.6); RBC Distribution Width SD 44.9 fl (35.1-43.9); Red Blood Count 3.48 M/mm3 (4.2-5.4)
[2020-02-07 19:09] LABS: Differential Indicated SCAN CRITERIA MET
[2020-02-07 19:12] LABS: Platelet Estimate ADEQUATE (ADEQ)
[2020-02-07 19:14] LABS: Anisocytosis RARE; Hypochromasia RARE; Macrocytosis RARE; Polychromasia RARE; Red Cell Morphology N CHROM NORMAL (NORM C&C); Toxic Granulation RARE
[2020-02-07 19:31] LABS: ALB/GLOB Ratio 0.4 RATIO (0.9-2.4); AST(SGOT) 62 U/L (15-37); Alanine Aminotransfer ALT/SGPT 47 U/L (13-56); Albumin, Serum 1.8 g/dL (3.2-5.0); Alkaline Phosphatase 55 U/L (45-117); Anion Gap 6 (5-15); BUN 21 mg/dL (7-18); Calcium,Total 8.1 mg/dL (8.5-10.1); Chloride 105 mmol/L (98-107); EST Glomerular Filtration Rate 57 mL/min (>60); Est Glom Filt Rate - Afr Amer 69 mL/min (>60); Estimated Creatinine Clearance 41.05 ml/min; Globulin 4.4 g/dL (2.2-4.2); Glucose 149 mg/dL (74-106); Protein, Total 6.2 g/dL (6.4-8.2); Sodium Level 140 mmol/L (136-145)
[2020-02-07] MEDS: MELATONIN 10 MG TABLET 5 MG PO (21:55)
[2020-02-07] MEDS: Loratadine 10 MG Tablet PO (21:55)
[2020-02-07] MEDS: Atorvastatin Calcium 10 MG Tablet PO (21:55)
[2020-02-07] MEDS: OLANZapine 10 MG Tablet PO (21:55)
[2020-02-07] MEDS: OLANZapine 2.5 MG Tablet 5 MG PO (21:55)
[2020-02-08] VITALS (14 sets, daily range): BP systolic 143–156; BP diastolic 58–84; PULSE 69–77; RESP 20–30; TEMP 36.9–37.1; O2SAT 83–99
--- NOTE | 2020-02-08 02:20 | CPS ---
changed water bag on [employer]
[2020-02-08] MEDS: guaiFENesin 10 ML UDC (200MG/10ML) PO ×2 (02:39→16:56)
[2020-02-08] MEDS: Nystatin Powder 15gm Bottle 1 APPLIC TOPICAL ×3 (05:48→22:11)
[2020-02-08] MEDS: BENZOCAINE/MENTHOL 1 LOZENGE MUCOUS MEM (05:50)
[2020-02-08 06:58] LABS: Ferritin 414 ng/mL (8-252); LDH 454 U/L (84-246)
[2020-02-08 07:15] LABS: D-Dimer Quantitative (DVT/PE) 2.11 FEU/ug/m (0.27-0.49)
[2020-02-08] MEDS: 0.9% Saline Lock 10 ML Syringe IV ×2 (08:33→16:56)
[2020-02-08] MEDS: guaiFENesin 600 MG Tablet PO ×2 (08:38→22:12)
[2020-02-08] MEDS: Furosemide 40 MG/4 ML Vial IV ×2 (08:38→16:58)
[2020-02-08] MEDS: Enoxaparin 100 MG/ML Syringe 90 MG SC ×2 (08:38→22:11)
[2020-02-08] MEDS: Pantoprazole Sodium 20 MG Tablet PO (08:39)
--- NOTE | 2020-02-08 14:41 | PCM.PN.HOSP ---
Patient Problems: Active and Suspected Problems (Last Reviewed 07/25/19 @ 14:23 by Angi Sauceda) Acute respiratory failure with hypoxia (Acute) Suspected COVID-19 virus infection (Acute) EPI (acute kidney injury) (Acute) History of CVA (cerebrovascular accident) (Acute) History of traumatic brain injury (Acute) History of pulmonary embolism (Acute) Reason for Visit: COVID-19 bilateral pneumonia with acute hypoxic respiratory failure Objective: T-max 102.4 last evening about 5-6 pM. Respiratory rate 20 to 22/min. BP acceptable range. Patient on high flow oxygen. There is increase in the oxygen requirement as per nursing staff. On exam General: Oriented x3, Cooperative, Lethargic HEENT: Atraumatic, PERRLA, EOMI, Normocephalic Neck: Supple, No JVD, Negative Carotid Bruits Lungs: Diminished, Rhonchi, mild Short of Breath Cardiovascular: Regular rate, Regular Rhythm, Normal S1, Normal S2, No murmurs Abdomen: Bowel Sounds Present, Soft, Non Tender, Non-Distended Extremities: No edema, Capillary Refill Less than 3 Seconds Skin: No rashes, No breakdown Musculoskeletal: No Tenderness to Palpation of Joints or Extremities, Arthritic Changes Neurological: Cranial nerves II-XII grossly intact, Deep Tendon Reflexes 2+/4 and Symmetrical, Neuro grossly intact Psych/Mental Status: Normal Affect, Appropriate Vitals/I&O's: Vital Signs Temp Pulse Resp BP Pulse Ox 98.4 F 69 20 H 143/59 H 95 02/08/20 11:00 02/08/20 11:00 02/08/20 11:00 02/08/20 11:00 02/08/20 11:00 Oxygen Flow Rate (L/min) 60 Oxygen Delivery Method Warm Humidified Isolette Weight: 208 lb 15.971 oz Body Mass Index (BMI) 34.2 Intake and Output for Last 24 Hours 02/06/20 02/07/20 02/08/20 23:59 23:59 23:59 Intake Total 1357.75 / 1482.75 1456.5 / 1456.5 1207.5 / 1207.5 Output Total 500 / 500 901 / 901 1500 / 1500 Balance 857.75 / 982.75 555.5 / 555.5 -292.5 / -292.5 Microbiology Past 72 Hours 02/07/20 05:50 Urine Catheter - Catheter Urine Culture - Preliminary Culture exhibits no growth. 02/02/20 08:10 Blood Culture (Wb) #2 - Left Hand Blood Culture - Final No growth in 5 days. 02/02/20 08:05 Blood Culture (Wb) - Anticubital Left Blood Culture - Final No growth in 5 days. Laboratory Results 02/07/20 18:35: WBC 5.0, RBC 3.48 L, Hgb 9.5 L, Hct 29.5 L, MCV 84.8, MCH 27.3, MCHC 32.2, RDW Std Deviation 44.9 H, RDW Coeff of [place] 14.4, Plt Count 350, MPV 9.9, Immature Gran % (Auto) 0.800, Neut % (Auto) 73.3 H, Lymph % (Auto) 21.1, [place] % (Auto) 2.6, Eos % (Auto) 2.0, Baso % (Auto) 0.2, Absolute Neuts (auto) 3.6, Absolute Lymphs (auto) 1.05, Nucleated RBC % 0, Toxic Granulation RARE, Platelet Estimate ADEQUATE, RBC Morphology N CHROM, Polychromasia RARE, Hypochromasia RARE, Anisocytosis RARE, Macrocytosis RARE 02/07/20 18:35: Sodium 140, Potassium 3.0 L, Chloride 105, Carbon Dioxide 29.0, Anion Gap 6, BUN 21 H, Creatinine 1.00, Estim Creat Clear Calc 41.05, Est GFR (MDRD) Af Amer 69, Est GFR (MDRD) Non-Af 57 L, BUN/Creatinine Ratio 21.0 H, Glucose 149 H, Calcium 8.1 L, Total Bilirubin 0.50, AST 62 H, ALT 47, Alkaline Phosphatase 55, Total Protein 6.2 L, Albumin 1.8 L, Globulin 4.4 H, Albumin/Globulin Ratio 0.4 L 02/08/20 06:14: D-Dimer Quant (PE/DVT) 2.11 H* 02/08/20 06:14: Ferritin 414 H, Lactate Dehydrogenase 454 H, C-React Prot Ext Range 130.00 H Current Medications Acetaminophen (Tylenol) 650 mg PO Q6H PRN PRN PRN Reason: Pain Score 1-10/Temp > 100.7 F Last Admin: 02/06/20 17:23 Dose: 650 mg Documented by: Albuterol Sulfate (Ventolin Hfa (Sp)) 2 puff INHALATION Q2H PRN PRN PRN Reason: Dyspnea, wheezing Atorvastatin Calcium (Lipitor) 10 mg PO QHS [facility] Last Admin: 02/07/20 21:55 Dose: 10 mg Documented by: Bisacodyl (Dulcolax) 5 mg PO DAILY [facility] Last Admin: 02/08/20 08:37 Dose: Not Given Documented by: Dextrose (D50w Syringe) 0 gm IV X1 PRN; Protocol PRN Reason: Hypoglycemia Diphenoxylate HCl/Atropine (Lomotil) 1 tablet PO 4X/DAY PRN PRN Reason: Diarrhea Enoxaparin Sodium (Lovenox) 90 mg [place] Q12 [facility] Last Admin: 02/08/20 08:38 Dose: 90 mg Documented by: Fluticasone Propionate (Flovent Diskus 100 Mcg) 1 puff INHALATION BID [facility] Last Admin: 02/08/20 08:38 Dose: 1 puff Documented by: Furosemide (Lasix) 40 mg IV BID@1000,1800 [facility] Last Admin: 02/08/20 08:38 Dose: 40 mg Documented by: Glucagon () 1 mg IM .X1 PRN PRN Reason: Hypoglycemia Guaifenesin (Robitussin) 10 ml PO Q4H PRN PRN PRN Reason: COUGH Last Admin: 02/08/20 02:39 Dose: 10 ml Documented by: Guaifenesin (Mucinex) 600 mg PO BID [facility] Last Admin: 02/08/20 08:38 Dose: 600 mg Documented by: Hydralazine HCl (Apresoline Iv) 10 mg IV Q4H PRN PRN PRN Reason: SBP > 160 Sodium Chloride () 250 mls @ 15 mls/hr IV .[id number] PRN PRN Reason: Saline Flush Last Infusion: 02/08/20 13:22 Dose: 0 mls/hr Documented by: Sodium Chloride () 250 mls @ 15 mls/hr IV .[id number] PRN PRN Reason: Additional IVPB Infusion Meropenem 1 gm/ Sodium (Chloride) 120 mls @ 33 mls/hr IV Q12 [facility] Last Infusion: 02/08/20 12:12 Dose: Infused Documented by: Loratadine (Claritin) 10 mg PO QHS [facility] Last Admin: 02/07/20 21:55 Dose: 10 mg Documented by: [facility] Last Admin: 02/07/20 21:55 Dose: 5 mg Documented by: Miscellaneous Information (Pocket Chamber) 1 each INHALATION Q2H PRN PRN Reason: FOR USE WITH ALBUTEROL Nitroglycerin (Nitrostat) 0.4 mg SUBLINGUAL Q5M PRN PRN Reason: CARDIAC/CHEST PAIN Nystatin (Mycostatin Powder) 1 applic TOPICAL TID [facility]; Protocol Last Admin: 02/08/20 13:20 Dose: 1 applicatio Documented by: [facility] Last Admin: 02/07/20 21:55 Dose: 5 mg Documented by: [facility] Last Admin: 02/07/20 21:55 Dose: 10 mg Documented by: Ondansetron HCl (Zofran) 4 mg IV Q8H PRN PRN PRN Reason: NAUSEA/VOMITING Last Admin: 02/03/20 13:34 Dose: 4 mg Documented by: Oxycodone HCl (Oxyir) 5 mg PO Q4H PRN PRN PRN Reason: Pain Score 4-5/10 Last Admin: 02/07/20 03:09 Dose: 5 mg Documented by: Pantoprazole Sodium (Protonix) 20 mg PO DAILY [facility] Last Admin: 02/08/20 08:39 Dose: 20 mg Documented by: Polyethylene Glycol (Miralax) 17 gm PO DAILY [facility] Last Admin: 02/08/20 08:38 Dose: Not Given Documented by: Potassium Ch[facility] ([facility]Dur) [facility] Last Admin: 02/08/20 08:37 Dose: 40 meq Documented by: Prochlorperazine Edisylate (Compazine Iv) 5 mg IV Q4H PRN PRN PRN Reason: Breakthrough Nausea/Vomiting Sodium Chloride () 10 - 40 ml IV UD PRN PRN Reason: SALINE FLUSH Last Admin: 02/08/20 08:33 Dose: 20 ml Documented by: Throat Lozenges (Cepacol Sore Throat Lozenge) 1 lozenge MUCOUS MEM Q2H PRN PRN PRN Reason: SORE THROAT Last Admin: 02/08/20 05:50 Dose: 1 lozenge Documented by: STROKE Vital Signs/Narrative: Vital Signs Temp Pulse Resp BP Pulse Ox 02/08/20 11:00 98.4 F 69 20 H 143/59 H 95 Medical Necessity - Tobacco Use Smoking Status: Never smoker Assessment/Plan All Active Problems (Last Reviewed 07/25/19 @ 14:23 by Angi Sauceda) Syncope and collapse (Acute) Bradycardia (Acute) Dehydration (Acute) Acute respiratory failure with hypoxia (Acute) Suspected COVID-19 virus infection (Acute) EPI (acute kidney injury) (Acute) History of CVA (cerebrovascular accident) (Acute) History of traumatic brain injury (Acute) History of pulmonary embolism (Acute) Nocturnal hypoxemia (Acute) Abdominal pain (Resolved) Gram-negative pneumonia (Resolved) PARTIAL SBO (Resolved) This 79-year-old female with multiple comorbidities including [place], coronary artery disease, paroxysmal A. fib on Eliquis, CHF, unclear etiology and type and severity was admitted from [facility] for persistent nausea, vomiting and diarrhea for 3 to 4 days along with subjective fever generalized abdominal pain. Patient also has mild cough and was hypoxic in ER. 1. Acute hypoxic respiratory failure secondary to acute COVID-19 bilateral pneumonia: Chest x-ray on 02/01 shows progressive right upper lobe and left Infiltrate as compared to previous x-ray. Patient states mild improvement of shortness of breath. On high flow oxygen. On vancomycin and Zosyn. Elevated d-dimer. Eliquis changed to enoxaparin. On Lasix. Database Reporting Consultant consulted and advised convalescent serum when available as it might take 7 days. Continue diuresis 02/06: Patient is spiked fever 102 point 4 in the evening yesterday. He completed 7 days of IV Zosyn. Patient also on vancomycin. Antibiotic changed to IV meropenem. MRSA nasal screen is negative. Discussed with ID. 02/07: Blood cultures x2 from 02/05 are pending. Repeat urine culture shows no growth. Previous blood cultures on 02/01 are negative. Rest as mentioned above. Labs ordered. 2. EPI mainly prerenal with hypokalemia: Creatinine is improving. K2.5. Potassium replaced. 02/06: Serum magnesium normal. K low, getting replaced 02/07: Still hypokalemic, K3.0. 3. hypotension probably with dehydration resolved 4. paroxysmal afib anticoagulated with Lovenox 5. VTE prophylaxis: anticoagulation 6. Constipation: Patient had bowel movement with magnesium citrate. CODE STATUS/advance directive: DNR CCA, no intubation Total time of the visit including total time spent in counseling or coordination of care, (more than 50% of the total time, spent in obtaining medical information from nurses and other ancillary care providers), discussion with consultants, review of labs and imaging is 30 minutes Clinical Impression(s) from Imaging Studies Chest X-Ray 02/02/20 09:45 IMPRESSION: Progressive right upper lobe and left perihilar infiltrate as compared to prior study. Chest X-Ray 02/06/20 19:00 IMPRESSION: Worsening bilateral pulmonary infiltrates when compared to the prior study. Active Medications Acetaminophen (Tylenol) 650 mg PO Q6H PRN PRN PRN Reason: Pain Score 1-10/Temp > 100.7 F Last Admin: 02/06/20 17:23 Dose: 650 mg Documented by: Albuterol Sulfate (Ventolin Hfa (Sp)) 2 puff INHALATION Q2H PRN PRN PRN Reason: Dyspnea, wheezing Atorvastatin Calcium (Lipitor) 10 mg PO QHS [facility] Last Admin: 02/07/20 21:55 Dose: 10 mg Documented by: Bisacodyl (Dulcolax) 5 mg PO DAILY [facility] Last Admin: 02/08/20 08:37 Dose: Not Given Documented by: Dextrose (D50w Syringe) 0 gm IV X1 PRN; Protocol PRN Reason: Hypoglycemia Diphenoxylate HCl/Atropine (Lomotil) 1 tablet PO 4X/DAY PRN PRN Reason: Diarrhea Enoxaparin Sodium (Lovenox) 90 mg [place] Q12 [facility] Last Admin: 02/08/20 08:38 Dose: 90 mg Documented by: Fluticasone Propionate (Flovent Diskus 100 Mcg) 1 puff INHALATION BID [facility] Last Admin: 02/08/20 08:38 Dose: 1 puff Documented by: Furosemide (Lasix) 40 mg IV BID@1000,1800 [facility] Last Admin: 02/08/20 08:38 Dose: 40 mg Documented by: Glucagon () 1 mg IM .X1 PRN PRN Reason: Hypoglycemia Guaifenesin (Robitussin) 10 ml PO Q4H PRN PRN PRN Reason: COUGH Last Admin: 02/08/20 02:39 Dose: 10 ml Documented by: Guaifenesin (Mucinex) 600 mg PO BID [facility] Last Admin: 02/08/20 08:38 Dose: 600 mg Documented by: Hydralazine HCl (Apresoline Iv) 10 mg IV Q4H PRN PRN PRN Reason: SBP > 160 Sodium Chloride () 250 mls @ 15 mls/hr IV .[id number] PRN PRN Reason: Saline Flush Last Infusion: 02/08/20 13:22 Dose: 0 mls/hr Documented by: Sodium Chloride () 250 mls @ 15 mls/hr IV .[id number] PRN PRN Reason: Additional IVPB Infusion Meropenem 1 gm/ Sodium (Chloride) 120 mls @ 33 mls/hr IV Q12 [facility] Last Infusion: 02/08/20 12:12 Dose: Infused Documented by: Loratadine (Claritin) 10 mg PO QHS [facility] Last Admin: 02/07/20 21:55 Dose: 10 mg Documented by: Melatonin (Melatonin) 5 mg PO QHS [facility] Last Admin: 02/07/20 21:55 Dose: 5 mg Documented by: Miscellaneous Information (Pocket Chamber) 1 each INHALATION Q2H PRN PRN Reason: FOR USE WITH ALBUTEROL Nitroglycerin (Nitrostat) 0.4 mg SUBLINGUAL Q5M PRN PRN Reason: CARDIAC/CHEST PAIN Nystatin (Mycostatin Powder) 1 applic TOPICAL TID [facility]; Protocol Last Admin: 02/08/20 13:20 Dose: 1 applicatio Documented by: Olanzapine (Zyprexa) 5 mg PO QHS [facility] Last Admin: 02/07/20 21:55 Dose: 5 mg Documented by: Olanzapine (Zyprexa) 10 mg PO QHS [facility] Last Admin: 02/07/20 21:55 Dose: 10 mg Documented by: Ondansetron HCl (Zofran) 4 mg IV Q8H PRN PRN PRN Reason: NAUSEA/VOMITING Last Admin: 02/03/20 13:34 Dose: 4 mg Documented by: Oxycodone HCl (Oxyir) 5 mg PO Q4H PRN PRN PRN Reason: Pain Score 4-5/10 Last Admin: 02/07/20 03:09 Dose: 5 mg Documented by: Pantoprazole Sodium (Protonix) 20 mg PO DAILY [facility] Last Admin: 02/08/20 08:39 Dose: 20 mg Documented by: Polyethylene Glycol (Miralax) 17 gm PO DAILY [facility] Last Admin: 02/08/20 08:38 Dose: Not Given Documented by: Potassium Chloride (K[facility]Dur) [facility] Last Admin: 02/08/20 08:37 Dose: 40 meq Documented by: Prochlorperazine Edisylate (Compazine Iv) 5 mg IV Q4H PRN PRN PRN Reason: Breakthrough Nausea/Vomiting Sodium Chloride () 10 - 40 ml IV UD PRN PRN Reason: SALINE FLUSH Last Admin: 02/08/20 08:33 Dose: 20 ml Documented by: Throat Lozenges (Cepacol Sore Throat Lozenge) 1 lozenge MUCOUS MEM Q2H PRN PRN PRN Reason: SORE THROAT Last Admin: 02/08/20 05:50 Dose: 1 lozenge Documented by: Microbiology Past 72 Hours 02/02/20 08:10 Blood Culture (Wb) #2 - Left Hand Blood Culture - Final No growth in 5 days. 02/02/20 08:05 Blood Culture (Wb) - Anticubital Left Blood Culture - Final No growth in 5 days. Laboratory Results 02/06/20 17:30: Potassium 3.3 L 02/07/20 05:50: Urine Color Yellow, Urine Clarity Clear, Urine pH 6.0, Ur Specific [place] 1.015, Urine Protein 30 H, Urine Glucose (UA) Normal, Urine Ketones Negative, Urine Occult Blood 10 H, Urine Nitrite Negative, Urine Bilirubin Negative, Urine Urobilinogen Normal, Ur Leukocyte Esterase Negative, Urine RBC 0 SEEN, Urine WBC 0 SEEN, Ur Squamous Epith Cells 0 SEEN, Amorphous Sediment 1+, Urine Bacteria 0 SEEN, Urine Mucus 0 SEEN Inpatient E&M: [id number] Subs Hosp L3
[2020-02-08 15:07] LABS: Absolute Lymphocyte Count 1.14 X10^3/uL (0.83-4.51); Absolute Neutrophil Count 4.5 X10^3/uL (2.0-7.7); Basophil# 0.02 X10^3/uL; Basophil% 0.3 % (0-1); Eosinophil# 0.12 X10^3/uL; Hematocrit 30.3 % (37-47); Hemoglobin 9.6 g/dL (12.0-15.0); Lymphocyte # 1.14 X10^3/ul (4.0); Lymphocyte % 18.9 % (19-41); Mean Corp Hgb Conc 31.7 g/dL (32-36); Mean Corpuscular Hgb 27.4 pg (27.0-32.0); Mean Corpuscular Volume 86.3 fL (81-99); Mean Platelet Vol. 10.2 fl (6.2-12.0); Monocyte# 0.22 X10^3/uL; Monocyte% 3.6 % (0-10); NRBC Flagged by Analyzer 0 % (0-5); Neutrophil % 74.5 % (47-70); POSITIVE MORPHOLOGY YES; Platelet Count 397 K/mm3 (150-450); RBC Distribution Width CV 14.6 % (11.6-14.6); RBC Distribution Width SD 45.9 fl (35.1-43.9); Red Blood Count 3.51 M/mm3 (4.2-5.4)
--- NOTE | 2020-02-08 15:08 | CASEMGMT ---
Social Work Note Pt not medically ready for discharge. SW to continue to follow. Plan: SWCC once medically cleared Shyla Michelle [employer]INE INSPECTOR, [employer]
[2020-02-08 15:14] LABS: Differential Indicated SCAN CRITERIA MET
[2020-02-08 15:15] LABS: ALB/GLOB Ratio 0.4 RATIO (0.9-2.4); AST(SGOT) 71 U/L (15-37); Alanine Aminotransfer ALT/SGPT 59 U/L (13-56); Albumin, Serum 1.8 g/dL (3.2-5.0); Alkaline Phosphatase 58 U/L (45-117); Anion Gap 9 (5-15); BUN 24 mg/dL (7-18); BUN/Creat Ratio 26.8 RATIO (10-20); Calcium,Total 8.5 mg/dL (8.5-10.1); Chloride 102 mmol/L (98-107); Creatinine, Serum 0.89 mg/dL (0.55-1.02); EST Glomerular Filtration Rate 65 mL/min (>60); Est Glom Filt Rate - Afr Amer 78 mL/min (>60); Estimated Creatinine Clearance 46.12 ml/min; Globulin 4.4 g/dL (2.2-4.2); Glucose 96 mg/dL (74-106); Protein, Total 6.2 g/dL (6.4-8.2); Sodium Level 140 mmol/L (136-145)
[2020-02-08 15:29] LABS: Differential Comment SCANNED
--- NOTE | 2020-02-08 17:15 | PCM.HP.ID ---
Problem List (1) COVID-19 Status: Acute Reason for Consult: covronal Consulted by: Dr. Scott History of Present Illness: The patient is a 79 year old F with afib, schizophrenia, lives in [facility], presented 01/28 with fever, cough, dyspnea, not feeling well. COVID (+) at her facility. Given zosyn here, still with fever, high O2 requirements, changed to meropenem 02/05. Feeling ok overall. On anticoagulation due to high d-dimer. No sputum, no aches. Full ROS performed and neg except as noted above. - Medical History Past Medical History (Chronic Problems): Chronic Problems (Last Reviewed 07/25/19 @ 14:23 by Angi Sauceda) Paroxysmal atrial fibrillation (Chronic) Obesity (BMI 30-39.9) (Chronic) Grade I diastolic dysfunction (Chronic) Mild pulmonary hypertension (Chronic) Sleep-disordered breathing (Chronic) CHF (congestive heart failure) (Chronic) Schizophrenia (Chronic) Hypertension (Chronic) Rotator cuff syndrome of left shoulder (Chronic) GERD (gastroesophageal reflux disease) (Chronic) HLD (hyperlipidemia) (Chronic) Segmental and somatic dysfunction of pelvic region (Chronic) Segmental and somatic dysfunction of thoracic region (Chronic) DDD (degenerative disc disease), lumbar (Chronic) with mild to moderate multilevel Lumbar canal stenosis and foraminal stenosis Allergies/Adverse Reactions: Allergies benztropine mesylate [From Cogentin] Allergy (Verified 01/29/20 08:20) Itching risperidone [From Risperdal] Allergy (Verified 01/29/20 08:20) Shortness of breath verapamil [Verapamil] Allergy (Verified 01/29/20 08:20) Itching baclofen Adverse Reaction (Verified 01/29/20 08:20) agitation, mean codeine Adverse Reaction (Verified 01/29/20 08:20) Nausea Home Medications: Ambulatory Orders Medication Instructions Recorded Albuterol Sulfate [Albuterol 2 puff IH Q3H PRN 01/29/20 Sulfate HFA] Apixaban [Eliquis] 5 mg PO BID 01/29/20 Atorvastatin Calcium [Lipitor] 10 mg PO QHS 01/29/20 Azithromycin [Zithromax] 250 mg PO DAILY 01/29/20 Bisacodyl 10 mg TN PRN PRN 01/29/20 Cholecalciferol (VIT D3) [Vitamin 5,000 unit PO TH 01/29/20 D] Fluticasone Propionate [Flovent 50 mcg IH DAILY 01/29/20 Diskus] Furosemide [Lasix] 20 mg PO DAILY 01/29/20 Guaifenesin [Robitussin] 10 ml PO Q4H PRN PRN 01/29/20 Ketotifen Fumarate 1 drp OP BID 01/29/20 Lisinopril [Prinivil] 10 mg PO DAILY 01/29/20 Loperamide HCl [Loperamide] 2 mg PO Q4H PRN 01/29/20 Loratadine 10 mg PO QHS 01/29/20 Magnesium Hydroxide [Milk Of 30 ml PO DAILY PRN PRN 01/29/20 Magnesia] Magnesium Hydroxide [Milk Of 30 ml PO Q4H PRN 01/29/20 Magnesia] Melatonin 5 mg PO QHS 01/29/20 Na Phos,M-B/Na Phos,Di-Ba [Fleet 1 bottle RECTAL PRN PRN 01/29/20 Enema] Nystatin Powder [Mycostatin Powder] 1 applic TOPICAL TID 01/29/20 Olanzapine 15 mg PO QHS 01/29/20 Omeprazole 20 mg PO DAILY 01/29/20 Polyethylene Glycol 1450 17 gm PO DAILY PRN 01/29/20 Tramadol HCl [Ultram] 50 mg PO Q8H PRN 01/29/20 - Social History Tobacco Use: non-smoker Vital Signs Temp Pulse Resp BP Pulse Ox 98.7 F 77 20 H 154/84 H 95 02/08/20 17:00 02/08/20 17:00 02/08/20 17:00 02/08/20 17:00 02/08/20 17:00 Oxygen Flow Rate (L/min) 60 Oxygen Delivery Method Warm Humidified Isolette Weight: 94.8 kg Body Mass Index (BMI) 34.2 Microbiology Past 72 Hours 02/07/20 05:50 Urine Culture - Preliminary Urine Catheter - Catheter Culture exhibits no growth. 02/02/20 08:10 Blood Culture - Final Blood Culture (Wb) #2 - Left Hand No growth in 5 days. 02/02/20 08:05 Blood Culture - Final Blood Culture (Wb) - Anticubital Left No growth in 5 days. Laboratory Tests Past 24 Hrs 02/07/20 02/07/20 02/08/20 18:35 18:35 06:14 WBC 5.0 RBC 3.48 L Hgb 9.5 L Hct 29.5 L MCV 84.8 MCH 27.3 MCHC 32.2 RDW Std Deviation 44.9 H RDW Coeff of Lamine 14.4 Plt Count 350 MPV 9.9 Immature Gran % (Auto) 0.800 Neut % (Auto) 73.3 H Lymph % (Auto) 21.1 [place] % (Auto) 2.6 Eos % (Auto) 2.0 Baso % (Auto) 0.2 Absolute Neuts (auto) 3.6 Absolute Lymphs (auto) 1.05 Nucleated RBC % 0 Differential Comment Toxic Granulation RARE Platelet Estimate ADEQUATE RBC Morphology N CHROM Polychromasia RARE Hypochromasia RARE Anisocytosis RARE Macrocytosis RARE D-Dimer Quant (PE/DVT) 2.11 H* Sodium 140 Potassium 3.0 L Chloride 105 Carbon Dioxide 29.0 Anion Gap 6 BUN 21 H Creatinine 1.00 Estim Creat Clear Calc 41.05 Est GFR (MDRD) Af Amer 69 Est GFR (MDRD) Non-Af 57 L BUN/Creatinine Ratio 21.0 H Glucose 149 H Calcium 8.1 L Ferritin Total Bilirubin 0.50 AST 62 H ALT 47 Alkaline Phosphatase 55 Lactate Dehydrogenase C-React Prot Ext Range Total Protein 6.2 L Albumin 1.8 L Globulin 4.4 H Albumin/Globulin Ratio 0.4 L 02/08/20 02/08/20 02/08/20 06:14 06:14 06:14 WBC 6.0 RBC 3.51 L Hgb 9.6 L Hct 30.3 L MCV 86.3 MCH 27.4 MCHC 31.7 L RDW Std Deviation 45.9 H RDW Coeff of Lamine 14.6 Plt Count 397 MPV 10.2 Immature Gran % (Auto) 0.700 Neut % (Auto) 74.5 H Lymph % (Auto) 18.9 L [place] % (Auto) 3.6 Eos % (Auto) 2.0 Baso % (Auto) 0.3 Absolute Neuts (auto) 4.5 Absolute Lymphs (auto) 1.14 Nucleated RBC % 0 Differential Comment SCANNED Toxic Granulation Platelet Estimate RBC Morphology Polychromasia Hypochromasia Anisocytosis Macrocytosis D-Dimer Quant (PE/DVT) Sodium 140 Potassium 3.0 L Chloride 102 Carbon Dioxide 29.0 Anion Gap 9 BUN 24 H Creatinine 0.89 Estim Creat Clear Calc 46.12 Est GFR (MDRD) Af Amer 78 Est GFR (MDRD) Non-Af 65 BUN/Creatinine Ratio 26.8 H Glucose 96 Calcium 8.5 Ferritin 414 H Total Bilirubin 0.60 AST 71 H ALT 59 H Alkaline Phosphatase 58 Lactate Dehydrogenase 454 H C-React Prot Ext Range 130.00 H Total Protein 6.2 L Albumin 1.8 L Globulin 4.4 H Albumin/Globulin Ratio 0.4 L - Other Studies Radiology: [] reviewed Other Studies: [] Route of nutrition/ use of supplements: [] Nutritional Intake: [] IV Site: [] Bullard Catheter: [] - Physical Exam General: Alert, Cooperative, No apparent distress HEENT: Atraumatic, PERRLA, EOMI Neck: Supple, No Nodes Lungs: Clear to auscultation, Normal air movement, Diminished Cardiovascular: Regular rate, Regular Rhythm Abdomen: Soft, Non Tender, Non-Distended Extremities: Edema Skin: No rashes IV Site: Peripheral, without redness Musculoskeletal: No Tenderness to Palpation of Joints or Extremities Neurological: Cranial nerves II-XII grossly intact - Assessment/Plan Antibiotics: [] Assessment/Plan: [] Active and Suspected Problems (Last Reviewed 07/25/19 @ 14:23 by Angi Sacueda) Acute respiratory failure with hypoxia (Acute) Suspected COVID-19 virus infection (Acute) EPI (acute kidney injury) (Acute) History of CVA (cerebrovascular accident) (Acute) History of traumatic brain injury (Acute) History of pulmonary embolism (Acute) COVID with hypoxic resp failure - on therapeutic anticoagulation, meropenem. Normal wbc, elevated CRP. Will order BNP for the AM. Will follow, thank you.
[2020-02-08] MEDS: oxyCODONE 5 MG Tablet PO (18:15)
[2020-02-08] MEDS: Acetaminophen 325 MG Tablet 650 MG PO (18:15)
[2020-02-08] MEDS: OLANZapine 10 MG Tablet PO (22:12)
[2020-02-08] MEDS: Loratadine 10 MG Tablet PO (22:12)
[2020-02-08] MEDS: OLANZapine 2.5 MG Tablet 5 MG PO (22:12)
[2020-02-08] MEDS: Atorvastatin Calcium 10 MG Tablet PO (22:12)
[2020-02-08] MEDS: MELATONIN 10 MG TABLET 5 MG PO (22:13)
[2020-02-09 01:50] VITALS: PULSE 63; RESP 20; O2SAT 95
[2020-02-09] MEDS: oxyCODONE 5 MG Tablet PO ×4 (02:59→20:58)
[2020-02-09] MEDS: guaiFENesin 10 ML UDC (200MG/10ML) PO ×2 (02:59→20:59)
[2020-02-09 03:00] VITALS: BP 147/58; PULSE 66; RESP 20; TEMP 36.8; O2SAT 98
[2020-02-09] MEDS: Nystatin Powder 15gm Bottle 1 APPLIC TOPICAL ×3 (05:41→21:00)
--- NOTE | 2020-02-09 06:00 | RAD_ITS ---
STUDY: X-RAY CHEST REASON FOR EXAM: Female, 79 years old. Bilateral infiltrates, positive COVID, patient had extremely difficult time holding her breath without coughing, best images were obtained TECHNIQUE: AP and lateral views of the chest. COMPARISON: Comparison is made with prior examination dated February 06, 2020. FINDINGS: Since prior study, there has been improved aeration of the left and right upper lobes. Residual changes persist. Further follow-up is recommended. There is blunting of both costophrenic angles. Normal size heart. Normal mediastinum and [place]. Normal visualized pulmonary arteries. There is atherosclerotic tortuosity of the aortic arch and descending thoracic aorta. There are diffuse degenerative changes of the visualized thoracic spine. Normal visualized ribs, clavicles, and shoulders. There is no demonstrated abnormality of the visualized soft tissue structures of the upper abdomen. RAD/Chest PA and Lateral IMPRESSION: There has been improved aeration as compared to prior study. Further follow-up is recommended. Electronically Signed: Odin Faria, at 8:45 EDT , Service support ,
[2020-02-09 07:10] LABS: Absolute Lymphocyte Count 1.07 X10^3/uL (0.83-4.51); Basophil# 0.02 X10^3/uL; Basophil% 0.3 % (0-1); Eosinophil# 0.12 X10^3/uL; Eosinophils% 1.8 % (0-5); Hematocrit 32.2 % (37-47); Hemoglobin 10.1 g/dL (12.0-15.0); Lymphocyte # 1.07 X10^3/ul (4.0); Lymphocyte % 16.5 % (19-41); Mean Corp Hgb Conc 31.4 g/dL (32-36); Mean Corpuscular Hgb 27.2 pg (27.0-32.0); Mean Corpuscular Volume 86.8 fL (81-99); Mean Platelet Vol. 9.7 fl (6.2-12.0); Monocyte# 0.23 X10^3/uL; Monocyte% 3.5 % (0-10); NRBC Flagged by Analyzer 0 % (0-5); POSITIVE MORPHOLOGY YES; Platelet Count 457 K/mm3 (150-450); RBC Distribution Width CV 14.5 % (11.6-14.6); RBC Distribution Width SD 45.8 fl (35.1-43.9); Red Blood Count 3.71 M/mm3 (4.2-5.4); White Blood Count 6.5 K/mm3 (4.4-11.0)
[2020-02-09 07:16] LABS: Differential Indicated SCAN CRITERIA MET
[2020-02-09 07:31] LABS: CPK Total, Creatine Kinase 45 U/L (26-192)
[2020-02-09 07:36] LABS: ALB/GLOB Ratio 0.4 RATIO (0.9-2.4); AST(SGOT) 86 U/L (15-37); Alanine Aminotransfer ALT/SGPT 83 U/L (13-56); Albumin, Serum 1.8 g/dL (3.2-5.0); Alkaline Phosphatase 62 U/L (45-117); Anion Gap 6 (5-15); BUN 26 mg/dL (7-18); BUN/Creat Ratio 28.4 RATIO (10-20); Calcium,Total 8.5 mg/dL (8.5-10.1); Chloride 103 mmol/L (98-107); Creatinine, Serum 0.92 mg/dL (0.55-1.02); EST Glomerular Filtration Rate 63 mL/min (>60); Est Glom Filt Rate - Afr Amer 76 mL/min (>60); Estimated Creatinine Clearance 44.62 ml/min; Ferritin 481 ng/mL (8-252); Globulin 4.7 g/dL (2.2-4.2); Glucose 99 mg/dL (74-106); Magnesium 1.8 mg/dL (1.6-2.6); Potassium 3.7 mmol/L (3.5-5.1); Protein, Total 6.5 g/dL (6.4-8.2); Sodium Level 141 mmol/L (136-145)
[2020-02-09 07:56] LABS: BNP,B-Type NATRIURETIC PEPTIDE 64.6 pg/mL (0-100)
[2020-02-09 08:32] LABS: Atypical Lymphocyte 1+ %
[2020-02-09 08:33] LABS: Platelet Estimate ADEQUATE (ADEQ); Red Cell Morphology NORM C+C NORMAL (NORM C&C)
[2020-02-09 09:07] VITALS: BP 134/52; PULSE 77; RESP 18; TEMP 37.5; O2SAT 95
[2020-02-09] MEDS: Bisacodyl 5 MG Tablet PO (09:52)
[2020-02-09] MEDS: guaiFENesin 600 MG Tablet PO ×2 (09:52→20:58)
[2020-02-09] MEDS: Pantoprazole Sodium 20 MG Tablet PO (09:53)
[2020-02-09] MEDS: Furosemide 40 MG/4 ML Vial IV ×2 (09:55→17:00)
[2020-02-09] MEDS: 0.9% Saline Lock 10 ML Syringe IV ×3 (09:56→21:12)
[2020-02-09] MEDS: Enoxaparin 100 MG/ML Syringe 90 MG SC ×2 (09:57→20:57)
[2020-02-09] MEDS: Polyethylene Glycol 3350 17 GM PACKET PO (10:07)
--- NOTE | 2020-02-09 10:44 | PCM.PN.ID ---
Patient Problems: Active and Suspected Problems (Last Reviewed 07/25/19 @ 14:23 by Angi Sauceda) Acute respiratory failure with hypoxia (Acute) Suspected COVID-19 virus infection (Acute) EPI (acute kidney injury) (Acute) History of CVA (cerebrovascular accident) (Acute) History of traumatic brain injury (Acute) History of pulmonary embolism (Acute) COVID-19 (Acute) Subjective: Still with some subjective fever and aches, breathing/cough much improved. - Physical Exam Vitals/I&O's: Vital Signs Temp Pulse Resp BP Pulse Ox 99.5 F H 77 18 134/52 H 95 02/09/20 09:07 02/09/20 09:07 02/09/20 09:07 02/09/20 09:07 02/09/20 09:07 Oxygen Flow Rate (L/min) 60 Oxygen Delivery Method CPAP Weight: 94.7 kg Body Mass Index (BMI) 34.2 Intake and Output for Last 24 Hours 02/07/20 02/08/20 02/09/20 23:59 23:59 23:59 Intake Total 1456.5 / 1456.5 1822.5 / 1822.5 320 / 320 Output Total 901 / 901 2550 / 2550 150 / 150 Balance 555.5 / 555.5 -727.5 / -727.5 170 / 170 General: Alert, Cooperative, No apparent distress Lungs: Diminished Cardiovascular: Regular rate, Regular Rhythm Abdomen: Soft, Non Tender, Non-Distended Skin: No rashes Microbiology Past 72 Hours 02/06/20 19:30 Blood Culture (Wb) - Right Hand Blood Culture - Preliminary No growth in 48 hours. 02/06/20 19:20 Blood Culture (Wb) - Left Hand Blood Culture - Preliminary No growth in 48 hours. 02/07/20 05:50 Urine Catheter - Catheter Urine Culture - Preliminary Culture exhibits no growth. 02/02/20 08:10 Blood Culture (Wb) #2 - Left Hand Blood Culture - Final No growth in 5 days. 02/02/20 08:05 Blood Culture (Wb) - Anticubital Left Blood Culture - Final No growth in 5 days. Laboratory Results 02/08/20 06:14: WBC 6.0, RBC 3.51 L, Hgb 9.6 L, Hct 30.3 L, MCV 86.3, MCH 27.4, MCHC 31.7 L, RDW Std Deviation 45.9 H, RDW Coeff of Lamine 14.6, Plt Count 397, MPV 10.2, Immature Gran % (Auto) 0.700, Neut % (Auto) 74.5 H, Lymph % (Auto) 18.9 L, [place] % (Auto) 3.6, Eos % (Auto) 2.0, Baso % (Auto) 0.3, Absolute Neuts (auto) 4.5, Absolute Lymphs (auto) 1.14, Nucleated RBC % 0, Differential Comment SCANNED 02/08/20 06:14: Sodium 140, Potassium 3.0 L, Chloride 102, Carbon Dioxide 29.0, Anion Gap 9, BUN 24 H, Creatinine 0.89, Estim Creat Clear Calc 46.12, Est GFR (MDRD) Af Amer 78, Est GFR (MDRD) Non-Af 65, BUN/Creatinine Ratio 26.8 H, Glucose 96, Calcium 8.5, Total Bilirubin 0.60, AST 71 H, ALT 59 H, Alkaline Phosphatase 58, Total Protein 6.2 L, Albumin 1.8 L, Globulin 4.4 H, Albumin/Globulin Ratio 0.4 L 02/09/20 06:28: WBC 6.5, RBC 3.71 L, Hgb 10.1 L, Hct 32.2 L, MCV 86.8, MCH 27.2, MCHC 31.4 L, RDW Std Deviation 45.8 H, RDW Coeff of Lamine 14.5, Plt Count 457 H, MPV 9.7, Immature Gran % (Auto) 0.900, Neut % (Auto) 77.0 H, Lymph % (Auto) 16.5 L, [place] % (Auto) 3.5, Eos % (Auto) 1.8, Baso % (Auto) 0.3, Absolute Neuts (auto) 5.0, Absolute Lymphs (auto) 1.07, Nucleated RBC % 0, Atypical Lymphocytes 1+, Platelet Estimate ADEQUATE, RBC Morphology NORM C+C 02/09/20 06:28: Sodium 141, Potassium 3.7, Chloride 103, Carbon Dioxide 32.0, Anion Gap 6, BUN 26 H, Creatinine 0.92, Estim Creat Clear Calc 44.62, Est GFR (MDRD) Af Amer 76, Est GFR (MDRD) Non-Af 63, BUN/Creatinine Ratio 28.4 H, Glucose 99, Calcium 8.5, Magnesium 1.8, Ferritin 481 H, Total Bilirubin 0.60, AST 86 H, ALT 83 H, Alkaline Phosphatase 62, Troponin I < 0.015, C-React Prot Ext Range 109.00 H, Total Protein 6.5, Albumin 1.8 L, Globulin 4.7 H, Albumin/Globulin Ratio 0.4 L 02/09/20 06:28: Total Creatine Kinase 45 02/09/20 06:28: B-Natriuretic Peptide 64.6 02/09/20 08:20: Blood Type O POSITIVE Current Medications Acetaminophen (Tylenol) 650 mg PO Q6H PRN PRN PRN Reason: Pain Score 1-10/Temp > 100.7 F Last Admin: 02/08/20 18:15 Dose: 650 mg Documented by: Albuterol Sulfate (Ventolin Hfa (Sp)) 2 puff INHALATION Q2H PRN PRN PRN Reason: Dyspnea, wheezing Atorvastatin Calcium (Lipitor) 10 mg PO QHS [facility] Last Admin: 02/08/20 22:12 Dose: 10 mg Documented by: Bisacodyl (Dulcolax) 5 mg PO DAILY [facility] Last Admin: 02/09/20 09:52 Dose: 5 mg Documented by: Dextrose (D50w Syringe) 0 gm IV X1 PRN; Protocol PRN Reason: Hypoglycemia Diphenoxylate HCl/Atropine (Lomotil) 1 tablet PO 4X/DAY PRN PRN Reason: Diarrhea Enoxaparin Sodium (Lovenox) 90 mg SC Q12 [facility] Last Admin: 02/09/20 09:57 Dose: 90 mg Documented by: Fluticasone Propionate (Flovent Diskus 100 Mcg) 1 puff INHALATION BID [facility] Last Admin: 02/09/20 09:53 Dose: Not Given Documented by: Furosemide (Lasix) 40 mg IV BID@1000,1800 [facility] Last Admin: 02/09/20 09:55 Dose: 40 mg Documented by: Glucagon () 1 mg IM .X1 PRN PRN Reason: Hypoglycemia Guaifenesin (Robitussin) 10 ml PO Q4H PRN PRN PRN Reason: COUGH Last Admin: 02/09/20 02:59 Dose: 10 ml Documented by: Guaifenesin (Mucinex) 600 mg PO BID [facility] Last Admin: 02/09/20 09:52 Dose: 600 mg Documented by: Hydralazine HCl (Apresoline Iv) 10 mg IV Q4H PRN PRN PRN Reason: SBP > 160 Sodium Chloride () 250 mls @ 15 mls/hr IV .[id number] PRN PRN Reason: Saline Flush Last Infusion: 02/08/20 13:22 Dose: 0 mls/hr Documented by: Sodium Chloride () 250 mls @ 15 mls/hr IV .[id number] PRN PRN Reason: Additional IVPB Infusion Meropenem 1 gm/ Sodium (Chloride) 120 mls @ 33 mls/hr IV Q12 [facility] Last Admin: 02/09/20 09:59 Dose: 33 mls/hr Documented by: Loratadine (Claritin) 10 mg PO QHS [facility] Last Admin: 02/08/20 22:12 Dose: 10 mg Documented by: Melatonin (Melatonin) 5 mg PO QHS [facility] Last Admin: 02/08/20 22:13 Dose: 5 mg Documented by: Miscellaneous Information (Pocket Chamber) 1 each INHALATION Q2H PRN PRN Reason: FOR USE WITH ALBUTEROL Nitroglycerin (Nitrostat) 0.4 mg SUBLINGUAL Q5M PRN PRN Reason: CARDIAC/CHEST PAIN Nystatin (Mycostatin Powder) 1 applic TOPICAL TID [facility]; Protocol Last Admin: 02/09/20 05:41 Dose: 1 applicatio Documented by: Olanzapine (Zyprexa) 5 mg PO QHS [facility] Last Admin: 02/08/20 22:12 Dose: 5 mg Documented by: [facility] Last Admin: 02/08/20 22:12 Dose: 10 mg Documented by: Ondansetron HCl (Zofran) 4 mg IV Q8H PRN PRN PRN Reason: NAUSEA/VOMITING Last Admin: 02/03/20 13:34 Dose: 4 mg Documented by: Oxycodone HCl (Oxyir) 5 mg PO Q4H PRN PRN PRN Reason: Pain Score 4-5/10 Last Admin: 02/09/20 10:07 Dose: 5 mg Documented by: Pantoprazole Sodium (Protonix) 20 mg PO DAILY [facility] Last Admin: 02/09/20 09:53 Dose: 20 mg Documented by: Polyethylene Glycol (Miralax) 17 gm PO DAILY [facility] Last Admin: 02/09/20 10:07 Dose: 17 gm Documented by: Potassium Chloride (K-Dur) 40 meq PO BIDCM [facility] Last Admin: 02/09/20 09:51 Dose: 40 meq Documented by: Prochlorperazine Edisylate (Compazine Iv) 5 mg IV Q4H PRN PRN PRN Reason: Breakthrough Nausea/Vomiting Sodium Chloride () 10 - 40 ml IV UD PRN PRN Reason: SALINE FLUSH Last Admin: 02/09/20 09:56 Dose: 10 ml Documented by: Throat Lozenges (Cepacol Sore Throat Lozenge) 1 lozenge MUCOUS MEM Q2H PRN PRN PRN Reason: SORE THROAT Last Admin: 02/08/20 05:50 Dose: 1 lozenge Documented by: Medical Necessity - Tobacco Use Smoking Status: Never smoker Route of nutrition/ use of supplements: [] Nutritional Intake: [] IV Site: [] Bullard Catheter: [] - Assessment/Plan Antibiotics: [] Assessment/Plan: [] Active and Suspected Problems (Last Reviewed 07/25/19 @ 14:23 by Angi Sauceda) Acute respiratory failure with hypoxia (Acute) Suspected COVID-19 virus infection (Acute) EPI (acute kidney injury) (Acute) History of CVA (cerebrovascular accident) (Acute) History of traumatic brain injury (Acute) History of pulmonary embolism (Acute) COVID with hypoxic resp failure - on therapeutic anticoagulation, meropenem. Feeling better, CRP improving, cxr better. Will follow
[2020-02-09 13:54] VITALS: PULSE 68; RESP 20; O2SAT 97
--- NOTE | 2020-02-09 14:19 | PCM.PN.HOSP ---
Patient Problems: Active and Suspected Problems (Last Reviewed 07/25/19 @ 14:23 by Angi Sauceda) Acute respiratory failure with hypoxia (Acute) Suspected COVID-19 virus infection (Acute) EPI (acute kidney injury) (Acute) History of CVA (cerebrovascular accident) (Acute) History of traumatic brain injury (Acute) History of pulmonary embolism (Acute) COVID-19 (Acute) Reason for Visit: Low-grade temperature T-max 99.5 otherwise afebrile last 48 hours. Patient states his breathing is slightly better. No chest tightness. No nausea vomiting. On high flow oxygen 60% FiO2 at 60 L/min flow rate. Patient still has dry cough. Objective: General: Oriented x3, awake, Cooperative, Lethargic HEENT: Atraumatic, PERRLA, EOMI, Normocephalic Neck: Supple, No JVD, Negative Carotid Bruits Lungs: Diminished air entry in bilateral lungs, Rhonchi, mild Short of Breath, no tachypnea but severe hypoxia. Cardiovascular: Regular rate, Regular Rhythm, Normal S1, Normal S2, No murmurs Abdomen: Bowel Sounds Present, Soft, Non Tender, Non-Distended Extremities: No edema, Capillary Refill Less than 3 Seconds Skin: No rashes, No breakdown Musculoskeletal: No Tenderness to Palpation of Joints or Extremities, Arthritic Changes Neurological: Cranial nerves II-XII grossly intact, Deep Tendon Reflexes 2+/4 and Symmetrical, Neuro grossly intact Psych/Mental Status: Normal Affect, Appropriate Vitals/I&O's: Vital Signs Temp Pulse Resp BP Pulse Ox 99.5 F H 68 20 H 134/52 H 97 02/09/20 09:07 02/09/20 13:54 02/09/20 13:54 02/09/20 09:07 02/09/20 13:54 Oxygen Flow Rate (L/min) 60 Oxygen Delivery Method CPAP Weight: 208 lb 12.444 oz Body Mass Index (BMI) 34.2 Intake and Output for Last 24 Hours 02/07/20 02/08/20 02/09/20 23:59 23:59 23:59 Intake Total 1456.5 / 1456.5 1822.5 / 1822.5 680 / 680 Output Total 901 / 901 2550 / 2550 1250 / 1250 Balance 555.5 / 555.5 -727.5 / -727.5 -570 / -570 Microbiology Past 72 Hours 02/07/20 05:50 Urine Catheter - Catheter Urine Culture - Final Culture exhibits no growth. 02/06/20 19:30 Blood Culture (Wb) - Right Hand Blood Culture - Preliminary No growth in 48 hours. 02/06/20 19:20 Blood Culture (Wb) - Left Hand Blood Culture - Preliminary No growth in 48 hours. 02/02/20 08:10 Blood Culture (Wb) #2 - Left Hand Blood Culture - Final No growth in 5 days. 02/02/20 08:05 Blood Culture (Wb) - Anticubital Left Blood Culture - Final No growth in 5 days. Laboratory Results 02/08/20 06:14: WBC 6.0, RBC 3.51 L, Hgb 9.6 L, Hct 30.3 L, MCV 86.3, MCH 27.4, MCHC 31.7 L, RDW Std Deviation 45.9 H, RDW Coeff of Lamine 14.6, Plt Count 397, MPV 10.2, Immature Gran % (Auto) 0.700, Neut % (Auto) 74.5 H, Lymph % (Auto) 18.9 L, [place] % (Auto) 3.6, Eos % (Auto) 2.0, Baso % (Auto) 0.3, Absolute Neuts (auto) 4.5, Absolute Lymphs (auto) 1.14, Nucleated RBC % 0, Differential Comment SCANNED 02/08/20 06:14: Sodium 140, Potassium 3.0 L, Chloride 102, Carbon Dioxide 29.0, Anion Gap 9, BUN 24 H, Creatinine 0.89, Estim Creat Clear Calc 46.12, Est GFR (MDRD) Af Amer 78, Est GFR (MDRD) Non-Af 65, BUN/Creatinine Ratio 26.8 H, Glucose 96, Calcium 8.5, Total Bilirubin 0.60, AST 71 H, ALT 59 H, Alkaline Phosphatase 58, Total Protein 6.2 L, Albumin 1.8 L, Globulin 4.4 H, Albumin/Globulin Ratio 0.4 L 02/09/20 06:28: WBC 6.5, RBC 3.71 L, Hgb 10.1 L, Hct 32.2 L, MCV 86.8, MCH 27.2, MCHC 31.4 L, RDW Std Deviation 45.8 H, RDW Coeff of Lamine 14.5, Plt Count 457 H, MPV 9.7, Immature Gran % (Auto) 0.900, Neut % (Auto) 77.0 H, Lymph % (Auto) 16.5 L, [place] % (Auto) 3.5, Eos % (Auto) 1.8, Baso % (Auto) 0.3, Absolute Neuts (auto) 5.0, Absolute Lymphs (auto) 1.07, Nucleated RBC % 0, Atypical Lymphocytes 1+, Platelet Estimate ADEQUATE, RBC Morphology NORM C+C 02/09/20 06:28: Sodium 141, Potassium 3.7, Chloride 103, Carbon Dioxide 32.0, Anion Gap 6, BUN 26 H, Creatinine 0.92, Estim Creat Clear Calc 44.62, Est GFR (MDRD) Af Amer 76, Est GFR (MDRD) Non-Af 63, BUN/Creatinine Ratio 28.4 H, Glucose 99, Calcium 8.5, Magnesium 1.8, Ferritin 481 H, Total Bilirubin 0.60, AST 86 H, ALT 83 H, Alkaline Phosphatase 62, Troponin I < 0.015, C-React Prot Ext Range 109.00 H, Total Protein 6.5, Albumin 1.8 L, Globulin 4.7 H, Albumin/Globulin Ratio 0.4 L 02/09/20 06:28: Total Creatine Kinase 45 02/09/20 06:28: B-Natriuretic Peptide 64.6 02/09/20 08:20: Blood Type O POSITIVE Current Medications Acetaminophen (Tylenol) 650 mg PO Q6H PRN PRN PRN Reason: Pain Score 1-10/Temp > 100.7 F Last Admin: 02/08/20 18:15 Dose: 650 mg Documented by: Albuterol Sulfate (Ventolin Hfa (Sp)) 2 puff INHALATION Q2H PRN PRN PRN Reason: Dyspnea, wheezing Atorvastatin Calcium (Lipitor) 10 mg PO QHS [facility] Last Admin: 02/08/20 22:12 Dose: 10 mg Documented by: Bisacodyl (Dulcolax) 5 mg PO DAILY [facility] Last Admin: 02/09/20 09:52 Dose: 5 mg Documented by: Dextrose (D50w Syringe) 0 gm IV X1 PRN; Protocol PRN Reason: Hypoglycemia Diphenoxylate HCl/Atropine (Lomotil) 1 tablet PO 4X/DAY PRN PRN Reason: Diarrhea Enoxaparin Sodium (Lovenox) 90 mg SC Q12 [facility] Last Admin: 02/09/20 09:57 Dose: 90 mg Documented by: Fluticasone Propionate (Flovent Diskus 100 Mcg) 1 puff INHALATION BID [facility] Last Admin: 02/09/20 09:53 Dose: Not Given Documented by: Furosemide (Lasix) 40 mg IV BID@1000,1800 [facility] Last Admin: 02/09/20 09:55 Dose: 40 mg Documented by: Glucagon () 1 mg IM .X1 PRN PRN Reason: Hypoglycemia Guaifenesin (Robitussin) 10 ml PO Q4H PRN PRN PRN Reason: COUGH Last Admin: 02/09/20 02:59 Dose: 10 ml Documented by: Guaifenesin (Mucinex) 600 mg PO BID [facility] Last Admin: 02/09/20 09:52 Dose: 600 mg Documented by: Hydralazine HCl (Apresoline Iv) 10 mg IV Q4H PRN PRN PRN Reason: SBP > 160 Sodium Chloride () 250 mls @ 15 mls/hr IV .[id number] PRN PRN Reason: Saline Flush Last Infusion: 02/08/20 13:22 Dose: 0 mls/hr Documented by: Sodium Chloride () 250 mls @ 15 mls/hr IV .[id number] PRN PRN Reason: Additional IVPB Infusion Meropenem 1 gm/ Sodium (Chloride) 120 mls @ 33 mls/hr IV Q12 [facility] Last Infusion: 02/09/20 13:50 Dose: Infused Documented by: Loratadine (Claritin) 10 mg PO QHS [facility] Last Admin: 02/08/20 22:12 Dose: 10 mg Documented by: Melatonin (Melatonin) 5 mg PO QHS [facility] Last Admin: 02/08/20 22:13 Dose: 5 mg Documented by: Miscellaneous Information (Pocket Chamber) 1 each INHALATION Q2H PRN PRN Reason: FOR USE WITH ALBUTEROL Nitroglycerin (Nitrostat) 0.4 mg SUBLINGUAL Q5M PRN PRN Reason: CARDIAC/CHEST PAIN Nystatin (Mycostatin Powder) 1 applic TOPICAL TID [facility]; Protocol Last Admin: 02/09/20 13:50 Dose: 1 applicatio Documented by: Olanzapine (Zyprexa) 5 mg PO QHS [facility] Last Admin: 02/08/20 22:12 Dose: 5 mg Documented by: Olanzapine (Zyprexa) 10 mg PO QHS [facility] Last Admin: 02/08/20 22:12 Dose: 10 mg Documented by: Ondansetron HCl (Zofran) 4 mg IV Q8H PRN PRN PRN Reason: NAUSEA/VOMITING Last Admin: 02/03/20 13:34 Dose: 4 mg Documented by: Oxycodone HCl (Oxyir) 5 mg PO Q4H PRN PRN PRN Reason: Pain Score 4-5/10 Last Admin: 02/09/20 14:16 Dose: 5 mg Documented by: Pantoprazole Sodium (Protonix) 20 mg PO DAILY [facility] Last Admin: 02/09/20 09:53 Dose: 20 mg Documented by: Polyethylene Glycol (Miralax) 17 gm PO DAILY [facility] Last Admin: 02/09/20 10:07 Dose: 17 gm Documented by: [facility] Last Admin: 02/09/20 09:51 Dose: 40 meq Documented by: Prochlorperazine Edisylate (Compazine Iv) 5 mg IV Q4H PRN PRN PRN Reason: Breakthrough Nausea/Vomiting Sodium Chloride () 10 - 40 ml IV UD PRN PRN Reason: SALINE FLUSH Last Admin: 02/09/20 09:56 Dose: 10 ml Documented by: Throat Lozenges (Cepacol Sore Throat Lozenge) 1 lozenge MUCOUS MEM Q2H PRN PRN PRN Reason: SORE THROAT Last Admin: 02/08/20 05:50 Dose: 1 lozenge Documented by: STROKE Vital Signs/Narrative: Vital Signs Pulse Resp Pulse Ox 02/09/20 13:54 68 20 H 97 Medical Necessity - Tobacco Use Smoking Status: Never smoker Assessment/Plan All Active Problems (Last Reviewed 07/25/19 @ 14:23 by Angi Sauceda) Syncope and collapse (Acute) Bradycardia (Acute) Dehydration (Acute) Acute respiratory failure with hypoxia (Acute) Suspected COVID-19 virus infection (Acute) EPI (acute kidney injury) (Acute) History of CVA (cerebrovascular accident) (Acute) History of traumatic brain injury (Acute) History of pulmonary embolism (Acute) COVID-19 (Acute) Nocturnal hypoxemia (Acute) Abdominal pain (Resolved) Gram-negative pneumonia (Resolved) PARTIAL SBO (Resolved) This 79-year-old female with multiple comorbidities including [place], coronary artery disease, paroxysmal A. fib on Eliquis, CHF, unclear etiology and type and severity was admitted from [facility] for persistent nausea, vomiting and diarrhea for 3 to 4 days along with subjective fever generalized abdominal pain. Patient also has mild cough and was hypoxic in ER. 1. Acute hypoxic respiratory failure secondary to acute COVID-19 bilateral pneumonia: Chest x-ray on 02/01 shows progressive right upper lobe and left Infiltrate as compared to previous x-ray. Patient states mild improvement of shortness of breath. On high flow oxygen. On vancomycin and Zosyn. Elevated d-dimer. Eliquis changed to enoxaparin. On Lasix. [employer] consulted and advised convalescent serum when available as it might take 7 days. Continue diuresis 02/06: Patient is spiked fever 102 point 4 in the evening yesterday. He completed 7 days of IV Zosyn. Patient also on vancomycin. Antibiotic changed to IV meropenem. MRSA nasal screen is negative. Discussed with ID. 02/07: Blood cultures x2 from 02/05 are pending. Repeat urine culture shows no growth. Previous blood cultures on 02/01 are negative. Rest as mentioned above. Labs ordered. 02/08: Continue high flow oxygen support. Normal white blood count. Normocytic normochromic anemia. CRP better. Ferritin is still high 481. Repeat blood culture from 02/05 no growth at 48 hours. Urine culture negative. Discussed with ID 2. EPI mainly prerenal with hypokalemia: Creatinine is improving. K2.5. Potassium replaced. 02/06: Serum magnesium normal. K low, getting replaced 02/07: Still hypokalemic, K3.0. 02/08: Potassium normal. 3. hypotension probably with dehydration resolved 4. paroxysmal afib anticoagulated with Lovenox 5. VTE prophylaxis: anticoagulation 6. Constipation: Patient had bowel movement with magnesium citrate. CODE STATUS/advance directive: DNR CCA, no intubation Total time of the visit including total time spent in counseling or coordination of care, (more than 50% of the total time, spent in obtaining medical information from nurses and other ancillary care providers), discussion with consultants, review of labs and imaging is 30 minutes Microbiology Past 72 Hours 02/07/20 05:50 Urine Catheter - Catheter Urine Culture - Final Culture exhibits no growth. 02/06/20 19:30 Blood Culture (Wb) - Right Hand Blood Culture - Preliminary No growth in 48 hours. 02/06/20 19:20 Blood Culture (Wb) - Left Hand Blood Culture - Preliminary No growth in 48 hours. 02/02/20 08:10 Blood Culture (Wb) #2 - Left Hand Blood Culture - Final No growth in 5 days. 02/02/20 08:05 Blood Culture (Wb) - Anticubital Left Blood Culture - Final No growth in 5 days. Laboratory Results 02/08/20 06:14: WBC 6.0, RBC 3.51 L, Hgb 9.6 L, Hct 30.3 L, MCV 86.3, MCH 27.4, MCHC 31.7 L, RDW Std Deviation 45.9 H, RDW Coeff of Lamine 14.6, Plt Count 397, MPV 10.2, Immature Gran % (Auto) 0.700, Neut % (Auto) 74.5 H, Lymph % (Auto) 18.9 L, [place] % (Auto) 3.6, Eos % (Auto) 2.0, Baso % (Auto) 0.3, Absolute Neuts (auto) 4.5, Absolute Lymphs (auto) 1.14, Nucleated RBC % 0, Differential Comment SCANNED 02/08/20 06:14: Sodium 140, Potassium 3.0 L, Chloride 102, Carbon Dioxide 29.0, Anion Gap 9, BUN 24 H, Creatinine 0.89, Estim Creat Clear Calc 46.12, Est GFR (MDRD) Af Amer 78, Est GFR (MDRD) Non-Af 65, BUN/Creatinine Ratio 26.8 H, Glucose 96, Calcium 8.5, Total Bilirubin 0.60, AST 71 H, ALT 59 H, Alkaline Phosphatase 58, Total Protein 6.2 L, Albumin 1.8 L, Globulin 4.4 H, Albumin/Globulin Ratio 0.4 L 02/09/20 06:28: WBC 6.5, RBC 3.71 L, Hgb 10.1 L, Hct 32.2 L, MCV 86.8, MCH 27.2, MCHC 31.4 L, RDW Std Deviation 45.8 H, RDW Coeff of Lamine 14.5, Plt Count 457 H, MPV 9.7, Immature Gran % (Auto) 0.900, Neut % (Auto) 77.0 H, Lymph % (Auto) 16.5 L, [place] % (Auto) 3.5, Eos % (Auto) 1.8, Baso % (Auto) 0.3, Absolute Neuts (auto) 5.0, Absolute Lymphs (auto) 1.07, Nucleated RBC % 0, Atypical Lymphocytes 1+, Platelet Estimate ADEQUATE, RBC Morphology NORM C+C 02/09/20 06:28: Sodium 141, Potassium 3.7, Chloride 103, Carbon Dioxide 32.0, Anion Gap 6, BUN 26 H, Creatinine 0.92, Estim Creat Clear Calc 44.62, Est GFR (MDRD) Af Amer 76, Est GFR (MDRD) Non-Af 63, BUN/Creatinine Ratio 28.4 H, Glucose 99, Calcium 8.5, Magnesium 1.8, Ferritin 481 H, Total Bilirubin 0.60, AST 86 H, ALT 83 H, Alkaline Phosphatase 62, Troponin I < 0.015, C-React Prot Ext Range 109.00 H, Total Protein 6.5, Albumin 1.8 L, Globulin 4.7 H, Albumin/Globulin Ratio 0.4 L 02/09/20 06:28: Total Creatine Kinase 45 02/09/20 06:28: B-Natriuretic Peptide 64.6 02/09/20 08:20: Blood Type O POSITIVE Clinical Impression(s) from Imaging Studies Chest X-Ray 01/29/20 08:30 IMPRESSION: Left lower lobe atelectatic changes with early region of airspace disease not completely excluded. Chest X-Ray 02/06/20 19:00 IMPRESSION: Worsening bilateral pulmonary infiltrates when compared to the prior study. Electronically Signed: Aly Hassan DO at 19:24 EDT Tel [phone], Service support , Chest X-Ray 02/09/20 06:00 IMPRESSION: There has been improved aeration as compared to prior study. Further follow-up is recommended. Active Medications Acetaminophen (Tylenol) 650 mg PO Q6H PRN PRN PRN Reason: Pain Score 1-10/Temp > 100.7 F Last Admin: 02/08/20 18:15 Dose: 650 mg Documented by: Albuterol Sulfate (Ventolin Hfa (Sp)) 2 puff INHALATION Q2H PRN PRN PRN Reason: Dyspnea, wheezing Atorvastatin Calcium (Lipitor) 10 mg PO QHS [facility] Last Admin: 02/08/20 22:12 Dose: 10 mg Documented by: Bisacodyl (Dulcolax) 5 mg PO DAILY [facility] Last Admin: 02/09/20 09:52 Dose: 5 mg Documented by: Dextrose (D50w Syringe) 0 gm IV X1 PRN; Protocol PRN Reason: Hypoglycemia Diphenoxylate HCl/Atropine (Lomotil) 1 tablet PO 4X/DAY PRN PRN Reason: Diarrhea Enoxaparin Sodium (Lovenox) 90 mg SC Q12 [facility] Last Admin: 02/09/20 09:57 Dose: 90 mg Documented by: Fluticasone Propionate (Flovent Diskus 100 Mcg) 1 puff INHALATION BID [facility] Last Admin: 02/09/20 09:53 Dose: Not Given Documented by: Furosemide (Lasix) 40 mg IV BID@1000,1800 [facility] Last Admin: 02/09/20 09:55 Dose: 40 mg Documented by: Glucagon () 1 mg IM .X1 PRN PRN Reason: Hypoglycemia Guaifenesin (Robitussin) 10 ml PO Q4H PRN PRN PRN Reason: COUGH Last Admin: 02/09/20 02:59 Dose: 10 ml Documented by: Guaifenesin (Mucinex) 600 mg PO BID [facility] Last Admin: 02/09/20 09:52 Dose: 600 mg Documented by: Hydralazine HCl (Apresoline Iv) 10 mg IV Q4H PRN PRN PRN Reason: SBP > 160 Sodium Chloride () 250 mls @ 15 mls/hr IV .[id number] PRN PRN Reason: Saline Flush Last Infusion: 02/08/20 13:22 Dose: 0 mls/hr Documented by: Sodium Chloride () 250 mls @ 15 mls/hr IV .[id number] PRN PRN Reason: Additional IVPB Infusion Meropenem 1 gm/ Sodium (Chloride) 120 mls @ 33 mls/hr IV Q12 [facility] Last Infusion: 02/09/20 13:50 Dose: Infused Documented by: Loratadine (Claritin) 10 mg PO QHS [facility] Last Admin: 02/08/20 22:12 Dose: 10 mg Documented by: Melatonin (Melatonin) 5 mg PO QHS [facility] Last Admin: 02/08/20 22:13 Dose: 5 mg Documented by: Miscellaneous Information (Pocket Chamber) 1 each INHALATION Q2H PRN PRN Reason: FOR USE WITH ALBUTEROL Nitroglycerin (Nitrostat) 0.4 mg SUBLINGUAL Q5M PRN PRN Reason: CARDIAC/CHEST PAIN Nystatin (Mycostatin Powder) 1 applic TOPICAL TID [facility]; Protocol Last Admin: 02/09/20 13:50 Dose: 1 applicatio Documented by: [facility] Admin: 02/08/20 22:12 Dose: 5 mg Documented by: [facility] Last Admin: 02/08/20 22:12 Dose: 10 mg Documented by: Ondansetron HCl (Zofran) 4 mg IV Q8H PRN PRN PRN Reason: NAUSEA/VOMITING Last Admin: 02/03/20 13:34 Dose: 4 mg Documented by: Oxycodone HCl (Oxyir) 5 mg PO Q4H PRN PRN PRN Reason: Pain Score 4-5/10 Last Admin: 02/09/20 14:16 Dose: 5 mg Documented by: Pantoprazole Sodium (Protonix) 20 mg PO DAILY [facility] Last Admin: 02/09/20 09:53 Dose: 20 mg Documented by: Polyethylene Glycol (Miralax) 17 gm PO DAILY [facility] Last Admin: 02/09/20 10:07 Dose: 17 gm Documented by: Potassium Chloride (K-Dur) 40 meq PO BIDCM [facility] Last Admin: 02/09/20 09:51 Dose: 40 meq Documented by: Prochlorperazine Edisylate (Compazine Iv) 5 mg IV Q4H PRN PRN PRN Reason: Breakthrough Nausea/Vomiting Sodium Chloride () 10 - 40 ml IV UD PRN PRN Reason: SALINE FLUSH Last Admin: 02/09/20 09:56 Dose: 10 ml Documented by: Throat Lozenges (Cepacol Sore Throat Lozenge) 1 lozenge MUCOUS MEM Q2H PRN PRN PRN Reason: SORE THROAT Last Admin: 05/06/20 05:50 Dose: 1 lozenge Documented by: Inpatient E&M: [id number] Subs Hosp L2
[2020-02-09 15:15] VITALS: BP 119/59; PULSE 78; RESP 18; TEMP 36.8; O2SAT 92
[2020-02-09 20:53] VITALS: BP 130/53; PULSE 81; RESP 20; TEMP 37.3; O2SAT 94
[2020-02-09] MEDS: MELATONIN 10 MG TABLET 5 MG PO (20:58)
[2020-02-09] MEDS: Atorvastatin Calcium 10 MG Tablet PO (20:58)
[2020-02-09] MEDS: OLANZapine 2.5 MG Tablet 5 MG PO (20:58)
[2020-02-09] MEDS: OLANZapine 10 MG Tablet PO (20:58)
[2020-02-09] MEDS: Loratadine 10 MG Tablet PO (20:58)
[2020-02-10] VITALS (10 sets, daily range): BP systolic 127–167; BP diastolic 47–65; PULSE 67–84; RESP 18–22; TEMP 36.6–37.1; O2SAT 90–99
[2020-02-10] MEDS: guaiFENesin 10 ML UDC (200MG/10ML) PO (03:22)
[2020-02-10] MEDS: Nystatin Powder 15gm Bottle 1 APPLIC TOPICAL ×3 (03:23→20:40)
--- NOTE | 2020-02-10 03:27 | NURSING ---
Addendum entered by Ene Phillips 02/10/20 04:59: After AirVo adjustments to 60L, 90%, pt. pox came to 95%. RT to leave pt. on these settings for now and will try to wean down later in morning. Original Note: Noticed pt. had oxygen out of her nose. pox 86%. Told pt to put oxygen back in her nose, and to hold the tubing in her nose until this nurse could gown and get into room; Upon entering room, this nurse observed pt. had put oxygen cannula back into her nose. Pulse ox remained in the high 80s. Pt. complaining she could not breathe and had to sit on edge of bed, pt. coughing frequently, robitussin given. Sat head of bed up further, paged resp. therapy to come see pt. Yaneli, RT, came to see pt and adjusted Air vo.Pulse ox at 90% with air vo adjustments.
[2020-02-10] MEDS: oxyCODONE 5 MG Tablet PO ×2 (03:50→13:11)
[2020-02-10 06:24] LABS: Absolute Lymphocyte Count 1.14 X10^3/uL (0.83-4.51); Absolute Neutrophil Count 5.1 X10^3/uL (2.0-7.7); Basophil# 0.02 X10^3/uL; Basophil% 0.3 % (0-1); Eosinophil# 0.09 X10^3/uL; Eosinophils% 1.3 % (0-5); Hematocrit 29.6 % (37-47); Hemoglobin 9.4 g/dL (12.0-15.0); Lymphocyte # 1.14 X10^3/ul (4.0); Lymphocyte % 16.6 % (19-41); Mean Corp Hgb Conc 31.8 g/dL (32-36); Mean Corpuscular Hgb 26.9 pg (27.0-32.0); Mean Corpuscular Volume 84.8 fL (81-99); Mean Platelet Vol. 9.6 fl (6.2-12.0); Monocyte% 5.8 % (0-10); NRBC Flagged by Analyzer 0 % (0-5); Neutrophil # 5.14 X10^3/uL (2.7-7.7); Neutrophil % 74.8 % (47-70); Platelet Count 478 K/mm3 (150-450); RBC Distribution Width CV 14.6 % (11.6-14.6); RBC Distribution Width SD 45.1 fl (35.1-43.9); Red Blood Count 3.49 M/mm3 (4.2-5.4); White Blood Count 6.9 K/mm3 (4.4-11.0)
[2020-02-10 06:58] LABS: ALB/GLOB Ratio 0.4 RATIO (0.9-2.4); AST(SGOT) 62 U/L (15-37); Alanine Aminotransfer ALT/SGPT 73 U/L (13-56); Albumin, Serum 1.7 g/dL (3.2-5.0); Alkaline Phosphatase 60 U/L (45-117); Anion Gap 5 (5-15); BUN 28 mg/dL (7-18); BUN/Creat Ratio 30.3 RATIO (10-20); Calcium,Total 8.7 mg/dL (8.5-10.1); Chloride 103 mmol/L (98-107); Creatinine, Serum 0.92 mg/dL (0.55-1.02); EST Glomerular Filtration Rate 62 mL/min (>60); Est Glom Filt Rate - Afr Amer 75 mL/min (>60); Estimated Creatinine Clearance 44.62 ml/min; Globulin 4.8 g/dL (2.2-4.2); Glucose 104 mg/dL (74-106); Potassium 4.3 mmol/L (3.5-5.1); Protein, Total 6.5 g/dL (6.4-8.2); Sodium Level 140 mmol/L (136-145)
[2020-02-10 07:05] LABS: Procalcitonin 0.34 ng/mL (0.00-0.09)
[2020-02-10] MEDS: Bisacodyl 5 MG Tablet PO (09:10)
[2020-02-10] MEDS: guaiFENesin 600 MG Tablet PO ×2 (09:10→20:39)
[2020-02-10] MEDS: Polyethylene Glycol 3350 17 GM PACKET PO (09:10)
[2020-02-10] MEDS: Pantoprazole Sodium 20 MG Tablet PO (09:10)
[2020-02-10] MEDS: Furosemide 40 MG/4 ML Vial IV ×2 (09:12→17:18)
[2020-02-10] MEDS: 0.9% Saline Lock 10 ML Syringe IV ×3 (09:12→23:40)
[2020-02-10] MEDS: Enoxaparin 100 MG/ML Syringe 90 MG SC ×2 (09:21→20:39)
--- NOTE | 2020-02-10 13:14 | PCM.PN.HOSP ---
Patient Problems: Active and Suspected Problems (Last Reviewed 07/25/19 @ 14:23 by Angi Sauceda) Acute respiratory failure with hypoxia (Acute) Suspected COVID-19 virus infection (Acute) EPI (acute kidney injury) (Acute) History of CVA (cerebrovascular accident) (Acute) History of traumatic brain injury (Acute) History of pulmonary embolism (Acute) COVID-19 (Acute) Reason for Visit: Acute hypoxic respiratory failure secondary to bilateral COVID?19 pneumonia Objective: Seen and examined No high-grade fever in last 72 hours. Last fever 102.1 Fahrenheit on 02/06/2020. Patient states shortness of breath slightly better. Blood pressure stable. On high flow oxygen. AIRVO 70% FiO2 at 60 L/min On exam General: Oriented x3, Cooperative, alert and awake HEENT: Atraumatic, PERRLA, EOMI, Normocephalic Neck: Supple, No JVD, Negative Carotid Bruits Lungs: Diminished bilaterally, Rhonchi, mild Short of Breath, although is slightly getting better Cardiovascular: Regular rate, Regular Rhythm, Normal S1, Normal S2, No murmurs Abdomen: Bowel Sounds Present, Soft, Non Tender, Non-Distended Extremities: edema, mild ankle in both legs; seems chronic. Capillary Refill Less than 3 Seconds Skin: No rashes, No breakdown Musculoskeletal: No Tenderness to Palpation of Joints or Extremities, Arthritic Changes Neurological: Cranial nerves II-XII grossly intact, Deep Tendon Reflexes 2+/4 and Symmetrical, Neuro grossly intact Psych/Mental Status: Normal Affect, Appropriate Vitals/I&O's: Vital Signs Temp Pulse Resp BP Pulse Ox 97.9 F 84 20 H 128/57 H 92 02/10/20 08:30 02/10/20 08:30 02/10/20 08:30 02/10/20 08:30 02/10/20 08:30 Oxygen Flow Rate (L/min) 60 Oxygen Delivery Method CPAP Weight: 202 lb 9.677 oz Body Mass Index (BMI) 34.2 Intake and Output for Last 24 Hours 02/08/20 02/09/20 02/10/20 23:59 23:59 23:59 Intake Total 1822.5 / 1822.5 1120 / 1120 570 / 570 Output Total 2550 / 2550 1400 / 1400 100 / 100 Balance -727.5 / -727.5 -280 / -280 470 / 470 Microbiology Past 72 Hours 02/07/20 05:50 Urine Catheter - Catheter Urine Culture - Final Culture exhibits no growth. 02/06/20 19:30 Blood Culture (Wb) - Right Hand Blood Culture - Preliminary No growth in 48 hours. 02/06/20 19:20 Blood Culture (Wb) - Left Hand Blood Culture - Preliminary No growth in 48 hours. 02/02/20 08:10 Blood Culture (Wb) #2 - Left Hand Blood Culture - Final No growth in 5 days. 02/02/20 08:05 Blood Culture (Wb) - Anticubital Left Blood Culture - Final No growth in 5 days. Laboratory Results 02/10/20 06:15: WBC 6.9, RBC 3.49 L, Hgb 9.4 L, Hct 29.6 L, MCV 84.8, MCH 26.9 L, MCHC 31.8 L, RDW Std Deviation 45.1 H, RDW Coeff of Lamine 14.6, Plt Count 478 H, MPV 9.6, Immature Gran % (Auto) 1.200 H, Neut % (Auto) 74.8 H, Lymph % (Auto) 16.6 L, [place] % (Auto) 5.8, Eos % (Auto) 1.3, Baso % (Auto) 0.3, Absolute Neuts (auto) 5.1, Absolute Lymphs (auto) 1.14, Nucleated RBC % 0 02/10/20 06:15: Sodium 140, Potassium 4.3, Chloride 103, Carbon Dioxide 32.0, Anion Gap 5, BUN 28 H, Creatinine 0.92, Estim Creat Clear Calc 44.62, Est GFR (MDRD) Af Amer 75, Est GFR (MDRD) Non-Af 62, BUN/Creatinine Ratio 30.3 H, Glucose 104, Calcium 8.7, Total Bilirubin 0.50, AST 62 H, ALT 73 H, Alkaline Phosphatase 60, Total Protein 6.5, Albumin 1.7 L, Globulin 4.8 H, Albumin/Globulin Ratio 0.4 L 02/10/20 06:15: Procalcitonin 0.34 H Current Medications Acetaminophen (Tylenol) 650 mg PO Q6H PRN PRN PRN Reason: Pain Score 1-10/Temp > 100.7 F Last Admin: 02/08/20 18:15 Dose: 650 mg Documented by: Albuterol Sulfate (Ventolin Hfa (Sp)) 2 puff INHALATION Q2H PRN PRN PRN Reason: Dyspnea, wheezing Atorvastatin Calcium (Lipitor) 10 mg PO QHS [facility] Last Admin: 02/09/20 20:58 Dose: 10 mg Documented by: Bisacodyl (Dulcolax) 5 mg PO DAILY [facility] Last Admin: 02/10/20 09:10 Dose: 5 mg Documented by: Dextrose (D50w Syringe) 0 gm IV X1 PRN; Protocol PRN Reason: Hypoglycemia Diphenoxylate HCl/Atropine (Lomotil) 1 tablet PO 4X/DAY PRN PRN Reason: Diarrhea Enoxaparin Sodium (Lovenox) 90 mg SC Q12 [facility] Last Admin: 02/10/20 09:21 Dose: 90 mg Documented by: Fluticasone Propionate (Flovent Diskus 100 Mcg) 1 puff INHALATION BID [facility] Last Admin: 02/10/20 09:23 Dose: Not Given Documented by: Furosemide (Lasix) 40 mg IV BID@1000,1800 [facility] Last Admin: 02/10/20 09:12 Dose: 40 mg Documented by: Glucagon () 1 mg IM .X1 PRN PRN Reason: Hypoglycemia Guaifenesin (Robitussin) 10 ml PO Q4H PRN PRN PRN Reason: COUGH Last Admin: 02/10/20 03:22 Dose: 10 ml Documented by: Guaifenesin (Mucinex) 600 mg PO BID [facility] Last Admin: 02/10/20 09:10 Dose: 600 mg Documented by: Hydralazine HCl (Apresoline Iv) 10 mg IV Q4H PRN PRN PRN Reason: SBP > 160 Sodium Chloride () 250 mls @ 15 mls/hr IV .[id number] PRN PRN Reason: Saline Flush Last Infusion: 02/08/20 13:22 Dose: 0 mls/hr Documented by: Sodium Chloride () 250 mls @ 15 mls/hr IV .[id number] PRN PRN Reason: Additional IVPB Infusion Loratadine (Claritin) 10 mg PO QHS [facility] Last Admin: 02/09/20 20:58 Dose: 10 mg Documented by: Melatonin (Melatonin) 5 mg PO QHS [facility] Last Admin: 02/09/20 20:58 Dose: 5 mg Documented by: Miscellaneous Information (Pocket Chamber) 1 each INHALATION Q2H PRN PRN Reason: FOR USE WITH ALBUTEROL Nitroglycerin (Nitrostat) 0.4 mg SUBLINGUAL Q5M PRN PRN Reason: CARDIAC/CHEST PAIN Nystatin (Mycostatin Powder) 1 applic TOPICAL TID [facility]; Protocol Last Admin: 02/10/20 13:12 Dose: 1 applicatio Documented by: Olanzapine (Zyprexa) 5 mg PO QHS [facility] Last Admin: 02/09/20 20:58 Dose: 5 mg Documented by: Olanzapine (Zyprexa) 10 mg PO QHS [facility] Last Admin: 02/09/20 20:58 Dose: 10 mg Documented by: Ondansetron HCl (Zofran) 4 mg IV Q8H PRN PRN PRN Reason: NAUSEA/VOMITING Last Admin: 02/03/20 13:34 Dose: 4 mg Documented by: Oxycodone HCl (Oxyir) 5 mg PO Q4H PRN PRN PRN Reason: Pain Score 4-5/10 Last Admin: 02/10/20 13:11 Dose: 5 mg Documented by: Pantoprazole Sodium (Protonix) 20 mg PO DAILY [facility] Last Admin: 02/10/20 09:10 Dose: 20 mg Documented by: Polyethylene Glycol (Miralax) 17 gm PO DAILY [facility] Last Admin: 02/10/20 09:10 Dose: 17 gm Documented by: Potassium Chloride (K-Dur) 40 meq PO BIDCM [facility] Last Admin: 02/10/20 09:09 Dose: 40 meq Documented by: Prochlorperazine Edisylate (Compazine Iv) 5 mg IV Q4H PRN PRN PRN Reason: Breakthrough Nausea/Vomiting Sodium Chloride () 10 - 40 ml IV UD PRN PRN Reason: SALINE FLUSH Last Admin: 02/10/20 09:12 Dose: 10 ml Documented by: Throat Lozenges (Cepacol Sore Throat Lozenge) 1 lozenge MUCOUS MEM Q2H PRN PRN PRN Reason: SORE THROAT Last Admin: 02/08/20 05:50 Dose: 1 lozenge Documented by: Medical Necessity - Tobacco Use Smoking Status: Never smoker Assessment/Plan All Active Problems (Last Reviewed 07/25/19 @ 14:23 by Angi Sauceda) Syncope and collapse (Acute) Bradycardia (Acute) Dehydration (Acute) Acute respiratory failure with hypoxia (Acute) Suspected COVID-19 virus infection (Acute) EPI (acute kidney injury) (Acute) History of CVA (cerebrovascular accident) (Acute) History of traumatic brain injury (Acute) History of pulmonary embolism (Acute) COVID-19 (Acute) Nocturnal hypoxemia (Acute) Abdominal pain (Resolved) Gram-negative pneumonia (Resolved) PARTIAL SBO (Resolved) This 79-year-old female with multiple comorbidities including [place], coronary artery disease, paroxysmal A. fib on Eliquis, CHF, unclear etiology and type and severity was admitted from [facility] for persistent nausea, vomiting and diarrhea for 3 to 4 days along with subjective fever generalized abdominal pain. Patient also has mild cough and was hypoxic in ER. 1. Acute hypoxic respiratory failure secondary to acute COVID-19 bilateral pneumonia: Chest x-ray on 02/01 shows progressive right upper lobe and left Infiltrate as compared to previous x-ray. Patient states mild improvement of shortness of breath. On high flow oxygen. On vancomycin and Zosyn. Elevated d-dimer. Eliquis changed to enoxaparin. On Lasix. Manager Delivery consulted and advised convalescent serum when available as it might take 7 days. Continue diuresis 02/06: Patient is spiked fever 102 point 4 in the evening yesterday. He completed 7 days of IV Zosyn. Patient also on vancomycin. Antibiotic changed to IV meropenem. MRSA nasal screen is negative. Discussed with ID. 02/07: Blood cultures x2 from 02/05 are pending. Repeat urine culture shows no growth. Previous blood cultures on 02/01 are negative. Rest as mentioned above. Labs ordered. 02/08: Continue high flow oxygen support. Normal white blood count. Normocytic normochromic anemia. CRP better. Ferritin is still high 481. Repeat blood culture from 02/05 no growth at 48 hours. Urine culture negative. Discussed with ID 02/09: Patient respiratory status is better. No high-grade fever last 3 days. Labs reviewed. Transaminases improved. CRP improved. Troponin and total CK normal. Procalcitonin 0.34. Panculture negative 2. EPI mainly prerenal with hypokalemia: Creatinine is improving. K2.5. Potassium replaced. 02/06: Serum magnesium normal. K low, getting replaced 5/6: Still hypokalemic, K3.0. 5/7: Potassium normal. 3. hypotension probably with dehydration resolved 4. paroxysmal afib anticoagulated with Lovenox 5. VTE prophylaxis: anticoagulation 6. Constipation: Patient had bowel movement with magnesium citrate. CODE STATUS/advance directive: DNR CCA, no intubation Total time of the visit including total time spent in counseling or coordination of care, (more than 50% of the total time, spent in obtaining medical information from nurses and other ancillary care providers), discussion with consultants, review of labs and imaging is 30 minutes Microbiology Past 72 Hours 02/07/20 05:50 Urine Catheter - Catheter Urine Culture - Final Culture exhibits no growth. 02/06/20 19:30 Blood Culture (Wb) - Right Hand Blood Culture - Preliminary No growth in 48 hours. 02/06/20 19:20 Blood Culture (Wb) - Left Hand Blood Culture - Preliminary No growth in 48 hours. 02/02/20 08:10 Blood Culture (Wb) #2 - Left Hand Blood Culture - Final No growth in 5 days. 02/02/20 08:05 Blood Culture (Wb) - Anticubital Left Blood Culture - Final No growth in 5 days. Laboratory Results 02/10/20 06:15: WBC 6.9, RBC 3.49 L, Hgb 9.4 L, Hct 29.6 L, MCV 84.8, MCH 26.9 L, MCHC 31.8 L, RDW Std Deviation 45.1 H, RDW Coeff of Lamine 14.6, Plt Count 478 H, MPV 9.6, Immature Gran % (Auto) 1.200 H, Neut % (Auto) 74.8 H, Lymph % (Auto) 16.6 L, [place] % (Auto) 5.8, Eos % (Auto) 1.3, Baso % (Auto) 0.3, Absolute Neuts (auto) 5.1, Absolute Lymphs (auto) 1.14, Nucleated RBC % 0 02/10/20 06:15: Sodium 140, Potassium 4.3, Chloride 103, Carbon Dioxide 32.0, Anion Gap 5, BUN 28 H, Creatinine 0.92, Estim Creat Clear Calc 44.62, Est GFR (MDRD) Af Amer 75, Est GFR (MDRD) Non-Af 62, BUN/Creatinine Ratio 30.3 H, Glucose 104, Calcium 8.7, Total Bilirubin 0.50, AST 62 H, ALT 73 H, Alkaline Phosphatase 60, Total Protein 6.5, Albumin 1.7 L, Globulin 4.8 H, Albumin/Globulin Ratio 0.4 L 02/10/20 06:15: Procalcitonin 0.34 H Clinical Impression(s) from Imaging Studies Chest X-Ray 01/29/20 08:30 IMPRESSION: Left lower lobe atelectatic changes with early region of airspace disease not completely excluded. Chest X-Ray 02/06/20 19:00 IMPRESSION: Worsening bilateral pulmonary infiltrates when compared to the prior study. Electronically Signed: Aly Hassan DO at 19:24 EDT Tel [phone], Service support , Chest X-Ray 02/09/20 06:00 IMPRESSION: There has been improved aeration as compared to prior study. Further follow-up is recommended. Active Medications Acetaminophen (Tylenol) 650 mg PO Q6H PRN PRN PRN Reason: Pain Score 1-10/Temp > 100.7 F Last Admin: 02/08/20 18:15 Dose: 650 mg Documented by: Albuterol Sulfate (Ventolin Hfa (Sp)) 2 puff INHALATION Q2H PRN PRN PRN Reason: Dyspnea, wheezing Atorvastatin Calcium (Lipitor) 10 mg PO QHS [facility] Last Admin: 02/08/20 22:12 Dose: 10 mg Documented by: Bisacodyl (Dulcolax) 5 mg PO DAILY [facility] Last Admin: 02/09/20 09:52 Dose: 5 mg Documented by: Dextrose (D50w Syringe) 0 gm IV X1 PRN; Protocol PRN Reason: Hypoglycemia Diphenoxylate HCl/Atropine (Lomotil) 1 tablet PO 4X/DAY PRN PRN Reason: Diarrhea Enoxaparin Sodium (Lovenox) 90 mg SC Q12 [facility] Last Admin: 02/09/20 09:57 Dose: 90 mg Documented by: Fluticasone Propionate (Flovent Diskus 100 Mcg) 1 puff INHALATION BID [facility] Last Admin: 02/09/20 09:53 Dose: Not Given Documented by: Furosemide (Lasix) 40 mg IV BID@1000,1800 [facility] Last Admin: 02/09/20 09:55 Dose: 40 mg Documented by: Glucagon () 1 mg IM .X1 PRN PRN Reason: Hypoglycemia Guaifenesin (Robitussin) 10 ml PO Q4H PRN PRN PRN Reason: COUGH Last Admin: 02/09/20 02:59 Dose: 10 ml Documented by: Guaifenesin (Mucinex) 600 mg PO BID [facility] Last Admin: 02/09/20 09:52 Dose: 600 mg Documented by: Hydralazine HCl (Apresoline Iv) 10 mg IV Q4H PRN PRN PRN Reason: SBP > 160 Sodium Chloride () 250 mls @ 15 mls/hr IV .[id number] PRN PRN Reason: Saline Flush Last Infusion: 02/08/20 13:22 Dose: 0 mls/hr Documented by: Sodium Chloride () 250 mls @ 15 mls/hr IV .[id number] PRN PRN Reason: Additional IVPB Infusion Meropenem 1 gm/ Sodium (Chloride) 120 mls @ 33 mls/hr IV Q12 [facility] Last Infusion: 02/09/20 13:50 Dose: Infused Documented by: Loratadine (Claritin) 10 mg PO QHS [facility] Last Admin: 02/08/20 22:12 Dose: 10 mg Documented by: Melatonin (Melatonin) 5 mg PO QHS [facility] Last Admin: 02/08/20 22:13 Dose: 5 mg Documented by: Miscellaneous Information (Pocket Chamber) 1 each INHALATION Q2H PRN PRN Reason: FOR USE WITH ALBUTEROL Nitroglycerin (Nitrostat) 0.4 mg SUBLINGUAL Q5M PRN PRN Reason: CARDIAC/CHEST PAIN Nystatin (Mycostatin Powder) 1 applic TOPICAL TID [facility]; Protocol Last Admin: 02/09/20 13:50 Dose: 1 applicatio Documented by: Olanzapine (Zyprexa) 5 mg PO QHS [facility] Last Admin: 02/08/20 22:12 Dose: 5 mg Documented by: Olanzapine (Zyprexa) 10 mg PO QHS [facility] Last Admin: 02/08/20 22:12 Dose: 10 mg Documented by: Ondansetron HCl (Zofran) 4 mg IV Q8H PRN PRN PRN Reason: NAUSEA/VOMITING Last Admin: 02/03/20 13:34 Dose: 4 mg Documented by: Oxycodone HCl (Oxyir) 5 mg PO Q4H PRN PRN PRN Reason: Pain Score 4-5/10 Last Admin: 02/09/20 14:16 Dose: 5 mg Documented by: Pantoprazole Sodium (Protonix) 20 mg PO DAILY [facility] Last Admin: 02/09/20 09:53 Dose: 20 mg Documented by: Polyethylene Glycol (Miralax) 17 gm PO DAILY [facility] Last Admin: 02/09/20 10:07 Dose: 17 gm Documented by: [facility] ([facility] Last Admin: 02/09/20 09:51 Dose: 40 meq Documented by: Prochlorperazine Edisylate (Compazine Iv) 5 mg IV Q4H PRN PRN PRN Reason: Breakthrough Nausea/Vomiting Sodium Chloride () 10 - 40 ml IV UD PRN PRN Reason: SALINE FLUSH Last Admin: 02/09/20 09:56 Dose: 10 ml Documented by: Throat Lozenges (Cepacol Sore Throat Lozenge) 1 lozenge MUCOUS MEM Q2H PRN PRN PRN Reason: SORE THROAT Last Admin: 02/08/20 05:50 Dose: 1 lozenge Documented by: Inpatient E&M: [id number] Subs Hosp L2
--- NOTE | 2020-02-10 13:35 | CASEMGMT ---
Social Work Note Pt not ready for discharge. SW faxed updated clinicals to [facility]. Green sheet, transport forms, Post Acute COVID 19 Transfer communication tool placed on pt's chart. Plan: [facility] once medically cleared Shyla Michelle MSW, INCLUSION PARAEDUCATOR
--- NOTE | 2020-02-10 13:53 | PCM.PN.ID ---
Patient Problems: Active and Suspected Problems (Last Reviewed 07/25/19 @ 14:23 by Angi Sauceda) Acute respiratory failure with hypoxia (Acute) Suspected COVID-19 virus infection (Acute) EPI (acute kidney injury) (Acute) History of CVA (cerebrovascular accident) (Acute) History of traumatic brain injury (Acute) History of pulmonary embolism (Acute) COVID-19 (Acute) Subjective: Feeling about the same, still some dyspnea, some aches. - Physical Exam Vitals/I&O's: Vital Signs Temp Pulse Resp BP Pulse Ox 97.9 F 72 20 H 128/57 H 97 02/10/20 08:30 02/10/20 13:38 02/10/20 08:30 02/10/20 08:30 02/10/20 13:38 Oxygen Flow Rate (L/min) 60 Oxygen Delivery Method CPAP Weight: 91.9 kg Body Mass Index (BMI) 34.2 Intake and Output for Last 24 Hours 02/08/20 02/09/20 02/10/20 23:59 23:59 23:59 Intake Total 1822.5 / 1822.5 1120 / 1120 930 / 930 Output Total 2550 / 2550 1400 / 1400 725 / 725 Balance -727.5 / -727.5 -280 / -280 205 / 205 General: Alert, Cooperative, No apparent distress Lungs: Clear to auscultation, Normal air movement Cardiovascular: Regular rate, Regular Rhythm Abdomen: Soft, Non Tender, Non-Distended Skin: No rashes Microbiology Past 72 Hours 02/07/20 05:50 Urine Catheter - Catheter Urine Culture - Final Culture exhibits no growth. 02/06/20 19:30 Blood Culture (Wb) - Right Hand Blood Culture - Preliminary No growth in 48 hours. 02/06/20 19:20 Blood Culture (Wb) - Left Hand Blood Culture - Preliminary No growth in 48 hours. 02/02/20 08:10 Blood Culture (Wb) #2 - Left Hand Blood Culture - Final No growth in 5 days. 02/02/20 08:05 Blood Culture (Wb) - Anticubital Left Blood Culture - Final No growth in 5 days. Laboratory Results 02/10/20 06:15: WBC 6.9, RBC 3.49 L, Hgb 9.4 L, Hct 29.6 L, MCV 84.8, MCH 26.9 L, MCHC 31.8 L, RDW Std Deviation 45.1 H, RDW Coeff of Lamine 14.6, Plt Count 478 H, MPV 9.6, Immature Gran % (Auto) 1.200 H, Neut % (Auto) 74.8 H, Lymph % (Auto) 16.6 L, [place] % (Auto) 5.8, Eos % (Auto) 1.3, Baso % (Auto) 0.3, Absolute Neuts (auto) 5.1, Absolute Lymphs (auto) 1.14, Nucleated RBC % 0 02/10/20 06:15: Sodium 140, Potassium 4.3, Chloride 103, Carbon Dioxide 32.0, Anion Gap 5, BUN 28 H, Creatinine 0.92, Estim Creat Clear Calc 44.62, Est GFR (MDRD) Af Amer 75, Est GFR (MDRD) Non-Af 62, BUN/Creatinine Ratio 30.3 H, Glucose 104, Calcium 8.7, Total Bilirubin 0.50, AST 62 H, ALT 73 H, Alkaline Phosphatase 60, Total Protein 6.5, Albumin 1.7 L, Globulin 4.8 H, Albumin/Globulin Ratio 0.4 L 02/10/20 06:15: Procalcitonin 0.34 H Current Medications Acetaminophen (Tylenol) 650 mg PO Q6H PRN PRN PRN Reason: Pain Score 1-10/Temp > 100.7 F Last Admin: 02/08/20 18:15 Dose: 650 mg Documented by: Albuterol Sulfate (Ventolin Hfa (Sp)) 2 puff INHALATION Q2H PRN PRN PRN Reason: Dyspnea, wheezing Atorvastatin Calcium (Lipitor) 10 mg PO QHS [facility] Last Admin: 02/09/20 20:58 Dose: 10 mg Documented by: Bisacodyl (Dulcolax) 5 mg PO DAILY [facility] Last Admin: 02/10/20 09:10 Dose: 5 mg Documented by: Dextrose (D50w Syringe) 0 gm IV X1 PRN; Protocol PRN Reason: Hypoglycemia Diphenoxylate HCl/Atropine (Lomotil) 1 tablet PO 4X/DAY PRN PRN Reason: Diarrhea Enoxaparin Sodium (Lovenox) 90 mg SC Q12 [facility] Last Admin: 02/10/20 09:21 Dose: 90 mg Documented by: Fluticasone Propionate (Flovent Diskus 100 Mcg) 1 puff INHALATION BID [facility] Last Admin: 02/10/20 09:23 Dose: Not Given Documented by: Furosemide (Lasix) 40 mg IV BID@1000,1800 [facility] Last Admin: 02/10/20 09:12 Dose: 40 mg Documented by: Glucagon () 1 mg IM .X1 PRN PRN Reason: Hypoglycemia Guaifenesin (Robitussin) 10 ml PO Q4H PRN PRN PRN Reason: COUGH Last Admin: 02/10/20 03:22 Dose: 10 ml Documented by: Guaifenesin (Mucinex) 600 mg PO BID [facility] Last Admin: 02/10/20 09:10 Dose: 600 mg Documented by: Hydralazine HCl (Apresoline Iv) 10 mg IV Q4H PRN PRN PRN Reason: SBP > 160 Sodium Chloride () 250 mls @ 15 mls/hr IV .[id number] PRN PRN Reason: Saline Flush Last Infusion: 02/08/20 13:22 Dose: 0 mls/hr Documented by: Sodium Chloride () 250 mls @ 15 mls/hr IV .[id number] PRN PRN Reason: Additional IVPB Infusion Loratadine (Claritin) 10 mg PO QHS [facility] Last Admin: 02/09/20 20:58 Dose: 10 mg Documented by: Melatonin (Melatonin) 5 mg PO QHS [facility] Last Admin: 02/09/20 20:58 Dose: 5 mg Documented by: Miscellaneous Information (Pocket Chamber) 1 each INHALATION Q2H PRN PRN Reason: FOR USE WITH ALBUTEROL Nitroglycerin (Nitrostat) 0.4 mg SUBLINGUAL Q5M PRN PRN Reason: CARDIAC/CHEST PAIN Nystatin (Mycostatin Powder) 1 applic TOPICAL TID [facility]; Protocol Last Admin: 02/10/20 13:12 Dose: 1 applicatio Documented by: Olanzapine (Zyprexa) 5 mg PO QHS [facility] Last Admin: 02/09/20 20:58 Dose: 5 mg Documented by: Olanzapine (Zyprexa) 10 mg PO QHS [facility] Last Admin: 02/09/20 20:58 Dose: 10 mg Documented by: Ondansetron HCl (Zofran) 4 mg IV Q8H PRN PRN PRN Reason: NAUSEA/VOMITING Last Admin: 02/03/20 13:34 Dose: 4 mg Documented by: Oxycodone HCl (Oxyir) 5 mg PO Q4H PRN PRN PRN Reason: Pain Score 4-5/10 Last Admin: 02/10/20 13:11 Dose: 5 mg Documented by: Pantoprazole Sodium (Protonix) 20 mg PO DAILY [facility] Last Admin: 02/10/20 09:10 Dose: 20 mg Documented by: Polyethylene Glycol (Miralax) 17 gm PO DAILY [facility] Last Admin: 02/10/20 09:10 Dose: 17 gm Documented by: Potassium Chloride (K-Dur) 40 meq PO BIDCM [facility] Last Admin: 02/10/20 09:09 Dose: 40 meq Documented by: Prochlorperazine Edisylate (Compazine Iv) 5 mg IV Q4H PRN PRN PRN Reason: Breakthrough Nausea/Vomiting Sodium Chloride () 10 - 40 ml IV UD PRN PRN Reason: SALINE FLUSH Last Admin: 02/10/20 09:12 Dose: 10 ml Documented by: Throat Lozenges (Cepacol Sore Throat Lozenge) 1 lozenge MUCOUS MEM Q2H PRN PRN PRN Reason: SORE THROAT Last Admin: 02/08/20 05:50 Dose: 1 lozenge Documented by: Medical Necessity - Tobacco Use Smoking Status: Never smoker Route of nutrition/ use of supplements: [] Nutritional Intake: [] IV Site: [] [place] Catheter: [] - Assessment/Plan Antibiotics: [] Assessment/Plan: [] Active and Suspected Problems (Last Reviewed 07/25/19 @ 14:23 by Angi Sauceda) Acute respiratory failure with hypoxia (Acute) Suspected COVID-19 virus infection (Acute) EPI (acute kidney injury) (Acute) History of CVA (cerebrovascular accident) (Acute) History of traumatic brain injury (Acute) History of pulmonary embolism (Acute) COVID with hypoxic resp failure - on therapeutic anticoagulation, meropenem. Feeling better overall, CRP improving, cxr better. PCT improved. Will stop meropenem. Will follow
[2020-02-10] MEDS: MELATONIN 10 MG TABLET 5 MG PO (20:40)
[2020-02-10] MEDS: OLANZapine 10 MG Tablet PO (20:40)
[2020-02-10] MEDS: OLANZapine 2.5 MG Tablet 5 MG PO (20:40)
[2020-02-10] MEDS: Loratadine 10 MG Tablet PO (20:40)
[2020-02-10] MEDS: Atorvastatin Calcium 10 MG Tablet PO (20:40)
[2020-02-11] VITALS (11 sets, daily range): BP systolic 117–162; BP diastolic 42–65; PULSE 65–83; RESP 16–22; TEMP 36.2–37; O2SAT 94–98
[2020-02-11] MEDS: INHALER, ASSIST DEVICES 1 EACH SPACER INHALATION (03:53)
[2020-02-11] MEDS: Albuterol Sulfate 8 gm Inhaler 2 PUFF INHALATION ×2 (03:53→10:53)
[2020-02-11] MEDS: oxyCODONE 5 MG Tablet PO (05:01)
[2020-02-11] MEDS: Nystatin Powder 15gm Bottle 1 APPLIC TOPICAL ×3 (05:02→20:48)
[2020-02-11] MEDS: Oxymetazoline 0.05% 1 SPRAY SPRAY.BTL NASAL ×2 (05:34→20:48)
[2020-02-11 07:41] LABS: Absolute Lymphocyte Count 1.24 X10^3/uL (0.83-4.51); Absolute Neutrophil Count 4.2 X10^3/uL (2.0-7.7); Basophil# 0.02 X10^3/uL; Basophil% 0.3 % (0-1); Eosinophils% 1.7 % (0-5); Hematocrit 31.4 % (37-47); Hemoglobin 9.9 g/dL (12.0-15.0); Lymphocyte # 1.24 X10^3/ul (4.0); Lymphocyte % 20.7 % (19-41); Mean Corp Hgb Conc 31.5 g/dL (32-36); Mean Corpuscular Hgb 27.5 pg (27.0-32.0); Mean Corpuscular Volume 87.2 fL (81-99); Mean Platelet Vol. 9.7 fl (6.2-12.0); Monocyte# 0.38 X10^3/uL; Monocyte% 6.3 % (0-10); NRBC Flagged by Analyzer 0 % (0-5); Neutrophil # 4.15 X10^3/uL (2.7-7.7); Neutrophil % 69.2 % (47-70); POSITIVE MORPHOLOGY YES; Platelet Count 577 K/mm3 (150-450); RBC Distribution Width CV 14.7 % (11.6-14.6); RBC Distribution Width SD 47.3 fl (35.1-43.9)
[2020-02-11 07:43] LABS: Differential Indicated SCAN CRITERIA MET
[2020-02-11 07:58] LABS: ALB/GLOB Ratio 0.4 RATIO (0.9-2.4); AST(SGOT) 68 U/L (15-37); Alanine Aminotransfer ALT/SGPT 82 U/L (13-56); Albumin, Serum 2.1 g/dL (3.2-5.0); Alkaline Phosphatase 69 U/L (45-117); Anion Gap 4 (5-15); BUN 31 mg/dL (7-18); BUN/Creat Ratio 38.1 RATIO (10-20); Calcium,Total 9.4 mg/dL (8.5-10.1); Chloride 103 mmol/L (98-107); Creatinine, Serum 0.81 mg/dL (0.55-1.02); EST Glomerular Filtration Rate 72 mL/min (>60); Est Glom Filt Rate - Afr Amer 87 mL/min (>60); Estimated Creatinine Clearance 50.68 ml/min; GGTP 17 U/L (5-55); Globulin 4.8 g/dL (2.2-4.2); Glucose 117 mg/dL (74-106); Potassium 4.7 mmol/L (3.5-5.1); Protein, Total 6.9 g/dL (6.4-8.2); Sodium Level 139 mmol/L (136-145)
[2020-02-11] MEDS: 0.9% Saline Lock 10 ML Syringe IV ×2 (08:03→17:47)
[2020-02-11] MEDS: Bisacodyl 5 MG Tablet PO (08:03)
[2020-02-11] MEDS: guaiFENesin 600 MG Tablet PO ×2 (08:03→20:47)
[2020-02-11] MEDS: Enoxaparin 100 MG/ML Syringe 90 MG SC ×2 (08:03→20:47)
[2020-02-11] MEDS: Pantoprazole Sodium 20 MG Tablet PO (08:03)
[2020-02-11] MEDS: Polyethylene Glycol 3350 17 GM PACKET PO (08:03)
[2020-02-11] MEDS: Furosemide 40 MG/4 ML Vial IV ×2 (08:04→17:46)
[2020-02-11 08:57] LABS: Reactive Lymphocyte RARE
--- NOTE | 2020-02-11 10:47 | NURSING ---
Addendum entered by Ariane See 02/11/20 14:08: 1335: PT in room, assisted pt back to bed from BSC and doing arm/leg exercises in bed. SpO2 84% on 9L NC. O2 NC increased to 10L, pt SpO2 at 92%. Original Note: Pt maintaining SpO2 t 98% on 60 L and 70% AirVo. Weaned to 9L high flow NC, SpO2 95-96%.
[2020-02-11] MEDS: busPIRone 5 MG Tablet 10 MG PO ×2 (13:10→20:47)
--- NOTE | 2020-02-11 13:50 | PN_ITS ---
Patient Problems: Active and Suspected Problems (Last Reviewed 07/25/19 @ 14:23 by Angi Sauceda) Acute respiratory failure with hypoxia (Acute) Suspected COVID-19 virus infection (Acute) EPI (acute kidney injury) (Acute) History of CVA (cerebrovascular accident) (Acute) History of traumatic brain injury (Acute) History of pulmonary embolism (Acute) COVID-19 (Acute) Reason for Visit: Acute hypoxic respiratory failure secondary to bilateral COVID-19 pneumonia Objective: Patient is intermittently on high flow oxygen and nasal cannula 9 to 10 L/min. Patient still hypoxic does not seem to be in respiratory distress but anxiety. Anxiety was confirmed by the nurse too. No fever since 02/06/2020. General: Oriented x3, Cooperative, alert and awake HEENT: Atraumatic, PERRLA, EOMI, Normocephalic Neck: Supple, No JVD, Negative Carotid Bruits Lungs: Diminished bilaterally, Rhonchi Cardiovascular: Regular rate, Regular Rhythm, Normal S1, Normal S2, No murmurs Abdomen: Bowel Sounds Present, Soft, Non Tender, Non-Distended Extremities: edema, mild ankle in both legs; seems chronic. Capillary Refill Less than 3 Seconds Skin: No rashes, No breakdown Musculoskeletal: No Tenderness to Palpation of Joints or Extremities, Arthritic Changes Neurological: Cranial nerves II-XII grossly intact, Deep Tendon Reflexes 2+/4 and Symmetrical, Neuro grossly intact Psych/Mental Status: Normal Affect, Appropriate Vitals/I&O's: Vital Signs Temp Pulse Resp BP Pulse Ox 97.8 F 70 22 H 162/64 H 94 02/11/20 08:10 02/11/20 09:57 02/11/20 10:54 02/11/20 08:10 02/11/20 13:10 Oxygen Flow Rate (L/min) 9 Oxygen Delivery Method Nasal Cannula Weight: 198 lb 13.711 oz Body Mass Index (BMI) 34.2 Intake and Output for Last 24 Hours 02/09/20 02/10/20 02/11/20 23:59 23:59 23:59 Intake Total 1120 / 1120 1270 / 1270 1020 / 1020 Output Total 1400 / 1400 1575 / 1575 2300 / 2300 Balance -280 / -280 -305 / -305 -1280 / -1280 Microbiology Past 72 Hours 02/07/20 05:50 Urine Catheter - Catheter Urine Culture - Final Culture exhibits no growth. 02/06/20 19:30 Blood Culture (Wb) - Right Hand Blood Culture - Preliminary No growth in 48 hours. 02/06/20 19:20 Blood Culture (Wb) - Left Hand Blood Culture - Preliminary No growth in 48 hours. Laboratory Results 02/09/20 08:20: Blood Type O POSITIVE 02/11/20 07:15: WBC 6.0, RBC 3.60 L, Hgb 9.9 L, Hct 31.4 L, MCV 87.2, MCH 27.5, MCHC 31.5 L, RDW Std Deviation 47.3 H, RDW Coeff of Lamine 14.7 H, Plt Count 577 H, MPV 9.7, Immature Gran % (Auto) 1.800 H, Neut % (Auto) 69.2, Lymph % (Auto) 20.7, Nicollet % (Auto) 6.3, Eos % (Auto) 1.7, Baso % (Auto) 0.3, Absolute Neuts (auto) 4.2, Absolute Lymphs (auto) 1.24, Nucleated RBC % 0, Reactive Lymphocytes RARE 02/11/20 07:15: Sodium 139, Potassium 4.7, Chloride 103, Carbon Dioxide 32.0, Anion Gap 4 L, BUN 31 H, Creatinine 0.81, Estim Creat Clear Calc 50.68, Est GFR (MDRD) Af Amer 87, Est GFR (MDRD) Non-Af 72, BUN/Creatinine Ratio 38.1 H, Glucose 117 H, Calcium 9.4, Total Bilirubin 0.60, GGT 17, AST 68 H, ALT 82 H, Alkaline Phosphatase 69, Total Protein 6.9, Albumin 2.1 L, Globulin 4.8 H, Albumin/Globulin Ratio 0.4 L Current Medications Acetaminophen (Tylenol) 650 mg PO Q6H PRN PRN PRN Reason: Pain Score 1-10/Temp > 100.7 F Last Admin: 02/08/20 18:15 Dose: 650 mg Documented by: Albuterol Sulfate (Ventolin Hfa (Sp)) 2 puff INHALATION Q2H PRN PRN PRN Reason: Dyspnea, wheezing Last Admin: 02/11/20 10:53 Dose: 2 puff Documented by: Atorvastatin Calcium (Lipitor) 10 mg PO QHS JUN[facility] Last Admin: 02/10/20 20:40 Dose: 10 mg Documented by: Bisacodyl (Dulcolax) 5 mg PO DAILY [facility] Last Admin: 02/11/20 08:03 Dose: 5 mg Documented by: Buspirone HCl (Buspar) 10 mg PO BID [facility] Last Admin: 02/11/20 13:10 Dose: 10 mg Documented by: Dextrose (D50w Syringe) 0 gm IV X1 PRN; Protocol PRN Reason: Hypoglycemia Diphenoxylate HCl/Atropine (Lomotil) 1 tablet PO 4X/DAY PRN PRN Reason: Diarrhea Enoxaparin Sodium (Lovenox) 90 mg SC Q12 [facility] Last Admin: 02/11/20 08:03 Dose: 90 mg Documented by: Fluticasone Propionate (Flovent Diskus 100 Mcg) 1 puff INHALATION BID [facility] Last Admin: 02/11/20 08:04 Dose: 1 puff Documented by: Furosemide (Lasix) 40 mg IV BID@1000,1800 [facility] Last Admin: 02/11/20 08:04 Dose: 40 mg Documented by: Glucagon () 1 mg IM .X1 PRN PRN Reason: Hypoglycemia Guaifenesin (Robitussin) 10 ml PO Q4H PRN PRN PRN Reason: COUGH Last Admin: 02/10/20 03:22 Dose: 10 ml Documented by: Guaifenesin (Mucinex) 600 mg PO BID [facility] Last Admin: 02/11/20 08:03 Dose: 600 mg Documented by: Hydralazine HCl (Apresoline Iv) 10 mg IV Q4H PRN PRN PRN Reason: SBP > 160 Hydroxyzine Pamoate (Vistaril Pamoate Capsule) 25 mg PO 4X/DAY PRN PRN Reason: ANXIETY Sodium Chloride () 250 mls @ 15 mls/hr IV .[id number] PRN PRN Reason: Saline Flush Last Infusion: 02/08/20 13:22 Dose: 0 mls/hr Documented by: Sodium Chloride () 250 mls @ 15 mls/hr IV .[id number] PRN PRN Reason: Additional IVPB Infusion Sodium Chloride () 500 mls @ 15 mls/hr IV PRN PRN PRN Reason: Blood Transfusion Loratadine (Claritin) 10 mg PO QHS [facility] Last Admin: 02/10/20 20:40 Dose: 10 mg Documented by: Melatonin (Melatonin) 5 mg PO QHS [facility] Last Admin: 02/10/20 20:40 Dose: 5 mg Documented by: Miscellaneous Information (Pocket Chamber) 1 each INHALATION Q2H PRN PRN Reason: FOR USE WITH ALBUTEROL Last Admin: 02/11/20 03:53 Dose: 1 each Documented by: Nitroglycerin (Nitrostat) 0.4 mg SUBLINGUAL Q5M PRN PRN Reason: CARDIAC/CHEST PAIN Nystatin (Mycostatin Powder) 1 applic TOPICAL TID [facility]; Protocol Last Admin: 02/11/20 13:24 Dose: 1 applicatio Documented by: Olanzapine (Zyprexa) 5 mg PO QHS [facility] Last Admin: 02/10/20 20:40 Dose: 5 mg Documented by: Olanzapine (Zyprexa) 10 mg PO QHS [facility] Last Admin: 02/10/20 20:40 Dose: 10 mg Documented by: Ondansetron HCl (Zofran) 4 mg IV Q8H PRN PRN PRN Reason: NAUSEA/VOMITING Last Admin: 02/03/20 13:34 Dose: 4 mg Documented by: Oxycodone HCl (Oxyir) 5 mg PO Q4H PRN PRN PRN Reason: Pain Score 4-5/10 Last Admin: 02/11/20 05:01 Dose: 5 mg Documented by: Oxymetazoline HCl (Afrin (Bkc)) 1 spray NASAL BID [facility] Last Admin: 02/11/20 07:16 Dose: Not Given Documented by: Pantoprazole Sodium (Protonix) 20 mg PO DAILY [facility] Last Admin: 02/11/20 08:03 Dose: 20 mg Documented by: Polyethylene Glycol (Miralax) 17 gm PO DAILY [facility] Last Admin: 02/11/20 08:03 Dose: 17 gm Documented by: Potassium Chlor[facility] (K[facility]Dur) [facility] Last Admin: 02/11/20 08:02 Dose: 40 meq Documented by: Prochlorperazine Edisylate (Compazine Iv) 5 mg IV Q4H PRN PRN PRN Reason: Breakthrough Nausea/Vomiting Sodium Chloride () 10 - 40 ml IV UD PRN PRN Reason: SALINE FLUSH Last Admin: 02/11/20 08:03 Dose: 10 ml Documented by: Throat Lozenges (Cepacol Sore Throat Lozenge) 1 lozenge MUCOUS MEM Q2H PRN PRN PRN Reason: SORE THROAT Last Admin: 02/08/20 05:50 Dose: 1 lozenge Documented by: STROKE Vital Signs/Narrative: Vital Signs Pulse Resp Pulse Ox 02/11/20 13:10 94 02/11/20 10:54 22 H 94 02/11/20 09:57 70 97 Medical Necessity - Tobacco Use Smoking Status: Never smoker Assessment/Plan All Active Problems (Last Reviewed 07/25/19 @ 14:23 by Angi Sauceda) Syncope and collapse (Acute) Bradycardia (Acute) Dehydration (Acute) Acute respiratory failure with hypoxia (Acute) Suspected COVID-19 virus infection (Acute) EPI (acute kidney injury) (Acute) History of CVA (cerebrovascular accident) (Acute) History of traumatic brain injury (Acute) History of pulmonary embolism (Acute) COVID-19 (Acute) Nocturnal hypoxemia (Acute) Abdominal pain (Resolved) Gram-negative pneumonia (Resolved) PARTIAL SBO (Resolved) This 79-year-old female with multiple comorbidities including SD, coronary artery disease, paroxysmal A. fib on Eliquis, CHF, unclear etiology and type and severity was admitted from [facility] for persistent nausea, vomiting and diarrhea for 3 to 4 days along with subjective fever generalized abdominal pain. Patient also has mild cough and was hypoxic in ER. 1. Acute hypoxic respiratory failure secondary to acute COVID-19 bilateral pneumonia: Chest x-ray on 02/01 shows progressive right upper lobe and left Infiltrate as compared to previous x-ray. Patient states mild improvement of shortness of breath. On high flow oxygen. On vancomycin and Zosyn. Elevated d-dimer. Eliquis changed to enoxaparin. On Lasix. Road Grader consulted and advised convalescent serum when available as it might take 7 days. Continue diuresis 02/06: Patient is spiked fever 102 point 4 in the evening yesterday. He completed 7 days of IV Zosyn. Patient also on vancomycin. Antibiotic changed to IV meropenem. MRSA nasal screen is negative. Discussed with ID. 02/07: Blood cultures x2 from 02/05 are pending. Repeat urine culture shows no growth. Previous blood cultures on 02/01 are negative. Rest as mentioned above. Labs ordered. 02/08: Continue high flow oxygen support. Normal white blood count. Normocytic normochromic anemia. CRP better. Ferritin is still high 481. Repeat blood culture from 02/05 no growth at 48 hours. Urine culture negative. Discussed with ID 02/09: Patient respiratory status is better. No high-grade fever last 3 days. Labs reviewed. Transaminases improved. CRP improved. Troponin and total CK normal. Procalcitonin 0.34. Panculture negative 02/10: Inflammatory markers improving. Procalcitonin improved from 0.61-0.34. Liver test shows transaminases in plateau, no definite increase or decrease. Medications reviewed. Patient completed 7 days of IV Zosyn and 4 days of IV meropenem for total of 11 days. No fever since 02/06/2020. No need for further antibiotics 2. EPI mainly prerenal with hypokalemia: Creatinine is improving. K2.5. Potassium replaced. Estimated normal 3. hypotension Resolved 4. paroxysmal afib * anticoagulated with Lovenox 5. VTE prophylaxis: anticoagulation 6. Constipation: Patient had bowel movement with magnesium citrate. CODE STATUS/advance directive: DNR CCA, no intubation Total time of the visit including total time spent in counseling or coordination of care, (more than 50% of the total time, spent in obtaining medical information from nurses and other ancillary care providers), discussion with consultants, review of labs and imaging is 30 minutes Microbiology Past 72 Hours 02/07/20 05:50 Urine Catheter - Catheter Urine Culture - Final Culture exhibits no growth. 02/06/20 19:30 Blood Culture (Wb) - Right Hand Blood Culture - Preliminary No growth in 48 hours. 02/06/20 19:20 Blood Culture (Wb) - Left Hand Blood Culture - Preliminary No growth in 48 hours. Laboratory Results 02/09/20 08:20: Blood Type O POSITIVE 02/11/20 07:15: WBC 6.0, RBC 3.60 L, Hgb 9.9 L, Hct 31.4 L, MCV 87.2, MCH 27.5, MCHC 31.5 L, RDW Std Deviation 47.3 H, RDW Coeff of Lamine 14.7 H, Plt Count 577 H, MPV 9.7, Immature Gran % (Auto) 1.800 H, Neut % (Auto) 69.2, Lymph % (Auto) 20.7, Nicollet % (Auto) 6.3, Eos % (Auto) 1.7, Baso % (Auto) 0.3, Absolute Neuts (auto) 4.2, Absolute Lymphs (auto) 1.24, Nucleated RBC % 0, Reactive Lymphocytes RARE 02/11/20 07:15: Sodium 139, Potassium 4.7, Chloride 103, Carbon Dioxide 32.0, Anion Gap 4 L, BUN 31 H, Creatinine 0.81, Estim Creat Clear Calc 50.68, Est GFR (MDRD) Af Amer 87, Est GFR (MDRD) Non-Af 72, BUN/Creatinine Ratio 38.1 H, Glucose 117 H, Calcium 9.4, Total Bilirubin 0.60, GGT 17, AST 68 H, ALT 82 H, Alkaline Phosphatase 69, Total Protein 6.9, Albumin 2.1 L, Globulin 4.8 H, Albumin/Globulin Ratio 0.4 L Clinical Impression(s) from Imaging Studies Chest X-Ray 01/29/20 08:30 IMPRESSION: Left lower lobe atelectatic changes with early region of airspace disease not completely excluded. Chest X-Ray 02/06/20 19:00 IMPRESSION: Worsening bilateral pulmonary infiltrates when compared to the prior study. Electronically Signed: Aly Hassan DO at 19:24 EDT Tel [phone], Service support , Chest X-Ray 02/09/20 06:00 IMPRESSION: There has been improved aeration as compared to prior study. Further follow-up is recommended. Active Medications Acetaminophen (Tylenol) 650 mg PO Q6H PRN PRN PRN Reason: Pain Score 1-10/Temp > 100.7 F Last Admin: 02/08/20 18:15 Dose: 650 mg Documented by: Albuterol Sulfate (Ventolin Hfa (Sp)) 2 puff INHALATION Q2H PRN PRN PRN Reason: Dyspnea, wheezing Last Admin: 02/11/20 10:53 Dose: 2 puff Documented by: Atorvastatin Calcium (Lipitor) 10 mg PO QHS [facility] Last Admin: 02/10/20 20:40 Dose: 10 mg Documented by: Bisacodyl (Dulcolax) 5 mg PO DAILY [facility] Last Admin: 02/11/20 08:03 Dose: 5 mg Documented by: Buspirone HCl (Buspar) 10 mg PO BID [facility] Last Admin: 02/11/20 13:10 Dose: 10 mg Documented by: Dextrose (D50w Syringe) 0 gm IV X1 PRN; Protocol PRN Reason: Hypoglycemia Diphenoxylate HCl/Atropine (Lomotil) 1 tablet PO 4X/DAY PRN PRN Reason: Diarrhea Enoxaparin Sodium (Lovenox) 90 mg SC Q12 [facility] Last Admin: 02/11/20 08:03 Dose: 90 mg Documented by: Fluticasone Propionate (Flovent Diskus 100 Mcg) 1 puff INHALATION BID [facility] Last Admin: 02/11/20 08:04 Dose: 1 puff Documented by: Furosemide (Lasix) 40 mg IV BID@1000,1800 [facility] Last Admin: 02/11/20 08:04 Dose: 40 mg Documented by: Glucagon () 1 mg IM .X1 PRN PRN Reason: Hypoglycemia Guaifenesin (Robitussin) 10 ml PO Q4H PRN PRN PRN Reason: COUGH Last Admin: 02/10/20 03:22 Dose: 10 ml Documented by: Guaifenesin (Mucinex) 600 mg PO BID [facility] Last Admin: 02/11/20 08:03 Dose: 600 mg Documented by: Hydralazine HCl (Apresoline Iv) 10 mg IV Q4H PRN PRN PRN Reason: SBP > 160 Hydroxyzine Pamoate (Vistaril Pamoate Capsule) 25 mg PO 4X/DAY PRN PRN Reason: ANXIETY Sodium Chloride () 250 mls @ 15 mls/hr IV .[id number] PRN PRN Reason: Saline Flush Last Infusion: 02/08/20 13:22 Dose: 0 mls/hr Documented by: Sodium Chloride () 250 mls @ 15 mls/hr IV .[id number] PRN PRN Reason: Additional IVPB Infusion Sodium Chloride () 500 mls @ 15 mls/hr IV PRN PRN PRN Reason: Blood Transfusion Loratadine (Claritin) 10 mg PO QHS [facility] Last Admin: 02/10/20 20:40 Dose: 10 mg Documented by: Melatonin (Melatonin) 5 mg PO QHS [facility] Last Admin: 02/10/20 20:40 Dose: 5 mg Documented by: Miscellaneous Information (Pocket Chamber) 1 each INHALATION Q2H PRN PRN Reason: FOR USE WITH ALBUTEROL Last Admin: 02/11/20 03:53 Dose: 1 each Documented by: Nitroglycerin (Nitrostat) 0.4 mg SUBLINGUAL Q5M PRN PRN Reason: CARDIAC/CHEST PAIN Nystatin (Mycostatin Powder) 1 applic TOPICAL TID [facility]; Protocol Last Admin: 02/11/20 13:24 Dose: 1 applicatio Documented by: Olanzapine (Zyprexa) 5 mg PO QHS [facility] Last Admin: 02/10/20 20:40 Dose: 5 mg Documented by: Olanzapine (Zyprexa) 10 mg PO QHS [facility] Last Admin: 02/10/20 20:40 Dose: 10 mg Documented by: Ondansetron HCl (Zofran) 4 mg IV Q8H PRN PRN PRN Reason: NAUSEA/VOMITING Last Admin: 02/03/20 13:34 Dose: 4 mg Documented by: Oxycodone HCl (Oxyir) 5 mg PO Q4H PRN PRN PRN Reason: Pain Score 4-5/10 Last Admin: 02/11/20 05:01 Dose: 5 mg Documented by: Oxymetazoline HCl (Afrin (Bkc)) 1 spray NASAL BID [facility] Last Admin: 02/11/20 07:16 Dose: Not Given Documented by: Pantoprazole Sodium (Protonix) 20 mg PO DAILY [facility] Last Admin: 02/11/20 08:03 Dose: 20 mg Documented by: Polyethylene Glycol (Miralax) 17 gm PO DAILY [facility] Last Admin: 02/11/20 08:03 Dose: 17 gm Documented by: Potassium Chloride (K-Dur) [facility] Last Admin: 02/11/20 08:02 Dose: 40 meq Documented by: Prochlorperazine Edisylate (Compazine Iv) 5 mg IV Q4H PRN PRN PRN Reason: Breakthrough Nausea/Vomiting Sodium Chloride () 10 - 40 ml IV UD PRN PRN Reason: SALINE FLUSH Last Admin: 02/11/20 08:03 Dose: 10 ml Documented by: Throat Lozenges (Cepacol Sore Throat Lozenge) 1 lozenge MUCOUS MEM Q2H PRN PRN PRN Reason: SORE THROAT Last Admin: 02/08/20 05:50 Dose: 1 lozenge Documented by: Inpatient E&M: [id number] [facility] L3
[2020-02-11] MEDS: hydrOXYzine PAM 25 MG Capsule PO (17:54)
[2020-02-11] MEDS: OLANZapine 2.5 MG Tablet 5 MG PO (20:46)
[2020-02-11] MEDS: Atorvastatin Calcium 10 MG Tablet PO (20:47)
[2020-02-11] MEDS: Loratadine 10 MG Tablet PO (20:47)
[2020-02-11] MEDS: OLANZapine 10 MG Tablet PO (20:47)
[2020-02-11] MEDS: MELATONIN 10 MG TABLET 5 MG PO (20:47)
[2020-02-12] VITALS (12 sets, daily range): BP systolic 101–143; BP diastolic 58–64; PULSE 70–86; RESP 16–19; TEMP 36.3–36.9; O2SAT 92–99
[2020-02-12 03:18] LABS: Absolute Neutrophil Count 3.4 X10^3/uL (2.0-7.7); Basophil# 0.02 X10^3/uL; Basophil% 0.3 % (0-1); Eosinophil# 0.14 X10^3/uL; Eosinophils% 2.3 % (0-5); Hematocrit 33.8 % (37-47); Hemoglobin 10.4 g/dL (12.0-15.0); Lymphocyte % 32.4 % (19-41); Mean Corp Hgb Conc 30.8 g/dL (32-36); Mean Corpuscular Hgb 26.7 pg (27.0-32.0); Mean Corpuscular Volume 86.9 fL (81-99); Mean Platelet Vol. 9.8 fl (6.2-12.0); Monocyte# 0.51 X10^3/uL; Monocyte% 8.3 % (0-10); NRBC Flagged by Analyzer 0 % (0-5); Neutrophil # 3.38 X10^3/uL (2.7-7.7); Neutrophil % 54.6 % (47-70); POSITIVE MORPHOLOGY YES; Platelet Count 710 K/mm3 (150-450); RBC Distribution Width CV 14.8 % (11.6-14.6); RBC Distribution Width SD 46.9 fl (35.1-43.9); Red Blood Count 3.89 M/mm3 (4.2-5.4); White Blood Count 6.2 K/mm3 (4.4-11.0)
[2020-02-12 03:23] LABS: Differential Indicated SCAN CRITERIA MET
[2020-02-12 03:41] LABS: ALB/GLOB Ratio 0.5 RATIO (0.9-2.4); AST(SGOT) 58 U/L (15-37); Alanine Aminotransfer ALT/SGPT 87 U/L (13-56); Albumin, Serum 2.3 g/dL (3.2-5.0); Alkaline Phosphatase 71 U/L (45-117); Anion Gap 6 (5-15); BUN 38 mg/dL (7-18); BUN/Creat Ratio 41.5 RATIO (10-20); Calcium,Total 9.6 mg/dL (8.5-10.1); Chloride 102 mmol/L (98-107); Creatinine, Serum 0.92 mg/dL (0.55-1.02); EST Glomerular Filtration Rate 63 mL/min (>60); Est Glom Filt Rate - Afr Amer 76 mL/min (>60); Estimated Creatinine Clearance 44.62 ml/min; Globulin 5.1 g/dL (2.2-4.2); Glucose 97 mg/dL (74-106); Potassium 5.2 mmol/L (3.5-5.1); Protein, Total 7.4 g/dL (6.4-8.2); Sodium Level 139 mmol/L (136-145)
[2020-02-12 03:46] LABS: Platelet Estimate MOD INC (ADEQ); Reactive Lymphocyte 1+
[2020-02-12] MEDS: Nystatin Powder 15gm Bottle 1 APPLIC TOPICAL ×3 (05:06→20:45)
[2020-02-12] MEDS: Oxymetazoline 0.05% 1 SPRAY SPRAY.BTL NASAL ×2 (08:43→20:43)
[2020-02-12] MEDS: Polyethylene Glycol 3350 17 GM PACKET PO (08:44)
[2020-02-12] MEDS: Enoxaparin 100 MG/ML Syringe 90 MG SC ×2 (08:44→20:44)
[2020-02-12] MEDS: Bisacodyl 5 MG Tablet PO (08:45)
[2020-02-12] MEDS: Pantoprazole Sodium 20 MG Tablet PO ×2 (08:45→08:46)
[2020-02-12] MEDS: hydrOXYzine PAM 25 MG Capsule PO (08:45)
[2020-02-12] MEDS: busPIRone 5 MG Tablet 10 MG PO ×2 (08:45→20:44)
[2020-02-12] MEDS: guaiFENesin 600 MG Tablet PO ×2 (08:46→20:44)
[2020-02-12] MEDS: Furosemide 40 MG/4 ML Vial IV ×2 (08:47→16:56)
[2020-02-12] MEDS: 0.9% Saline Lock 10 ML Syringe IV ×2 (08:50→16:56)
--- NOTE | 2020-02-12 10:46 | PN_ITS ---
Patient Problems: Active and Suspected Problems (Last Reviewed 07/25/19 @ 14:23 by Angi Sauceda) Acute respiratory failure with hypoxia (Acute) Suspected COVID-19 virus infection (Acute) EPI (acute kidney injury) (Acute) History of CVA (cerebrovascular accident) (Acute) History of traumatic brain injury (Acute) History of pulmonary embolism (Acute) COVID-19 (Acute) Reason for Visit: COVID-19 with bilateral pneumonia. Acute hypoxic respiratory failure Objective: Afebrile. Oxygen requirement is getting better; down from 10 L to 6 L/min. No tachypnea but patient is anxious and restless. Patient is moving bowel. On physical exam General: Oriented x3, Cooperative, alert and awake HEENT: Atraumatic, PERRLA, EOMI, Normocephalic Neck: Supple, No JVD, Negative Carotid Bruits Lungs: Diminished bilaterally predominantly in both lower lobes, fine expiratory rhonchi Cardiovascular: Regular rate, Regular Rhythm, Normal S1, Normal S2, No murmurs Abdomen: Bowel Sounds Present, Soft, Non Tender, Non-Distended Extremities: mild ankle in both legs; seems chronic. Capillary Refill Less than 3 Seconds Skin: No rashes, No breakdown Musculoskeletal: No Tenderness to Palpation of Joints or Extremities, Arthritic Changes Neurological: Cranial nerves II-XII grossly intact, Deep Tendon Reflexes 2+/4 and Symmetrical, Neuro grossly intact Psych/Mental Status: Normal Affect, Appropriate Vitals/I&O's: Vital Signs Temp Pulse Resp BP Pulse Ox 97.3 F L 70 19 H 128/59 H 95 02/12/20 03:00 02/12/20 03:00 02/12/20 03:00 02/12/20 03:00 02/12/20 05:34 Oxygen Flow Rate (L/min) 6 Oxygen Delivery Method Nasal Cannula Weight: 196 lb 6.91 oz Body Mass Index (BMI) 34.2 Intake and Output for Last 24 Hours 02/10/20 02/11/20 02/12/20 23:59 23:59 23:59 Intake Total 1270 / 1270 1370 / 1370 Output Total 1575 / 1575 2900 / 2900 100 / 100 Balance -305 / -305 -1530 / -1530 -100 / -100 Microbiology Past 72 Hours 02/06/20 19:30 Blood Culture (Wb) - Right Hand Blood Culture - Final No growth in 5 days. 02/06/20 19:20 Blood Culture (Wb) - Left Hand Blood Culture - Final No growth in 5 days. 02/07/20 05:50 Urine Catheter - Catheter Urine Culture - Final Culture exhibits no growth. Laboratory Results 02/12/20 03:00: WBC 6.2, RBC 3.89 L, Hgb 10.4 L, Hct 33.8 L, MCV 86.9, MCH 26.7 L, MCHC 30.8 L, RDW Std Deviation 46.9 H, RDW Coeff of Lamine 14.8 H, Plt Count 710 H, MPV 9.8, Immature Gran % (Auto) 2.100 H, Neut % (Auto) 54.6, Lymph % (Auto) 32.4, Taney % (Auto) 8.3, Eos % (Auto) 2.3, Baso % (Auto) 0.3, Absolute Neuts (auto) 3.4, Absolute Lymphs (auto) 2.00, Nucleated RBC % 0, Differential Comment , Reactive Lymphocytes 1+, Platelet Estimate MOD INC 02/12/20 03:00: Sodium 139, Potassium 5.2 H, Chloride 102, Carbon Dioxide 31.0, Anion Gap 6, BUN 38 H, Creatinine 0.92, Estim Creat Clear Calc 44.62, Est GFR (MDRD) Af Amer 76, Est GFR (MDRD) Non-Af 63, BUN/Creatinine Ratio 41.5 H, Glucose 97, Calcium 9.6, Total Bilirubin 0.60, AST 58 H, ALT 87 H, Alkaline Phosphatase 71, Total Protein 7.4, Albumin 2.3 L, Globulin 5.1 H, Albumin/Globulin Ratio 0.5 L Current Medications Acetaminophen (Tylenol) 650 mg PO Q6H PRN PRN PRN Reason: Pain Score 1-10/Temp > 100.7 F Last Admin: 02/08/20 18:15 Dose: 650 mg Documented by: Albuterol Sulfate (Ventolin Hfa (Sp)) 2 puff INHALATION Q2H PRN PRN PRN Reason: Dyspnea, wheezing Last Admin: 02/11/20 10:53 Dose: 2 puff Documented by: Atorvastatin Calcium (Lipitor) 10 mg PO QHS [facility] Last Admin: 02/11/20 20:47 Dose: 10 mg Documented by: Bisacodyl (Dulcolax) 5 mg PO DAILY [facility] Last Admin: 02/12/20 08:45 Dose: 5 mg Documented by: Buspirone HCl (Buspar) 10 mg PO BID [facility] Last Admin: 02/12/20 08:45 Dose: 10 mg Documented by: Dextrose (D50w Syringe) 0 gm IV X1 PRN; Protocol PRN Reason: Hypoglycemia Diphenoxylate HCl/Atropine (Lomotil) 1 tablet PO 4X/DAY PRN PRN Reason: Diarrhea Enoxaparin Sodium (Lovenox) 90 mg SC Q12 [facility] Last Admin: 02/12/20 08:44 Dose: 90 mg Documented by: Fluticasone Propionate (Flovent Diskus 100 Mcg) 1 puff INHALATION BID [facility] Last Admin: 02/11/20 20:48 Dose: 1 puff Documented by: Furosemide (Lasix) 40 mg IV BID@1000,1800 [facility] Last Admin: 02/12/20 08:47 Dose: 40 mg Documented by: Glucagon () 1 mg IM .X1 PRN PRN Reason: Hypoglycemia Guaifenesin (Robitussin) 10 ml PO Q4H PRN PRN PRN Reason: COUGH Last Admin: 02/10/20 03:22 Dose: 10 ml Documented by: Guaifenesin (Mucinex) 600 mg PO BID [facility] Last Admin: 02/12/20 08:46 Dose: 600 mg Documented by: Hydralazine HCl (Apresoline Iv) 10 mg IV Q4H PRN PRN PRN Reason: SBP > 160 Hydroxyzine Pamoate (Vistaril Pamoate Capsule) 25 mg PO 4X/DAY PRN PRN Reason: ANXIETY Last Admin: 02/12/20 08:45 Dose: 25 mg Documented by: Sodium Chloride () 250 mls @ 15 mls/hr IV .[id number] PRN PRN Reason: Saline Flush Last Infusion: 02/08/20 13:22 Dose: 0 mls/hr Documented by: Sodium Chloride () 250 mls @ 15 mls/hr IV .[id number] PRN PRN Reason: Additional IVPB Infusion Sodium Chloride () 500 mls @ 15 mls/hr IV PRN PRN PRN Reason: Blood Transfusion Loratadine (Claritin) 10 mg PO QHS [facility] Last Admin: 02/11/20 20:47 Dose: 10 mg Documented by: Melatonin (Melatonin) 5 mg PO QHS [facility] Last Admin: 02/11/20 20:47 Dose: 5 mg Documented by: Miscellaneous Information (Pocket Chamber) 1 each INHALATION Q2H PRN PRN Reason: FOR USE WITH ALBUTEROL Last Admin: 02/11/20 03:53 Dose: 1 each Documented by: Nitroglycerin (Nitrostat) 0.4 mg SUBLINGUAL Q5M PRN PRN Reason: CARDIAC/CHEST PAIN Nystatin (Mycostatin Powder) 1 applic TOPICAL TID [facility]; Protocol Last Admin: 02/12/20 05:06 Dose: 1 applicatio Documented by: Olanzapine (Zyprexa) 5 mg PO QHS [facility] Last Admin: 02/11/20 20:46 Dose: 5 mg Documented by: Olanzapine (Zyprexa) 10 mg PO QHS [facility] Last Admin: 02/11/20 20:47 Dose: 10 mg Documented by: Ondansetron HCl (Zofran) 4 mg IV Q8H PRN PRN PRN Reason: NAUSEA/VOMITING Last Admin: 02/03/20 13:34 Dose: 4 mg Documented by: Oxycodone HCl (Oxyir) 5 mg PO Q4H PRN PRN PRN Reason: Pain Score 4-5/10 Last Admin: 02/11/20 05:01 Dose: 5 mg Documented by: Oxymetazoline HCl (Afrin (Bkc)) 1 spray NASAL BID [facility] Last Admin: 02/12/20 08:43 Dose: 1 spray Documented by: Pantoprazole Sodium (Protonix) 20 mg PO DAILY [facility] Last Admin: 02/12/20 08:46 Dose: 20 mg Documented by: Polyethylene Glycol (Miralax) 17 gm PO DAILY [facility] Last Admin: 02/12/20 08:44 Dose: 17 gm Documented by: Potassium Ch[facility] ([facility]) [facility] Prochlorperazine Edisylate (Compazine Iv) 5 mg IV Q4H PRN PRN PRN Reason: Breakthrough Nausea/Vomiting Sodium Chloride () 10 - 40 ml IV UD PRN PRN Reason: SALINE FLUSH Last Admin: 02/12/20 08:50 Dose: 10 ml Documented by: Throat Lozenges (Cepacol Sore Throat Lozenge) 1 lozenge MUCOUS MEM Q2H PRN PRN PRN Reason: SORE THROAT Last Admin: 02/08/20 05:50 Dose: 1 lozenge Documented by: Medical Necessity - Tobacco Use Smoking Status: Never smoker Assessment/Plan All Active Problems (Last Reviewed 07/25/19 @ 14:23 by Angi Sauceda) Syncope and collapse (Acute) Bradycardia (Acute) Dehydration (Acute) Acute respiratory failure with hypoxia (Acute) Suspected COVID-19 virus infection (Acute) EPI (acute kidney injury) (Acute) History of CVA (cerebrovascular accident) (Acute) History of traumatic brain injury (Acute) History of pulmonary embolism (Acute) COVID-19 (Acute) Nocturnal hypoxemia (Acute) Abdominal pain (Resolved) Gram-negative pneumonia (Resolved) PARTIAL SBO (Resolved) This 79-year-old female with multiple comorbidities including [place], coronary artery disease, paroxysmal A. fib on Eliquis, CHF, unclear etiology and type and severity was admitted from [facility] for persistent nausea, vomiting and diarrhea for 3 to 4 days along with subjective fever generalized abdominal pain. Patient also has mild cough and was hypoxic in ER. 1. Acute hypoxic respiratory failure secondary to acute COVID-19 bilateral pneumonia: Chest x-ray on 02/01 shows progressive right upper lobe and left Infiltrate as compared to previous x-ray. Patient states mild improvement of shortness of breath. On high flow oxygen. On vancomycin and Zosyn. Elevated d-dimer. Eliquis changed to enoxaparin. On Lasix. Missing Persons Investigator consulted and advised convalescent serum when available as it might take 7 days. Continue diuresis. Blood cultures from 02/01 and repeat blood culture from 02/05 shows no growth. Urine culture negative. Patient completed 7 days of IV Zosyn and 4 days of IV meropenem for total of 11 days. No fever since 02/06/2020. No need of further antibiotic. Inflammatory markers improving. Procalcitonin improved from 0.61-0.34. 02/11: Oxygen requirement is better. Afebrile, no high-grade fever since 02/06/2020. No leukocytosis or leukopenia. Thrombocytosis. Liver test showing slight improvement, transaminases. No hyperbilirubinemia. 2. EPI mainly prerenal with hypokalemia: K5.2. Patient potassium supplement is held today and decreased to 40 M EQ from tomorrow morning. On 40 mg Lasix twice daily. EPI resolved. Patient has chronic heart failure with preserved EF/chronic diastolic heart failure. Echo in July 2019 shows EF 65% with mild concentric LVH, stage I diastolic dysfunction, mildly dilated RV, RVSP 36 mmHg suggestive of mild pulmonary hypertension. Trivial TR. 3. hypotension: Resolved 4. paroxysmal afib * anticoagulated with Lovenox 5. VTE prophylaxis: anticoagulation 6. Constipation: Patient had bowel movement with magnesium citrate. CODE STATUS/advance directive: DNR CCA, no intubation Total time of the visit including total time spent in counseling or coordination of care, (more than 50% of the total time, spent in obtaining medical information from nurses and other ancillary care providers), discussion with consultants, review of labs and imaging is 30 minutes Microbiology Past 72 Hours 02/06/20 19:30 Blood Culture (Wb) - Right Hand Blood Culture - Final No growth in 5 days. 02/06/20 19:20 Blood Culture (Wb) - Left Hand Blood Culture - Final No growth in 5 days. 02/07/20 05:50 Urine Catheter - Catheter Urine Culture - Final Culture exhibits no growth. Laboratory Results 02/12/20 03:00: WBC 6.2, RBC 3.89 L, Hgb 10.4 L, Hct 33.8 L, MCV 86.9, MCH 26.7 L, MCHC 30.8 L, RDW Std Deviation 46.9 H, RDW Coeff of Lamine 14.8 H, Plt Count 710 H, MPV 9.8, Immature Gran % (Auto) 2.100 H, Neut % (Auto) 54.6, Lymph % (Auto) 32.4, Taney % (Auto) 8.3, Eos % (Auto) 2.3, Baso % (Auto) 0.3, Absolute Neuts (auto) 3.4, Absolute Lymphs (auto) 2.00, Nucleated RBC % 0, Differential Comment , Reactive Lymphocytes 1+, Platelet Estimate MOD INC 02/12/20 03:00: Sodium 139, Potassium 5.2 H, Chloride 102, Carbon Dioxide 31.0, Anion Gap 6, BUN 38 H, Creatinine 0.92, Estim Creat Clear Calc 44.62, Est GFR (MDRD) Af Amer 76, Est GFR (MDRD) Non-Af 63, BUN/Creatinine Ratio 41.5 H, Glucose 97, Calcium 9.6, Total Bilirubin 0.60, AST 58 H, ALT 87 H, Alkaline Ph osphatase 71, Total Protein 7.4, Albumin 2.3 L, Globulin 5.1 H, Albumin/Globulin Ratio 0.5 L Clinical Impression(s) from Imaging Studies Chest X-Ray 01/29/20 08:30 IMPRESSION: Left lower lobe atelectatic changes with early region of airspace disease not completely excluded. Chest X-Ray 02/06/20 19:00 IMPRESSION: Worsening bilateral pulmonary infiltrates when compared to the prior study. Electronically Signed: Aly Hassan DO at 19:24 EDT Tel [phone], Service support , Chest X-Ray 02/09/20 06:00 IMPRESSION: There has been improved aeration as compared to prior study. Further follow-up is recommended. Inpatient E&M: 32226 Subs Hosp L2
[2020-02-12] MEDS: OLANZapine 2.5 MG Tablet 5 MG PO (20:43)
[2020-02-12] MEDS: Atorvastatin Calcium 10 MG Tablet PO (20:43)
[2020-02-12] MEDS: oxyCODONE 5 MG Tablet PO (20:43)
[2020-02-12] MEDS: OLANZapine 10 MG Tablet PO (20:44)
[2020-02-12] MEDS: Loratadine 10 MG Tablet PO (20:44)
[2020-02-12] MEDS: MELATONIN 10 MG TABLET 5 MG PO (20:44)
[2020-02-13] VITALS (7 sets, daily range): BP systolic 109–144; BP diastolic 49–71; PULSE 73–92; RESP 12–20; TEMP 36–36.8; O2SAT 91–98
[2020-02-13] MEDS: oxyCODONE 5 MG Tablet PO ×2 (03:51→23:31)
[2020-02-13] MEDS: Nystatin Powder 15gm Bottle 1 APPLIC TOPICAL ×3 (03:52→22:12)
--- NOTE | 2020-02-13 04:33 | CPS ---
Pt. was cleaned up and repositioned. Pt. was having trouble rebounding from this movement, so I titrated her oxygen from 4L - 5L to help meet pt.'s oxygenation demand
--- NOTE | 2020-02-13 10:02 | PN_ITS ---
Patient Problems: Active and Suspected Problems (Last Reviewed 07/25/19 @ 14:23 by Angi Sauceda) Acute respiratory failure with hypoxia (Acute) Suspected COVID-19 virus infection (Acute) EPI (acute kidney injury) (Acute) History of CVA (cerebrovascular accident) (Acute) History of traumatic brain injury (Acute) History of pulmonary embolism (Acute) COVID-19 (Acute) Reason for Visit: Follow-up for Acute hypoxic respiratory failure/COVID-19 with bilateral pneumonia Subjective: Patient was seen and examined. She feels improved. On 3L oxygen now. No fever. Objective: Physical exam: General: Oriented x3, Cooperative, alert and awake HEENT: Atraumatic, PERRLA, EOMI, Normocephalic Neck: Supple, No JVD, Negative Carotid Bruits Lungs: Diminished bilaterally predominantly in both lower lobes, fine expiratory rhonchi Cardiovascular: Regular rate, Regular Rhythm, Normal S1, Normal S2, No murmurs Abdomen: Bowel Sounds Present, Soft, Non Tender, Non-Distended Extremities: mild ankle in both legs; seems chronic. Capillary Refill Less than 3 Seconds Skin: No rashes, No breakdown Musculoskeletal: No Tenderness to Palpation of Joints or Extremities, Arthritic Changes Neurological: Cranial nerves II-XII grossly intact, Deep Tendon Reflexes 2+/4 and Symmetrical, Neuro grossly intact Psych/Mental Status: Normal Affect, Appropriate Vitals/I&O's: Vital Signs Temp Pulse Resp BP Pulse Ox 98.0 F 92 20 H 144/58 H 97 02/13/20 08:00 02/13/20 08:00 02/13/20 08:00 02/13/20 08:00 02/13/20 08:00 Oxygen Flow Rate (L/min) 3 Oxygen Delivery Method Nasal Cannula Weight: 87.5 kg Body Mass Index (BMI) 34.2 Intake and Output for Last 24 Hours 02/11/20 02/12/20 02/13/20 23:59 23:59 23:59 Intake Total 1370 / 1370 490 / 490 120 / 120 Output Total 2900 / 2900 1200 / 1200 Balance -1530 / -1530 -710 / -710 120 / 120 Microbiology Past 72 Hours 02/06/20 19:30 Blood Culture (Wb) - Right Hand Blood Culture - Final No growth in 5 days. 02/06/20 19:20 Blood Culture (Wb) - Left Hand Blood Culture - Final No growth in 5 days. Current Medications Acetaminophen (Tylenol) 650 mg PO Q6H PRN PRN PRN Reason: Pain Score 1-10/Temp > 100.7 F Last Admin: 02/08/20 18:15 Dose: 650 mg Documented by: Albuterol Sulfate (Ventolin Hfa (Sp)) 2 puff INHALATION Q2H PRN PRN PRN Reason: Dyspnea, wheezing Last Admin: 02/11/20 10:53 Dose: 2 puff Documented by: Atorvastatin Calcium (Lipitor) 10 mg PO QHS [facility] Last Admin: 02/12/20 20:43 Dose: 10 mg Documented by: Bisacodyl (Dulcolax) 5 mg PO DAILY [facility] Last Admin: 02/12/20 08:45 Dose: 5 mg Documented by: Buspirone HCl (Buspar) 10 mg PO BID [facility] Last Admin: 02/12/20 20:44 Dose: 10 mg Documented by: Dextrose (D50w Syringe) 0 gm IV X1 PRN; Protocol PRN Reason: Hypoglycemia Diphenoxylate HCl/Atropine (Lomotil) 1 tablet PO 4X/DAY PRN PRN Reason: Diarrhea Enoxaparin Sodium (Lovenox) 90 mg SC Q12 [facility] Last Admin: 02/12/20 20:44 Dose: 90 mg Documented by: Fluticasone Propionate (Flovent Diskus 100 Mcg) 1 puff INHALATION BID [facility] Last Admin: 02/12/20 20:45 Dose: 1 puff Documented by: Furosemide (Lasix) 40 mg IV BID@1000,1800 [facility] Last Admin: 02/12/20 16:56 Dose: 40 mg Documented by: Glucagon () 1 mg IM .X1 PRN PRN Reason: Hypoglycemia Guaifenesin (Robitussin) 10 ml PO Q4H PRN PRN PRN Reason: COUGH Last Admin: 02/10/20 03:22 Dose: 10 ml Documented by: Guaifenesin (Mucinex) 600 mg PO BID [facility] Last Admin: 02/12/20 20:44 Dose: 600 mg Documented by: Hydralazine HCl (Apresoline Iv) 10 mg IV Q4H PRN PRN PRN Reason: SBP > 160 Hydroxyzine Pamoate (Vistaril Pamoate Capsule) 25 mg PO 4X/DAY PRN PRN Reason: ANXIETY Last Admin: 02/12/20 08:45 Dose: 25 mg Documented by: Sodium Chloride () 250 mls @ 15 mls/hr IV .[id number] PRN PRN Reason: Saline Flush Last Infusion: 02/08/20 13:22 Dose: 0 mls/hr Documented by: Sodium Chloride () 250 mls @ 15 mls/hr IV .[id number] PRN PRN Reason: Additional IVPB Infusion Sodium Chloride () 500 mls @ 15 mls/hr IV PRN PRN PRN Reason: Blood Transfusion Loratadine (Claritin) 10 mg PO QHS [facility] Last Admin: 02/12/20 20:44 Dose: 10 mg Documented by: Melatonin (Melatonin) 5 mg PO QHS [facility] Last Admin: 02/12/20 20:44 Dose: 5 mg Documented by: Miscellaneous Information (Pocket Chamber) 1 each INHALATION Q2H PRN PRN Reason: FOR USE WITH ALBUTEROL Last Admin: 02/11/20 03:53 Dose: 1 each Documented by: Nitroglycerin (Nitrostat) 0.4 mg SUBLINGUAL Q5M PRN PRN Reason: CARDIAC/CHEST PAIN Nystatin (Mycostatin Powder) 1 applic TOPICAL TID [facility]; Protocol Last Admin: 02/13/20 03:52 Dose: 1 applicatio Documented by: Olanzapine (Zyprexa) 5 mg PO QHS [facility] Last Admin: 02/12/20 20:43 Dose: 5 mg Documented by: Olanzapine (Zyprexa) 10 mg PO QHS [facility] Last Admin: 02/12/20 20:44 Dose: 10 mg Documented by: Ondansetron HCl (Zofran) 4 mg IV Q8H PRN PRN PRN Reason: NAUSEA/VOMITING Last Admin: 02/03/20 13:34 Dose: 4 mg Documented by: Oxycodone HCl (Oxyir) 5 mg PO Q4H PRN PRN PRN Reason: Pain Score 4-5/10 Last Admin: 02/13/20 03:51 Dose: 5 mg Documented by: Oxymetazoline HCl (Afrin (Bkc)) 1 spray NASAL BID [facility] Last Admin: 02/12/20 20:43 Dose: 1 spray Documented by: Pantoprazole Sodium (Protonix) 20 mg PO DAILY [facility] Last Admin: 02/12/20 08:46 Dose: 20 mg Documented by: Polyethylene Glycol (Miralax) 17 gm PO DAILY [facility] Last Admin: 02/12/20 08:44 Dose: 17 gm Documented by: Potassium Chloride (K-Dur) [facility] Prochlorperazine Edisylate (Compazine Iv) 5 mg IV Q4H PRN PRN PRN Reason: Breakthrough Nausea/Vomiting Sodium Chloride () 10 - 40 ml IV UD PRN PRN Reason: SALINE FLUSH Last Admin: 02/12/20 16:56 Dose: 10 ml Documented by: Throat Lozenges (Cepacol Sore Throat Lozenge) 1 lozenge MUCOUS MEM Q2H PRN PRN PRN Reason: SORE THROAT Last Admin: 02/08/20 05:50 Dose: 1 lozenge Documented by: STROKE Vital Signs/Narrative: Vital Signs Temp Pulse Resp BP Pulse Ox 02/13/20 08:00 98.0 F 92 20 H 144/58 H 97 Medical Necessity - Tobacco Use Smoking Status: Never smoker Assessment/Plan All Active Problems (Last Reviewed 07/25/19 @ 14:23 by Angi Sauceda) Syncope and collapse (Acute) Bradycardia (Acute) Dehydration (Acute) Acute respiratory failure with hypoxia (Acute) Suspected COVID-19 virus infection (Acute) EPI (acute kidney injury) (Acute) History of CVA (cerebrovascular accident) (Acute) History of traumatic brain injury (Acute) History of pulmonary embolism (Acute) COVID-19 (Acute) Nocturnal hypoxemia (Acute) Abdominal pain (Resolved) Gram-negative pneumonia (Resolved) PARTIAL SBO (Resolved) 79-year-old female with multiple comorbidities including [place], coronary artery disease, paroxysmal A. fib on Eliquis, CHF, admitted from [facility] with persistent nausea, vomiting, diarrhea, fever, abdominal pain for 3 to 4 days. 1. Acute hypoxic respiratory failure secondary to acute COVID-19 bilateral pneumonia, improving Currently in 3L oxygen, no fever noted Blood and urine cultures are negative Completed antibiotics, improving biomarkers. On Lovenox therapeutic dosing for elevated D-dimer Will continue with symptomatic treatment 2. Elevated D-dimer, no CTA/doppler USG of legs done yet, on Lovenox SC 3. Hyperkalemia, repeat BMP is pending 3. EPI mainly prerenal, resolved 4. Chronic heart failure with preserved EFEF 65% with mild concentric LVH, stage I diastolic dysfunction, on Lasix IV BID 5. Hypotension, resolved 6. Paroxysmal afib, rate controlled, on Lovenox 7. DVT PPx- on therapeutic Lovenox 8. Code status - DNR-CCA, no intubation Inpatient E&M: 89125 Subs Hosp L2
[2020-02-13] MEDS: Enoxaparin 100 MG/ML Syringe 90 MG SC ×2 (10:08→22:16)
[2020-02-13] MEDS: guaiFENesin 600 MG Tablet PO ×2 (10:08→22:11)
[2020-02-13] MEDS: Furosemide 40 MG/4 ML Vial IV (10:08)
[2020-02-13] MEDS: busPIRone 5 MG Tablet 10 MG PO ×2 (10:09→22:10)
[2020-02-13] MEDS: Oxymetazoline 0.05% 1 SPRAY SPRAY.BTL NASAL ×2 (10:10→22:13)
--- NOTE | 2020-02-13 10:33 | CASEMGMT ---
JOCELYN received a message from RN that Otilia with [facility] is calling for updates on patient. JOCELYN called Otilia and she wanted to make sure patient's plan was to return to [facility]. She also wanted to see how patient was doing. JOCELYN told her patient's plan is to return to [facility] and she is doing fine currently and on 3L of O2. She thanked JOCELYN for the update. Plan: [facility] pending patient being medically ready. Radha GIORDANO MSW
--- NOTE | 2020-02-13 12:54 | PCM.PN.ID ---
Patient Problems: Active and Suspected Problems (Last Reviewed 07/25/19 @ 14:23 by Angi Sauceda) Acute respiratory failure with hypoxia (Acute) Suspected COVID-19 virus infection (Acute) EPI (acute kidney injury) (Acute) History of CVA (cerebrovascular accident) (Acute) History of traumatic brain injury (Acute) History of pulmonary embolism (Acute) COVID-19 (Acute) Subjective: Feeling better. Got convascent serum 02/09. No fever, still mild dyspnea/cough. - Physical Exam Vitals/I&O's: Vital Signs Temp Pulse Resp BP Pulse Ox 98.0 F 92 20 H 144/58 H 91 02/13/20 08:00 02/13/20 08:00 02/13/20 08:00 02/13/20 08:00 02/13/20 11:11 Oxygen Flow Rate (L/min) 5 Oxygen Delivery Method Nasal Cannula Weight: 87.5 kg Body Mass Index (BMI) 34.2 Intake and Output for Last 24 Hours 02/11/20 02/12/20 02/13/20 23:59 23:59 23:59 Intake Total 1370 / 1370 490 / 490 120 / 120 Output Total 2900 / 2900 1200 / 1200 400 / 400 Balance -1530 / -1530 -710 / -710 -280 / -280 General: Alert, Cooperative, No apparent distress Lungs: Clear to auscultation, Normal air movement Cardiovascular: Regular rate, Regular Rhythm Abdomen: Soft, Non Tender, Non-Distended Skin: No rashes Microbiology Past 72 Hours 02/06/20 19:30 Blood Culture (Wb) - Right Hand Blood Culture - Final No growth in 5 days. 02/06/20 19:20 Blood Culture (Wb) - Left Hand Blood Culture - Final No growth in 5 days. Laboratory Results 02/13/20 12:50: WBC Pending, RBC Pending, Hgb Pending, Hct Pending, MCV Pending, MCH Pending, MCHC Pending, RDW Std Deviation Pending, RDW Coeff of Lamine Pending, Plt Count Pending, Neut % (Auto) Pending, Absolute Neuts (auto) Pending 02/13/20 12:50: Sodium Pending, Potassium Pending, Chloride Pending, Carbon Dioxide Pending, Anion Gap Pending, BUN Pending, Creatinine Pending, Est GFR (MDRD) Af Amer Pending, Est GFR (MDRD) Non-Af Pending, BUN/Creatinine Ratio Pending, Glucose Pending, Calcium Pending Current Medications Acetaminophen (Tylenol) 650 mg PO Q6H PRN PRN PRN Reason: Pain Score 1-10/Temp > 100.7 F Last Admin: 02/08/20 18:15 Dose: 650 mg Documented by: Albuterol Sulfate (Ventolin Hfa (Sp)) 2 puff INHALATION Q2H PRN PRN PRN Reason: Dyspnea, wheezing Last Admin: 02/11/20 10:53 Dose: 2 puff Documented by: Atorvastatin Calcium (Lipitor) 10 mg PO QHS [facility] Last Admin: 02/12/20 20:43 Dose: 10 mg Documented by: Bisacodyl (Dulcolax) 5 mg PO DAILY [facility] Last Admin: 02/13/20 10:11 Dose: Not Given Documented by: Buspirone HCl (Buspar) 10 mg PO BID [facility] Last Admin: 02/13/20 10:09 Dose: 10 mg Documented by: Dextrose (D50w Syringe) 0 gm IV X1 PRN; Protocol PRN Reason: Hypoglycemia Diphenoxylate HCl/Atropine (Lomotil) 1 tablet PO 4X/DAY PRN PRN Reason: Diarrhea Enoxaparin Sodium (Lovenox) 90 mg SC Q12 [facility] Last Admin: 02/13/20 10:08 Dose: 90 mg Documented by: Fluticasone Propionate (Flovent Diskus 100 Mcg) 1 puff INHALATION BID [facility] Last Admin: 02/13/20 10:11 Dose: 1 puff Documented by: Furosemide (Lasix) 40 mg IV BID@1000,1800 [facility] Last Admin: 02/13/20 10:08 Dose: 40 mg Documented by: Glucagon () 1 mg IM .X1 PRN PRN Reason: Hypoglycemia Guaifenesin (Robitussin) 10 ml PO Q4H PRN PRN PRN Reason: COUGH Last Admin: 02/10/20 03:22 Dose: 10 ml Documented by: Guaifenesin (Mucinex) 600 mg PO BID [facility] Last Admin: 02/13/20 10:08 Dose: 600 mg Documented by: Hydralazine HCl (Apresoline Iv) 10 mg IV Q4H PRN PRN PRN Reason: SBP > 160 Hydroxyzine Pamoate (Vistaril Pamoate Capsule) 25 mg PO 4X/DAY PRN PRN Reason: ANXIETY Last Admin: 02/12/20 08:45 Dose: 25 mg Documented by: Sodium Chloride () 250 mls @ 15 mls/hr IV .[id number] PRN PRN Reason: Saline Flush Last Infusion: 02/08/20 13:22 Dose: 0 mls/hr Documented by: Sodium Chloride () 250 mls @ 15 mls/hr IV .[id number] PRN PRN Reason: Additional IVPB Infusion Sodium Chloride () 500 mls @ 15 mls/hr IV PRN PRN PRN Reason: Blood Transfusion Loratadine (Claritin) 10 mg PO QHS [facility] Last Admin: 02/12/20 20:44 Dose: 10 mg Documented by: Melatonin (Melatonin) 5 mg PO QHS [facility] Last Admin: 02/12/20 20:44 Dose: 5 mg Documented by: Miscellaneous Information (Pocket Chamber) 1 each INHALATION Q2H PRN PRN Reason: FOR USE WITH ALBUTEROL Last Admin: 02/11/20 03:53 Dose: 1 each Documented by: Nitroglycerin (Nitrostat) 0.4 mg SUBLINGUAL Q5M PRN PRN Reason: CARDIAC/CHEST PAIN Nystatin (Mycostatin Powder) 1 applic TOPICAL TID [facility]; Protocol Last Admin: 02/13/20 03:52 Dose: 1 applicatio Documented by: Olanzapine (Zyprexa) 5 mg PO QHS [facility] Last Admin: 02/12/20 20:43 Dose: 5 mg Documented by: [facility] Admin: 02/12/20 20:44 Dose: 10 mg Documented by: Ondansetron HCl (Zofran) 4 mg IV Q8H PRN PRN PRN Reason: NAUSEA/VOMITING Last Admin: 02/03/20 13:34 Dose: 4 mg Documented by: Oxycodone HCl (Oxyir) 5 mg PO Q4H PRN PRN PRN Reason: Pain Score 4-5/10 Last Admin: 02/13/20 03:51 Dose: 5 mg Documented by: Oxymetazoline HCl (Afrin (Bkc)) 1 spray NASAL BID [facility] Last Admin: 02/13/20 10:10 Dose: 1 spray Documented by: Pantoprazole Sodium (Protonix) 20 mg PO DAILY [facility] Last Admin: 02/12/20 08:46 Dose: 20 mg Documented by: Polyethylene Glycol (Miralax) 17 gm PO DAILY [facility] Last Admin: 02/13/20 10:11 Dose: Not Given Documented by: Prochlorperazine Edisylate (Compazine Iv) 5 mg IV Q4H PRN PRN PRN Reason: Breakthrough Nausea/Vomiting Sodium Chloride () 10 - 40 ml IV UD PRN PRN Reason: SALINE FLUSH Last Admin: 02/12/20 16:56 Dose: 10 ml Documented by: Throat Lozenges (Cepacol Sore Throat Lozenge) 1 lozenge MUCOUS MEM Q2H PRN PRN PRN Reason: SORE THROAT Last Admin: 02/08/20 05:50 Dose: 1 lozenge Documented by: Medical Necessity - Tobacco Use Smoking Status: Never smoker Route of nutrition/ use of supplements: [] Nutritional Intake: [] IV Site: [] Bullard Catheter: [] - Assessment/Plan Antibiotics: [] Assessment/Plan: [] Active and Suspected Problems (Last Reviewed 07/25/19 @ 14:23 by Angi Sauceda) Acute respiratory failure with hypoxia (Acute) Suspected COVID-19 virus infection (Acute) EPI (acute kidney injury) (Acute) History of CVA (cerebrovascular accident) (Acute) History of traumatic brain injury (Acute) History of pulmonary embolism (Acute) COVID with hypoxic resp failure - on therapeutic anticoagulation. O2 much improved. Off abx. Received convalescent serum 02/09. Will follow
[2020-02-13 12:55] LABS: Absolute Lymphocyte Count 1.77 X10^3/uL (0.83-4.51); Absolute Neutrophil Count 5.5 X10^3/uL (2.0-7.7); Basophil# 0.05 X10^3/uL; Basophil% 0.6 % (0-1); Eosinophils% 1.2 % (0-5); Hematocrit 33.9 % (37-47); Hemoglobin 10.7 g/dL (12.0-15.0); Lymphocyte # 1.77 X10^3/ul (4.0); Lymphocyte % 20.4 % (19-41); Mean Corp Hgb Conc 31.6 g/dL (32-36); Mean Corpuscular Hgb 27.2 pg (27.0-32.0); Mean Corpuscular Volume 86.3 fL (81-99); Mean Platelet Vol. 9.8 fl (6.2-12.0); Monocyte# 0.96 X10^3/uL; Monocyte% 11.1 % (0-10); NRBC Flagged by Analyzer 0 % (0-5); Neutrophil # 5.53 X10^3/uL (2.7-7.7); Neutrophil % 63.8 % (47-70); POSITIVE COUNT YES; RBC Distribution Width CV 14.7 % (11.6-14.6); RBC Distribution Width SD 46.6 fl (35.1-43.9); Red Blood Count 3.93 M/mm3 (4.2-5.4); White Blood Count 8.7 K/mm3 (4.4-11.0)
[2020-02-13 12:57] LABS: Differential Indicated SCAN CRITERIA MET
[2020-02-13 12:58] LABS: Platelet Count 797 K/mm3 (150-450)
[2020-02-13 13:07] LABS: Anion Gap 7 (5-15); BUN 46 mg/dL (7-18); BUN/Creat Ratio 39.7 RATIO (10-20); Calcium,Total 9.4 mg/dL (8.5-10.1); Chloride 101 mmol/L (98-107); Creatinine, Serum 1.16 mg/dL (0.55-1.02); EST Glomerular Filtration Rate 48 mL/min (>60); Est Glom Filt Rate - Afr Amer 58 mL/min (>60); Estimated Creatinine Clearance 35.39 ml/min; Glucose 229 mg/dL (74-106); Potassium 4.1 mmol/L (3.5-5.1); Sodium Level 139 mmol/L (136-145)
[2020-02-13 13:29] LABS: Platelet Estimate MKD INC (ADEQ); Red Cell Morphology NORM C+C NORMAL (NORM C&C)
[2020-02-13] MEDS: Furosemide 20 MG/2 ML VIAL IV (17:51)
[2020-02-13] MEDS: 0.9% Saline Lock 10 ML Syringe IV (17:51)
[2020-02-13] MEDS: Atorvastatin Calcium 10 MG Tablet PO (22:11)
[2020-02-13] MEDS: MELATONIN 10 MG TABLET 5 MG PO (22:11)
[2020-02-13] MEDS: OLANZapine 2.5 MG Tablet 5 MG PO (22:11)
[2020-02-13] MEDS: Loratadine 10 MG Tablet PO (22:11)
[2020-02-13] MEDS: OLANZapine 10 MG Tablet PO (22:11)
[2020-02-14 04:06] LABS: Absolute Lymphocyte Count 1.88 X10^3/uL (0.83-4.51); Absolute Neutrophil Count 4.6 X10^3/uL (2.0-7.7); Basophil# 0.07 X10^3/uL; Basophil% 0.9 % (0-1); Eosinophil# 0.12 X10^3/uL; Eosinophils% 1.6 % (0-5); Hematocrit 32.8 % (37-47); Hemoglobin 10.3 g/dL (12.0-15.0); Lymphocyte # 1.88 X10^3/ul (4.0); Lymphocyte % 24.7 % (19-41); Mean Corp Hgb Conc 31.4 g/dL (32-36); Mean Corpuscular Hgb 27.5 pg (27.0-32.0); Mean Corpuscular Volume 87.5 fL (81-99); Mean Platelet Vol. 9.5 fl (6.2-12.0); Monocyte# 0.78 X10^3/uL; Monocyte% 10.2 % (0-10); NRBC Flagged by Analyzer 0 % (0-5); Neutrophil # 4.55 X10^3/uL (2.7-7.7); Neutrophil % 59.7 % (47-70); Platelet Count 685 K/mm3 (150-450); RBC Distribution Width CV 14.8 % (11.6-14.6); RBC Distribution Width SD 47.1 fl (35.1-43.9); Red Blood Count 3.75 M/mm3 (4.2-5.4); White Blood Count 7.6 K/mm3 (4.4-11.0)
[2020-02-14 04:23] LABS: ALB/GLOB Ratio 0.5 RATIO (0.9-2.4); AST(SGOT) 42 U/L (15-37); Alanine Aminotransfer ALT/SGPT 71 U/L (13-56); Albumin, Serum 2.3 g/dL (3.2-5.0); Alkaline Phosphatase 72 U/L (45-117); Anion Gap 7 (5-15); BUN 47 mg/dL (7-18); BUN/Creat Ratio 48.4 RATIO (10-20); Calcium,Total 9.2 mg/dL (8.5-10.1); Chloride 103 mmol/L (98-107); Creatinine, Serum 0.97 mg/dL (0.55-1.02); EST Glomerular Filtration Rate 59 mL/min (>60); Est Glom Filt Rate - Afr Amer 71 mL/min (>60); Estimated Creatinine Clearance 42.32 ml/min; Globulin 4.7 g/dL (2.2-4.2); Glucose 118 mg/dL (74-106); Sodium Level 139 mmol/L (136-145)
[2020-02-14] MEDS: Nystatin Powder 15gm Bottle 1 APPLIC TOPICAL (05:20)
[2020-02-14 05:47] VITALS: BP 106/55; PULSE 60; RESP 13; TEMP 36.8; O2SAT 94
[2020-02-14 08:15] VITALS: O2SAT 93
--- NOTE | 2020-02-14 09:09 | PCM.TXEXTCAR ---
- Diet 01/29/20 10:35 Diet: Cardiac/Low Cholesterol Food consistency:: Regular Liquid Consistency:: Regular/Thin Type of Dietary Supplement:: Ensure Clear - Routine Orders/Code Status O2 Liters per Minute: 2 O2 Frequency: Continuous Keep PO Greater than or Equal to (%): 94 - Encourage use of incentive spirometer Routine Lab Work: CBC - within 3 days, BMP - within 3 days Code Status: DNRCC - Therapies Weight Bearing: Weight bearing as tolerated Extremity Affected:: Bilateral Lower Physical Therapy: Eval and Treat Occupational Therapy: Eval and Treat - Allergies/Procedures Done in Hospital Allergies/Adverse Reactions: Allergies benztropine mesylate [From Cogentin] Allergy (Verified 01/29/20 08:20) Itching risperidone [From Risperdal] Allergy (Verified 01/29/20 08:20) Shortness of breath verapamil [Verapamil] Allergy (Verified 01/29/20 08:20) Itching baclofen Adverse Reaction (Verified 01/29/20 08:20) agitation, mean codeine Adverse Reaction (Verified 01/29/20 08:20) Nausea Procedures: 2-D Echocardiogram - Type of Care/Length of Stay Estimated LOS: Convalescent Care Less Than 30 days Type of Care Needed: Skilled Rehab Potential: Fair Prognosis: Fair - Additional Orders/Day of Discharge Additional Orders: Continue to encourage use of incentive spirometer. Day of Discharge: 02/14/20 - Dietary and Speech Recommendations Dietitian Recommendations/Changes: Rec continue Cardiac/low cholesterol diet. Fluid restriction as medically indicated. Will offer magic cup w/ meals for increased nutrition if consumed. - Follow Up Care Primary Care Physician: Corey Nicole Chi, MD [COURTESY STAFF PHYSICIAN] - Please follow up with your Primary Care Physician in: within 1-2 weeks of discharge
--- NOTE | 2020-02-14 09:22 | CASEMGMT ---
JOCELYN spoke with Radha at [facility] and let her know patient is ready for d/c today. She asked if patient is still positive for COVID19. JOCELYN looked at chart and did not see that patient had a 2nd test. JOCELYN spoke with RN and she notified physician that patient needs another test to return to SNF. Per hospital guidelines she qualifies for the in house testing which takes a few hours. Radha GIORDANO MSW
--- NOTE | 2020-02-14 10:13 | DS.PCM_ITS ---
Discharge Date and Diagnosis - Problem List Patient Problems: Active and Suspected Problems (Last Reviewed 07/25/19 @ 14:23 by Angi Sauceda) Acute respiratory failure with hypoxia (Acute) Suspected COVID-19 virus infection (Acute) EPI (acute kidney injury) (Acute) History of CVA (cerebrovascular accident) (Acute) History of traumatic brain injury (Acute) History of pulmonary embolism (Acute) COVID-19 (Acute) Date of Admission: 01/29/20 Date of Discharge: 02/14/20 - Primary Discharge Diagnosis Active and Suspected Problems (Last Reviewed 07/25/19 @ 14:23 by Angi Sauceda) Acute respiratory failure with hypoxia (Acute) Acute CO VID?19 pneumonia/infection EPI (acute kidney injury) (Acute) Hyperkalemia Hypotension secondary to dehydration - Secondary Discharge Diagnosis Chronic Problems (Last Reviewed 07/25/19 @ 14:23 by Angi Sauceda) Paroxysmal atrial fibrillation (Chronic) Obesity (BMI 30-39.9) (Chronic) Grade I diastolic dysfunction (Chronic) Mild pulmonary hypertension (Chronic) Sleep-disordered breathing (Chronic) CHF (congestive heart failure) (Chronic) Schizophrenia (Chronic) Hypertension (Chronic) Rotator cuff syndrome of left shoulder (Chronic) GERD (gastroesophageal reflux disease) (Chronic) HLD (hyperlipidemia) (Chronic) Segmental and somatic dysfunction of pelvic region (Chronic) Segmental and somatic dysfunction of thoracic region (Chronic) DDD (degenerative disc disease), lumbar (Chronic) with mild to moderate multilevel Lumbar canal stenosis and foraminal stenosis Hospital Course and Treatment Imaging Results: Clinical Impression(s) from Imaging Studies Chest X-Ray 01/29/20 08:30 IMPRESSION: Left lower lobe atelectatic changes with early region of airspace disease not completely excluded. Electronically Signed: Mian Dunlap DO at 9:47 EDT , Service support , Chest X-Ray 01/30/20 04:42 IMPRESSION: Left basilar small atelectasis or infiltrate, unchanged. No new or progressive disease. at 0732 Reported and signed by: Stone Godinez MD Electronically Signed: Stone Godinez, at 7:31 EDT Tel , Service support , Chest X-Ray 02/02/20 09:45 IMPRESSION: Progressive right upper lobe and left perihilar infiltrate as compared to prior study. Electronically Signed: Odin Faria, at 11:12 EDT , Service support , Chest X-Ray 02/06/20 19:00 IMPRESSION: Worsening bilateral pulmonary infiltrates when compared to the prior study. Electronically Signed: Aly Hassan, at 19:24 EDT Tel [phone], Service support , Chest X-Ray 02/09/20 06:00 IMPRESSION: There has been improved aeration as compared to prior study. Further follow-up is recommended. Electronically Signed: Odin Quesadaadriana, at 8:45 EDT , Service support , ID Pulmonology Operations: None Procedures: - - s/p convalescent plasma on 02/10/20 Summary of Care Provided: The patient is a 79 year old F with past medical history of CAD, paroxysmal atrial fibrillation on Eliquis, hypertension, hyperlipidemia, history of CVA, schizophrenia, history of PE on Eliquis, who is resident in [facility] who presented with ongoing nausea emesis and diarrhea for 3 to 4 days. Patient was admitted on 01/25/20. She was hypoxic in the emergency room was saturating 84% on room air, improved to 93% on 2 L. She was also hypotensive with blood pressure 89/48. Hypotension was believed to be secondary to dehydration. It improved with hydration. CO VID 19 testing was positive. Her management was that of acute hypoxic respiratory failure. She was treated supportively. She also presents with acute kidney injury with admission creatinine of 3.21, baseline creatinine 0.8-1. Patient was followed by pulmonology and ID. Admitting pro calcitonin, and d- dimer and CRP were elevated on admission. Blood cultures and urine cultures were negative. Patient completed 11 days of antibiotics. Repeat inflammatory biomarkers appear to improve. Patient had a natremia which is related to her acute kidney injury that improved with improvement in her kidney function. She was also managed as acute on chronic diastolic CHF exacerbation improved with IV Lasix. Her repeat COVID-19 test on discharge was negative. At time of discharge, patient had improved to 2 L of oxygen. Patient Problems: Active and Suspected Problems (Last Reviewed 07/25/19 @ 14:23 by Angi Sauceda) Acute respiratory failure with hypoxia (Acute) Suspected COVID-19 virus infection (Acute) EPI (acute kidney injury) (Acute) History of CVA (cerebrovascular accident) (Acute) History of traumatic brain injury (Acute) History of pulmonary embolism (Acute) COVID-19 (Acute) Subjective: On the day of discharge, patient was seen and examined. Denied any new complaints. She is on 2 L of oxygen. She will be discharged to the correction today. Her repeat COVID?19 test was negative. Objective: Physical exam: General: Oriented x3, Cooperative, alert and awake, on 2L oxygen, obese HEENT: Atraumatic, PERRLA, EOMI, Normocephalic Neck: Supple, No JVD, Negative Carotid Bruits Lungs: Diminished bilaterally predominantly in both lower lobes, fine expiratory rhonchi Cardiovascular: Regular rate, Regular Rhythm, Normal S1, Normal S2, No murmurs Abdomen: Bowel Sounds Present, Soft, Non Tender, Non-Distended Extremities: mild ankle in both legs; seems chronic. Capillary Refill Less than 3 Seconds Skin: No rashes, No breakdown Musculoskeletal: No Tenderness to Palpation of Joints or Extremities, Arthritic Changes Neurological: Cranial nerves II-XII grossly intact, Deep Tendon Reflexes 2+/4 and Symmetrical, Neuro grossly intact Psych/Mental Status: Normal Affect, Appropriate - Physical Exam Vitals/I&O's: Vital Signs Temp Pulse Resp BP Pulse Ox 98.2 F 60 13 106/55 L 93 02/14/20 05:47 02/14/20 05:47 02/14/20 05:47 02/14/20 05:47 02/14/20 08:15 Oxygen Flow Rate (L/min) 2 Oxygen Delivery Method Nasal Cannula Weight: 87.6 kg Body Mass Index (BMI) 34.2 Intake and Output for Last 24 Hours 02/12/20 02/13/20 02/14/20 23:59 23:59 23:59 Intake Total 490 / 490 300 / 550 350 / 350 Output Total 1200 / 1200 900 / 1350 450 / 450 Balance -710 / -710 -600 / -800 -100 / -100 Microbiology Past 72 Hours 02/06/20 19:30 Blood Culture (Wb) - Right Hand Blood Culture - Final No growth in 5 days. 02/06/20 19:20 Blood Culture (Wb) - Left Hand Blood Culture - Final No growth in 5 days. Laboratory Results 02/13/20 12:50: WBC 8.7, RBC 3.93 L, Hgb 10.7 L, Hct 33.9 L, MCV 86.3, MCH 27.2, MCHC 31.6 L, RDW Std Deviation 46.6 H, RDW Coeff of Lamine 14.7 H, Plt Count 797 H* , MPV 9.8, Immature Gran % (Auto) 2.900 H, Neut % (Auto) 63.8, Lymph % (Auto) 20.4, [place] % (Auto) 11.1 H, Eos % (Auto) 1.2, Baso % (Auto) 0.6, Absolute Neuts (auto) 5.5, Absolute Lymphs (auto) 1.77, Nucleated RBC % 0, Diff Path Review February, Platelet Estimate MKD INC, RBC Morphology NORM C+C 02/13/20 12:50: Sodium 139, Potassium 4.1, Chloride 101, Carbon Dioxide 31.0, Anion Gap 7, BUN 46 H, Creatinine 1.16 H, Estim Creat Clear Calc 35.39, Est GFR (MDRD) Af Amer 58 L, Est GFR (MDRD) Non-Af 48 L, BUN/Creatinine Ratio 39.7 H, Glucose 229 H, Calcium 9.4 02/14/20 03:50: WBC 7.6, RBC 3.75 L, Hgb 10.3 L, Hct 32.8 L, MCV 87.5, MCH 27.5, MCHC 31.4 L, RDW Std Deviation 47.1 H, RDW Coeff of Lamine 14.8 H, Plt Count 685 H, MPV 9.5, Immature Gran % (Auto) 2.900 H, Neut % (Auto) 59.7, Lymph % (Auto) 24.7, [place] % (Auto) 10.2 H, Eos % (Auto) 1.6, Baso % (Auto) 0.9, Absolute Neuts (auto) 4.6, Absolute Lymphs (auto) 1.88, Nucleated RBC % 0 02/14/20 03:50: Sodium 139, Potassium 4.0, Chloride 103, Carbon Dioxide 29.0, Anion Gap 7, BUN 47 H, Creatinine 0.97, Estim Creat Clear Calc 42.32, Est GFR (MDRD) Af Amer 71, Est GFR (MDRD) Non-Af 59 L, BUN/Creatinine Ratio 48.4 H, Glucose 118 H, Calcium 9.2, Total Bilirubin 0.50, AST 42 H, ALT 71 H, Alkaline Phosphatase 72, Total Protein 7.0, Albumin 2.3 L, Globulin 4.7 H, Albumin/Globulin Ratio 0.5 L Current Medications Acetaminophen (Tylenol) 650 mg PO Q6H PRN PRN PRN Reason: Pain Score 1-10/Temp > 100.7 F Last Admin: 02/08/20 18:15 Dose: 650 mg Documented by: Albuterol Sulfate (Ventolin Hfa (Sp)) 2 puff INHALATION Q2H PRN PRN PRN Reason: Dyspnea, wheezing Last Admin: 02/11/20 10:53 Dose: 2 puff Documented by: Atorvastatin Calcium (Lipitor) 10 mg PO QHS [facility] BEDS AT [facility] Last Admin: 02/13/20 22:11 Dose: 10 mg Documented by: Bisacodyl (Dulcolax) 5 mg PO DAILY [facility] 234 BEDS AT [facility] Last Admin: 02/13/20 10:11 Dose: Not Given Documented by: Buspirone HCl (Buspar) 10 mg PO BID [facility] 234 BEDS AT [facility] Last Admin: 02/13/20 22:10 Dose: 10 mg Documented by: Dextrose (D50w Syringe) 0 gm IV X1 PRN; Protocol PRN Reason: Hypoglycemia Diphenoxylate HCl/Atropine (Lomotil) 1 tablet PO 4X/DAY PRN PRN Reason: Diarrhea Enoxaparin Sodium (Lovenox) 90 mg SC Q12 [facility]S [facility] 234 BEDS AT [facility] Last Admin: 02/13/20 22:16 Dose: 90 mg Documented by: Fluticasone Propionate (Flovent Diskus 100 Mcg) 1 puff INHALATION BID [facility]S INCLUDE 234 BEDS AT [facility] Last Admin: 02/13/20 22:14 Dose: 1 puff Documented by: Furosemide (Lasix) 20 mg IV BID@1000,1800 COUNTS INCLUDE 234 BEDS AT [facility] Last Admin: 02/13/20 17:51 Dose: 20 mg Documented by: Glucagon () 1 mg IM .X1 PRN PRN Reason: Hypoglycemia Guaifenesin (Robitussin) 10 ml PO Q4H PRN PRN PRN Reason: COUGH Last Admin: 02/10/20 03:22 Dose: 10 ml Documented by: Guaifenesin (Mucinex) 600 mg PO BID [facility] 234 BEDS AT [facility] Last Admin: 02/13/20 22:11 Dose: 600 mg Documented by: Hydralazine HCl (Apresoline Iv) 10 mg IV Q4H PRN PRN PRN Reason: SBP > 160 Hydroxyzine Pamoate (Vistaril Pamoate Capsule) 25 mg PO 4X/DAY PRN PRN Reason: ANXIETY Last Admin: 02/12/20 08:45 Dose: 25 mg Documented by: Sodium Chloride () 250 mls @ 15 mls/hr IV .[id number] PRN PRN Reason: Saline Flush Last Infusion: 02/13/20 17:20 Dose: Infused Documented by: Sodium Chloride () 250 mls @ 15 mls/hr IV .[id number] PRN PRN Reason: Additional IVPB Infusion Sodium Chloride () 500 mls @ 15 mls/hr IV PRN PRN PRN Reason: Blood Transfusion Loratadine (Claritin) 10 mg PO QHS [facility]S [facility]CLUDE 234 BEDS AT [facility] Last Admin: 02/13/20 22:11 Dose: 10 mg Documented by: Melatonin (Melatonin) 5 mg PO QHS [facility]S [facility]CLUDE 234 BEDS AT [facility] Last Admin: 02/13/20 22:11 Dose: 5 mg Documented by: Miscellaneous Information (Pocket Chamber) 1 each INHALATION Q2H PRN PRN Reason: FOR USE WITH ALBUTEROL Last Admin: 02/11/20 03:53 Dose: 1 each Documented by: Nitroglycerin (Nitrostat) 0.4 mg SUBLINGUAL Q5M PRN PRN Reason: CARDIAC/CHEST PAIN Nystatin (Mycostatin Powder) 1 applic TOPICAL TID COUNTS INCLUDE 234 BEDS AT THE [facility]; Protocol Last Admin: 02/14/20 05:20 Dose: 1 applicatio Documented by: Olanzapine (Zyprexa) 5 mg PO QHS [facility]S INCLUDE 234 BEDS AT THE [facility] Last Admin: 02/13/20 22:11 Dose: 5 mg Documented by: Olanzapine (Zyprexa) 10 mg PO QHS [facility]S INCLUDE 234 BEDS AT [facility] Last Admin: 02/13/20 22:11 Dose: 10 mg Documented by: Ondansetron HCl (Zofran) 4 mg IV Q8H PRN PRN PRN Reason: NAUSEA/VOMITING Last Admin: 02/03/20 13:34 Dose: 4 mg Documented by: Oxycodone HCl (Oxyir) 5 mg PO Q4H PRN PRN PRN Reason: Pain Score 4-5/10 Last Admin: 02/13/20 23:31 Dose: 5 mg Documented by: Oxymetazoline HCl (Afrin (Bkc)) 1 spray NASAL BID COUNTS INCLUDE 234 BEDS AT THE [facility] Last Admin: 02/13/20 22:13 Dose: 1 spray Documented by: Pantoprazole Sodium (Protonix) 20 mg PO DAILY COUNTS INCLUDE 234 BEDS AT [facility] Last Admin: 02/12/20 08:46 Dose: 20 mg Documented by: Polyethylene Glycol (Miralax) 17 gm PO DAILY COUNTS INCLUDE 234 BEDS AT [facility] Last Admin: 02/13/20 10:11 Dose: Not Given Documented by: Prochlorperazine Edisylate (Compazine Iv) 5 mg IV Q4H PRN PRN PRN Reason: Breakthrough Nausea/Vomiting Sodium Chloride () 10 - 40 ml IV UD PRN PRN Reason: SALINE FLUSH Last Admin: 02/13/20 17:51 Dose: 10 ml Documented by: Throat Lozenges (Cepacol Sore Throat Lozenge) 1 lozenge MUCOUS MEM Q2H PRN PRN PRN Reason: SORE THROAT Last Admin: 02/08/20 05:50 Dose: 1 lozenge Documented by: Discharge Diet: Low fat/ Low Cholesterol, 2000 mg Sodium Diet Discharge Activity: Return to Normal Activity Weight Bearing Status: Weight bearing as tolerated Home Medications: Medications to take at Discharge Albuterol Sulfate [Albuterol Sulfate HFA] 2 puff IH Q3H PRN 01/29/20 Apixaban [Eliquis] 5 mg PO BID 01/29/20 Atorvastatin Calcium [Lipitor] 10 mg PO QHS 01/29/20 Bisacodyl 10 mg [place] PRN PRN 01/29/20 Cholecalciferol (VIT D3) [Vitamin D3] 5,000 unit PO TH 01/29/20 Guaifenesin [Robitussin] 10 ml PO Q4H PRN PRN 01/29/20 Ketotifen Fumarate 1 drp OP BID 01/29/20 Loperamide HCl [Loperamide] 2 mg PO Q4H PRN 01/29/20 Loratadine 10 mg PO QHS 01/29/20 Magnesium Hydroxide [Milk Of Magnesia] 30 ml PO DAILY PRN PRN 01/29/20 Magnesium Hydroxide [Milk Of Magnesia] 30 ml PO Q4H PRN 01/29/20 Melatonin 5 mg PO QHS 01/29/20 Na Phos,M-B/Na Phos,Di-Ba [Fleet Enema] 1 bottle RECTAL PRN PRN 01/29/20 Nystatin Powder [Mycostatin Powder] 1 applic TOPICAL TID 01/29/20 Olanzapine 15 mg PO QHS 01/29/20 Omeprazole 20 mg PO DAILY 01/29/20 Polyethylene Glycol 1450 17 gm PO DAILY PRN 01/29/20 Tramadol HCl [Ultram] 50 mg PO Q8H PRN 01/29/20 Furosemide [Lasix] 40 mg PO BID #60 tab 02/14/20 Following Prescrptions Were Given to Patient: Furosemide [Lasix] 40 mg PO BID #60 tab Primary Care Physician: Corey Nicole Chi, MD [COURTESY STAFF PHYSICIAN] - Please follow up with your Primary Care Physician in: within 1-2 weeks of discharge Disposition: Half-Way facility Minutes spent on discharge:: 40 Patient Condition:: Stable Medical Necessity - Tobacco Use Smoking Status: Never smoker Tobacco Use: Non-smoker Meaningful Use Info Meaningful Use Diagnoses (Choose all that apply): None applicable Inpatient E&M: 29125 Disch Hosp
[2020-02-14 10:56] LABS: Pathologist Review Reviewed
--- NOTE | 2020-02-14 11:57 | CASEMGMT ---
JOCELYN faxed orders to [facility]. Awaiting COVID 19 testing results. Radha GIORDANO COUNTER PROFESSIONAL
[2020-02-14] MEDS: Oxymetazoline 0.05% 1 SPRAY SPRAY.BTL NASAL (11:58)
[2020-02-14] MEDS: busPIRone 5 MG Tablet 10 MG PO (11:59)
[2020-02-14 12:00] VITALS: BP 138/64; PULSE 78; RESP 16; TEMP 36.7; O2SAT 94
[2020-02-14] MEDS: Bisacodyl 5 MG Tablet PO (12:00)
[2020-02-14] MEDS: 0.9% Saline Lock 10 ML Syringe IV (12:02)
[2020-02-14] MEDS: Furosemide 20 MG/2 ML VIAL IV (12:02)
[2020-02-14] MEDS: Enoxaparin 100 MG/ML Syringe 90 MG SC (12:02)
[2020-02-14] MEDS: Pantoprazole Sodium 20 MG Tablet PO (12:03)
[2020-02-14] MEDS: guaiFENesin 600 MG Tablet PO (12:03)
--- NOTE | 2020-02-14 14:16 | CASEMGMT ---
Patient's COVID 19 test was negative. JOCELYN faxed this to [facility]. SW called [employer] to arrange wheelchair transport as patient has [facility]. When JOCELYN was told that patient needs O2 SW was told that they cannot transport patient via wc van if she requires O2. SW was then told she does not have stretcher benefits so they cannot arrange transport for patient. JOCELYN then called [facility] to arrange wc van and originally they said they are not contracted with [facility] and SW needs to call [employer]. JOCELYN then explained to her what JOCELYN was told by [email or web address] and she clarified with her manager intel that they can transport via wc. Transport was set up for 3p via wc van. JOCELYN notified RN, patient, certified legal secretary specialist, Radha at [facility], and patient's son Alfred per her request. Plan: d/c back to [facility] under skilled level of care. [facility] transported her via wc van. Radha GIORDANO MSW
== END 2020-02-14 15:30 | disposition skilled nursing facility (03) | DRG 177 ==
LOC: ED 08:57 → ICU 10:09 → MS2 01-30 07:07 → ICU 01-30 11:14
PROVIDERS: Hospitalist; Internal Medicine; Internal Medicine Infectious Disease; Admitting Provider Family Medicine; Emergency Provider Emergency Medicine; PCP Family Medicine; Visit Provider Internal Medicine
DX: U07.1 COVID-19 (principal); J12.89 Other viral pneumonia; J96.01 Acute respiratory failure with hypoxia; R57.1 Hypovolemic shock; N17.9 Acute kidney failure, unspecified; I50.32 Chronic diastolic (congestive) heart failure; I11.0 Hypertensive heart disease with heart failure; E87.6 Hypokalemia; E87.5 Hyperkalemia; I95.9 Hypotension, unspecified; K52.9 Noninfective gastroenteritis and colitis, unspecified; K59.00 Constipation, unspecified; I48.0 Paroxysmal atrial fibrillation; I27.20 Pulmonary hypertension, unspecified; I25.10 Atherosclerotic heart disease of native coronary artery without angina pectoris; E78.1 Pure hyperglyceridemia; E78.5 Hyperlipidemia, unspecified; G89.29 Other chronic pain; R73.9 Hyperglycemia, unspecified; M19.90 Unspecified osteoarthritis, unspecified site; K21.9 Gastro-esophageal reflux disease without esophagitis; F20.9 Schizophrenia, unspecified; F32.9 Major depressive disorder, single episode, unspecified; F41.9 Anxiety disorder, unspecified; E66.9 Obesity, unspecified; Z68.34 Body mass index [BMI] 34.0-34.9, adult; Z79.01 Long term (current) use of anticoagulants; Z79.899 Other long term (current) drug therapy; I25.2 Old myocardial infarction; Z86.711 Personal history of pulmonary embolism; Z86.73 Personal history of transient ischemic attack (TIA), and cerebral infarction without residual deficits; Z86.718 Personal history of other venous thrombosis and embolism
CPT/HCPCS: 36415; 71045; 71046; 80048; 80053; 80202; 81001; 82550; 82728; 82977; 83036; 83605; 83615; 83690; 83735; 83880; 84132; 84145; 84484; 85025; 85379; 85610; 85730; 86140; 86900; 86901; 87040; 87086; 87449; 87493; 87506; 87633; 87635; 87641; 93005; 94660; 94667; 94762; 96361; 96374; 97110; 97116; 97162; 97166; 97530; 97535; 97802; 97803; 99251; 99285; G2023; J2185; J7030; J7040; J7050; A4216; G0463; J1940; J2405; U0002

== ENCOUNTER → 2021-03-08 | Outpatient (REF) | payer MEDICARE, MEDICAID, SELFPAY ==
[2020-01-29 10:49] VITALS: BMI 34.2
[2021-03-08 07:56] LABS: Absolute Lymphocyte Count 2.85 X10^3/uL (0.83-4.51); Basophil# 0.07 X10^3/uL; Basophil% 0.9 % (0-1); Eosinophil# 0.21 X10^3/uL; Eosinophils% 2.7 % (0-5); Hematocrit 35.6 % (37-47); Hemoglobin 10.5 g/dL (12.0-15.0); Lymphocyte # 2.85 X10^3/ul (0.83-4.51); Lymphocyte % 36.9 % (19-41); Mean Corp Hgb Conc 29.5 g/dL (32-36); Mean Corpuscular Hgb 25.7 pg (27.0-32.0); Mean Corpuscular Volume 87.3 fL (81-99); Monocyte# 0.59 X10^3/uL; Monocyte% 7.6 % (0-10); NRBC Flagged by Analyzer 0 % (0-5); Neutrophil # 3.97 X10^3/uL (2.7-7.7); Neutrophil % 51.4 % (47-70); Platelet Count 288 K/mm3 (150-450); RBC Distribution Width CV 15.9 % (11.6-14.6); RBC Distribution Width SD 50.4 fl (35.1-43.9); Red Blood Count 4.08 M/mm3 (4.2-5.4); White Blood Count 7.7 K/mm3 (4.4-11.0)
[2021-03-08 08:09] LABS: Anion Gap 1 (5-15); BUN 21 mg/dL (7-18); Chloride 106 mmol/L (98-107); Creatinine, Serum 0.68 mg/dL (0.55-1.02); EST Glomerular Filtration Rate 89 mL/min (>60); Est Glom Filt Rate - Afr Amer 107 mL/min (>60); Glucose 87 mg/dL (74-106); Potassium 3.7 mmol/L (3.5-5.1); Sodium Level 145 mmol/L (136-145)
== END | disposition home or self-care (01) ==
LOC: OLS.SW500 05:00
PROVIDERS: PCP Family Medicine; Visit Provider Family Medicine
DX: R55 Syncope and collapse (principal); E55.9 Vitamin D deficiency, unspecified
CPT/HCPCS: 36415; 80048; 85025

== ENCOUNTER → 2021-04-05 05:00 | Outpatient (REF) | payer MEDICARE, MEDICAID, SELFPAY ==
[2020-01-29 10:49] VITALS: BMI 34.2
[2021-04-05 08:33] LABS: Absolute Lymphocyte Count 2.51 X10^3/uL (0.83-4.51); Absolute Neutrophil Count 4.3 X10^3/uL (2.0-7.7); Basophil# 0.05 X10^3/uL; Basophil% 0.6 % (0-1); Eosinophils% 2.6 % (0-5); Hematocrit 35.4 % (37-47); Hemoglobin 10.5 g/dL (12.0-15.0); Lymphocyte # 2.51 X10^3/ul (0.83-4.51); Lymphocyte % 32.6 % (19-41); Mean Corp Hgb Conc 29.7 g/dL (32-36); Mean Corpuscular Hgb 25.7 pg (27.0-32.0); Mean Corpuscular Volume 86.6 fL (81-99); Monocyte# 0.65 X10^3/uL; Monocyte% 8.4 % (0-10); NRBC Flagged by Analyzer 0 % (0-5); Neutrophil # 4.27 X10^3/uL (2.7-7.7); Neutrophil % 55.4 % (47-70); Platelet Count 288 K/mm3 (150-450); RBC Distribution Width SD 50.3 fl (35.1-43.9); Red Blood Count 4.09 M/mm3 (4.2-5.4); White Blood Count 7.7 K/mm3 (4.4-11.0)
[2021-04-05 08:46] LABS: Anion Gap 4 (5-15); BUN 15 mg/dL (7-18); BUN/Creat Ratio 21.2 RATIO (10-20); Chloride 107 mmol/L (98-107); Creatinine, Serum 0.71 mg/dL (0.55-1.02); EST Glomerular Filtration Rate 84 mL/min (>60); Est Glom Filt Rate - Afr Amer 102 mL/min (>60); Glucose 86 mg/dL (74-106); Potassium 3.7 mmol/L (3.5-5.1); Sodium Level 144 mmol/L (136-145)
[2021-04-05 09:26] LABS: Vitamin D,25 Hydroxy 31.6 ng/mL
== END ==
LOC: OLS.SW500 05:00
PROVIDERS: PCP Family Medicine; Referring Provider Family Medicine; Visit Provider Family Medicine
DX: I48.91 Unspecified atrial fibrillation (principal); R53.83 Other fatigue; I10 Essential (primary) hypertension; E78.5 Hyperlipidemia, unspecified; E55.9 Vitamin D deficiency, unspecified
CPT/HCPCS: 36415; 80048; 82306; 85025

== ENCOUNTER → 2021-05-03 05:00 | Outpatient (REF) | payer MEDICARE, MEDICAID, SELFPAY ==
[2020-01-29 10:49] VITALS: BMI 34.2
[2021-05-03 07:04] LABS: Absolute Neutrophil Count 4.9 X10^3/uL (2.0-7.7); Basophil# 0.07 X10^3/uL; Basophil% 0.8 % (0-1); Eosinophil# 0.27 X10^3/uL; Eosinophils% 3.2 % (0-5); Hematocrit 35.7 % (37-47); Hemoglobin 10.7 g/dL (12.0-15.0); Lymphocyte % 28.5 % (19-41); Mean Corpuscular Hgb 25.8 pg (27.0-32.0); Mean Corpuscular Volume 86.2 fL (81-99); Mean Platelet Vol. 9.7 fl (6.2-12.0); Monocyte# 0.77 X10^3/uL; Monocyte% 9.1 % (0-10); NRBC Flagged by Analyzer 0 % (0-5); Neutrophil # 4.88 X10^3/uL (2.7-7.7); Platelet Count 308 K/mm3 (150-450); RBC Distribution Width CV 16.2 % (11.6-14.6); RBC Distribution Width SD 51.3 fl (35.1-43.9); Red Blood Count 4.14 M/mm3 (4.2-5.4); White Blood Count 8.4 K/mm3 (4.4-11.0)
[2021-05-03 07:31] LABS: Anion Gap 4 (5-15); BUN 22 mg/dL (7-18); BUN/Creat Ratio 38.9 RATIO (10-20); Calcium,Total 8.9 mg/dL (8.5-10.1); Chloride 108 mmol/L (98-107); Creatinine, Serum 0.56 mg/dL (0.55-1.02); EST Glomerular Filtration Rate 109 mL/min (>60); Est Glom Filt Rate - Afr Amer 132 mL/min (>60); Glucose 94 mg/dL (74-106); Potassium 3.7 mmol/L (3.5-5.1); Sodium Level 142 mmol/L (136-145)
== END ==
LOC: OLS.SW500 05:00
PROVIDERS: PCP Family Medicine; Referring Provider Family Medicine; Visit Provider Family Medicine
DX: R53.83 Other fatigue (principal); I10 Essential (primary) hypertension
CPT/HCPCS: 36415; 80048; 85025

== ENCOUNTER → 2021-05-31 05:00 | Outpatient (REF) | payer MEDICARE, MEDICAID, SELFPAY ==
[2021-05-31 07:57] LABS: Absolute Lymphocyte Count 3.38 X10^3/uL (0.83-4.51); Absolute Neutrophil Count 4.9 X10^3/uL (2.0-7.7); Basophil# 0.08 X10^3/uL; Basophil% 0.9 % (0-1); Eosinophil# 0.15 X10^3/uL; Eosinophils% 1.6 % (0-5); Hematocrit 38.9 % (37-47); Hemoglobin 11.3 g/dL (12.0-15.0); Lymphocyte # 3.38 X10^3/ul (0.83-4.51); Lymphocyte % 36.8 % (19-41); Mean Corpuscular Hgb 25.3 pg (27.0-32.0); Mean Corpuscular Volume 87.2 fL (81-99); Mean Platelet Vol. 9.7 fl (6.2-12.0); Monocyte% 6.5 % (0-10); NRBC Flagged by Analyzer 0 % (0-5); Neutrophil # 4.92 X10^3/uL (2.7-7.7); Neutrophil % 53.7 % (47-70); Platelet Count 391 K/mm3 (150-450); RBC Distribution Width SD 53.4 fl (35.1-43.9); Red Blood Count 4.46 M/mm3 (4.2-5.4); White Blood Count 9.2 K/mm3 (4.4-11.0)
[2021-05-31 08:15] LABS: Anion Gap 3 (5-15); BUN 22 mg/dL (7-18); Calcium,Total 9.3 mg/dL (8.5-10.1); Chloride 109 mmol/L (98-107); Creatinine, Serum 0.69 mg/dL (0.55-1.02); EST Glomerular Filtration Rate 87 mL/min (>60); Est Glom Filt Rate - Afr Amer 105 mL/min (>60); Glucose 93 mg/dL (74-106); Potassium 3.7 mmol/L (3.5-5.1); Sodium Level 144 mmol/L (136-145)
== END ==
LOC: OLS.SW500 05:00
PROVIDERS: PCP Family Medicine; Visit Provider Family Medicine
DX: R53.83 Other fatigue (principal); I10 Essential (primary) hypertension
CPT/HCPCS: 36415; 80048; 85025

== ENCOUNTER → 2021-06-28 05:00 | Outpatient (REF) | payer MEDICARE, MEDICAID, SELFPAY ==
[2021-06-28 08:09] LABS: Absolute Neutrophil Count 2.8 X10^3/uL (2.0-7.7); Basophil# 0.06 X10^3/uL; Basophil% 0.9 % (0-1); Eosinophils% 3.1 % (0-5); Hematocrit 36.2 % (37-47); Hemoglobin 10.7 g/dL (12.0-15.0); Lymphocyte % 44.4 % (19-41); Mean Corp Hgb Conc 29.6 g/dL (32-36); Mean Corpuscular Hgb 25.9 pg (27.0-32.0); Mean Corpuscular Volume 87.7 fL (81-99); Mean Platelet Vol. 9.5 fl (6.2-12.0); Monocyte# 0.54 X10^3/uL; Monocyte% 8.3 % (0-10); NRBC Flagged by Analyzer 0 % (0-5); Neutrophil % 42.8 % (47-70); Platelet Count 298 K/mm3 (150-450); RBC Distribution Width CV 16.8 % (11.6-14.6); RBC Distribution Width SD 54.2 fl (35.1-43.9); Red Blood Count 4.13 M/mm3 (4.2-5.4); White Blood Count 6.5 K/mm3 (4.4-11.0)
[2021-06-28 08:34] LABS: Anion Gap 3 (5-15); BUN 25 mg/dL (7-18); BUN/Creat Ratio 40.8 RATIO (10-20); Calcium,Total 8.9 mg/dL (8.5-10.1); Chloride 111 mmol/L (98-107); Creatinine, Serum 0.61 mg/dL (0.55-1.02); EST Glomerular Filtration Rate 99 mL/min (>60); Est Glom Filt Rate - Afr Amer 120 mL/min (>60); Glucose 87 mg/dL (74-106); Potassium 4.1 mmol/L (3.5-5.1); Sodium Level 145 mmol/L (136-145)
== END ==
LOC: OLS.SW500 05:00
PROVIDERS: PCP Family Medicine; Visit Provider Family Medicine
DX: R53.83 Other fatigue (principal); I10 Essential (primary) hypertension
CPT/HCPCS: 36415; 80048; 85025

== ENCOUNTER → 2021-07-26 05:00 | Outpatient (REF) | payer MEDICARE, MEDICAID, SELFPAY ==
[2021-07-26 07:43] LABS: Absolute Lymphocyte Count 3.72 X10^3/uL (0.83-4.51); Absolute Neutrophil Count 3.5 X10^3/uL (2.0-7.7); Basophil# 0.07 X10^3/uL; Basophil% 0.9 % (0-1); Eosinophil# 0.26 X10^3/uL; Eosinophils% 3.2 % (0-5); Hematocrit 37.5 % (37-47); Hemoglobin 10.9 g/dL (12.0-15.0); Lymphocyte # 3.72 X10^3/ul (0.83-4.51); Lymphocyte % 45.5 % (19-41); Mean Corp Hgb Conc 29.1 g/dL (32-36); Mean Corpuscular Hgb 25.9 pg (27.0-32.0); Mean Corpuscular Volume 89.1 fL (81-99); Mean Platelet Vol. 10.4 fl (6.2-12.0); Monocyte# 0.62 X10^3/uL; Monocyte% 7.6 % (0-10); NRBC Flagged by Analyzer 0 % (0-5); Neutrophil # 3.45 X10^3/uL (2.7-7.7); Neutrophil % 42.1 % (47-70); Platelet Count 340 K/mm3 (150-450); RBC Distribution Width CV 16.5 % (11.6-14.6); RBC Distribution Width SD 53.9 fl (35.1-43.9); Red Blood Count 4.21 M/mm3 (4.2-5.4); White Blood Count 8.2 K/mm3 (4.4-11.0)
[2021-07-26 08:08] LABS: Anion Gap 7 (5-15); BUN 19 mg/dL (7-18); BUN/Creat Ratio 32.1 RATIO (10-20); Calcium,Total 9.2 mg/dL (8.5-10.1); Chloride 109 mmol/L (98-107); Creatinine, Serum 0.59 mg/dL (0.55-1.02); EST Glomerular Filtration Rate 104 mL/min (>60); Est Glom Filt Rate - Afr Amer 125 mL/min (>60); Glucose 83 mg/dL (74-106); Potassium 3.7 mmol/L (3.5-5.1); Sodium Level 144 mmol/L (136-145)
== END ==
LOC: OLS.SW500 05:00
PROVIDERS: PCP Family Medicine; Visit Provider Family Medicine
DX: R53.83 Other fatigue (principal); I10 Essential (primary) hypertension
CPT/HCPCS: 36415; 80048; 85025

== ENCOUNTER → 2021-08-14 15:52 | Outpatient (REF) | payer MEDICARE, MEDICAID, SELFPAY ==
[2021-08-15 07:04] LABS: Mucous, Urine 0 SEEN /hpf (<or=2+)
[2021-08-15 08:08] LABS: Color, Urine Yellow (Yellow); Glucose, Dipstick Normal (Normal); Ketone-Dipstick Negative (Negative); Leukocyte Esterase-Dipstick 500 /ul (Negative); Nitrite-Dipstick Positive (Negative); Occult Blood-Urine 250 /ul (Negative); Protein-Dipstick 15 mg/dl (Negative); Urine Bilirubin Dipstick Negative (Negative); Urine Clarity Cloudy (Clear); Urine Urobilinogen Normal (Normal)
[2021-08-15 08:26] LABS: Amorphous Sediment 1+; Bacteria 2+ /hpf (None Seen); Red Blood Cells-Urine 25-50 SEEN /hpf (0-5); Squamous Epithelial Cells - UA 0-5 SEEN /hpf (5-10); White Blood Cells 25-50 SEEN /hpf (0-5)
== END ==
LOC: OLS.SW500 15:52
PROVIDERS: PCP Family Medicine; Visit Provider Family Medicine
DX: R31.9 Hematuria, unspecified (principal)
CPT/HCPCS: 81001; 87077; 87086; 87088; 87186

== ENCOUNTER → 2021-08-23 05:00 | Outpatient (REF) | payer MEDICARE, MEDICAID, SELFPAY ==
[2021-08-23 07:44] LABS: Absolute Lymphocyte Count 2.44 X10^3/uL (0.83-4.51); Absolute Neutrophil Count 5.3 X10^3/uL (2.0-7.7); Basophil# 0.07 X10^3/uL; Basophil% 0.8 % (0-1); Eosinophil# 0.23 X10^3/uL; Eosinophils% 2.7 % (0-5); Hematocrit 37.1 % (37-47); Hemoglobin 11.4 g/dL (12.0-15.0); Lymphocyte # 2.44 X10^3/ul (0.83-4.51); Lymphocyte % 28.1 % (19-41); Mean Corp Hgb Conc 30.7 g/dL (32-36); Mean Corpuscular Hgb 26.1 pg (27.0-32.0); Mean Corpuscular Volume 84.9 fL (81-99); Mean Platelet Vol. 9.2 fl (6.2-12.0); Monocyte% 6.9 % (0-10); NRBC Flagged by Analyzer 0 % (0-5); Neutrophil # 5.26 X10^3/uL (2.7-7.7); Neutrophil % 60.7 % (47-70); Platelet Count 435 K/mm3 (150-450); RBC Distribution Width CV 16.5 % (11.6-14.6); RBC Distribution Width SD 50.9 fl (35.1-43.9); Red Blood Count 4.37 M/mm3 (4.2-5.4); White Blood Count 8.7 K/mm3 (4.4-11.0)
[2021-08-23 08:00] LABS: Anion Gap 3 (5-15); BUN 14 mg/dL (7-18); BUN/Creat Ratio 17.1 RATIO (10-20); Calcium,Total 9.3 mg/dL (8.5-10.1); Chloride 107 mmol/L (98-107); Creatinine, Serum 0.82 mg/dL (0.55-1.02); EST Glomerular Filtration Rate 71 mL/min (>60); Est Glom Filt Rate - Afr Amer 86 mL/min (>60); Glucose 108 mg/dL (74-106); Potassium 3.8 mmol/L (3.5-5.1); Sodium Level 140 mmol/L (136-145)
== END ==
LOC: OLS.SW500 05:00
PROVIDERS: PCP Family Medicine; Visit Provider Family Medicine
DX: R53.83 Other fatigue (principal); I10 Essential (primary) hypertension
CPT/HCPCS: 36415; 80048; 85025

== ENCOUNTER → 2021-08-30 05:00 | Outpatient (REF) | payer MEDICARE, MEDICAID, SELFPAY ==
[2021-08-30 09:32] LABS: Cholesterol 143 mg/dL (200); High Density Lipoprotein 52 mg/dL; Triglycerides 87 mg/dL; Very Low Density Lipoprotein 17 mg/dL (5-40)
[2021-08-30 13:36] LABS: Vitamin D,25 Hydroxy 30.3 ng/mL
== END ==
LOC: OLS.SW500 05:00
PROVIDERS: PCP Family Medicine; Visit Provider Family Medicine
DX: E78.5 Hyperlipidemia, unspecified (principal); E55.9 Vitamin D deficiency, unspecified
CPT/HCPCS: 36415; 80061; 82306

== ENCOUNTER → 2021-09-20 05:00 | Outpatient (REF) | payer MEDICARE, MEDICAID, SELFPAY ==
[2021-09-20 06:35] LABS: Absolute Lymphocyte Count 3.07 X10^3/uL (0.83-4.51); Absolute Neutrophil Count 3.7 X10^3/uL (2.0-7.7); Basophil# 0.08 X10^3/uL; Eosinophil# 0.24 X10^3/uL; Eosinophils% 3.1 % (0-5); Hemoglobin 10.7 g/dL (12.0-15.0); Lymphocyte # 3.07 X10^3/ul (0.83-4.51); Lymphocyte % 39.4 % (19-41); Mean Corp Hgb Conc 29.7 g/dL (32-36); Mean Corpuscular Hgb 26.3 pg (27.0-32.0); Mean Corpuscular Volume 88.5 fL (81-99); Mean Platelet Vol. 10.2 fl (6.2-12.0); Monocyte# 0.65 X10^3/uL; Monocyte% 8.3 % (0-10); NRBC Flagged by Analyzer 0 % (0-5); Neutrophil # 3.72 X10^3/uL (2.7-7.7); Neutrophil % 47.8 % (47-70); Platelet Count 273 K/mm3 (150-450); RBC Distribution Width CV 16.6 % (11.6-14.6); RBC Distribution Width SD 53.5 fl (35.1-43.9); Red Blood Count 4.07 M/mm3 (4.2-5.4); White Blood Count 7.8 K/mm3 (4.4-11.0)
[2021-09-20 07:04] LABS: Anion Gap 4 (5-15); BUN 26 mg/dL (7-18); BUN/Creat Ratio 38.5 RATIO (10-20); Calcium,Total 8.8 mg/dL (8.5-10.1); Chloride 110 mmol/L (98-107); Creatinine, Serum 0.68 mg/dL (0.55-1.02); EST Glomerular Filtration Rate 89 mL/min (>60); Est Glom Filt Rate - Afr Amer 108 mL/min (>60); Glucose 88 mg/dL (74-106); Potassium 3.7 mmol/L (3.5-5.1); Sodium Level 146 mmol/L (136-145)
== END ==
LOC: OLS.SW500 05:00
PROVIDERS: PCP Family Medicine; Visit Provider Family Medicine
DX: R53.83 Other fatigue (principal); I10 Essential (primary) hypertension
CPT/HCPCS: 36415; 80048; 85025

== ENCOUNTER → 2021-10-03 04:00 | Outpatient (REF) | payer MEDICARE, MEDICAID, SELFPAY ==
[2021-10-03 09:32] LABS: Vitamin D,25 Hydroxy 32.5 ng/mL
== END ==
LOC: OLS.SW500 04:00
PROVIDERS: PCP Family Medicine; Referring Provider Family Medicine; Visit Provider Family Medicine
DX: E55.9 Vitamin D deficiency, unspecified (principal)
CPT/HCPCS: 36415; 82306

== ENCOUNTER → 2021-10-18 | Outpatient (REF) | payer MEDICARE, MEDICAID, SELFPAY ==
[2021-10-18 07:49] LABS: Anion Gap 3 (5-15); BUN 14 mg/dL (7-18); BUN/Creat Ratio 21.6 RATIO (10-20); Calcium,Total 8.9 mg/dL (8.5-10.1); Chloride 108 mmol/L (98-107); Creatinine, Serum 0.65 mg/dL (0.55-1.02); EST Glomerular Filtration Rate 93 mL/min (>60); Est Glom Filt Rate - Afr Amer 113 mL/min (>60); Glucose 86 mg/dL (74-106); Potassium 3.6 mmol/L (3.5-5.1); Sodium Level 145 mmol/L (136-145)
[2021-10-18 08:12] LABS: Absolute Lymphocyte Count 3.13 X10^3/uL (0.83-4.51); Absolute Neutrophil Count 2.8 X10^3/uL (2.0-7.7); Basophil# 0.07 X10^3/uL; Eosinophil# 0.28 X10^3/uL; Eosinophils% 4.1 % (0-5); Hematocrit 36.3 % (37-47); Hemoglobin 10.9 g/dL (12.0-15.0); Lymphocyte # 3.13 X10^3/ul (0.83-4.51); Lymphocyte % 45.7 % (19-41); Mean Corpuscular Hgb 25.9 pg (27.0-32.0); Mean Corpuscular Volume 86.2 fL (81-99); Mean Platelet Vol. 10.6 fl (6.2-12.0); Monocyte# 0.57 X10^3/uL; Monocyte% 8.3 % (0-10); NRBC Flagged by Analyzer 0 % (0-5); Neutrophil # 2.78 X10^3/uL (2.7-7.7); Neutrophil % 40.6 % (47-70); Platelet Count 297 K/mm3 (150-450); RBC Distribution Width CV 16.2 % (11.6-14.6); RBC Distribution Width SD 51.1 fl (35.1-43.9); Red Blood Count 4.21 M/mm3 (4.2-5.4); White Blood Count 6.9 K/mm3 (4.4-11.0)
== END | disposition home or self-care (01) ==
LOC: OLS.SW500 05:40
PROVIDERS: PCP Family Medicine; Visit Provider Family Medicine
DX: I10 Essential (primary) hypertension (principal); R53.83 Other fatigue
CPT/HCPCS: 36415; 80048; 85025

== ENCOUNTER → 2021-11-15 | Outpatient (REF) | payer MEDICARE, MEDICAID, SELFPAY ==
[2021-11-15 06:48] LABS: Absolute Lymphocyte Count 2.46 X10^3/uL (0.83-4.51); Absolute Neutrophil Count 5.5 X10^3/uL (2.0-7.7); Basophil# 0.05 X10^3/uL; Basophil% 0.6 % (0-1); Eosinophils% 2.2 % (0-5); Hemoglobin 11.3 g/dL (12.0-15.0); Lymphocyte # 2.46 X10^3/ul (0.83-4.51); Lymphocyte % 27.4 % (19-41); Mean Corp Hgb Conc 32.3 g/dL (32-36); Mean Corpuscular Hgb 27.8 pg (27.0-32.0); Mean Platelet Vol. 10.2 fl (6.2-12.0); Monocyte# 0.73 X10^3/uL; Monocyte% 8.1 % (0-10); NRBC Flagged by Analyzer 0 % (0-5); Neutrophil % 61.3 % (47-70); Platelet Count 267 K/mm3 (150-450); RBC Distribution Width CV 15.9 % (11.6-14.6); RBC Distribution Width SD 49.9 fl (35.1-43.9); Red Blood Count 4.07 M/mm3 (4.2-5.4)
[2021-11-15 07:07] LABS: Anion Gap 3 (5-15); BUN 19 mg/dL (7-18); BUN/Creat Ratio 28.4 RATIO (10-20); Calcium,Total 8.9 mg/dL (8.5-10.1); Chloride 108 mmol/L (98-107); Creatinine, Serum 0.67 mg/dL (0.55-1.02); EST Glomerular Filtration Rate 90 mL/min (>60); Est Glom Filt Rate - Afr Amer 109 mL/min (>60); Glucose 85 mg/dL (74-106); Potassium 3.4 mmol/L (3.5-5.1); Sodium Level 144 mmol/L (136-145)
== END | disposition home or self-care (01) ==
LOC: OLS.SW500 04:00
PROVIDERS: PCP Family Medicine; Visit Provider Family Medicine
DX: R53.83 Other fatigue (principal); I10 Essential (primary) hypertension
CPT/HCPCS: 36415; 80048; 85025

== ENCOUNTER → 2021-12-13 | Outpatient (REF) | payer MEDICARE, MEDICAID, SELFPAY ==
[2021-12-13 07:55] LABS: Absolute Neutrophil Count 3.1 X10^3/uL (2.0-7.7); Basophil# 0.06 X10^3/uL; Basophil% 0.9 % (0-1); Eosinophil# 0.24 X10^3/uL; Eosinophils% 3.4 % (0-5); Hemoglobin 10.2 g/dL (12.0-15.0); Lymphocyte % 43.1 % (19-41); Mean Corpuscular Hgb 26.2 pg (27.0-32.0); Mean Corpuscular Volume 87.4 fL (81-99); Monocyte# 0.59 X10^3/uL; Monocyte% 8.5 % (0-10); NRBC Flagged by Analyzer 0 % (0-5); Neutrophil # 3.05 X10^3/uL (2.7-7.7); Neutrophil % 43.8 % (47-70); Platelet Count 283 K/mm3 (150-450); RBC Distribution Width CV 15.7 % (11.6-14.6); Red Blood Count 3.89 M/mm3 (4.2-5.4)
[2021-12-13 08:04] LABS: Anion Gap 1 (5-15); BUN 22 mg/dL (7-18); BUN/Creat Ratio 29.4 RATIO (10-20); Calcium,Total 9.1 mg/dL (8.5-10.1); Chloride 111 mmol/L (98-107); Creatinine, Serum 0.75 mg/dL (0.55-1.02); EST Glomerular Filtration Rate 79 mL/min (>60); Est Glom Filt Rate - Afr Amer 95 mL/min (>60); Glucose 83 mg/dL (74-106); Sodium Level 146 mmol/L (136-145)
== END | disposition home or self-care (01) ==
LOC: OLS.SW500 05:00
PROVIDERS: PCP Family Medicine; Visit Provider Family Medicine
DX: I10 Essential (primary) hypertension (principal); R53.83 Other fatigue
CPT/HCPCS: 36415; 80048; 85025

== ENCOUNTER → 2022-01-10 | Outpatient (REF) | payer MEDICARE, MEDICAID, SELFPAY ==
[2022-01-10 08:56] LABS: Absolute Lymphocyte Count 2.13 X10^3/uL (0.83-4.51); Absolute Neutrophil Count 1.7 X10^3/uL (2.0-7.7); Basophil# 0.04 X10^3/uL; Basophil% 0.8 % (0-1); Eosinophil# 0.24 X10^3/uL; Hematocrit 32.6 % (37-47); Hemoglobin 9.8 g/dL (12.0-15.0); Lymphocyte # 2.13 X10^3/ul (0.83-4.51); Mean Corp Hgb Conc 30.1 g/dL (32-36); Mean Corpuscular Hgb 25.9 pg (27.0-32.0); Mean Platelet Vol. 10.4 fl (6.2-12.0); Monocyte# 0.67 X10^3/uL; Monocyte% 13.8 % (0-10); NRBC Flagged by Analyzer 0 % (0-5); Neutrophil # 1.74 X10^3/uL (2.7-7.7); Platelet Count 298 K/mm3 (150-450); RBC Distribution Width CV 15.8 % (11.6-14.6); RBC Distribution Width SD 49.7 fl (35.1-43.9); Red Blood Count 3.79 M/mm3 (4.2-5.4); White Blood Count 4.8 K/mm3 (4.4-11.0)
[2022-01-10 09:12] LABS: Anion Gap 2 (5-15); BUN 21 mg/dL (7-18); BUN/Creat Ratio 32.8 RATIO (10-20); Calcium,Total 8.4 mg/dL (8.5-10.1); Chloride 107 mmol/L (98-107); Creatinine, Serum 0.64 mg/dL (0.55-1.02); EST Glomerular Filtration Rate 94 mL/min (>60); Est Glom Filt Rate - Afr Amer 114 mL/min (>60); Glucose 78 mg/dL (74-106); Potassium 3.6 mmol/L (3.5-5.1); Sodium Level 141 mmol/L (136-145)
== END | disposition home or self-care (01) ==
LOC: OLS.SW500 05:00
PROVIDERS: PCP Family Medicine; Visit Provider Family Medicine
DX: I10 Essential (primary) hypertension (principal); R53.83 Other fatigue
CPT/HCPCS: 36415; 80048; 85025

== ENCOUNTER → 2022-02-27 | Outpatient (REF) | payer MEDICARE, SELFPAY ==
[2022-02-27 08:40] LABS: Cholesterol 139 mg/dL (200); High Density Lipoprotein 46 mg/dL; Triglycerides 122 mg/dL; Very Low Density Lipoprotein 24 mg/dL (5-40)
[2022-02-27 09:44] LABS: Vitamin D,25 Hydroxy 32.5 ng/mL
== END | disposition home or self-care (01) ==
LOC: OLS.SW500 05:00
PROVIDERS: PCP Family Medicine; Referring Provider Family Medicine; Visit Provider Family Medicine
DX: E78.5 Hyperlipidemia, unspecified (principal)
CPT/HCPCS: 36415; 80061; 82306

== ENCOUNTER 2022-03-07 05:00 | Outpatient (REF) | payer MEDICARE, MEDICAID, SELFPAY ==
[2022-03-07 08:52] LABS: Absolute Lymphocyte Count 2.64 X10^3/uL (0.83-4.51); Absolute Neutrophil Count 4.6 X10^3/uL (2.0-7.7); Basophil# 0.05 X10^3/uL; Basophil% 0.6 % (0-1); Eosinophil# 0.21 X10^3/uL; Eosinophils% 2.6 % (0-5); Hemoglobin 10.1 g/dL (12.0-15.0); Lymphocyte # 2.64 X10^3/ul (0.83-4.51); Lymphocyte % 32.1 % (19-41); Mean Corp Hgb Conc 29.7 g/dL (32-36); Mean Corpuscular Hgb 26.1 pg (27.0-32.0); Mean Corpuscular Volume 87.9 fL (81-99); Mean Platelet Vol. 9.9 fl (6.2-12.0); Monocyte# 0.64 X10^3/uL; Monocyte% 7.8 % (0-10); NRBC Flagged by Analyzer 0 % (0-5); Neutrophil # 4.64 X10^3/uL (2.7-7.7); Neutrophil % 56.4 % (47-70); Platelet Count 313 K/mm3 (150-450); RBC Distribution Width CV 16.9 % (11.6-14.6); RBC Distribution Width SD 53.5 fl (35.1-43.9); Red Blood Count 3.87 M/mm3 (4.2-5.4); White Blood Count 8.2 K/mm3 (4.4-11.0)
[2022-03-07 09:05] LABS: Anion Gap 4 (5-15); BUN 20 mg/dL (7-18); BUN/Creat Ratio 36.4 RATIO (10-20); Calcium,Total 9.1 mg/dL (8.5-10.1); Chloride 106 mmol/L (98-107); Cholesterol 149 mg/dL (200); Creatinine, Serum 0.55 mg/dL (0.55-1.02); EST Glomerular Filtration Rate 113 mL/min (>60); Est Glom Filt Rate - Afr Amer 136 mL/min (>60); Glucose 84 mg/dL (74-106); High Density Lipoprotein 50 mg/dL; Potassium 3.6 mmol/L (3.5-5.1); Sodium Level 143 mmol/L (136-145); Triglycerides 71 mg/dL; Very Low Density Lipoprotein 14 mg/dL (5-40)
[2022-03-07 09:21] LABS: Vitamin D,25 Hydroxy 31.4 ng/mL
== END 2022-03-07 23:59 | disposition home or self-care (01) ==
LOC: OLS.SW500 05:00
PROVIDERS: PCP Family Medicine; Visit Provider Family Medicine
DX: I10 Essential (primary) hypertension (principal); E78.5 Hyperlipidemia, unspecified; R53.83 Other fatigue; E55.9 Vitamin D deficiency, unspecified
CPT/HCPCS: 36415; 80048; 80061; 82306; 85025

== ENCOUNTER → 2022-04-02 04:00 | Outpatient (REF) | payer MEDICARE, MEDICAID, SELFPAY ==
[2022-04-02 08:30] LABS: Vitamin D,25 Hydroxy 36.8 ng/mL
== END ==
LOC: OLS.SW500 04:00
PROVIDERS: PCP Family Medicine; Visit Provider Family Medicine
DX: E55.9 Vitamin D deficiency, unspecified (principal)
CPT/HCPCS: 36415; 82306

== ENCOUNTER → 2022-04-04 05:00 | Outpatient (REF) | payer MEDICARE, MEDICAID, SELFPAY ==
[2022-04-04 07:38] LABS: Absolute Lymphocyte Count 2.74 X10^3/uL (0.83-4.51); Absolute Neutrophil Count 2.8 X10^3/uL (2.0-7.7); Basophil# 0.05 X10^3/uL; Basophil% 0.8 % (0-1); Eosinophil# 0.19 X10^3/uL; Hematocrit 32.1 % (37-47); Hemoglobin 9.4 g/dL (12.0-15.0); Lymphocyte # 2.74 X10^3/ul (0.83-4.51); Lymphocyte % 43.7 % (19-41); Mean Corp Hgb Conc 29.3 g/dL (32-36); Mean Corpuscular Hgb 25.2 pg (27.0-32.0); Mean Corpuscular Volume 86.1 fL (81-99); Mean Platelet Vol. 9.6 fl (6.2-12.0); Monocyte# 0.52 X10^3/uL; Monocyte% 8.3 % (0-10); NRBC Flagged by Analyzer 0 % (0-5); Neutrophil # 2.75 X10^3/uL (2.7-7.7); Neutrophil % 43.9 % (47-70); Platelet Count 389 K/mm3 (150-450); RBC Distribution Width CV 16.8 % (11.6-14.6); RBC Distribution Width SD 52.9 fl (35.1-43.9); Red Blood Count 3.73 M/mm3 (4.2-5.4); White Blood Count 6.3 K/mm3 (4.4-11.0)
[2022-04-04 07:53] LABS: Anion Gap 2 (5-15); BUN 20 mg/dL (7-18); BUN/Creat Ratio 29.6 RATIO (10-20); Calcium,Total 8.9 mg/dL (8.5-10.1); Chloride 111 mmol/L (98-107); Creatinine, Serum 0.68 mg/dL (0.55-1.02); EST Glomerular Filtration Rate 89 mL/min (>60); Est Glom Filt Rate - Afr Amer 107 mL/min (>60); Glucose 89 mg/dL (74-106); Potassium 3.6 mmol/L (3.5-5.1); Sodium Level 145 mmol/L (136-145)
== END ==
LOC: OLS.SW500 05:00
PROVIDERS: PCP Family Medicine; Visit Provider Family Medicine
DX: R53.83 Other fatigue (principal); I10 Essential (primary) hypertension
CPT/HCPCS: 36415; 80048; 85025

== ENCOUNTER → 2022-05-02 | Outpatient (REF) | payer MEDICARE, MEDICAID, SELFPAY ==
[2022-05-02 09:05] LABS: Absolute Lymphocyte Count 1.42 X10^3/uL (0.83-4.51); Absolute Neutrophil Count 9.9 X10^3/uL (2.0-7.7); Basophil# 0.04 X10^3/uL; Basophil% 0.3 % (0-1); Eosinophil# 0.03 X10^3/uL; Eosinophils% 0.2 % (0-5); Hematocrit 31.7 % (37-47); Hemoglobin 9.5 g/dL (12.0-15.0); Lymphocyte # 1.42 X10^3/ul (0.83-4.51); Lymphocyte % 11.7 % (19-41); Mean Corpuscular Hgb 25.6 pg (27.0-32.0); Mean Corpuscular Volume 85.4 fL (81-99); Mean Platelet Vol. 9.9 fl (6.2-12.0); Monocyte# 0.73 X10^3/uL; NRBC Flagged by Analyzer 0 % (0-5); Neutrophil # 9.89 X10^3/uL (2.7-7.7); Neutrophil % 81.2 % (47-70); Platelet Count 313 K/mm3 (150-450); RBC Distribution Width CV 16.9 % (11.6-14.6); RBC Distribution Width SD 52.9 fl (35.1-43.9); Red Blood Count 3.71 M/mm3 (4.2-5.4); White Blood Count 12.2 K/mm3 (4.4-11.0)
[2022-05-02 09:33] LABS: Anion Gap 5 (5-15); BUN 19 mg/dL (7-18); BUN/Creat Ratio 31.8 RATIO (10-20); Calcium,Total 9.1 mg/dL (8.5-10.1); Chloride 109 mmol/L (98-107); EST Glomerular Filtration Rate 102 mL/min (>60); Est Glom Filt Rate - Afr Amer 124 mL/min (>60); Glucose 95 mg/dL (74-106); Potassium 3.6 mmol/L (3.5-5.1); Sodium Level 143 mmol/L (136-145)
== END | disposition home or self-care (01) ==
LOC: OLS.SW500 05:00
PROVIDERS: PCP Family Medicine; Visit Provider Family Medicine
DX: I10 Essential (primary) hypertension (principal); R53.83 Other fatigue
CPT/HCPCS: 36415; 80048; 85025

== ENCOUNTER → 2022-05-15 | Outpatient (REF) | payer MEDICARE, MEDICAID, SELFPAY ==
[2022-05-15 08:26] LABS: AST(SGOT) 14 U/L (15-37); Alanine Aminotransfer ALT/SGPT 12 U/L (13-56); Albumin, Serum 2.7 g/dL (3.2-5.0); Alkaline Phosphatase 113 U/L (45-117); Bilirubin, Direct 0.06 mg/dL (0.00-0.30); Globulin 3.9 g/dL (2.2-4.2); Protein, Total 6.6 g/dL (6.4-8.2)
== END ==
LOC: OLS.SW500 04:00
PROVIDERS: PCP Family Medicine; Visit Provider Internal Medicine
DX: E78.5 Hyperlipidemia, unspecified (principal)
CPT/HCPCS: 36415; 80076

== ENCOUNTER → 2022-05-30 | Outpatient (REF) | payer MEDICARE, MEDICAID, SELFPAY ==
[2022-05-30 08:11] LABS: Absolute Lymphocyte Count 3.12 X10^3/uL (0.83-4.51); Absolute Neutrophil Count 3.8 X10^3/uL (2.0-7.7); Basophil# 0.08 X10^3/uL; Eosinophil# 0.27 X10^3/uL; Eosinophils% 3.4 % (0-5); Hematocrit 33.8 % (37-47); Hemoglobin 9.8 g/dL (12.0-15.0); Lymphocyte # 3.12 X10^3/ul (0.83-4.51); Lymphocyte % 39.3 % (19-41); Mean Corpuscular Hgb 24.7 pg (27.0-32.0); Mean Corpuscular Volume 85.4 fL (81-99); Mean Platelet Vol. 9.6 fl (6.2-12.0); Monocyte# 0.66 X10^3/uL; Monocyte% 8.3 % (0-10); NRBC Flagged by Analyzer 0 % (0-5); Neutrophil # 3.78 X10^3/uL (2.7-7.7); Neutrophil % 47.6 % (47-70); Platelet Count 366 K/mm3 (150-450); RBC Distribution Width CV 16.8 % (11.6-14.6); RBC Distribution Width SD 52.2 fl (35.1-43.9); Red Blood Count 3.96 M/mm3 (4.2-5.4); White Blood Count 7.9 K/mm3 (4.4-11.0)
[2022-05-30 08:31] LABS: Anion Gap 2 (5-15); BUN 23 mg/dL (7-18); BUN/Creat Ratio 33.4 RATIO (10-20); Calcium,Total 9.5 mg/dL (8.5-10.1); Chloride 112 mmol/L (98-107); Creatinine, Serum 0.69 mg/dL (0.55-1.02); EST Glomerular Filtration Rate 87 mL/min (>60); Est Glom Filt Rate - Afr Amer 105 mL/min (>60); Glucose 84 mg/dL (74-106); Potassium 3.6 mmol/L (3.5-5.1); Sodium Level 147 mmol/L (136-145)
== END ==
LOC: OLS.SW500 05:00
PROVIDERS: PCP Family Medicine; Visit Provider Family Medicine
DX: R53.83 Other fatigue (principal); I10 Essential (primary) hypertension
CPT/HCPCS: 36415; 80048; 85025

== ENCOUNTER → 2022-06-27 | Outpatient (REF) | payer MEDICARE, MEDICAID, SELFPAY ==
[2022-06-27 07:51] LABS: Absolute Lymphocyte Count 2.99 X10^3/uL (0.83-4.51); Absolute Neutrophil Count 4.1 X10^3/uL (2.0-7.7); Basophil# 0.05 X10^3/uL; Basophil% 0.6 % (0-1); Eosinophil# 0.18 X10^3/uL; Eosinophils% 2.3 % (0-5); Hematocrit 31.5 % (37-47); Lymphocyte # 2.99 X10^3/ul (0.83-4.51); Lymphocyte % 37.5 % (19-41); Mean Corp Hgb Conc 28.6 g/dL (32-36); Mean Corpuscular Hgb 24.5 pg (27.0-32.0); Mean Corpuscular Volume 85.6 fL (81-99); Mean Platelet Vol. 10.1 fl (6.2-12.0); Monocyte# 0.61 X10^3/uL; Monocyte% 7.7 % (0-10); NRBC Flagged by Analyzer 0 % (0-5); Neutrophil % 51.4 % (47-70); Platelet Count 339 K/mm3 (150-450); RBC Distribution Width CV 16.9 % (11.6-14.6); RBC Distribution Width SD 52.5 fl (35.1-43.9); Red Blood Count 3.68 M/mm3 (4.2-5.4)
[2022-06-27 08:00] LABS: Anion Gap 4 (5-15); BUN 19 mg/dL (7-18); BUN/Creat Ratio 30.4 RATIO (10-20); Chloride 106 mmol/L (98-107); Creatinine, Serum 0.62 mg/dL (0.55-1.02); EST Glomerular Filtration Rate 97 mL/min (>60); Est Glom Filt Rate - Afr Amer 117 mL/min (>60); Glucose 86 mg/dL (74-106); Sodium Level 145 mmol/L (136-145)
== END ==
LOC: OLS.SW500 05:00
PROVIDERS: PCP Family Medicine; Visit Provider Family Medicine
DX: I10 Essential (primary) hypertension (principal); R53.83 Other fatigue
CPT/HCPCS: 36415; 80048; 85025

== ENCOUNTER → 2022-07-25 | Outpatient (REF) | payer MEDICARE, MEDICAID, SELFPAY ==
[2022-07-25 08:04] LABS: Absolute Lymphocyte Count 2.94 X10^3/uL (0.83-4.51); Absolute Neutrophil Count 3.9 X10^3/uL (2.0-7.7); Basophil# 0.05 X10^3/uL; Basophil% 0.6 % (0-1); Eosinophil# 0.18 X10^3/uL; Eosinophils% 2.3 % (0-5); Hematocrit 31.7 % (37-47); Lymphocyte # 2.94 X10^3/ul (0.83-4.51); Lymphocyte % 37.9 % (19-41); Mean Corp Hgb Conc 28.4 g/dL (32-36); Mean Corpuscular Hgb 23.7 pg (27.0-32.0); Mean Corpuscular Volume 83.4 fL (81-99); Mean Platelet Vol. 9.7 fl (6.2-12.0); Monocyte# 0.66 X10^3/uL; Monocyte% 8.5 % (0-10); NRBC Flagged by Analyzer 0 % (0-5); Neutrophil % 50.3 % (47-70); Platelet Count 376 K/mm3 (150-450); RBC Distribution Width CV 17.1 % (11.6-14.6); RBC Distribution Width SD 52.1 fl (35.1-43.9); White Blood Count 7.8 K/mm3 (4.4-11.0)
[2022-07-25 08:12] LABS: Anion Gap 2 (5-15); BUN 18 mg/dL (7-18); BUN/Creat Ratio 28.3 RATIO (10-20); Calcium,Total 8.9 mg/dL (8.5-10.1); Chloride 108 mmol/L (98-107); Creatinine, Serum 0.64 mg/dL (0.55-1.02); EST Glomerular Filtration Rate 95 mL/min (>60); Est Glom Filt Rate - Afr Amer 115 mL/min (>60); Glucose 85 mg/dL (74-106); Potassium 3.9 mmol/L (3.5-5.1); Sodium Level 143 mmol/L (136-145)
== END ==
LOC: OLS.SW500 05:00
PROVIDERS: PCP Family Medicine; Visit Provider Family Medicine
DX: R53.83 Other fatigue (principal); I10 Essential (primary) hypertension
CPT/HCPCS: 36415; 80048; 85025

== ENCOUNTER → 2022-08-22 | Outpatient (REF) | payer MEDICARE, MEDICAID, SELFPAY ==
[2022-08-22 08:55] LABS: Absolute Neutrophil Count 4.8 X10^3/uL (2.0-7.7); Basophil# 0.05 X10^3/uL; Basophil% 0.6 % (0-1); Eosinophil# 0.18 X10^3/uL; Eosinophils% 2.1 % (0-5); Hematocrit 32.4 % (37-47); Hemoglobin 9.5 g/dL (12.0-15.0); Lymphocyte % 30.7 % (19-41); Mean Corp Hgb Conc 29.3 g/dL (32-36); Mean Corpuscular Hgb 24.5 pg (27.0-32.0); Mean Corpuscular Volume 83.7 fL (81-99); Mean Platelet Vol. 9.7 fl (6.2-12.0); Monocyte# 0.84 X10^3/uL; Monocyte% 9.9 % (0-10); NRBC Flagged by Analyzer 0 % (0-5); Neutrophil # 4.76 X10^3/uL (2.7-7.7); Neutrophil % 56.3 % (47-70); Platelet Count 340 K/mm3 (150-450); RBC Distribution Width CV 17.3 % (11.6-14.6); RBC Distribution Width SD 52.7 fl (35.1-43.9); Red Blood Count 3.87 M/mm3 (4.2-5.4); White Blood Count 8.5 K/mm3 (4.4-11.0)
[2022-08-22 09:16] LABS: Anion Gap 4 (5-15); BUN 27 mg/dL (7-18); BUN/Creat Ratio 41.2 RATIO (10-20); Calcium,Total 8.8 mg/dL (8.5-10.1); Chloride 106 mmol/L (98-107); Creatinine, Serum 0.66 mg/dL (0.55-1.02); EST Glomerular Filtration Rate 92 mL/min (>60); Est Glom Filt Rate - Afr Amer 111 mL/min (>60); Glucose 85 mg/dL (74-106); Potassium 4.1 mmol/L (3.5-5.1); Sodium Level 144 mmol/L (136-145)
== END ==
LOC: OLS.SW 05:00
PROVIDERS: PCP Family Medicine; Visit Provider Family Medicine
DX: R53.83 Other fatigue (principal); I10 Essential (primary) hypertension
CPT/HCPCS: 36415; 80048; 85025

== ENCOUNTER → 2022-09-04 | Outpatient (REF) | payer MEDICARE, MEDICAID, SELFPAY ==
[2022-09-04 10:08] LABS: Vitamin D,25 Hydroxy 35.8 ng/mL
[2022-09-04 10:09] LABS: Cholesterol 119 mg/dL (200); High Density Lipoprotein 45 mg/dL; Triglycerides 59 mg/dL; Very Low Density Lipoprotein 12 mg/dL (5-40)
== END ==
LOC: OLS.SW 05:00
PROVIDERS: PCP Family Medicine; Visit Provider Family Medicine
DX: E55.9 Vitamin D deficiency, unspecified (principal); E78.5 Hyperlipidemia, unspecified
CPT/HCPCS: 36415; 80061; 82306

== ENCOUNTER → 2022-09-19 | Outpatient (REF) | payer MEDICARE, MEDICAID, SELFPAY ==
[2022-09-19 08:27] LABS: Absolute Lymphocyte Count 3.12 X10^3/uL (0.83-4.51); Absolute Neutrophil Count 2.8 X10^3/uL (2.0-7.7); Basophil# 0.06 X10^3/uL; Basophil% 0.9 % (0-1); Eosinophil# 0.19 X10^3/uL; Eosinophils% 2.8 % (0-5); Hematocrit 28.5 % (37-47); Hemoglobin 7.9 g/dL (12.0-15.0); Lymphocyte # 3.12 X10^3/ul (0.83-4.51); Mean Corp Hgb Conc 27.7 g/dL (32-36); Mean Corpuscular Hgb 22.7 pg (27.0-32.0); Mean Corpuscular Volume 81.9 fL (81-99); Mean Platelet Vol. 9.2 fl (6.2-12.0); Monocyte# 0.59 X10^3/uL; Monocyte% 8.7 % (0-10); NRBC Flagged by Analyzer 0 % (0-5); Neutrophil # 2.76 X10^3/uL (2.7-7.7); Neutrophil % 40.7 % (47-70); Platelet Count 401 K/mm3 (150-450); RBC Distribution Width SD 50.8 fl (35.1-43.9); Red Blood Count 3.48 M/mm3 (4.2-5.4); White Blood Count 6.8 K/mm3 (4.4-11.0)
[2022-09-19 08:38] LABS: Anion Gap 3 (5-15); BUN 23 mg/dL (7-18); BUN/Creat Ratio 37.3 RATIO (10-20); Calcium,Total 8.6 mg/dL (8.5-10.1); Chloride 109 mmol/L (98-107); Creatinine, Serum 0.62 mg/dL (0.55-1.02); EST Glomerular Filtration Rate 99 mL/min (>60); Est Glom Filt Rate - Afr Amer 119 mL/min (>60); Glucose 98 mg/dL (74-106); Potassium 3.7 mmol/L (3.5-5.1); Sodium Level 145 mmol/L (136-145)
== END ==
LOC: OLS.SW 05:00
PROVIDERS: PCP Family Medicine; Visit Provider Family Medicine
DX: R53.83 Other fatigue (principal); I10 Essential (primary) hypertension
CPT/HCPCS: 36415; 80048; 85025

== ENCOUNTER → 2022-09-30 | Outpatient (REF) | payer MEDICARE, MEDICAID, SELFPAY ==
[2022-09-30 09:56] LABS: Vitamin D,25 Hydroxy 38.7 ng/mL
== END ==
LOC: OLS.SW 04:00
PROVIDERS: PCP Family Medicine; Referring Provider Family Medicine; Visit Provider Family Medicine
DX: E55.9 Vitamin D deficiency, unspecified (principal)
CPT/HCPCS: 36415; 82306

== ENCOUNTER → 2022-10-17 | Outpatient (REF) | payer MEDICARE, MEDICAID, SELFPAY ==
[2022-10-17 09:13] LABS: Absolute Lymphocyte Count 2.71 X10^3/uL (0.83-4.51); Absolute Neutrophil Count 4.1 X10^3/uL (2.0-7.7); Basophil# 0.07 X10^3/uL; Basophil% 0.9 % (0-1); Eosinophil# 0.23 X10^3/uL; Eosinophils% 2.9 % (0-5); Hemoglobin 8.1 g/dL (12.0-15.0); Lymphocyte # 2.71 X10^3/ul (0.83-4.51); Lymphocyte % 34.3 % (19-41); Mean Corp Hgb Conc 28.9 g/dL (32-36); Mean Corpuscular Hgb 23.5 pg (27.0-32.0); Mean Corpuscular Volume 81.4 fL (81-99); Mean Platelet Vol. 9.7 fl (6.2-12.0); Monocyte# 0.73 X10^3/uL; Monocyte% 9.2 % (0-10); NRBC Flagged by Analyzer 0 % (0-5); Neutrophil # 4.14 X10^3/uL (2.7-7.7); Neutrophil % 52.3 % (47-70); Platelet Count 371 K/mm3 (150-450); RBC Distribution Width CV 17.1 % (11.6-14.6); RBC Distribution Width SD 50.5 fl (35.1-43.9); Red Blood Count 3.44 M/mm3 (4.2-5.4); White Blood Count 7.9 K/mm3 (4.4-11.0)
[2022-10-17 09:25] LABS: Anion Gap 4 (5-15); BUN 21 mg/dL (7-18); BUN/Creat Ratio 33.2 RATIO (10-20); Calcium,Total 8.7 mg/dL (8.5-10.1); Chloride 107 mmol/L (98-107); Creatinine, Serum 0.63 mg/dL (0.55-1.02); EST Glomerular Filtration Rate 96 mL/min (>60); Est Glom Filt Rate - Afr Amer 116 mL/min (>60); Glucose 82 mg/dL (74-106); Potassium 3.9 mmol/L (3.5-5.1); Sodium Level 145 mmol/L (136-145)
== END ==
LOC: OLS.SW 05:00
PROVIDERS: PCP Family Medicine; Visit Provider Family Medicine
DX: R53.83 Other fatigue (principal); I10 Essential (primary) hypertension
CPT/HCPCS: 36415; 80048; 85025

== ENCOUNTER → 2022-11-14 | Outpatient (REF) | payer MEDICARE, MEDICAID, SELFPAY ==
[2022-11-14 09:36] LABS: Absolute Lymphocyte Count 2.84 X10^3/uL (0.83-4.51); Basophil# 0.06 X10^3/uL; Basophil% 0.9 % (0-1); Hemoglobin 7.7 g/dL (12.0-15.0); Lymphocyte # 2.84 X10^3/ul (0.83-4.51); Lymphocyte % 42.7 % (19-41); Mean Corp Hgb Conc 27.5 g/dL (32-36); Mean Corpuscular Hgb 22.1 pg (27.0-32.0); Mean Corpuscular Volume 80.5 fL (81-99); Mean Platelet Vol. 9.8 fl (6.2-12.0); Monocyte# 0.53 X10^3/uL; NRBC Flagged by Analyzer 0 % (0-5); Neutrophil % 45.1 % (47-70); Platelet Count 353 K/mm3 (150-450); RBC Distribution Width CV 17.4 % (11.6-14.6); RBC Distribution Width SD 51.1 fl (35.1-43.9); Red Blood Count 3.48 M/mm3 (4.2-5.4); White Blood Count 6.7 K/mm3 (4.4-11.0)
[2022-11-14 09:43] LABS: Anion Gap 4 (5-15); BUN 30 mg/dL (7-18); BUN/Creat Ratio 35.8 RATIO (10-20); Calcium,Total 8.5 mg/dL (8.5-10.1); Chloride 109 mmol/L (98-107); Creatinine, Serum 0.84 mg/dL (0.55-1.02); EST Glomerular Filtration Rate 69 mL/min (>60); Est Glom Filt Rate - Afr Amer 84 mL/min (>60); Glucose 89 mg/dL (74-106); Sodium Level 147 mmol/L (136-145)
== END ==
LOC: OLS.SW 05:00
PROVIDERS: PCP Family Medicine; Visit Provider Family Medicine
DX: I10 Essential (primary) hypertension (principal)
CPT/HCPCS: 36415; 80048; 85025

== ENCOUNTER → 2022-12-12 | Outpatient (REF) | payer MEDICARE, MEDICAID, SELFPAY ==
[2022-12-12 09:10] LABS: Absolute Lymphocyte Count 2.54 X10^3/uL (0.83-4.51); Absolute Neutrophil Count 3.8 X10^3/uL (2.0-7.7); Basophil# 0.08 X10^3/uL; Basophil% 1.1 % (0-1); Eosinophils% 2.7 % (0-5); Hematocrit 26.9 % (37-47); Hemoglobin 7.4 g/dL (12.0-15.0); Lymphocyte # 2.54 X10^3/ul (0.83-4.51); Lymphocyte % 34.5 % (19-41); Mean Corp Hgb Conc 27.5 g/dL (32-36); Mean Corpuscular Hgb 21.4 pg (27.0-32.0); Mean Platelet Vol. 9.8 fl (6.2-12.0); Monocyte% 9.5 % (0-10); NRBC Flagged by Analyzer 0 % (0-5); Neutrophil % 51.7 % (47-70); Platelet Count 339 K/mm3 (150-450); RBC Distribution Width CV 17.2 % (11.6-14.6); RBC Distribution Width SD 48.4 fl (35.1-43.9); Red Blood Count 3.45 M/mm3 (4.2-5.4); White Blood Count 7.4 K/mm3 (4.4-11.0)
[2022-12-12 09:25] LABS: Anion Gap 3 (5-15); BUN 29 mg/dL (7-18); BUN/Creat Ratio 42.8 RATIO (10-20); Calcium,Total 8.7 mg/dL (8.5-10.1); Chloride 109 mmol/L (98-107); Creatinine, Serum 0.68 mg/dL (0.55-1.02); EST Glomerular Filtration Rate 88 mL/min (>60); Est Glom Filt Rate - Afr Amer 107 mL/min (>60); Glucose 130 mg/dL (74-106); Sodium Level 145 mmol/L (136-145)
== END ==
LOC: OLS.SW 08:40
PROVIDERS: PCP Family Medicine; Visit Provider Family Medicine
DX: R53.83 Other fatigue (principal); I10 Essential (primary) hypertension
CPT/HCPCS: 36415; 80048; 85025

== ENCOUNTER 2023-01-08 12:35 | Inpatient (IN) | payer MEDICARE, MEDICAID, SELFPAY ==
[2023-01-08] VITALS (12 sets, daily range): BP systolic 136–191; BP diastolic 45–115; PULSE 57–91; RESP 11–24; TEMP 36.6–37; O2SAT 93–100; BMI 32.2; BMI 28.6
--- NOTE | 2023-01-08 13:52 | CT_ITS ---
STUDY: CT ABDOMEN AND PELVIS WITH CONTRAST REASON FOR EXAM: Female, 82 years old. llq abdominal pain RADIATION DOSAGE (If Supplied By Facility): CTDIvol = ( 15.14 ) mGy, DLP = ( 1060.18 ) mGycm TECHNIQUE: Transaxial images were obtained from the dome of the diaphragm to the symphysis pubis without oral contrast. IV 100mL Isovue-300 was administered. Sagittal and coronal images were reconstructed. Individualized dose optimization techniques were used for this CT. COMPARISON: Comparison is made with prior study dated November 12, 2019. FINDINGS: Questionable 6.5 mm noncalcified nodule in the posterior medial segment of the left lower lobe. Increased linear markings at the lung bases suggestive of scarring. Coronary artery calcification. Normal liver. There are surgical clips in the gallbladder fossa consistent with a prior cholecystectomy. Normal spleen. Normal pancreas. Normal bilateral adrenal glands. Normal right kidney. Normal left kidney. There is a small hiatal hernia. Normal small intestine. Moderate amount of fecal material is seen in the rectosigmoid colon. Scattered sigmoid diverticulosis. The appendix is visualized and appears normal. There is diffuse atherosclerotic calcification of the abdominal aorta and its major visceral branches, without a demonstrated aneurysm. Normal inferior vena cava. Normal retroperitoneum. Normal urinary bladder. Normal abdominal wall. There are diffuse degenerative changes of the visualized lumbar spine. Levoscoliosis. CT/Abdomen/Pelvis W IV Cont ONLY IMPRESSION: Sigmoid diverticulosis without radiographic evidence of diverticulitis. Moderate to large amount of fecal material is seen in the rectosigmoid colon. Electronically Signed: Odin Faria MD at 14:20 EDT ,
--- NOTE | 2023-01-08 14:44 | EDS_ITS ---
HPI History of Present Illness Chief Complaint: Abn Labs Narrative Narrative: 82-year-old female presenting with low hemoglobin. She is coming from a skilled nursing. She states that she has not had any known black or bloody stools. She feels generally weak. She does admit to some diarrhea. Patient also admits to some left lower quadrant abdominal pain. No fevers this week but states she did have a fever last week. They thought she had influenza. She does not have any respiratory complaints today. Patient is anticoagulated on Eliquis. She has history of A-fib. [facility] Medical History (Updated 01/08/23 @ 14:[address] Qiana Isabel MD) Arthritis Cataracts, bilateral DDD (degenerative disc disease), lumbar Environmental allergies Grade I diastolic dysfunction High cholesterol High triglycerides History of CVA (cerebrovascular accident) History of gallstones History of uterine cancer HTN (hypertension) Melanoma Mild pulmonary hypertension Osteoarthritis PAF (paroxysmal atrial fibrillation) Schizophrenia Home Medications albuterol sulfate 90 mcg/actuation aerosol inhaler 2 puff IH Q3H PRN sob/wheezing 01/29/20 [History Last Taken Unknown] apixaban 5 mg tablet 5 mg PO BID 01/29/20 [History Last Taken Unknown] atorvastatin 10 mg tablet 10 mg PO QHS 01/29/20 [History Last Taken Unknown] bisacodyl 10 mg rectal suppository 10 mg NC PRN PRN Constipation 01/29/20 [History Last Taken Unknown] cholecalciferol (vitamin D3) 25 mcg (1,000 unit) tablet 5,000 unit PO TH 01/29/20 [History Last Taken Unknown] guaifenesin 100 mg/5 mL oral liquid 10 ml PO Q4H PRN PRN COUGH, CONGESTION 01/29/20 [History Last Taken Unknown] ketotifen fumarate 0.025 % (0.035 %) eye drops 1 drp OP BID 01/29/20 [History Last Taken Unknown] loperamide 2 mg tablet 2 mg PO Q4H PRN Diarrhea 01/29/20 [History Last Taken Unknown] loratadine 10 mg tablet 10 mg PO QHS 01/29/20 [History Last Taken Unknown] magnesium hydroxide 400 mg/5 mL oral suspension 30 ml PO DAILY PRN PRN Constipation 01/29/20 [History Last Taken Unknown] magnesium hydroxide 400 mg/5 mL oral suspension 30 ml PO Q4H PRN gi distress 01/29/20 [History Last Taken Unknown] melatonin 5 mg tablet 5 mg PO QHS 01/29/20 [History Last Taken Unknown] nystatin 100,000 unit/gram topical powder 1 applic topical TID 01/29/20 [History Last Taken Unknown] olanzapine 15 mg tablet 15 mg PO QHS 01/29/20 [History Last Taken Unknown] omeprazole 20 mg tablet,delayed release 20 mg PO DAILY 01/29/20 [History Last Taken Unknown] polyethylene glycol 1450(bulk) 17 gm PO DAILY PRN Constipation 01/29/20 [History Last Taken Unknown] sodium phosphates 19 gram-7 gram/118 mL enema 1 bottle RECTAL PRN PRN CONSTPIATION 01/29/20 [History Last Taken Unknown] tramadol 50 mg tablet 50 mg PO Q8H PRN Pain Or Fever 01/29/20 [History Last Taken Unknown] furosemide 40 mg tablet 40 mg PO BID #60 tabs 02/14/20 [Rx Last Taken Unknown] Allergy/AdvReac Type Severity Reaction Status Date / Time benztropine mesylate Allergy Itching Verified 01/29/20 08:20 [From Cogentin] risperidone [From Risperdal] Allergy Shortness Verified 01/29/20 08:20 of breath verapamil [Verapamil] Allergy Itching Verified 01/29/20 08:20 baclofen AdvReac agitation, Verified 01/29/20 08:20 mean codeine AdvReac Nausea Verified 01/29/20 08:20 Family History (Updated 01/08/23 @ 15:[address] Qiana Isabel MD) Mother Arthritis Asthma COPD (chronic obstructive pulmonary disease) Kidney disease Hypertension Father Heart disease Diabetes Hypertension Surgical History (Updated 01/08/23 @ 15:[address] Qiana Isabel MD) History of appendectomy History of cholecystectomy History of cranial surgery History of hysterectomy S/P rotator cuff repair S/P skin and subcutaneous tissue surgery Social History (Updated 01/08/23 @ 15:[address] Qiana Isabel MD) household members: none housing: skilled nursing Smoking Status: Never smoker alcohol intake: never substance use type: does not use what type of physical activity do you participate in: walking frequency: 1-2 times per week ROS ROS ED Constitutional Constitutional ED: Denies chills or fever(s) Eyes Eyes: Denies change in vision ENT ENT ED: Denies rhinorrhea Cardiovascular Cardiovascular: Denies chest pain Respiratory/Chest Respiratory/Chest: Denies cough or dyspnea Gastrointestinal Gastrointestinal: Reports abdominal pain and diarrhea Genitourinary Genitourinary ED: Denies dysuria or hematuria Musculoskeletal Musculoskeletal: Denies arthralgias Neurologic Neurologic: Denies headache(s) or paresthesias Psychiatric Psychiatric: Denies anxiety or depression EXAM Physical Exam Const Vital Signs: 01/08/23 12:38 01/08/23 14:52 01/08/23 15:18 Temperature 98 F 98 F Temperature Source Temporal Temporal Pulse Rate 79 75 70 Respiratory Rate 11 L 18 24 H Blood Pressure 153/53 H 151/56 H 176/58 H Blood Pressure Mean 86 87 97 Blood Pressure Source Monitor Blood Pressure Position Semi-Fowlers Blood Pressure Location Right Arm Pulse Ox 93 99 Oxygen Delivery Method Room Air Room Air 01/08/23 15:32 Temperature 97.8 F Temperature Source Temporal Pulse Rate 91 Respiratory Rate 19 H Blood Pressure 191/75 H Blood Pressure Mean 113 Blood Pressure Source Monitor Blood Pressure Position Semi-Fowlers Blood Pressure Location Right Arm Pulse Ox 97 Oxygen Delivery Method Room Air Positive well nourished and obese General Appearance ED: pallor Nutritional Appearance: obese HEENT Reports moist mucous membranes Eyes PERRL and EOMs intact bilaterally General Eye ED: Yes pale conjunctiva Resp normal respiratory effort and clear to auscultation bilaterally Cardio regular rate and regular rhythm GI Palpation: tender LLQ Neuro oriented x3 and CN's II-XII intact bilaterally Motor Exam: general weakness Psych mental status grossly normal Skin General Skin Exam: pallor MDM MDM MDM Narrative Medical decision making narrative: Patient presenting for evaluation of low hemoglobin. Her hemoglobin today is 6.2. Looking back at the medical record it looks like this is slowly trended down. She denies seeing any black or bloody stools. She is having diarrhea and some left lower quadrant abdominal pain. CMP was unremarkable today. Patient typed, screened, crossmatched 2 units. Vital signs stable she is afebrile. I did obtain a CT scan of the abdomen pelvis to make sure she did not have anything acute and this was negative. Given the anemia and Hemoccult positive stool we will have the patient admitted to the hospital. Patient's vital signs have remained stable. Impression: 1. Acute blood loss anemia 2. GI bleed 3. Abdominal pain Lab Data Labs: Laboratory Results - last 24 hr 01/08/23 13:25 Blood Type O POSITIVE Antibody Screen NEGATIVE Crossmatch See Detail Radiography Diagnostic Testing: Clinical Impression(s) from Imaging Studies Abdomen/Pelvis CT 01/08/23 13:52 IMPRESSION: Sigmoid diverticulosis without radiographic evidence of diverticulitis. Moderate to large amount of fecal material is seen in the rectosigmoid colon. Electronically Signed: Odin Faria MD at 14:20 EDT , Discharge Plan Triage Chief Complaint: Abn Labs ED Provider: Jon Fernández Dx/Rx/DC Orders Prescriptions: No Action atorvastatin 10 MG tablet 10 mg PO QHS ketotifen fumarate 1 DROP bottle 1 drp OP BID Rx Instructions: BOTH EYES loperamide 2 MG tablet 2 mg PO Q4H PRN (Reason: Diarrhea) tramadol 50 MG tablet 50 mg PO Q8H PRN (Reason: Pain Or Fever) guaifenesin 10 ML liquid 10 ml PO Q4H PRN PRN (Reason: COUGH, CONGESTION) polyethylene glycol 1450(bulk) 10,000 GM powder 17 gm PO DAILY PRN (Reason: Constipation) magnesium hydroxide 30 ML suspension 30 ml PO Q4H PRN (Reason: gi distress) magnesium hydroxide 30 ML suspension 30 ml PO DAILY PRN PRN (Reason: Constipation) bisacodyl 10 MG suppository 10 mg NC PRN PRN (Reason: Constipation) sodium phosphates 1 BOTTLE enema 1 bottle RECTAL PRN PRN (Reason: CONSTPIATION) Rx Instructions: IF SUPPOSITORY INEFFECTIVE olanzapine 15 MG tablet 15 mg PO QHS nystatin 1 APPLIC bottle 1 applic topical TID albuterol sulfate 1 PUFF inhaler 2 puff IH Q3H PRN (Reason: sob/wheezing) loratadine 10 MG tablet 10 mg PO QHS cholecalciferol (vitamin D3) 1,000 UNIT tablet 5,000 unit PO TH omeprazole 20 MG tablet,delayed release (DR/EC) 20 mg PO DAILY melatonin 5 MG tablet 5 mg PO QHS apixaban 5 MG tablet 5 mg PO BID furosemide 40 MG tablet 40 mg PO BID Qty: 60 0RF Primary Care Provider: Aiden Bee Referrals: Aiden Bee MD [Primary Care Provider] -
--- NOTE | 2023-01-08 14:57 | HP.PCM_ITS ---
HPI - General General Date of Admission: 01/08/23 Date of Service: 01/08/23 Chief Complaint: Weakness, fatigue, worsening anemia. HPI Narrative The patient is an 82 y/o F w/ PMHx: Hx VTE (DVT, PE), Hx CVA w/ Hx Traumatic TBI, Schizophrenia/Anxiety and Depression, PAF, Chronic microcytic anemia, HTN, HLD, Diastolic CHF, GERD who presents to the [facility] ED on 01/08/23 with history of worsening baseline hemoglobin currently residing in a skilled facility with increased fatigue and malaise as well as occasional loose stools the week prior with more persistent LLQ abdominal pain noted to be sharp/cramping / in severity that has improved with associated fevers without chills with dark appearing stools with hemoglobin on day of presentation 6.2 per facility prompting referral to the ED for evaluation of GI bleed concerns. Patient does report notable seasonal allergies with postnasal drip over the last several weeks causing her to intermittently cough but no dyspnea or marked productive cough noted. She does report congestion which is chronic. Work-up in the ED included T98, heart rate 79, BP 153/53, respiratory rate 11, type and cross performed per ED physician, CT abdomen and pelvis with a sigmoid diverticulosis without any radiographic evidence of diverticulitis, moderate to large amount of fecal material seen in the rectosigmoid colon, stool guaiac positive. Earlier prior to ED presentation outpatient labs included CBC with WBC 10.9, hemoglobin 6.2, MCV 73.5, platelet 505 with no differential performed, CMP with sodium 142, potassium 3.8, chloride 110, BUN/creatinine 21/0.58, hepatic profile not marked appearing. ED physician requested 2 unit PRBC. [facility] Medical History (Updated 01/08/23 @ 14:[address] Qiana Isabel MD) Arthritis Cataracts, bilateral DDD (degenerative disc disease), lumbar Environmental allergies Grade I diastolic dysfunction High cholesterol High triglycerides History of CVA (cerebrovascular accident) History of gallstones History of uterine cancer HTN (hypertension) Melanoma Mild pulmonary hypertension Osteoarthritis PAF (paroxysmal atrial fibrillation) Schizophrenia Home Medications albuterol sulfate 90 mcg/actuation aerosol inhaler 2 puff IH Q3H PRN sob/wheezing 01/29/20 [History Last Taken Unknown] apixaban 5 mg tablet 5 mg PO BID 01/29/20 [History Last Taken Unknown] atorvastatin 10 mg tablet 10 mg PO QHS 01/29/20 [History Last Taken Unknown] bisacodyl 10 mg rectal suppository 10 mg FL PRN PRN Constipation 01/29/20 [History Last Taken Unknown] cholecalciferol (vitamin D3) 25 mcg (1,000 unit) tablet 5,000 unit PO TH 01/29/20 [History Last Taken Unknown] guaifenesin 100 mg/5 mL oral liquid 10 ml PO Q4H PRN PRN COUGH, CONGESTION 01/29/20 [History Last Taken Unknown] ketotifen fumarate 0.025 % (0.035 %) eye drops 1 drp OP BID 01/29/20 [History Last Taken Unknown] loperamide 2 mg tablet 2 mg PO Q4H PRN Diarrhea 01/29/20 [History Last Taken Unknown] loratadine 10 mg tablet 10 mg PO QHS 01/29/20 [History Last Taken Unknown] magnesium hydroxide 400 mg/5 mL oral suspension 30 ml PO DAILY PRN PRN Constipation 01/29/20 [History Last Taken Unknown] magnesium hydroxide 400 mg/5 mL oral suspension 30 ml PO Q4H PRN gi distress 01/29/20 [History Last Taken Unknown] melatonin 5 mg tablet 5 mg PO QHS 01/29/20 [History Last Taken Unknown] nystatin 100,000 unit/gram topical powder 1 applic topical TID 01/29/20 [History Last Taken Unknown] olanzapine 15 mg tablet 15 mg PO QHS 01/29/20 [History Last Taken Unknown] omeprazole 20 mg tablet,delayed release 20 mg PO DAILY 01/29/20 [History Last Taken Unknown] polyethylene glycol 1450(bulk) 17 gm PO DAILY PRN Constipation 01/29/20 [History Last Taken Unknown] sodium phosphates 19 gram-7 gram/118 mL enema 1 bottle RECTAL PRN PRN CONSTPIATION 01/29/20 [History Last Taken Unknown] tramadol 50 mg tablet 50 mg PO Q8H PRN Pain Or Fever 01/29/20 [History Last Taken Unknown] furosemide 40 mg tablet 40 mg PO BID #60 tabs 02/14/20 [Rx Last Taken Unknown] Allergy/AdvReac Type Severity Reaction Status Date / Time benztropine mesylate Allergy Itching Verified 01/29/20 08:20 [From Cogentin] risperidone [From Risperdal] Allergy Shortness Verified 01/29/20 08:20 of breath verapamil [Verapamil] Allergy Itching Verified 01/29/20 08:20 baclofen AdvReac agitation, Verified 01/29/20 08:20 mean codeine AdvReac Nausea Verified 01/29/20 08:20 Family History (Updated 01/08/23 @ 15:[address] Qiana Isabel MD) Mother Arthritis Asthma COPD (chronic obstructive pulmonary disease) Kidney disease Hypertension Father Heart disease Diabetes Hypertension Surgical History (Updated 01/08/23 @ 15:[address] Qiana Isabel MD) History of appendectomy History of cholecystectomy History of cranial surgery History of hysterectomy S/P rotator cuff repair S/P skin and subcutaneous tissue surgery Social History (Updated 01/08/23 @ 15:[address] Qiana Isabel MD) household members: none housing: [facility] Smoking Status: Never smoker alcohol intake: never substance use type: does not use what type of physical activity do you participate in: walking frequency: 1-2 times per week ROS ROS Narrative Admission Review of Systems: CONSTITUTIONAL: No weight loss, chills, + fever since resolved, ongoing weakness or fatigue. HEENT: + Congestion, rhinorrhea, postnasal drip. Eyes: No visual loss, blurred vision, double vision or yellow sclerae. Ears, Nose, Throat: No hearing loss, sore throat. SKIN: No rash or itching, lesions, wounds. CARDIOVASCULAR: No chest pain, chest pressure or chest discomfort, palpitations, edema, orthopnea, syncopal events. RESPIRATORY: + Cough nonproductive. No shortness of breath, wheezing, hemoptysis. GASTROINTESTINAL: + anorexia, abdominal discomfort, diarrhea all subsided with nausea without vomiting, dark stools. No BRBPR. GENITOURINARY: No dysuria, frequency, urgency or retention. NEUROLOGICAL: No headache, dizziness, syncope, paralysis, ataxia, numbness or tingling in the extremities, focal weakness, change in bowel or bladder control, seizure. MUSCULOSKELETAL: + muscle, back pain, joint pain or stiffness. HEMATOLOGIC: + anemia, bleeding or bruising. LYMPHATICS: No enlarged nodes. No history of splenectomy. PSYCHIATRIC: + history of depression or anxiety. ENDOCRINOLOGIC: No reports of sweating, cold or heat intolerance. No polyuria or polydipsia. ALLERGIES: + history of rhinitis. Vital Signs Vital Signs Vital Signs: 01/08/23 12:38 01/08/23 14:52 Temperature 98 F Temperature Source Temporal Pulse Rate 79 75 Respiratory Rate 11 L 18 Blood Pressure 153/53 H 151/56 H Blood Pressure Mean 86 87 Pulse Ox 93 Oxygen Delivery Method Room Air Weight Weight: 193 lb 12.581 oz Body Mass Index (BMI) 32.2 Physical Exam Narrative Physical Examination: General: Awake, alert, oriented to self, place and recent events, remains cooperative, seated upright in bed in no apparent distress. Skin: Normal color, normal turgor, no icterus, no cyanosis. HEENT: AT/NC, EOMI, PERRLA, mildly dry MM, no carotid bruits or JVD noted. Lungs: CTA bilaterally, moderate effort, mild decrease BL bases, no rales, ronchi or wheezing. Heart: Regular rate and rhythm; no gallop, rub audible. Abdomen: Soft, obese, NTTP including LLQ currently, no obvious distention, hyperactive BS, no HSM although habitus makes evaluation difficult. Extremities: No cyanosis, no clubbing, chronic BL LE edema, not markedly pitting. Neurological: Patient awake, alert, oriented as noted, cognitive function appears baseline intact; pupils equally reactive to light and accommodation, cranial nerves II-XII grossly normal, moving all 4 extremities, strength moderately to severely globally decreased secondary to acute presentation and underlying comorbidities. Psychiatric: Affect appears fatigued, no acute evidence of depressive or anxiety feelings but underlying history. Results Lab / Micro Data Labs: Laboratory Results - last 24 hr 01/08/23 13:25: Blood Type O POSITIVE, Antibody Screen NEGATIVE, Crossmatch See Detail Micro: Microbiology 01/08/23 13:45 Stool Stool Occult Blood ([facility]LLY) - Final Occult Blood Positive Radiology Impression Abdomen/Pelvis CT 01/08/23 13:52 IMPRESSION: Sigmoid diverticulosis without radiographic evidence of diverticulitis. Moderate to large amount of fecal material is seen in the rectosigmoid colon. Electronically Signed: Odin Faria MD at 14:20 EDT , Assessment & Plan Assessment/Plan (1) GI bleed: PLAN: Plan The patient is an 82 y/o F w/ PMHx: Hx VTE (DVT, PE), Hx CVA w/ Hx Traumatic TBI, Schizophrenia/Anxiety and Depression, PAF, Chronic microcytic anemia, HTN, HLD, Diastolic CHF, GERD who presents to the [facility] ED on 01/08/23 with history of worsening baseline hemoglobin currently residing in a skilled facility with increased fatigue and malaise as well as occasional loose stools the week prior with more persistent LLQ abdominal pain noted to be sharp/cramping /10 in severity that has improved with associated fevers without chills with dark appearing stools with hemoglobin on day of presentation 6.2 per facility prompting referral to the ED for evaluation of GI bleed concerns. #1. Acute GI Bleed w/ resultant Acute Blood Loss Anemia on chronic microcytic anemia: Admission hemoglobin 6.2, from review of previous labs has primarily been in the 7 range since 09/2022 but prior to this had been primarily 10-11 thus slowly trending downward, will admit to medical surgical floor given stable vital signs, maintain on IVFs, obtain serial H&H's, type and cross already init iated per ED staff therefore plan continued H&H trending with continued transfusion reassessments, maintain on IV PPI, will allow clears until midnight then n.p.o. status following. Gastroenterology consulted, pending. PT/OT/case management consultation for discharge planning. #2. PAF: Patient per current list is not on any rate or rhythm agent, will stop anticoagulant therapy, given stable vital signs currently we will hold off on any reversal concept. 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 #4. Diastolic CHF: 07/13/2019 echocardiogram with mild concentric LVH, EF 65%, stage I diastolic dysfunction, mildly dilated RV, trivial TVI, RVSP 36 mmHg with mild pulmonary hypertension. As noted holding patient home Eliquis regimen, continue statin, continue Lasix with hold parameters as needed, not on beta- juan f therapy but chart reported history of bradycardia, not on TANISHA inhibitor or ARB. #5. Hypertension: We will continue patient home Lasix regimen with hold parameters given presentation with acute anemia, as needed IV hydralazine. #6. Hyperlipidemia: We will continue patient on statin therapy. #7. Schizophrenia/Anxiety and Depression: We will continue patient home olanzapine regimen. #8. GERD: We will maintain on IV PPI. #9. Allergic rhinitis: We will continue patient home loratadine regimen and will add fluticasone given patient complaints. 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 #11. DVT prophylaxis: SCDs. #12. CODE status: Patient HCPOA is her son and living will is current in place. Discussed CODE status at length including difference between FULL code, DNR-CCA and DNR-CC status. Following discussions about the differences in these status, requested continued DNR-CC status; however, she does note interest in reviewing items with Gastroenterology and discussing possible endoscopy. Advanced Care Planning Face to Face Time: 16 minutes. Admission Evaluation Time spent evaluating chart, patient history, patient evaluation, care planning and discussion with specialists: 75 minutes. Charges/Coding Visit Charges Inpatient E&M: 96998 Init Hosp L3 Procedures Hospitalists Procedures: 81131 Advncd Care Plan 30 Min
--- NOTE | 2023-01-08 16:59 | EX.PCM.CON.G ---
HPI Consult Data Date of Consult: 01/08/23 HPI Narrative Reason for Consultation: Anemia HPI Narrative: TELMA HOYT, is a 82-year-old female presenting with low hemoglobin.? She is coming from a jail.? She states that she has not had any known black or bloody stools.? She feels generally weak.? She does admit to some diarrhea.? Patient also admits to some left lower quadrant abdominal pain.? No fevers this week but states she did have a fever last week.? They thought she had influenza.? She does not have any respiratory complaints today. Patient is anticoagulated on Eliquis.? She has history of A-fib. [facility] Medical History (Updated 01/08/23 @ 14:[address] Qiana Isabel MD) Arthritis Cataracts, bilateral DDD (degenerative disc disease), lumbar Environmental allergies Grade I diastolic dysfunction High cholesterol High triglycerides History of CVA (cerebrovascular accident) History of gallstones History of uterine cancer HTN (hypertension) Melanoma Mild pulmonary hypertension Osteoarthritis PAF (paroxysmal atrial fibrillation) Schizophrenia Home Medications albuterol sulfate 90 mcg/actuation aerosol inhaler 2 puff IH Q3H PRN sob/wheezing 01/29/20 [History Last Taken Unknown] apixaban 5 mg tablet 5 mg PO BID 01/29/20 [History Last Taken Unknown] atorvastatin 10 mg tablet 10 mg PO QHS 01/29/20 [History Last Taken Unknown] bisacodyl 10 mg rectal suppository 10 mg MA PRN PRN Constipation 01/29/20 [History Last Taken Unknown] cholecalciferol (vitamin D3) 25 mcg (1,000 unit) tablet 5,000 unit PO TH 01/29/20 [History Last Taken Unknown] guaifenesin 100 mg/5 mL oral liquid 10 ml PO Q4H PRN PRN COUGH, CONGESTION 01/29/20 [History Last Taken Unknown] ketotifen fumarate 0.025 % (0.035 %) eye drops 1 drp OP BID 01/29/20 [History Last Taken Unknown] loperamide 2 mg tablet 2 mg PO Q4H PRN Diarrhea 01/29/20 [History Last Taken Unknown] loratadine 10 mg tablet 10 mg PO QHS 01/29/20 [History Last Taken Unknown] magnesium hydroxide 400 mg/5 mL oral suspension 30 ml PO DAILY PRN PRN Constipation 01/29/20 [History Last Taken Unknown] magnesium hydroxide 400 mg/5 mL oral suspension 30 ml PO Q4H PRN gi distress 01/29/20 [History Last Taken Unknown] melatonin 5 mg tablet 5 mg PO QHS 01/29/20 [History Last Taken Unknown] nystatin 100,000 unit/gram topical powder 1 applic topical TID 01/29/20 [History Last Taken Unknown] olanzapine 15 mg tablet 15 mg PO QHS 01/29/20 [History Last Taken Unknown] omeprazole 20 mg tablet,delayed release 20 mg PO DAILY 01/29/20 [History Last Taken Unknown] polyethylene glycol 1450(bulk) 17 gm PO DAILY PRN Constipation 01/29/20 [History Last Taken Unknown] sodium phosphates 19 gram-7 gram/118 mL enema 1 bottle RECTAL PRN PRN CONSTPIATION 01/29/20 [History Last Taken Unknown] tramadol 50 mg tablet 50 mg PO Q8H PRN Pain Or Fever 01/29/20 [History Last Taken Unknown] furosemide 40 mg tablet 40 mg PO BID #60 tabs 02/14/20 [Rx Last Taken Unknown] Allergy/AdvReac Type Severity Reaction Status Date / Time benztropine mesylate Allergy Itching Verified 01/29/20 08:20 [From Cogentin] risperidone [From Risperdal] Allergy Shortness Verified 01/29/20 08:20 of breath verapamil [Verapamil] Allergy Itching Verified 01/29/20 08:20 baclofen AdvReac agitation, Verified 01/29/20 08:20 mean codeine AdvReac Nausea Verified 01/29/20 08:20 Family History (Updated 01/08/23 @ 15:[address] Qiana Isabel MD) Mother Arthritis Asthma COPD (chronic obstructive pulmonary disease) Kidney disease Hypertension Father Heart disease Diabetes Hypertension Surgical History (Updated 01/08/23 @ 15:[address] Qiana Isabel MD) History of appendectomy History of cholecystectomy History of cranial surgery History of hysterectomy S/P rotator cuff repair S/P skin and subcutaneous tissue surgery Social History (Updated 01/08/23 @ 15:[address] Qiana Isabel MD) household members: none housing: jail Smoking Status: Never smoker alcohol intake: never substance use type: does not use what type of physical activity do you participate in: walking frequency: 1-2 times per week ROS ROS Narrative Admission Review of Systems: CONSTITUTIONAL: No weight loss, chills, + fever since resolved, ongoing weakness or fatigue. HEENT: + Congestion, rhinorrhea, postnasal drip. Eyes: No visual loss, blurred vision, double vision or yellow sclerae. Ears, Nose, Throat: No hearing loss, sore throat. SKIN: No rash or itching, lesions, wounds. CARDIOVASCULAR: No chest pain, chest pressure or chest discomfort, palpitations, edema, orthopnea, syncopal events. RESPIRATORY: + Cough nonproductive. No shortness of breath, wheezing, hemoptysis. GASTROINTESTINAL: + anorexia, abdominal discomfort, diarrhea all subsided with nausea without vomiting, dark stools. No BRBPR. GENITOURINARY: No dysuria, frequency, urgency or retention. NEUROLOGICAL: No headache, dizziness, syncope, paralysis, ataxia, numbness or tingling in the extremities, focal weakness, change in bowel or bladder control, seizure. MUSCULOSKELETAL: + muscle, back pain, joint pain or stiffness. HEMATOLOGIC: + anemia, bleeding or bruising. LYMPHATICS: No enlarged nodes. No history of splenectomy. PSYCHIATRIC: + history of depression or anxiety. ENDOCRINOLOGIC: No reports of sweating, cold or heat intolerance. No polyuria or polydipsia. ALLERGIES: + history of rhinitis. Physical Exam Narrative Physical Examination: General: Awake, alert, oriented to self, place and recent events, remains cooperative, seated upright in bed in no apparent distress. Skin: Normal color, normal turgor, no icterus, no cyanosis. HEENT: AT/NC, EOMI, PERRLA, mildly dry MM, no carotid bruits or JVD noted. Lungs: CTA bilaterally, moderate effort, mild decrease BL bases, no rales, ronchi or wheezing. Heart: Regular rate and rhythm; no gallop, rub audible. Abdomen: Soft, obese, NTTP including LLQ currently, no obvious distention, hyperactive BS, no HSM although habitus makes evaluation difficult. Extremities: No cyanosis, no clubbing, chronic BL LE edema, not markedly pitting. Neurological: Patient awake, alert, oriented as noted, cognitive function appears baseline intact; pupils equally reactive to light and accommodation, cranial nerves II-XII grossly normal, moving all 4 extremities, strength moderately to severely globally decreased secondary to acute presentation and underlying comorbidities. Psychiatric: Affect appears fatigued, no acute evidence of depressive or anxiety feelings but underlying history. Lab / Micro Data Labs: Laboratory Results - last 24 hr 01/08/23 13:25: Blood Type O POSITIVE, Antibody Screen NEGATIVE, Crossmatch See Detail Micro: Microbiology 01/08/23 13:45 Stool Stool Occult Blood (CHELLY) - Final Occult Blood Positive Radiology Impression Abdomen/Pelvis CT 01/08/23 13:52 IMPRESSION: Sigmoid diverticulosis without radiographic evidence of diverticulitis. Moderate to large amount of fecal material is seen in the rectosigmoid colon. Electronically Signed: Odin Faria MD at 14:20 EDT , Assessment & Plan Assessment/Plan (1) GI bleed: PLAN: Plan 32-year-old with history of DVT PE anticoagulated paroxysmal atrial fibrillation and chronic microcytic anemia presents with increasing fatigue and malaise from the jail. He did admit to some possible melanotic stools recently. Currently her hemoglobin is 6.2 and her baseline ranges in between 10 and 11. The differential diagnosis does include bleeding of the upper GI tract secondary to peptic ulcer disease, angiodysplasia, Aurelio's erosions, gastric antral vascular ectasia in the setting of anticoagulation. Also degenerative diagnosis does include angiodysplasia of the lower GI tract including the small bowel in the colon, neoplasia. Recommendation : Serial H&H's, type and cross already initiated per ED staff therefore plan continued H&H trending with continued transfusion reassessments, maintain on IV PPI, will allow clears until midnight then n.p.o. status following. Holding eliquis. She should get an upper endoscopy for evaluation of the upper GI tract. If that is negative then she may need a colonoscopy. Charges/Coding Visit Charges Inpatient E&M: 57770 Init Hosp L2
[2023-01-08] MEDS: 0.9% Normal Saline 1,000 ML 75 ML IV (19:23)
[2023-01-08 19:57] LABS: Hematocrit 28.8 % (37-47); Hemoglobin 8.4 g/dL (12.0-15.0)
[2023-01-08] MEDS: oxyCODONE 5 MG Tablet 2.5 MG PO (20:05)
[2023-01-08 22:09] LABS: Hematocrit 27.9 % (37-47); Hemoglobin 8.1 g/dL (12.0-15.0)
[2023-01-08] MEDS: Atorvastatin Calcium 10 MG Tablet PO (22:34)
[2023-01-08] MEDS: Loratadine 10 MG Tablet PO (22:34)
[2023-01-08] MEDS: OLANZapine 10 MG Tablet 15 MG PO (22:34)
[2023-01-08] MEDS: MELATONIN 10 MG TABLET 5 MG PO (22:34)
[2023-01-08] MEDS: Fluticasone 0.05% 1 SPRAY NASAL.SRY 2 SPRAY NASAL (22:34)
[2023-01-08] MEDS: hydrALAZINE 20 MG/ML Vial 10 MG IV (22:59)
[2023-01-08] MEDS: Morphine 2 MG/ML Syringe IV (23:00)
[2023-01-08] MEDS: 0.9% Saline Lock 10 ML Syringe IV (23:00)
[2023-01-09] VITALS (13 sets, daily range): BP systolic 143–184; BP diastolic 62–88; PULSE 62–88; RESP 12–20; TEMP 36.4–37; O2SAT 95–100; BMI 28.6
--- NOTE | 2023-01-09 | GASB_PTH ---
PATIENT: TELMA HOYT LOC: MS3 U#:[id number] AGE/SX: 82/F ROOM: [facility] [place]01/08/[address]: Dr. Paresh Scott MD : 1940 BED: 1 DIS: 01/11/2023 SPEC #: [id number] RECD: 01/09/23 14:13 STATUS: LIBORIO RERodney #: [id number] YEYO: 01/09/23 00:[address]: Del Hernandez DEPT: SURGICAL PATHOLOGY RECD BY: Sahil Cunningham ENTERED: 01/12/23 10:08 SP TYPE: Gastric Bx OTHR DR: MD Dr. Jon Merchant DO Dr. Prakash Chand, MD Dr. Paul Nielsen, MD Tissues: Gastric mucous membrane Procedures: Surgery Specimen Level IV Comments: @ Ordering doctor for SUIV edited from to @ by ZARI at 01/12/23 1458 @ Submitting doctor edited from to @ by MAGIOD at 01/12/23 1458 HEADER OPERATION: EGD (MAC), bipolar cautery, polypectomy, placement of clips PRE-OP DIAGNOSIS: GI bleed TISSUE SUBMITTED: Gastric polyp MICROSCOPIC DIAGNOSIS Gastric polyp, polypectomy: Fragments of hyperplastic/inflammatory polyps. See comment. LUIS:trini 01/13/2023 COMMENT Immunohistochemistry for Helicobacter pylori can be performed if clinically indicated. Please notify the Laboratory if it is needed. MICROSCOPIC DESCRIPTION Slides are reviewed. GROSS DESCRIPTION Received in fixative is one container labeled with the patient's name and designated gastric polyp. The specimen consists of four variable sized riggs-pink polyps. The two larger polyps measure 0.9 x 0.9 x 0.7 cm and 1.0 x 0.9 x 0.7 cm. The two smaller polyps measure in aggregate 1.5 x 0.6 x 0.1 cm. The larger polyps are bisected. The entire specimen is submitted in one cassette. / SJ:trini 01/12/2023 TC:5 CPT: 81611
[2023-01-09] MEDS: Nystatin Powder 15gm Bottle 1 APPLIC TOPICAL ×3 (01:02→22:08)
[2023-01-09] MEDS: Menthol/Lanolin/Calamine/Znox 113 GM Tube 1 APPLIC TOPICAL ×3 (01:03→22:08)
[2023-01-09] MEDS: oxyCODONE 5 MG Tablet 2.5 MG PO (01:18)
[2023-01-09] MEDS: Acetaminophen 325 MG Tablet 650 MG PO (01:19)
[2023-01-09 02:35] LABS: Hemoglobin 9.6 g/dL (12.0-15.0)
[2023-01-09 06:26] LABS: Absolute Lymphocyte Count 2.53 X10^3/uL (0.83-4.51); Absolute Neutrophil Count 6.6 X10^3/uL (2.0-7.7); Basophil# 0.06 X10^3/uL; Basophil% 0.6 % (0-1); Hematocrit 30.6 % (37-47); Hemoglobin 9.1 g/dL (12.0-15.0); Lymphocyte # 2.53 X10^3/ul (0.83-4.51); Lymphocyte % 24.8 % (19-41); Mean Corp Hgb Conc 29.7 g/dL (32-36); Mean Corpuscular Hgb 22.5 pg (27.0-32.0); Mean Corpuscular Volume 75.6 fL (81-99); Mean Platelet Vol. 9.2 fl (6.2-12.0); Monocyte# 0.73 X10^3/uL; Monocyte% 7.2 % (0-10); NRBC Flagged by Analyzer 0 % (0-5); Neutrophil # 6.58 X10^3/uL (2.7-7.7); Neutrophil % 64.5 % (47-70); Platelet Count 481 K/mm3 (150-450); RBC Distribution Width CV 17.5 % (11.6-14.6); RBC Distribution Width SD 47.8 fl (35.1-43.9); Red Blood Count 4.05 M/mm3 (4.2-5.4); White Blood Count 10.2 K/mm3 (4.4-11.0)
[2023-01-09 07:02] LABS: ALB/GLOB Ratio 0.6 RATIO (0.9-2.4); AST(SGOT) 14 U/L (15-37); Alanine Aminotransfer ALT/SGPT 11 U/L (13-56); Albumin, Serum 2.1 g/dL (3.2-5.0); Alkaline Phosphatase 87 U/L (45-117); Anion Gap 4 (5-15); BUN 17 mg/dL (7-18); BUN/Creat Ratio 31.5 RATIO (10-20); Calcium,Total 8.3 mg/dL (8.5-10.1); Chloride 112 mmol/L (98-107); Creatinine, Serum 0.54 mg/dL (0.55-1.02); EST Glomerular Filtration Rate 115 mL/min (>60); Est Glom Filt Rate - Afr Amer 139 mL/min (>60); Estimated Creatinine Clearance 42.18 ml/min; Globulin 3.4 g/dL (2.2-4.2); Glucose 97 mg/dL (74-106); Potassium 3.4 mmol/L (3.5-5.1); Protein, Total 5.5 g/dL (6.4-8.2); Sodium Level 144 mmol/L (136-145)
--- NOTE | 2023-01-09 07:42 | PCM.PN.HOSP ---
Reason for Visit Reason for Visit: Diagnoses Gastrointestinal hemorrhage, unspecified (01/08/23) Subjective Subjective Follow-up for severe anemia and upper GI bleed. Objective Data Objective Data Vital Signs: Vital Signs Temp Pulse Resp BP Pulse Ox O2 Del Method O2 Flow Rate 97.8 F 66 14 156/68 H 96 Nasal Cannula 2 01/09/23 01:32 01/09/23 01:32 01/09/23 01:32 01/09/23 01:32 01/09/23 01:32 01/09/23 01:32 01/09/23 01:32 Oxygen Flow Rate (L/min) 2 Oxygen Delivery Method Nasal Cannula Weight: 182 lb 12.211 oz Body Mass Index (BMI) 28.6 Intake & Output: Intake and Output for Last 24 Hours 01/07/23 01/08/23 01/09/23 23:59 23:59 23:59 Intake Total 111.25 / 111.25 110 / 110 Output Total 500 / 500 Balance 111.25 / -388.75 -390 / -390 Lab / Micro Data Result Diagrams: 01/09/23 04:53 01/09/23 04:53 Labs: Laboratory Results - last 24 hr 01/08/23 13:25: Blood Type O POSITIVE, Antibody Screen NEGATIVE, Crossmatch See Detail 01/08/23 19:30: Hgb 8.4 L, Hct 28.8 L 01/08/23 22:00: Hgb 8.1 L, Hct 27.9 L 01/09/23 02:26: Hgb 9.6 L, Hct 32.0 L 01/09/23 04:53: WBC 10.2, RBC 4.05 L, Hgb 9.1 L, Hct 30.6 L, MCV 75.6 L, MCH 22.5 L, MCHC 29.7 L D, RDW Std Deviation 47.8 H, RDW Coeff of Lamine 17.5 H, Plt Count 481 H, MPV 9.2, Immature Gran % (Auto) 0.900, Neut % (Auto) 64.5, Lymph % (Auto) 24.8, [place] % (Auto) 7.2, Eos % (Auto) 2.0, Baso % (Auto) 0.6, Absolute Neuts (auto) 6.6, Absolute Lymphs (auto) 2.53, Nucleated RBC % 0 01/09/23 04:53: Sodium 144, Potassium 3.4 L, Chloride 112 H, Carbon Dioxide 28.0, Anion Gap 4 L, BUN 17, Creatinine 0.54 L, Estim Creat Clear Calc 42.18, Est GFR (MDRD) Af Amer 139, Est GFR (MDRD) Non-Af 115, BUN/Creatinine Ratio 31.5 H, Glucose 97, Calcium 8.3 L, Total Bilirubin 0.30, AST 14 L, ALT 11 L, Alkaline Phosphatase 87, Total Protein 5.5 L, Albumin 2.1 L, Globulin 3.4, Albumin/Globulin Ratio 0.6 L Micro: Microbiology 01/08/23 13:45 Stool Stool Occult Blood (CHELLY) - Final Occult Blood Positive Radiography Diagnostic Testing: Radiology Impression Abdomen/Pelvis CT 01/08/23 13:52 IMPRESSION: Sigmoid diverticulosis without radiographic evidence of diverticulitis. Moderate to large amount of fecal material is seen in the rectosigmoid colon. Electronically Signed: Odin Faria MD at 14:20 EDT , Physical Exam Narrative Seen and examined. Patient feels very weak. Pale. Patient also has generalized weakness and bilateral lower extremity weakness. Cannot lift her legs. Mainly dependent on walker. Had EGD in the morning Physical exam General: Mildly drowsy and lethargic after anesthesia from EGD. HEENT: Atraumatic, PERRLA, EOMI, Normocephalic Oral: No Gingival or Mucosal Lesions/ Ulcerations Neck: Supple, No JVD, Negative Carotid Bruits Lungs: Air entry diminished in bilateral lung bases. Mild crepitations. Cardiovascular: Regular rate, Regular Rhythm, Normal S1, Normal S2, No murmurs Abdomen: Bowel Sounds Present, Soft, Non Tender, Non-Distended : No renal angle tenderness. No suprapubic tenderness. Extremities: Bilateral lower extremity 2+ edema, Capillary Refill Less than 3 Seconds Skin: No rashes, No breakdown Musculoskeletal: Muscle strength 4/5 at knee and hip joints. ROM restricted. Dependent on wheeled walker. Restricted ambulation Neurological: Cranial nerves II-XII grossly intact, DTR 2+/4 while drowsy. Psych/Mental Status: Flat affect Assessment & Plan Assessment/Plan (1) GI bleed: PLAN: Plan The patient is an 82 y/o F was admitted from group home for left lower quadrant abdominal pain cramping in nature, dark appearing stool and hemoglobin 6.2 g on the day of admission. #1. Acute upper GI Bleed w/ resultant Acute Blood Loss Anemia on chronic microcytic anemia: Admission hemoglobin 6.2, from review of previous labs has primarily been in the 7 range since 09/2022 but prior to this had been primarily 10-11 grams percent. Patient admitted to [facility] floor.Patient has 2 units of PRBC transfusion ordered 1 transfused, another transfusing. Discontinue IV fluid. EGD shows single gastric polyp resected. Oozing gastric ulcer with pigmented material. Multiple gastric polyps. Biopsy was taken. Patient on IV PPI. Full liquid diet. #2. PAF: Patient per current list is not on any rate or rhythm agent, anticoagulants discontinued. Patient does not need acute reversal agent as hemodynamically BP in normal range. 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 #4. Chronic diastolic CHF: 07/13/2019 echocardiogram with mild concentric LVH, EF 65%, stage I diastolic dysfunction, mildly dilated RV, trivial TVI, RVSP 36 mmHg with mild pulmonary hypertension. As noted holding patient home Eliquis regimen, continue statin. IV fluid discontinued. Lasix is resumed. #5. Hypertension: continue patient home Lasix regimen with hold parameters given presentation with acute anemia, as needed IV hydralazine. #6. Hyperlipidemia: We will continue patient on statin therapy. #7. Schizophrenia/Anxiety and Depression: We will continue patient home olanzapine regimen. #8. GERD: We will maintain on IV PPI. #9. Allergic rhinitis: We will continue patient home loratadine regimen and will add fluticasone given patient complaints. 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 #11. DVT prophylaxis: SCDs. #12. CODE status: Patient SUSAN is her son and living will is current in place. Discussed CODE status at length including difference between FULL code, DNR-CCA and DNR-CC status. Following discussions about the differences in these status, requested continued DNR-CC status; however, she does note interest in reviewing items with Gastroenterology and discussing possible endoscopy. Charges/Coding Visit Charges Inpatient E&M: 01758 Subs Hosp L2
[2023-01-09] MEDS: 0.9% Normal Saline 1,000 ML 75 ML IV ×2 (09:30→11:15)
[2023-01-09] MEDS: Sodium Chloride 0.65% 1 SPRAY SPRAY.BTL 2 SPRAY NASAL (09:30)
--- NOTE | 2023-01-09 11:06 | NURSING ---
off unit for scope
--- NOTE | 2023-01-09 12:51 | OP.EGD_ITS ---
Patient Name: Marilynn Donaldson Procedure Date: 01/09/2023 12:14 PM Date of : 1940 Age: 82 Procedure: Upper GI endoscopy Indications: Iron deficiency anemia Providers: Del Hernandez DO Referring MD: Jon Fernández Do Medicines: See the Anesthesia note for documentation of the administered medications Patient Profile: This is an 82 year old female. Refer to note in patient chart for documentation of history and physical. Patient has symptoms of acute dyspepsia and acute nausea. Complications: No immediate complications. Procedure: Pre-Anesthesia Assessment: - Prior to the procedure, a History and Physical was performed, and patient medications and allergies were reviewed. The patient is competent. The risks and benefits of the procedure and the sedation options and risks were discussed with the patient. All questions were answered and informed consent was obtained. Patient identification and proposed procedure were verified by the physician in the pre-procedure area. Mental Status Examination: alert and oriented. Airway Examination: normal oropharyngeal airway and neck mobility. Respiratory Examination: clear to auscultation. CV Examination: normal. Prophylactic Antibiotics: The patient does not require prophylactic antibiotics. Prior Anticoagulants: The patient has taken no previous anticoagulant or antiplatelet agents. ASA Grade Assessment: II - A patient with mild systemic disease. After reviewing the risks and benefits, the patient was deemed in satisfactory condition to undergo the procedure. The anesthesia plan was to use monitored anesthesia care (MAC). Immediately prior to administration of medications, the patient was re-assessed for adequacy to receive sedatives. The heart rate, respiratory rate, oxygen saturations, blood pressure, adequacy of pulmonary ventilation, and response to care were monitored throughout the procedure. The physical status of the patient was re-assessed after the procedure. After obtaining informed consent, the endoscope was passed under direct vision. Throughout the procedure, the patient's blood pressure, pulse, and oxygen saturations were monitored continuously. The Endoscope was introduced through the mouth, and advanced to the second part of duodenum. The upper GI endoscopy was accomplished without difficulty. The patient tolerated the procedure well. Scope In: 12:22:36 PM Scope Out: 12:44:27 PM Total Procedure Duration Time 0 hours 21 minutes 51 seconds Findings: The examined esophagus was normal. A single 25 mm pedunculated and sessile polyp with bleeding and stigmata of recent bleeding was found in the cardia. The polyp was removed with a hot snare. Resection and retrieval were complete. Verification of patient identification for the specimen was done. Estimated blood loss was minimal. One oozing cratered gastric ulcer with pigmented material was found at the gastroesophageal junction. The lesion was 8 mm in largest dimension. Coagulation for hemostasis using heater probe was successful. Estimated blood loss was minimal. Multiple 2 mm sessile polyps with no bleeding and no stigmata of recent bleeding were found in the gastric body. No gross lesions were noted in the second portion of the duodenum. Impression: - Normal esophagus. - A single gastric polyp. Resected and retrieved. - Oozing gastric ulcer with pigmented material. Treated with a heater probe. - Multiple gastric polyps. - No gross lesions in the second portion of the duodenum. Recommendation: - [facility]. - Full liquid diet. - Give Protonix (pantoprazole): initiate therapy with 80 mg IV bolus, then 8 mg/hr IV by continuous infusion today. - Continue present medications. Procedure Code(s): --- Professional --- 20912, 59, Esophagogastroduodenoscopy, flexible, transoral; with control of bleeding, any method 44017, Esophagogastroduodenoscopy, flexible, transoral; with removal of tumor(s), polyp(s), or other lesion(s) by snare technique CPT copyright 2017 [employer] [employer]. All rights reserved. The codes documented in this report are preliminary and upon sock knitting machine operator review may be revised to meet current compliance requirements. Del Hernandez DO 01/09/2023 12:51:03 PM This report has been signed electronically. Number of Addenda: 0 Note Initiated On: 01/09/2023 12:14 PM
--- NOTE | 2023-01-09 12:51 | OP.CCLET_ITS ---
01/09/2023 Aiden Bee MD [address] [id number] Re : Upper GI endoscopy procedure for Marilynn Donaldson Dear Dr. Bee This procedure was performed on Monday, January 09, 2023. My impressions and recommendations are as follows: Impressions : - Normal esophagus. - A single gastric polyp. Resected and retrieved. - Oozing gastric ulcer with pigmented material. Treated with a heater probe. - Multiple gastric polyps. - No gross lesions in the second portion of the duodenum. Recommendations : - [facility]. - Full liquid diet. - Give Protonix (pantoprazole): initiate therapy with 80 mg IV bolus, then 8 mg/hr IV by continuous infusion today. - Continue present medications. My findings are described in the full procedure note, which is enclosed. If I can be of further assistance, please feel free to contact me at . Sincerely, Del Hernandez, 01/09/2023 12:51:03 PM This report has been signed electronically.
--- NOTE | 2023-01-09 13:06 | NURSING ---
pt remains off unit in ac
--- NOTE | 2023-01-09 14:13 | CASEMGMT ---
SW spoke with patient regarding SNF. Pt requests to return to [facility] and decline list. Patient updates and request to return sent to [facility]. Maryam Sanchez COMPRESSED GAS TESTER, CORPORATE DEVELOPMENT MANAGER
--- NOTE | 2023-01-09 14:44 | CASEMGMT ---
[facility] confirmed patient is able to return when medically ready and is a Medicaid bed hold. Maryam Sanchez MEDICAL COMMUNICATION SPECIALIST, FUNDING COORDINATOR
[2023-01-09] MEDS: Ondansetron 4 MG/2 ML Vial IV (15:26)
[2023-01-09] MEDS: proCHLORPERazine 10 MG/2 ML Vial 5 MG IV (18:37)
[2023-01-09] MEDS: Mag Hydrox/Al Hydrox/Simeth 30 ML UDC PO (21:24)
[2023-01-09] MEDS: MELATONIN 10 MG TABLET 5 MG PO (21:34)
[2023-01-09] MEDS: Loratadine 10 MG Tablet PO (21:35)
[2023-01-09] MEDS: Atorvastatin Calcium 10 MG Tablet PO (21:35)
[2023-01-09] MEDS: OLANZapine 10 MG Tablet 15 MG PO (21:35)
[2023-01-09] MEDS: Furosemide 40 MG Tablet PO (21:35)
[2023-01-10] MEDS: oxyCODONE 5 MG Tablet 2.5 MG PO (00:42)
[2023-01-10] MEDS: Acetaminophen 325 MG Tablet 650 MG PO ×2 (00:43→11:05)
[2023-01-10] MEDS: 0.9% Saline Lock 10 ML Syringe IV (01:38)
[2023-01-10] MEDS: Ondansetron 4 MG/2 ML Vial IV ×2 (01:38→11:05)
[2023-01-10 01:40] VITALS: BP 156/53; PULSE 73; RESP 18; TEMP 36.3; O2SAT 97
[2023-01-10 05:22] LABS: Absolute Lymphocyte Count 1.24 X10^3/uL (0.83-4.51); Absolute Neutrophil Count 7.5 X10^3/uL (2.0-7.7); Basophil# 0.02 X10^3/uL; Basophil% 0.2 % (0-1); Hematocrit 31.3 % (37-47); Lymphocyte # 1.24 X10^3/ul (0.83-4.51); Lymphocyte % 13.2 % (19-41); Mean Corp Hgb Conc 28.8 g/dL (32-36); Mean Corpuscular Hgb 21.7 pg (27.0-32.0); Mean Corpuscular Volume 75.6 fL (81-99); Mean Platelet Vol. 9.2 fl (6.2-12.0); Monocyte# 0.56 X10^3/uL; NRBC Flagged by Analyzer 0 % (0-5); Neutrophil % 79.6 % (47-70); Platelet Count 576 K/mm3 (150-450); RBC Distribution Width CV 17.9 % (11.6-14.6); RBC Distribution Width SD 48.4 fl (35.1-43.9); Red Blood Count 4.14 M/mm3 (4.2-5.4); White Blood Count 9.4 K/mm3 (4.4-11.0)
[2023-01-10] MEDS: Nystatin Powder 15gm Bottle 1 APPLIC TOPICAL ×3 (05:27→22:09)
[2023-01-10] MEDS: Menthol/Lanolin/Calamine/Znox 113 GM Tube 1 APPLIC TOPICAL ×3 (05:27→22:00)
[2023-01-10 05:50] LABS: Anion Gap 5 (5-15); BUN 15 mg/dL (7-18); BUN/Creat Ratio 20.2 RATIO (10-20); Calcium,Total 8.5 mg/dL (8.5-10.1); Chloride 112 mmol/L (98-107); Creatinine, Serum 0.74 mg/dL (0.55-1.02); EST Glomerular Filtration Rate 79 mL/min (>60); Est Glom Filt Rate - Afr Amer 96 mL/min (>60); Estimated Creatinine Clearance 42.18 ml/min; Glucose 202 mg/dL (74-106); Potassium 3.6 mmol/L (3.5-5.1); Sodium Level 144 mmol/L (136-145)
[2023-01-10 06:00] VITALS: BMI 28.5
[2023-01-10 07:40] VITALS: O2SAT 94
[2023-01-10 08:00] VITALS: BP 150/65; PULSE 64; RESP 18; TEMP 36.6; O2SAT 100
[2023-01-10] MEDS: Sodium Chloride 0.65% 1 SPRAY SPRAY.BTL 2 SPRAY NASAL (08:13)
[2023-01-10] MEDS: Fluticasone 0.05% 1 SPRAY NASAL.SRY 2 SPRAY NASAL (08:14)
[2023-01-10] MEDS: Furosemide 40 MG Tablet PO ×2 (08:15→22:09)
[2023-01-10 08:38] VITALS: PULSE 60; RESP 18
[2023-01-10] MEDS: Mag Hydrox/Al Hydrox/Simeth 30 ML UDC PO (11:05)
--- NOTE | 2023-01-10 11:17 | NURSING ---
Rx made aware that another bag of protonix ivf is needed
--- NOTE | 2023-01-10 11:28 | RAD_ITS ---
INDICATION: Shortness of breath EXAMINATION/TECHNIQUE: X-RAY - XR Chest 1 View COMPARISON: February 09, 2020 FINDINGS: LINES/DEVICES: None. LUNGS: There is no new focal consolidation. MEDIASTINUM AND CARDIOVASCULAR STRUCTURES: Cardiac silhouette not enlarged. Central airways and mediastinal contour are unremarkable. BONES AND SOFT TISSUES: Unremarkable. There are indeterminant 1.1 and 0.7 cm somewhat linear high attenuation foci projecting over the left upper quadrant of the abdomen. RAD/Chest 1 View (Portable) IMPRESSION: No acute cardiopulmonary process. Two indeterminate linear densities projecting over the left upper quadrant of the abdomen, may be on the patient, cannot entirely exclude ingested foreign bodies. Electronically Signed: Jessica Pierre MD at 15:05 EDT ,
[2023-01-10 13:03] VITALS: PULSE 66; RESP 18; O2SAT 96
--- NOTE | 2023-01-10 15:17 | PCM.PN.HOSP ---
Reason for Visit Reason for Visit: Diagnoses Gastrointestinal hemorrhage, unspecified (01/08/23) Follow-up for severe anemia and GI bleed. Objective Data Objective Data Vital Signs: Vital Signs Temp Pulse Resp BP Pulse Ox O2 Del Method O2 Flow Rate 97.9 F 66 18 150/65 H 96 Nasal Cannula 2 01/10/23 08:00 01/10/23 13:03 01/10/23 13:03 01/10/23 08:00 01/10/23 13:03 01/10/23 13:03 01/10/23 13:03 Oxygen Flow Rate (L/min) 2 Oxygen Delivery Method Nasal Cannula Weight: 182 lb 5.156 oz Body Mass Index (BMI) 28.5 Intake & Output: Intake and Output for Last 24 Hours 01/08/23 01/09/23 01/10/23 23:59 23:59 23:59 Intake Total 111.25 / 111.25 2266.25 / 2266.25 551.33 / 551.33 Output Total 900 / 900 Balance 111.25 / -388.75 1366.25 / 1366.25 551.33 / 551.33 Lab / Micro Data Result Diagrams: 01/10/23 04:10 01/10/23 04:10 Labs: Laboratory Results - last 24 hr 01/10/23 04:10: WBC 9.4, RBC 4.14 L, Hgb 9.0 L, Hct 31.3 L, MCV 75.6 L, MCH 21.7 L, MCHC 28.8 L, RDW Std Deviation 48.4 H, RDW Coeff of Lamine 17.9 H, Plt Count 576 H, MPV 9.2, Immature Gran % (Auto) 1.000 H, Neut % (Auto) 79.6 H, Lymph % (Auto) 13.2 L, [place] % (Auto) 6.0, Eos % (Auto) 0.0, Baso % (Auto) 0.2, Absolute Neuts (auto) 7.5, Absolute Lymphs (auto) 1.24, Nucleated RBC % 0 01/10/23 04:10: Sodium 144, Potassium 3.6, Chloride 112 H, Carbon Dioxide 27.0, Anion Gap 5, BUN 15, Creatinine 0.74, Estim Creat Clear Calc 42.18, Est GFR (MDRD) Af Amer 96, Est GFR (MDRD) Non-Af 79, BUN/Creatinine Ratio 20.2 H, Glucose 202 H, Calcium 8.5 Micro: Microbiology 01/08/23 13:45 Stool Stool Occult Blood (CHELLY) - Final Occult Blood Positive Radiography Diagnostic Testing: Radiology Impression Chest X-Ray 01/10/23 11:28 IMPRESSION: No acute cardiopulmonary process. Two indeterminate linear densities projecting over the left upper quadrant of the abdomen, may be on the patient, cannot entirely exclude ingested foreign bodies. Electronically Signed: Jessica Pierre MD at 15:05 EDT , Physical Exam Narrative Seen and examined. Patient feels very weak.Patient looks mild short of breath. Patient also has generalized weakness and bilateral lower extremity weakness. Cannot lift her legs. Mainly dependent on walker. Had EGD in the morning Physical exam General: Awake, responding to questions appropriately but fatigued. Oriented x3. HEENT: Atraumatic, PERRLA, EOMI, Normocephalic Oral: No Gingival or Mucosal Lesions/ Ulcerations Neck: Supple, No JVD, Negative Carotid Bruits Lungs: Air entry diminished in bilateral lung bases. No crepitations Cardiovascular: Regular rate, Regular Rhythm, Normal S1, Normal S2, No murmurs Abdomen: Bowel Sounds Present, Soft, Non Tender, Non-Distended : No renal angle tenderness. No suprapubic tenderness. Extremities: Bilateral lower extremity 2+ edema, Capillary Refill Less than 3 Seconds Skin: No rashes, No breakdown Musculoskeletal: Muscle strength 4/5 at knee and hip joints. ROM restricted. Dependent on wheeled walker. Restricted ambulation Neurological: Cranial nerves II-XII grossly intact, DTR 2+/4 while drowsy. Psych/Mental Status: Flat affect Assessment & Plan Assessment/Plan (1) GI bleed: PLAN: Plan The patient is an 82 y/o F was admitted from group home for left lower quadrant abdominal pain cramping in nature, dark appearing stool and hemoglobin 6.2 g on the day of admission. #1. Acute upper GI Bleed w/ resultant Acute Blood Loss Anemia on chronic microcytic anemia: Admission hemoglobin 6.2, from review of previous labs has primarily been in the 7 range since 09/2022 but prior to this had been primarily 10-11 grams percent. [facility] floor.Patient has 2 units of PRBC transfusion ordered 1 transfused, another transfusing. Discontinue IV fluid. EGD shows single gastric polyp resected. Oozing gastric ulcer with pigmented material. Multiple gastric polyps. Biopsy was taken. Patient on IV PPI. Full liquid diet. 01/10: Discussed with the GI. Protonix drip changed to Protonix 40 mg p.o. twice daily. Expected discharge tomorrow. #2. PAF: Patient per current list is not on any rate or rhythm agent, anticoagulants discontinued. Patient does not need acute reversal agent as hemodynamically BP in normal range. 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 #4. Chronic diastolic CHF: 07/13/2019 echocardiogram with mild concentric LVH, EF 65%, stage I diastolic dysfunction, mildly dilated RV, trivial TVI, RVSP 36 mmHg with mild pulmonary hypertension. As noted holding patient home Eliquis regimen, continue statin. IV fluid discontinued. Lasix is resumed. 01/10: Patient looks mild short of breath but no crepitation. Chest x-ray was done does not show acute change in the lung parenchyma. Continue Lasix. #5. Hypertension: continue patient home Lasix regimen with hold parameters given presentation with acute anemia, as needed IV hydralazine. #6. Hyperlipidemia: We will continue patient on statin therapy. #7. Schizophrenia/Anxiety and Depression: We will continue patient home olanzapine regimen. #8. GERD: We will maintain on IV PPI. #9. Allergic rhinitis: We will continue patient home loratadine regimen and will add fluticasone given patient complaints. 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 #11. DVT prophylaxis: SCDs. #12. CODE status: Patient SUSAN is her son and living will is current in place. Discussed CODE status at length including difference between FULL code, DNR-CCA and DNR-CC status. Following discussions about the differences in these status, requested continued DNR-CC status; however, she does note interest in reviewing items with Gastroenterology and discussing possible endoscopy. Charges/Coding Visit Charges Inpatient E&M: 99201 Subs Hosp L2
--- NOTE | 2023-01-10 17:45 | PCM.PROGNOTE ---
Subjective Subjective Patient underwent an upper endoscopy yesterday for an acute GI bleed with acute on chronic anemia. She has been on PPI drip. She has not seen any signs of bleeding overnight and during the day. Objective Data Objective Data Vital Signs: Vital Signs Temp Pulse Resp BP Pulse Ox O2 Del Method O2 Flow Rate 97.9 F 66 18 150/65 H 96 Nasal Cannula 2 01/10/23 08:00 01/10/23 13:03 01/10/23 13:03 01/10/23 08:00 01/10/23 13:03 01/10/23 13:03 01/10/23 13:03 Oxygen Flow Rate (L/min) 2 Oxygen Delivery Method Nasal Cannula Weight: 182 lb 5.156 oz Body Mass Index (BMI) 28.5 Intake & Output: Intake and Output for Last 24 Hours 01/08/23 01/09/23 01/10/23 23:59 23:59 23:59 Intake Total 111.25 / 111.25 2266.25 / 2266.25 551.33 / 551.33 Output Total 900 / 900 Balance 111.25 / -388.75 1366.25 / 1366.25 551.33 / 551.33 Lab / Micro Data Result Diagrams: 01/10/23 04:10 01/10/23 04:10 Labs: Laboratory Results - last 24 hr 01/10/23 04:10: WBC 9.4, RBC 4.14 L, Hgb 9.0 L, Hct 31.3 L, MCV 75.6 L, MCH 21.7 L, MCHC 28.8 L, RDW Std Deviation 48.4 H, RDW Coeff of Lamine 17.9 H, Plt Count 576 H, MPV 9.2, Immature Gran % (Auto) 1.000 H, Neut % (Auto) 79.6 H, Lymph % (Auto) 13.2 L, [place] % (Auto) 6.0, Eos % (Auto) 0.0, Baso % (Auto) 0.2, Absolute Neuts (auto) 7.5, Absolute Lymphs (auto) 1.24, Nucleated RBC % 0 01/10/23 04:10: Sodium 144, Potassium 3.6, Chloride 112 H, Carbon Dioxide 27.0, Anion Gap 5, BUN 15, Creatinine 0.74, Estim Creat Clear Calc 42.18, Est GFR (MDRD) Af Amer 96, Est GFR (MDRD) Non-Af 79, BUN/Creatinine Ratio 20.2 H, Glucose 202 H, Calcium 8.5 Micro: Microbiology 01/08/23 13:45 Stool Stool Occult Blood (CHELLY) - Final Occult Blood Positive Radiography Diagnostic Testing: Radiology Impression Chest X-Ray 01/10/23 11:28 IMPRESSION: No acute cardiopulmonary process. Two indeterminate linear densities projecting over the left upper quadrant of the abdomen, may be on the patient, cannot entirely exclude ingested foreign bodies. Electronically Signed: Jessica Pierre MD at 15:05 EDT , Physical Exam Narrative Seen and examined. Patient feels very weak.Patient looks mild short of breath. Patient also has generalized weakness and bilateral lower extremity weakness. Cannot lift her legs. Mainly dependent on walker. Had EGD in the morning Physical exam General: Awake, responding to questions appropriately but fatigued. Oriented x3. HEENT: Atraumatic, PERRLA, EOMI, Normocephalic Oral: No Gingival or Mucosal Lesions/ Ulcerations Neck: Supple, No JVD, Negative Carotid Bruits Lungs: Air entry diminished in bilateral lung bases. No crepitations Cardiovascular: Regular rate, Regular Rhythm, Normal S1, Normal S2, No murmurs Abdomen: Bowel Sounds Present, Soft, Non Tender, Non-Distended : No renal angle tenderness. No suprapubic tenderness. Extremities: Bilateral lower extremity 2+ edema, Capillary Refill Less than 3 Seconds Skin: No rashes, No breakdown Musculoskeletal: Muscle strength 4/5 at knee and hip joints. ROM restricted. Dependent on wheeled walker. Restricted ambulation Neurological: Cranial nerves II-XII grossly intact, DTR 2+/4 while drowsy. Psych/Mental Status: Flat affect Assessment & Plan Assessment/Plan (1) GI bleed: PLAN: Plan 82-year-old with history of DVT PE anticoagulated paroxysmal atrial fibrillation and chronic microcytic anemia presents with increasing fatigue and malaise [facility]. She underwent an upper endoscopy and was discovered to have a bleeding gastric polyp. This was removed and 2 clips were placed. Currently her hemoglobin is 9.1 and her baseline ranges in between 10 and 11. Recommendation : Continue to monitor. Since patient's hemoglobin seems to be stable she can likely be [facility] back to [facility] tomorrow and restart anticoagulation in approximately 5 days. No antiplatelets for 2 weeks. She will continue Protonix 40 mg p.o. twice a day and she will need to be on Carafate 1 g 3 times a day. [facility] is [facility] the prison I would like her to get the liquid along with a stool softener Colace 100 mg p.o. twice daily because it can cause constipation in the elderly. Charges/Coding Visit Charges Inpatient E&M: 56709 Subs Hosp L2
[2023-01-10 20:13] VITALS: BP 140/69; PULSE 67; RESP 18; TEMP 36.8; O2SAT 97
[2023-01-10] MEDS: Morphine 2 MG/ML Syringe IV (20:19)
[2023-01-10] MEDS: Pantoprazole Sodium 40 MG Tablet PO (22:09)
[2023-01-10] MEDS: Loratadine 10 MG Tablet PO (22:09)
[2023-01-10] MEDS: Atorvastatin Calcium 10 MG Tablet PO (22:09)
[2023-01-10] MEDS: OLANZapine 10 MG Tablet 15 MG PO (22:10)
[2023-01-10 22:31] LABS: Bedside Glucose 145 mg/dL (74-106)
[2023-01-11 03:06] VITALS: BP 147/49; PULSE 51; RESP 18; TEMP 36.3; O2SAT 95
[2023-01-11 05:45] LABS: Absolute Lymphocyte Count 3.61 X10^3/uL (0.83-4.51); Absolute Neutrophil Count 6.3 X10^3/uL (2.0-7.7); Basophil# 0.07 X10^3/uL; Basophil% 0.6 % (0-1); Eosinophil# 0.29 X10^3/uL; Eosinophils% 2.6 % (0-5); Hematocrit 31.7 % (37-47); Hemoglobin 9.4 g/dL (12.0-15.0); Lymphocyte # 3.61 X10^3/ul (0.83-4.51); Lymphocyte % 32.1 % (19-41); Mean Corp Hgb Conc 29.7 g/dL (32-36); Mean Corpuscular Hgb 22.5 pg (27.0-32.0); Monocyte# 0.89 X10^3/uL; Monocyte% 7.9 % (0-10); NRBC Flagged by Analyzer 0 % (0-5); Neutrophil # 6.31 X10^3/uL (2.7-7.7); Neutrophil % 56.2 % (47-70); Platelet Count 583 K/mm3 (150-450); RBC Distribution Width CV 18.3 % (11.6-14.6); RBC Distribution Width SD 49.8 fl (35.1-43.9); Red Blood Count 4.17 M/mm3 (4.2-5.4); White Blood Count 11.2 K/mm3 (4.4-11.0)
[2023-01-11] MEDS: Nystatin Powder 15gm Bottle 1 APPLIC TOPICAL ×2 (05:53→13:03)
[2023-01-11] MEDS: Menthol/Lanolin/Calamine/Znox 113 GM Tube 1 APPLIC TOPICAL ×2 (05:53→13:02)
[2023-01-11 06:00] VITALS: BMI 31.0
[2023-01-11 06:16] LABS: Anion Gap 1 (5-15); BUN 13 mg/dL (7-18); BUN/Creat Ratio 20.1 RATIO (10-20); Calcium,Total 8.6 mg/dL (8.5-10.1); Chloride 108 mmol/L (98-107); Creatinine, Serum 0.65 mg/dL (0.55-1.02); EST Glomerular Filtration Rate 93 mL/min (>60); Est Glom Filt Rate - Afr Amer 113 mL/min (>60); Estimated Creatinine Clearance 42.18 ml/min; Glucose 90 mg/dL (74-106); Potassium 3.4 mmol/L (3.5-5.1); Sodium Level 142 mmol/L (136-145)
[2023-01-11 07:35] VITALS: O2SAT 95
--- NOTE | 2023-01-11 10:03 | PCM.TXEXTCAR ---
Diet Diet Order/Speech Therapy: 01/09/23 13:23 Diet: Full Liquid Type of Dietary Supplement:: Ensure Clear Is pt able to select menu?: No Routine Orders/Code Status Suppository Type: Dulcolax 10mg Suppository Frequency: Daily PRN Wound(s) cleft: Wound Type: Pressure Injury Therapies Weight Bearing: Weight bearing as tolerated Extremity Affected:: Bilateral Lower Physical Therapy: Eval and Treat Occupational Therapy: Eval and Treat Speech Therapy: Eval and Treat Problem/Diagnosis (1) GI bleed: Status: Acute Code(s): K92.2 - Gastrointestinal hemorrhage, unspecified Plan The patient is an 82 y/o F was admitted from assisted for left lower quadrant abdominal pain cramping in nature, dark appearing stool and hemoglobin 6.2 g on the day of admission. #1. Acute upper GI Bleed w/ resultant Acute Blood Loss Anemia on chronic microcytic anemia: Admission hemoglobin 6.2, from review of previous labs has primarily been in the 7 range since 09/2022 but prior to this had been primarily 10-11 grams percent. Patient admitted to [facility] floor.Patient has 2 units of PRBC transfusion ordered 1 transfused, another transfusing. Discontinue IV fluid. EGD shows single gastric polyp resected. Oozing gastric ulcer with pigmented material. Multiple gastric polyps. Biopsy was taken. Patient on IV PPI. Full liquid diet. 01/10: Discussed with the GI. Protonix drip changed to Protonix 40 mg p.o. twice daily. #2. PAF: Patient per current list is not on any rate or rhythm agent, anticoagulants discontinued. Patient does not need acute reversal agent as hemodynamically BP in normal range. 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 #4. Chronic diastolic CHF: 07/13/2019 echocardiogram with mild concentric LVH, EF 65%, stage I diastolic dysfunction, mildly dilated RV, trivial TVI, RVSP 36 mmHg with mild pulmonary hypertension. As noted holding patient home Eliquis regimen, continue statin. IV fluid discontinued. Lasix is resumed. 01/10: Patient looks mild short of breath but no crepitation. Chest x-ray was done does not show acute change in the lung parenchyma. Continue Lasix. #5. Hypertension: continue patient home Lasix regimen with hold parameters given presentation with acute anemia, as needed IV hydralazine. #6. Hyperlipidemia: We will continue patient on statin therapy. #7. Schizophrenia/Anxiety and Depression: We will continue patient home olanzapine regimen. #8. GERD: We will maintain on IV PPI. #9. Allergic rhinitis: We will continue patient home loratadine regimen and will add fluticasone given patient complaints. 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 #11. DVT prophylaxis: SCDs. #12. CODE status: Patient SUSAN is her son and living will is current in place. Discussed CODE status at length including difference between FULL code, DNR-CCA and DNR-CC status. Following discussions about the differences in these status, requested continued DNR-CC status; however, she does note interest in reviewing items with Gastroenterology and discussing possible endoscopy. Allergies/Procedures Done in Hospital Allergies benztropine mesylate [From Cogentin] Allergy (Verified 01/08/23 18:26) Itching risperidone [From Risperdal] Allergy (Verified 01/08/23 18:26) Shortness of breath verapamil [Verapamil] Allergy (Verified 01/08/23 18:26) Itching baclofen Adverse Reaction (Verified 01/08/23 18:26) agitation, mean codeine Adverse Reaction (Verified 01/08/23 18:26) Nausea Type of Care/Length of Stay Estimated LOS: Convalescent Care Less Than 30 days Type of Care Needed: Skilled Rehab Potential: Good Prognosis: Good Additional Orders/Day of Discharge Day of Discharge: 01/11/23 Dietary and Speech Recommendations Dietitian Recommendations/Changes: Recommend diet advancement as appropriate and when cleared by GI. Will assess oral intakes at that time and recommend ONS use as needed. Discharge Plan Admission Admit Date/Time: 01/08/23 15:04 Primary Reason for Your Visit: Upper GI Bleed Attending Provider: Paresh Scott Primary Care Provider: Aiden Bee Consulting Providers: Qiana Isabel Discharge Orders/Prescriptions Prescriptions: New acetaminophen 325 mg Tablet 650 mg PO Q4H PRN PRN (Reason: Fever, pain 1-07/14) Qty: 0 0RF pantoprazole 40 mg Tablet,Delayed Release (Dr/Ec) 40 mg PO BID 30 Days Qty: 60 1RF Continued atorvastatin 10 MG tablet 10 mg PO QHS ketotifen fumarate 1 DROP bottle 1 drp OP BID Rx Instructions: BOTH EYES loperamide 2 MG tablet 2 mg PO Q4H PRN (Reason: Diarrhea) guaifenesin 10 ML liquid 10 ml PO Q4H PRN PRN (Reason: COUGH, CONGESTION) polyethylene glycol 1450(bulk) 10,000 GM powder 17 gm PO DAILY PRN (Reason: Constipation) bisacodyl 10 MG suppository 10 mg WI PRN PRN (Reason: Constipation) sodium phosphates 1 BOTTLE enema 1 bottle RECTAL PRN PRN (Reason: CONSTPIATION) Rx Instructions: IF SUPPOSITORY INEFFECTIVE olanzapine 15 MG tablet 15 mg PO QHS nystatin 1 APPLIC bottle 1 applic topical TID albuterol sulfate 1 PUFF inhaler 2 puff IH Q3H PRN (Reason: sob/wheezing) loratadine 10 MG tablet 10 mg PO QHS cholecalciferol (vitamin D3) 1,000 UNIT tablet 5,000 unit PO TH melatonin 5 MG tablet 5 mg PO QHS furosemide 40 MG tablet 40 mg PO BID Qty: 60 0RF tramadol 50 MG tablet 50 mg PO Q8H PRN (Reason: Pain Or Fever) 3 Days Qty: 10 0RF Held apixaban 5 MG tablet 5 mg PO BID Hold Instructions: Hold for 5 days. Discontinued magnesium hydroxide 30 ML suspension 30 ml PO Q4H PRN (Reason: gi distress) magnesium hydroxide 30 ML suspension 30 ml PO DAILY PRN PRN (Reason: Constipation) omeprazole 20 MG tablet,delayed release (DR/EC) 20 mg PO DAILY Referrals / Follow Up: Aiden Bee MD [Primary Care Provider] - Disposition Disposition (needs filled in before D/C Order can be placed): [facility] Facility
--- NOTE | 2023-01-11 10:04 | DCINST_ITS ---
Discharge Instructions Follow Up Care Test Results: Test results from this visit will be discussed in further detail at your follow- up appointment, if applicable. Discharge Plan Admission Admit Date/Time: 01/08/23 15:04 Attending Provider: Paresh Scott Primary Care Provider: Aiedn Bee Consulting Providers: Qiana Isabel Discharge Orders/Prescriptions Prescriptions: No Action atorvastatin 10 MG tablet 10 mg PO QHS ketotifen fumarate 1 DROP bottle 1 drp OP BID Rx Instructions: BOTH EYES loperamide 2 MG tablet 2 mg PO Q4H PRN (Reason: Diarrhea) tramadol 50 MG tablet 50 mg PO Q8H PRN (Reason: Pain Or Fever) guaifenesin 10 ML liquid 10 ml PO Q4H PRN PRN (Reason: COUGH, CONGESTION) polyethylene glycol 1450(bulk) 10,000 GM powder 17 gm PO DAILY PRN (Reason: Constipation) magnesium hydroxide 30 ML suspension 30 ml PO Q4H PRN (Reason: gi distress) magnesium hydroxide 30 ML suspension 30 ml PO DAILY PRN PRN (Reason: Constipation) bisacodyl 10 MG suppository 10 mg UT PRN PRN (Reason: Constipation) sodium phosphates 1 BOTTLE enema 1 bottle RECTAL PRN PRN (Reason: CONSTPIATION) Rx Instructions: IF SUPPOSITORY INEFFECTIVE olanzapine 15 MG tablet 15 mg PO QHS nystatin 1 APPLIC bottle 1 applic topical TID albuterol sulfate 1 PUFF inhaler 2 puff IH Q3H PRN (Reason: sob/wheezing) loratadine 10 MG tablet 10 mg PO QHS cholecalciferol (vitamin D3) 1,000 UNIT tablet 5,000 unit PO TH omeprazole 20 MG tablet,delayed release (DR/EC) 20 mg PO DAILY melatonin 5 MG tablet 5 mg PO QHS apixaban 5 MG tablet 5 mg PO BID furosemide 40 MG tablet 40 mg PO BID Qty: 60 0RF Referrals / Follow Up: Aiden Bee MD [Primary Care Provider] -
[2023-01-11] MEDS: Fluticasone 0.05% 1 SPRAY NASAL.SRY 2 SPRAY NASAL (10:37)
[2023-01-11] MEDS: Furosemide 40 MG Tablet PO (10:38)
[2023-01-11] MEDS: Pantoprazole Sodium 40 MG Tablet PO (10:40)
[2023-01-11 10:58] VITALS: BP 160/69; PULSE 72; RESP 18; TEMP 36.6; O2SAT 100
--- NOTE | 2023-01-11 11:00 | DS.PCM_ITS ---
Providers Date of Admission: 01/08/23 Date of Discharge: 01/11/23 Primary Care Physician: Dr. Aiden Bee MD Consultations 01/08/23 18:16 Consult: Gastroenterology Routine Consulting Provider: [facility] Reason for Consult: GI bleed, acute blood loss anemia. EMERGENT Consult: No MD Notified: Yes Date Notified: 01/08/23 Time Notified: 15:28 Method of Notification: Text Reason For Visit: GI BLEED, ACUTE BLOOD LOSS ANEMIA Diagnosis Discharge Diagnosis (1) GI bleed: Status: Acute Code(s): K92.2 - Gastrointestinal hemorrhage, unspecified Plan The patient is an 82 y/o F was admitted from long-term for left lower quadrant abdominal pain cramping in nature, dark appearing stool and hemoglobin 6.2 g on the day of admission. #1. Acute upper GI Bleed w/ resultant Acute Blood Loss Anemia on chronic microcytic anemia: Admission hemoglobin 6.2, from review of previous labs has primarily been in the 7 range since 09/2022 but prior to this had been primarily 10-11 grams percent. Patient admitted to [facility] floor.Patient has 2 units of PRBC transfusion ordered 1 transfused, another transfusing. Discontinue IV fluid. EGD shows single gastric polyp resected. Oozing gastric ulcer with pigmented material. Multiple gastric polyps. Biopsy was taken. Patient on IV PPI. Full liquid diet. 01/10: Discussed with the GI. Protonix drip changed to Protonix 40 mg p.o. twice daily. 01/11: Her hemoglobin is 9.4. Gradually improving. Patient discharged on Protonix 40 mg twice daily. Advised follow-up with GI in 2 weeks #2. PAF: Patient per current list is not on any rate or rhythm agent, anticoagulants discontinued. Patient does not need acute reversal agent as hemodynamically BP in normal range. 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 #4. Chronic diastolic CHF: 07/13/2019 echocardiogram with mild concentric LVH, EF 65%, stage I diastolic dysfunction, mildly dilated RV, trivial TVI, RVSP 36 mmHg with mild pulmonary hypertension. As noted holding patient home Eliquis regimen, continue statin. IV fluid discontinued. Lasix is resumed. 01/10: Patient looks mild short of breath but no crepitation. Chest x-ray was done does not show acute change in the lung parenchyma. Continue Lasix. #5. Hypertension: continue patient home Lasix regimen with hold parameters given presentation with acute anemia, as needed IV hydralazine. #6. Hyperlipidemia: We will continue patient on statin therapy. #7. Schizophrenia/Anxiety and Depression: We will continue patient home olanzapine regimen. #8. GERD: Continue PPI. #9. Allergic rhinitis: We will continue patient home loratadine regimen and will add fluticasone given patient complaints. 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 #11. DVT prophylaxis: SCDs. Discharge medication reconciliation done. Discharge follow-up instructions completed. Discharge process discussed with the patient and all questions were answered to patient's satisfaction. Prescription for Protonix and tramadol given Total time spent, exact 35 minutes on discharge meds reconciliation, examina tion, coordination of care with nurses and ancillary staff, review of imaging and blood test and discussion with the patient on follow-up instructions. Medications at Discharge Home Medications albuterol sulfate 90 mcg/actuation aerosol inhaler 2 puff IH Q3H PRN sob/wheezing 01/29/20 apixaban 5 mg tablet 5 mg PO BID 01/29/20 atorvastatin 10 mg tablet 10 mg PO QHS 01/29/20 bisacodyl 10 mg rectal suppository 10 mg WV PRN PRN Constipation 01/29/20 cholecalciferol (vitamin D3) 25 mcg (1,000 unit) tablet 5,000 unit PO TH 01/29/20 guaifenesin 100 mg/5 mL oral liquid 10 ml PO Q4H PRN PRN COUGH, CONGESTION 01/29/20 ketotifen fumarate 0.025 % (0.035 %) eye drops 1 drp OP BID 01/29/20 loperamide 2 mg tablet 2 mg PO Q4H PRN Diarrhea 01/29/20 loratadine 10 mg tablet 10 mg PO QHS 01/29/20 melatonin 5 mg tablet 5 mg PO QHS 01/29/20 nystatin 100,000 unit/gram topical powder 1 applic topical TID 01/29/20 olanzapine 15 mg tablet 15 mg PO QHS 01/29/20 polyethylene glycol 1450(bulk) 17 gm PO DAILY PRN Constipation 01/29/20 sodium phosphates 19 gram-7 gram/118 mL enema 1 bottle RECTAL PRN PRN CONSTPIATION 01/29/20 furosemide 40 mg tablet 40 mg PO BID #60 tabs 02/14/20 acetaminophen 325 mg tablet 650 mg PO Q4H PRN PRN Fever, pain 1-07/14 #0 tabs 01/11/23 pantoprazole 40 mg tablet,delayed release 40 mg PO BID 30 days #60 tabs 01/11/23 tramadol 50 mg tablet 50 mg PO Q8H PRN Pain Or Fever 3 days #10 tabs 01/11/23 Physical Exam Narrative Seen and examined. Patient has chronic mild shortness of breath due to COPD and she is on 2 L home oxygen. That is her baseline. Patient also has generalized weakness and bilateral lower extremity weakness. Cannot lift her legs due to leg swelling. Mainly dependent on walker. Had EGD in the morning Physical exam General: Awake, responding to questions appropriately. Oriented x3. HEENT: Atraumatic, PERRLA, EOMI, Normocephalic Oral: No Gingival or Mucosal Lesions/ Ulcerations Neck: Supple, No JVD, Negative Carotid Bruits Lungs: Air entry diminished in bilateral lung bases. No crepitations. On 2 L of oxygen Cardiovascular: Regular rate, Regular Rhythm, Normal S1, Normal S2, No murmurs Abdomen: Bowel Sounds Present, Soft, Non Tender, Non-Distended : No renal angle tenderness. No suprapubic tenderness. Extremities: Bilateral lower extremity 2+ edema, Capillary Refill Less than 3 Seconds Skin: No rashes, No breakdown Musculoskeletal: Muscle strength 4/5 at knee and hip joints. ROM restricted. Dependent on wheeled walker. Restricted ambulation Neurological: Cranial nerves II-XII grossly intact, DTR 2+/4 while drowsy. Psych/Mental Status: Flat affect. Mild depression. Weight / BMI Weight Weight: 198 lb 3.129 oz Body Mass Index (BMI) 31.0 ABG / Lab / Microbiology Data Result Diagrams: 01/11/23 05:00 01/11/23 05:00 Laboratory: Laboratory Results - last 24 hr 01/10/23 22:08: POC Glucose 145 H 01/11/23 05:00: WBC 11.2 H, RBC 4.17 L, Hgb 9.4 L, Hct 31.7 L, MCV 76.0 L, MCH 22.5 L, MCHC 29.7 L, RDW Std Deviation 49.8 H, RDW Coeff of Lamine 18.3 H, Plt Count 583 H, MPV 9.0, Immature Gran % (Auto) 0.600, Neut % (Auto) 56.2, Lymph % (Auto) 32.1, [place] % (Auto) 7.9, Eos % (Auto) 2.6, Baso % (Auto) 0.6, Absolute Neuts (auto) 6.3, Absolute Lymphs (auto) 3.61, Nucleated RBC % 0 01/11/23 05:00: Sodium 142, Potassium 3.4 L, Chloride 108 H, Carbon Dioxide 33.0 H, Anion Gap 1 L, BUN 13, Creatinine 0.65, Estim Creat Clear Calc 42.18, Est GFR (MDRD) Af Amer 113, Est GFR (MDRD) Non-Af 93, BUN/Creatinine Ratio 20.1 H, Glucose 90, Calcium 8.6 Microbiology: Microbiology 01/08/23 13:45 Stool Stool Occult Blood (CHELLY) - Final Occult Blood Positive Radiography Diagnostic Testing: Radiology Impression Chest X-Ray 01/10/23 11:28 IMPRESSION: No acute cardiopulmonary process. Two indeterminate linear densities projecting over the left upper quadrant of the abdomen, may be on the patient, cannot entirely exclude ingested foreign bodies. Electronically Signed: Jessica Pierre MD at 15:05 EDT Reading Location ID and State: [facility] / [place] Tel , Service support , Meaningful Use Info Meaningful Use Diagnoses (Choose all that apply): None applicable Discharge Plan Admission Admit Date/Time: 01/08/23 15:04 Primary Reason for Your Visit: Upper GI Bleed Attending Provider: Paresh Scott Primary Care Provider: Aiden Bee Consulting Providers: Qiana Isabel Discharge Orders/Prescriptions Prescriptions: New acetaminophen 325 mg Tablet 650 mg PO Q4H PRN PRN (Reason: Fever, pain 1-10/10) Qty: 0 0RF pantoprazole 40 mg Tablet,Delayed Release (Dr/Ec) 40 mg PO BID 30 Days Qty: 60 1RF Continued atorvastatin 10 MG tablet 10 mg PO QHS ketotifen fumarate 1 DROP bottle 1 drp OP BID Rx Instructions: BOTH EYES loperamide 2 MG tablet 2 mg PO Q4H PRN (Reason: Diarrhea) guaifenesin 10 ML liquid 10 ml PO Q4H PRN PRN (Reason: COUGH, CONGESTION) polyethylene glycol 1450(bulk) 10,000 GM powder 17 gm PO DAILY PRN (Reason: Constipation) bisacodyl 10 MG suppository 10 mg WV PRN PRN (Reason: Constipation) sodium phosphates 1 BOTTLE enema 1 bottle RECTAL PRN PRN (Reason: CONSTPIATION) Rx Instructions: IF SUPPOSITORY INEFFECTIVE olanzapine 15 MG tablet 15 mg PO QHS nystatin 1 APPLIC bottle 1 applic topical TID albuterol sulfate 1 PUFF inhaler 2 puff IH Q3H PRN (Reason: sob/wheezing) loratadine 10 MG tablet 10 mg PO QHS cholecalciferol (vitamin D3) 1,000 UNIT tablet 5,000 unit PO TH melatonin 5 MG tablet 5 mg PO QHS furosemide 40 MG tablet 40 mg PO BID Qty: 60 0RF tramadol 50 MG tablet 50 mg PO Q8H PRN (Reason: Pain Or Fever) 3 Days Qty: 10 0RF Held apixaban 5 MG tablet 5 mg PO BID Hold Instructions: Hold for 5 days. Discontinued magnesium hydroxide 30 ML suspension 30 ml PO Q4H PRN (Reason: gi distress) magnesium hydroxide 30 ML suspension 30 ml PO DAILY PRN PRN (Reason: Constipation) omeprazole 20 MG tablet,delayed release (DR/EC) 20 mg PO DAILY Referrals / Follow Up: Aiden Bee MD [Primary Care Provider] - FriendDel DO [Med Staff - Active Staff] - Within 2 Weeks Disposition Disposition (needs filled in before D/C Order can be placed): Senior Living Facility Charges/Coding Visit Charges Inpatient E&M: 25950 Disch Hosp >30min
[2023-01-11 13:34] VITALS: BP 121/61; PULSE 72; RESP 18; TEMP 36.9; O2SAT 100
== END 2023-01-11 13:30 | disposition skilled nursing facility (03) | DRG 393 ==
LOC: ED 15:20 → MS3 16:42
PROVIDERS: Internal Medicine Gastroenterology; Admitting Provider Family Medicine; Emergency Provider Student in an Organized Health Care Education/Training Program; PCP Family Medicine; Referring Provider Student in an Organized Health Care Education/Training Program; Visit Provider Internal Medicine
PROC: 0DJ08ZZ Inspection of Upper Intestinal Tract, Via Natural or Artificial Opening Endoscopic (ICD-10-PCS; CPT 43235; principal; 2023-01-09 11:55)
DX: K31.7 Polyp of stomach and duodenum (principal); K27.4 Chronic or unspecified peptic ulcer, site unspecified, with hemorrhage; D62 Acute posthemorrhagic anemia; I50.32 Chronic diastolic (congestive) heart failure; I27.20 Pulmonary hypertension, unspecified; I11.0 Hypertensive heart disease with heart failure; F20.9 Schizophrenia, unspecified; I48.0 Paroxysmal atrial fibrillation; K21.9 Gastro-esophageal reflux disease without esophagitis; E78.00 Pure hypercholesterolemia, unspecified; F41.9 Anxiety disorder, unspecified; F32.A Depression, unspecified; Z79.01 Long term (current) use of anticoagulants; Z79.899 Other long term (current) drug therapy; Z86.73 Personal history of transient ischemic attack (TIA), and cerebral infarction without residual deficits
CPT/HCPCS: 36415; 71045; 74177; 80048; 80053; 82274; 82962; 85014; 85018; 85025; 85027; 86850; 86900; 86901; 86920; 86922; 87426; 88305; 93005; 94668; 97162; 97165; 97802; 99285; J7030; J7040; P9016; Q9967; A4216; J2405; J3490

== ENCOUNTER → 2023-01-08 | Outpatient (REF) | payer MEDICARE, MEDICAID, SELFPAY ==
[2023-01-08 10:34] LABS: Hematocrit 22.5 % (37-47); Hemoglobin 6.2 g/dL (12.0-15.0); Mean Corp Hgb Conc 27.6 g/dL (32-36); Mean Corpuscular Hgb 20.3 pg (27.0-32.0); Mean Corpuscular Volume 73.5 fL (81-99); Mean Platelet Vol. 9.2 fl (6.2-12.0); Platelet Count 505 K/mm3 (150-450); RBC Distribution Width CV 17.5 % (11.6-14.6); RBC Distribution Width SD 46.8 fl (35.1-43.9); Red Blood Count 3.06 M/mm3 (4.2-5.4); White Blood Count 10.9 K/mm3 (4.4-11.0)
[2023-01-08 10:49] LABS: ALB/GLOB Ratio 0.6 RATIO (0.9-2.4); AST(SGOT) 12 U/L (15-37); Alanine Aminotransfer ALT/SGPT 9 U/L (13-56); Albumin, Serum 2.1 g/dL (3.2-5.0); Alkaline Phosphatase 87 U/L (45-117); Anion Gap 3 (5-15); BUN 21 mg/dL (7-18); BUN/Creat Ratio 35.9 RATIO (10-20); Calcium,Total 8.5 mg/dL (8.5-10.1); Chloride 110 mmol/L (98-107); Creatinine, Serum 0.58 mg/dL (0.55-1.02); EST Glomerular Filtration Rate 105 mL/min (>60); Est Glom Filt Rate - Afr Amer 127 mL/min (>60); Globulin 3.7 g/dL (2.2-4.2); Glucose 89 mg/dL (74-106); Potassium 3.8 mmol/L (3.5-5.1); Protein, Total 5.8 g/dL (6.4-8.2); Sodium Level 142 mmol/L (136-145)
== END ==
LOC: OLS.SW 08:00
PROVIDERS: PCP Family Medicine; Visit Provider Family Medicine
DX: R53.83 Other fatigue (principal); I10 Essential (primary) hypertension
CPT/HCPCS: 36415; 80053; 85027

== ENCOUNTER → 2023-01-12 | Outpatient (REF) | payer MEDICARE, MEDICAID, SELFPAY ==
[2023-01-12 07:46] LABS: Hematocrit 35.7 % (37-47); Hemoglobin 10.5 g/dL (12.0-15.0); Mean Corp Hgb Conc 29.4 g/dL (32-36); Mean Corpuscular Hgb 22.1 pg (27.0-32.0); Mean Platelet Vol. 9.1 fl (6.2-12.0); Platelet Count 700 K/mm3 (150-450); RBC Distribution Width CV 18.6 % (11.6-14.6); RBC Distribution Width SD 50.2 fl (35.1-43.9); Red Blood Count 4.76 M/mm3 (4.2-5.4); White Blood Count 9.9 K/mm3 (4.4-11.0)
[2023-01-12 07:50] LABS: Anion Gap 5 (5-15); BUN 19 mg/dL (7-18); Calcium,Total 8.9 mg/dL (8.5-10.1); Chloride 99 mmol/L (98-107); Creatinine, Serum 0.76 mg/dL (0.55-1.02); EST Glomerular Filtration Rate 77 mL/min (>60); Est Glom Filt Rate - Afr Amer 93 mL/min (>60); Glucose 128 mg/dL (74-106); Potassium 2.9 mmol/L (3.5-5.1); Sodium Level 142 mmol/L (136-145)
== END ==
LOC: OLS.SW 05:00
PROVIDERS: PCP Family Medicine; Visit Provider Family Medicine
DX: K92.2 Gastrointestinal hemorrhage, unspecified (principal)
CPT/HCPCS: 36415; 80048; 85027

== ENCOUNTER → 2023-01-13 | Outpatient (REF) | payer MEDICARE, MEDICAID, SELFPAY ==
[2023-01-13 07:38] LABS: Hematocrit 32.1 % (37-47); Hemoglobin 9.4 g/dL (12.0-15.0); Mean Corp Hgb Conc 29.3 g/dL (32-36); Mean Corpuscular Hgb 22.1 pg (27.0-32.0); Mean Corpuscular Volume 75.5 fL (81-99); Mean Platelet Vol. 9.2 fl (6.2-12.0); Platelet Count 603 K/mm3 (150-450); RBC Distribution Width CV 18.8 % (11.6-14.6); RBC Distribution Width SD 51.1 fl (35.1-43.9); Red Blood Count 4.25 M/mm3 (4.2-5.4); White Blood Count 9.5 K/mm3 (4.4-11.0)
[2023-01-13 07:56] LABS: ALB/GLOB Ratio 0.8 RATIO (0.9-2.4); AST(SGOT) 12 U/L (15-37); Alanine Aminotransfer ALT/SGPT 11 U/L (13-56); Albumin, Serum 2.5 g/dL (3.2-5.0); Alkaline Phosphatase 86 U/L (45-117); Anion Gap 6 (5-15); BUN 23 mg/dL (7-18); BUN/Creat Ratio 35.5 RATIO (10-20); Calcium,Total 8.3 mg/dL (8.5-10.1); Chloride 97 mmol/L (98-107); Creatinine, Serum 0.65 mg/dL (0.55-1.02); EST Glomerular Filtration Rate 93 mL/min (>60); Est Glom Filt Rate - Afr Amer 113 mL/min (>60); Globulin 3.1 g/dL (2.2-4.2); Glucose 98 mg/dL (74-106); Potassium 2.9 mmol/L (3.5-5.1); Protein, Total 5.6 g/dL (6.4-8.2); Sodium Level 138 mmol/L (136-145)
== END ==
LOC: OLS.SW 05:00
PROVIDERS: PCP Family Medicine; Visit Provider Family Medicine
DX: K92.2 Gastrointestinal hemorrhage, unspecified (principal); E78.5 Hyperlipidemia, unspecified
CPT/HCPCS: 36415; 80053; 85027

== ENCOUNTER → 2023-01-14 | Outpatient (REF) | payer MEDICARE, MEDICAID, SELFPAY ==
[2023-01-14 07:03] LABS: Anion Gap 3 (5-15); BUN 19 mg/dL (7-18); BUN/Creat Ratio 29.6 RATIO (10-20); Calcium,Total 8.6 mg/dL (8.5-10.1); Chloride 100 mmol/L (98-107); Creatinine, Serum 0.64 mg/dL (0.55-1.02); EST Glomerular Filtration Rate 94 mL/min (>60); Est Glom Filt Rate - Afr Amer 114 mL/min (>60); Glucose 138 mg/dL (74-106); Potassium 3.2 mmol/L (3.5-5.1); Sodium Level 138 mmol/L (136-145)
== END ==
LOC: OLS.SW 05:00
PROVIDERS: PCP Family Medicine; Visit Provider Family Medicine
DX: E87.6 Hypokalemia (principal)
CPT/HCPCS: 36415; 80048

== ENCOUNTER → 2023-01-15 | Outpatient (REF) | payer MEDICARE, MEDICAID, SELFPAY ==
[2023-01-15 08:33] LABS: Anion Gap 4 (5-15); BUN 17 mg/dL (7-18); BUN/Creat Ratio 23.6 RATIO (10-20); Calcium,Total 9.3 mg/dL (8.5-10.1); Chloride 100 mmol/L (98-107); Creatinine, Serum 0.72 mg/dL (0.55-1.02); EST Glomerular Filtration Rate 82 mL/min (>60); Est Glom Filt Rate - Afr Amer 100 mL/min (>60); Glucose 132 mg/dL (74-106); Potassium 3.7 mmol/L (3.5-5.1); Sodium Level 140 mmol/L (136-145)
== END ==
LOC: OLS.SW 06:35
PROVIDERS: PCP Family Medicine; Visit Provider Family Medicine
DX: E87.6 Hypokalemia (principal)
CPT/HCPCS: 36415; 80048

== ENCOUNTER → 2023-01-20 | Outpatient (REF) | payer MEDICARE, MEDICAID, SELFPAY ==
[2023-01-20 09:20] LABS: Anion Gap 4 (5-15); BUN 19 mg/dL (7-18); BUN/Creat Ratio 25.8 RATIO (10-20); Calcium,Total 9.4 mg/dL (8.5-10.1); Chloride 95 mmol/L (98-107); Creatinine, Serum 0.74 mg/dL (0.55-1.02); EST Glomerular Filtration Rate 80 mL/min (>60); Est Glom Filt Rate - Afr Amer 97 mL/min (>60); Glucose 123 mg/dL (74-106); Potassium 3.5 mmol/L (3.5-5.1); Sodium Level 132 mmol/L (136-145)
== END ==
LOC: OLS.SW 05:00
PROVIDERS: PCP Family Medicine; Visit Provider Family Medicine
DX: E87.6 Hypokalemia (principal)
CPT/HCPCS: 36415; 80048

== ENCOUNTER → 2023-01-26 | Outpatient (REF) | payer MEDICARE, MEDICAID, SELFPAY ==
[2023-01-26 09:12] LABS: Anion Gap 3 (5-15); BUN 24 mg/dL (7-18); Calcium,Total 9.6 mg/dL (8.5-10.1); Chloride 96 mmol/L (98-107); Creatinine, Serum 0.83 mg/dL (0.55-1.02); EST Glomerular Filtration Rate 70 mL/min (>60); Est Glom Filt Rate - Afr Amer 85 mL/min (>60); Glucose 109 mg/dL (74-106); Potassium 3.3 mmol/L (3.5-5.1); Sodium Level 136 mmol/L (136-145)
== END ==
LOC: OLS.SW 05:00
PROVIDERS: PCP Family Medicine; Visit Provider Family Medicine
DX: I50.22 Chronic systolic (congestive) heart failure (principal)
CPT/HCPCS: 36415; 80048

== ENCOUNTER → 2023-03-05 | Outpatient (REF) | payer MEDICARE, MEDICAID, SELFPAY ==
[2023-03-05 10:00] LABS: Hematocrit 34.7 % (37-47); Hemoglobin 10.1 g/dL (12.0-15.0); Mean Corp Hgb Conc 29.1 g/dL (32-36); Mean Corpuscular Hgb 23.1 pg (27.0-32.0); Mean Corpuscular Volume 79.4 fL (81-99); Platelet Count 418 K/mm3 (150-450); RBC Distribution Width CV 19.9 % (11.6-14.6); RBC Distribution Width SD 57.5 fl (35.1-43.9); Red Blood Count 4.37 M/mm3 (4.2-5.4); White Blood Count 9.9 K/mm3 (4.4-11.0)
[2023-03-05 10:17] LABS: Anion Gap 6 (5-15); BUN 19 mg/dL (7-18); BUN/Creat Ratio 22.6 RATIO (10-20); Calcium,Total 9.5 mg/dL (8.5-10.1); Chloride 99 mmol/L (98-107); Creatinine, Serum 0.84 mg/dL (0.55-1.02); EST Glomerular Filtration Rate 69 mL/min (>60); Est Glom Filt Rate - Afr Amer 83 mL/min (>60); Glucose 96 mg/dL (74-106); Sodium Level 141 mmol/L (136-145)
== END ==
LOC: OLS.SW 05:00
PROVIDERS: PCP Family Medicine; Visit Provider Family Medicine
DX: K92.2 Gastrointestinal hemorrhage, unspecified (principal)
CPT/HCPCS: 36415; 80048; 85027

== ENCOUNTER → 2023-04-08 | Outpatient (REF) | payer MEDICARE, MEDICAID, SELFPAY ==
[2023-04-08 20:56] LABS: Hematocrit 29.8 % (37-47); Hemoglobin 8.8 g/dL (12.0-15.0); Mean Corp Hgb Conc 29.5 g/dL (32-36); Mean Corpuscular Hgb 23.2 pg (27.0-32.0); Mean Corpuscular Volume 78.6 fL (81-99); Mean Platelet Vol. 9.1 fl (6.2-12.0); Platelet Count 530 K/mm3 (150-450); RBC Distribution Width SD 51.1 fl (35.1-43.9); Red Blood Count 3.79 M/mm3 (4.2-5.4); White Blood Count 10.8 K/mm3 (4.4-11.0)
[2023-04-08 21:09] LABS: Anion Gap 10 (5-15); BUN 17 mg/dL (7-18); BUN/Creat Ratio 22.7 RATIO (10-20); Calcium,Total 8.2 mg/dL (8.5-10.1); Chloride 96 mmol/L (98-107); Creatinine, Serum 0.75 mg/dL (0.55-1.02); EST Glomerular Filtration Rate 78 mL/min (>60); Est Glom Filt Rate - Afr Amer 95 mL/min (>60); Glucose 164 mg/dL (74-106); Potassium 2.9 mmol/L (3.5-5.1); Sodium Level 138 mmol/L (136-145)
== END ==
LOC: OLS.SW 19:42
PROVIDERS: PCP Family Medicine; Referring Provider Family Medicine; Visit Provider Family Medicine
DX: I50.9 Heart failure, unspecified (principal); R05.9 Cough, unspecified
CPT/HCPCS: 36415; 80048; 85027

== ENCOUNTER → 2023-04-16 | Outpatient (REF) | payer MEDICARE, MEDICAID, SELFPAY ==
[2023-04-16 09:57] LABS: Hematocrit 28.6 % (37-47); Hemoglobin 8.3 g/dL (12.0-15.0); Mean Corpuscular Hgb 22.9 pg (27.0-32.0); Mean Platelet Vol. 9.4 fl (6.2-12.0); Platelet Count 504 K/mm3 (150-450); RBC Distribution Width CV 17.4 % (11.6-14.6); RBC Distribution Width SD 50.2 fl (35.1-43.9); Red Blood Count 3.62 M/mm3 (4.2-5.4); White Blood Count 10.8 K/mm3 (4.4-11.0)
[2023-04-16 10:11] LABS: Vitamin B12 322 pg/mL (211-911)
== END ==
LOC: OLS.SW 05:00
PROVIDERS: PCP Family Medicine; Visit Provider Family Medicine
DX: I10 Essential (primary) hypertension (principal); D64.9 Anemia, unspecified
CPT/HCPCS: 36415; 82607; 82746; 85027

== ENCOUNTER → 2023-06-03 | Outpatient (REF) | payer MEDICARE, MEDICAID, SELFPAY ==
[2023-06-03 08:47] LABS: Hematocrit 23.5 % (37-47); Hemoglobin 6.4 g/dL (12.0-15.0); Mean Corp Hgb Conc 27.2 g/dL (32-36); Mean Platelet Vol. 9.3 fl (6.2-12.0); Platelet Count 656 K/mm3 (150-450); RBC Distribution Width CV 18.7 % (11.6-14.6); RBC Distribution Width SD 51.1 fl (35.1-43.9); Red Blood Count 3.05 M/mm3 (4.2-5.4); White Blood Count 16.6 K/mm3 (4.4-11.0)
[2023-06-03 08:59] LABS: Anion Gap 5 (5-15); BUN 15 mg/dL (7-18); BUN/Creat Ratio 24.1 RATIO (10-20); Chloride 96 mmol/L (98-107); Creatinine, Serum 0.62 mg/dL (0.55-1.02); EST Glomerular Filtration Rate 97 mL/min (>60); Est Glom Filt Rate - Afr Amer 118 mL/min (>60); Glucose 109 mg/dL (74-106); Potassium 3.2 mmol/L (3.5-5.1); Sodium Level 135 mmol/L (136-145)
[2023-06-04 10:02] LABS: Prealbumin 8.6 mg/dL (20.0-40.0)
== END ==
LOC: OLS.SW 05:00
PROVIDERS: PCP Family Medicine; Visit Provider Family Medicine
DX: L89.159 Pressure ulcer of sacral region, unspecified stage (principal); K92.2 Gastrointestinal hemorrhage, unspecified
CPT/HCPCS: 36415; 80048; 84134; 85027

== ENCOUNTER → 2023-06-10 | Outpatient (REF) | payer MEDICARE, MEDICAID, SELFPAY ==
[2023-06-10 09:23] LABS: Hematocrit 23.9 % (37-47); Hemoglobin 6.6 g/dL (12.0-15.0); Mean Corp Hgb Conc 27.6 g/dL (32-36); Mean Corpuscular Volume 76.1 fL (81-99); Mean Platelet Vol. 9.2 fl (6.2-12.0); Platelet Count 739 K/mm3 (150-450); RBC Distribution Width CV 19.2 % (11.6-14.6); RBC Distribution Width SD 52.1 fl (35.1-43.9); Red Blood Count 3.14 M/mm3 (4.2-5.4); White Blood Count 12.6 K/mm3 (4.4-11.0)
[2023-06-10 09:59] LABS: ALB/GLOB Ratio 0.6 RATIO (0.9-2.4); AST(SGOT) 12 U/L (15-37); Alanine Aminotransfer ALT/SGPT 13 U/L (13-56); Albumin, Serum 2.3 g/dL (3.2-5.0); Alkaline Phosphatase 88 U/L (45-117); Anion Gap 7 (5-15); BUN 18 mg/dL (7-18); BUN/Creat Ratio 29.9 RATIO (10-20); Calcium,Total 9.1 mg/dL (8.5-10.1); Chloride 103 mmol/L (98-107); EST Glomerular Filtration Rate 101 mL/min (>60); Est Glom Filt Rate - Afr Amer 122 mL/min (>60); Globulin 3.7 g/dL (2.2-4.2); Glucose 119 mg/dL (74-106); Potassium 3.3 mmol/L (3.5-5.1); Sodium Level 140 mmol/L (136-145)
== END ==
LOC: OLS.SW 05:00
PROVIDERS: PCP Family Medicine; Visit Provider Internal Medicine
DX: D64.9 Anemia, unspecified (principal); E87.6 Hypokalemia
CPT/HCPCS: 36415; 80053; 85027

== ENCOUNTER → 2023-06-11 | Outpatient (REF) | payer MEDICARE, MEDICAID, SELFPAY ==
[2023-06-11 09:25] LABS: Absolute Lymphocyte Count 4.24 X10^3/uL (0.83-4.51); Absolute Neutrophil Count 6.7 X10^3/uL (2.0-7.7); Basophil# 0.06 X10^3/uL; Basophil% 0.5 % (0-1); Eosinophil# 0.12 X10^3/uL; Hematocrit 23.5 % (37-47); Hemoglobin 6.6 g/dL (12.0-15.0); Lymphocyte # 4.24 X10^3/ul (0.83-4.51); Lymphocyte % 34.7 % (19-41); Mean Corp Hgb Conc 28.1 g/dL (32-36); Mean Corpuscular Volume 74.6 fL (81-99); Monocyte# 0.85 X10^3/uL; NRBC Flagged by Analyzer 0 % (0-5); Neutrophil # 6.74 X10^3/uL (2.7-7.7); Neutrophil % 55.2 % (47-70); POSITIVE MORPHOLOGY YES; Platelet Count 735 K/mm3 (150-450); RBC Distribution Width CV 19.1 % (11.6-14.6); RBC Distribution Width SD 50.9 fl (35.1-43.9); RET-HE 20.9 pg (30-35); Red Blood Count 3.15 M/mm3 (4.2-5.4); White Blood Count 12.2 K/mm3 (4.4-11.0)
[2023-06-11 09:32] LABS: Differential Indicated SCAN CRITERIA MET
[2023-06-11 09:44] LABS: Anion Gap 9 (5-15); BUN 16 mg/dL (7-18); BUN/Creat Ratio 27.4 RATIO (10-20); Calcium,Total 8.7 mg/dL (8.5-10.1); Chloride 98 mmol/L (98-107); Creatinine, Serum 0.58 mg/dL (0.55-1.02); EST Glomerular Filtration Rate 105 mL/min (>60); Est Glom Filt Rate - Afr Amer 127 mL/min (>60); Ferritin 21 ng/mL (8-252); Glucose 109 mg/dL (74-106); Iron Binding Capacity,Total 293 ug/dL (250-450); Potassium 2.9 mmol/L (3.5-5.1); Sodium Level 138 mmol/L (136-145)
[2023-06-11 10:25] LABS: Differential Comment SCANNED; Reactive Lymphocyte 1+
== END ==
LOC: OLS.SW 05:00
PROVIDERS: PCP Family Medicine; Visit Provider Family Medicine
DX: D64.9 Anemia, unspecified (principal); Z79.899 Other long term (current) drug therapy
CPT/HCPCS: 36415; 80048; 82728; 83550; 85025; 85045

== ENCOUNTER 2023-06-13 14:47 | Emergency (ER) | payer MEDICARE, MEDICAID, SELFPAY ==
[2023-06-13 14:49] VITALS: PULSE 85; RESP 16; TEMP 35.7; O2SAT 97; BMI 24.9
--- NOTE | 2023-06-13 15:29 | EDS_ITS ---
HPI History of Present Illness Chief Complaint: Abn Labs Narrative Narrative: Extremity CF, apparently she has been more weak recently she was found to have a hemoglobin of 6.6 today. There is no history of any rectal or GI bleeding or dark stools. No history of nausea or vomiting. Per ECF she is oriented x2 secondary to dementia however when I talk to her she is oriented x3. She answers questions relatively appropriately. She denies any pain. No recent fevers or chills. PFSH PFS Medical History Arthritis Atrial fibrillation Cataracts, bilateral Chest pain Chronic pain DDD (degenerative disc disease), lumbar Diabetes DVT (deep venous thrombosis) Environmental allergies Grade I diastolic dysfunction High cholesterol High triglycerides History of CVA (cerebrovascular accident) History of gallstones History of uterine cancer HTN (hypertension) Irregular heart beat Kidney stones Melanoma Mild pulmonary hypertension On home oxygen therapy Osteoarthritis PAF (paroxysmal atrial fibrillation) Schizophrenia TIA (transient ischemic attack) Home Medications albuterol sulfate 90 mcg/actuation aerosol inhaler 2 puff IH Q3H PRN sob/wheezing 01/29/20 [History Last Taken Unknown] apixaban 5 mg tablet 5 mg PO BID 01/29/20 [History Last Taken Unknown] atorvastatin 10 mg tablet 10 mg PO QHS 01/29/20 [History Last Taken Unknown] bisacodyl 10 mg rectal suppository 10 mg ME PRN PRN Constipation 01/29/20 [History Last Taken Unknown] cholecalciferol (vitamin D3) 25 mcg (1,000 unit) tablet 5,000 unit PO TH 01/29/20 [History Last Taken Unknown] guaifenesin 100 mg/5 mL oral liquid 10 ml PO Q4H PRN PRN COUGH, CONGESTION 01/29/20 [History Last Taken Unknown] ketotifen fumarate 0.025 % (0.035 %) eye drops 1 drp OP BID 01/29/20 [History Last Taken Unknown] loperamide 2 mg tablet 2 mg PO Q4H PRN Diarrhea 01/29/20 [History Last Taken Unknown] loratadine 10 mg tablet 10 mg PO QHS 01/29/20 [History Last Taken Unknown] melatonin 5 mg tablet 5 mg PO QHS 01/29/20 [History Last Taken Unknown] nystatin 100,000 unit/gram topical powder 1 applic topical TID 01/29/20 [History Last Taken Unknown] olanzapine 15 mg tablet 15 mg PO QHS 01/29/20 [History Last Taken Unknown] polyethylene glycol 1450(bulk) 17 gm PO DAILY PRN Constipation 01/29/20 [History Last Taken Unknown] sodium phosphates 19 gram-7 gram/118 mL enema 1 bottle RECTAL PRN PRN CONSTPIATION 01/29/20 [History Last Taken Unknown] furosemide 40 mg tablet 40 mg PO BID #60 tabs 02/14/20 [Rx Last Taken Unknown] acetaminophen 325 mg tablet 650 mg (2 x 325 mg) PO Q4H PRN PRN Fever, pain 1- 07/14 #0 tabs 01/11/23 [Rx Last Taken Unknown] pantoprazole 40 mg tablet,delayed release 40 mg PO BID 30 days #60 tabs 01/11/23 [Rx Last Taken Unknown] tramadol 50 mg tablet 50 mg PO Q8H PRN Pain Or Fever 3 days #10 tabs 01/11/23 [Rx Last Taken Unknown] potassium chloride 20 mEq tablet,extended release 20 meq PO BID #14 tabs 06/13/23 [Rx Last Taken Unknown] Allergy/AdvReac Type Severity Reaction Status Date / Time benztropine mesylate Allergy Itching Verified 06/13/23 14:49 [From Cogentin] risperidone [From Risperdal] Allergy Shortness Verified 06/13/23 14:49 of breath verapamil [Verapamil] Allergy Itching Verified 06/13/23 14:49 baclofen AdvReac agitation, Verified 06/13/23 14:49 mean codeine AdvReac Nausea Verified 06/13/23 14:49 Family History Mother Arthritis Asthma COPD (chronic obstructive pulmonary disease) Kidney disease Hypertension Father Heart disease Diabetes Hypertension Surgical History History of appendectomy History of cholecystectomy History of cranial surgery History of hysterectomy S/P rotator cuff repair S/P skin and subcutaneous tissue surgery Social History household members: none housing: long-term Smoking Status: Never smoker alcohol intake: never substance use type: does not use what type of physical activity do you participate in: walking frequency: 1-2 times per week ROS ROS ED ROS Narrative Review of systems: All systems negative except as indicated General: No fever. Generalized weakness as in HPI Eyes: No visual changes ENT: No upper airway congestion, normal voice Neck: No neck pain Cardiovascular: No chest pain Respiratory: No shortness of breath or cough Gastrointestinal: No abdominal pain Genitourinary: Incontinence Musculoskeletal: Chronic lower extremity edema. EXAM Physical Exam Narrative Exam Narrative: Physical exam General: Patient appears chronically ill. Head: Normocephalic, Atraumatic Eyes: pale conjunctiva ENT: Dry mucous membranes Neck: Supple, Nontender, No lymphadenopathy Cardiovascular: Regular rate, Regular rhythm Respiratory: No distress, CTA bilaterally Abdomen: Soft, Nontender, Nondistended Back: Nontender, Normal Inspection. Negative for: CVA tenderness Extremities: Symmetric edema Skin: Pallor Neurological:. She is oriented x3. No focal deficit. Const Vital Signs: 06/13/23 14:49 06/13/23 14:52 06/13/23 16:35 Temperature 96.3 F L Temperature Source Temporal Pulse Rate 85 76 Respiratory Rate 16 16 Respiratory Effort Normal Respiratory Pattern Normal Blood Pressure 116/74 Blood Pressure Mean 88 Pulse Ox 97 97 Oxygen Delivery Method Room Air Room Air MDM MDM MDM Narrative Medical decision making narrative: Has chronic low hemoglobin, I do not believe that is changed in fact its higher today probably because she is hemoconcentrated. She does not have any evidence of infection she has slight leukocytosis although she is hemoconcentrated and she also has some sort of leukocytosis on prior blood work. DNR CC order. I do not believe admission is needed at this time. She can be watched at the F quite well. Lab Data Labs: Laboratory Results - last 24 hr 06/13/23 06/13/23 15:00 16:35 WBC 16.0 H RBC 3.55 L Hgb 7.3 L Hct 26.4 L MCV 74.4 L MCH 20.6 L MCHC 27.7 L RDW Std Deviation 50.6 H RDW Coeff of Lamine 19.8 H Plt Count 937 H* MPV 8.9 Immature Gran % (Auto) 1.200 H Neut % (Auto) 72.9 H Lymph % (Auto) 20.0 [place] % (Auto) 5.3 Eos % (Auto) 0.1 Baso % (Auto) 0.5 Absolute Neuts (auto) 11.6 H Absolute Lymphs (auto) 3.19 Nucleated RBC % 0 Differential Comment SCANNED Diff Path Review May foll Polychromasia RARE Hypochromasia 3+ Anisocytosis 2+ Microcytosis 1+ Macrocytosis RARE Target Cells RARE Ovalocytes RARE Crenated Cell 1+ PT 17.9 H INR 1.5 Sodium 137 Potassium 2.5 L* Chloride 98 Carbon Dioxide 32.0 Anion Gap 7 BUN 20 H Creatinine 0.70 Estim Creat Clear Calc 39.90 Est GFR (MDRD) Af Amer 102 Est GFR (MDRD) Non-Af 84 BUN/Creatinine Ratio 28.4 H Glucose 182 H Calcium 8.8 Total Bilirubin 0.40 AST 11 L ALT 13 Alkaline Phosphatase 106 Total Protein 6.4 Albumin 2.6 L Globulin 3.8 Albumin/Globulin Ratio 0.7 L Urine Color Yellow Urine Clarity Clear Urine pH 6.0 Ur Specific [place] 1.015 Urine Protein Negative Urine Glucose (UA) Normal Urine Ketones Negative Urine Occult Blood Negative Urine Nitrite Negative Urine Bilirubin Negative Urine Urobilinogen Normal Ur Leukocyte Esterase 25 H Urine RBC 0 SEEN Urine WBC 0-5 SEEN Ur Squamous Epith Cells 0 SEEN Urine Bacteria 3+ Urine Mucus 0 SEEN Discharge Plan Triage Chief Complaint: Abn Labs ED Provider: Aiden Navarrete Dx/Rx/DC Orders Clinical Impression: Anemia, chronic disease, Dehydration, Acute hypokalemia Instructions: ED Dehydration (Adult), ED Hypokalemia Prescriptions: New potassium chloride 20 mEq tablet extended release 20 meq PO BID Qty: 14 0RF No Action atorvastatin 10 MG tablet 10 mg PO QHS ketotifen fumarate 1 DROP bottle 1 drp OP BID Rx Instructions: BOTH EYES loperamide 2 MG tablet 2 mg PO Q4H PRN (Reason: Diarrhea) guaifenesin 10 ML liquid 10 ml PO Q4H PRN PRN (Reason: COUGH, CONGESTION) polyethylene glycol 1450(bulk) 10,000 GM powder 17 gm PO DAILY PRN (Reason: Constipation) bisacodyl 10 MG suppository 10 mg ME PRN PRN (Reason: Constipation) sodium phosphates 1 BOTTLE enema 1 bottle RECTAL PRN PRN (Reason: CONSTPIATION) Rx Instructions: IF SUPPOSITORY INEFFECTIVE olanzapine 15 MG tablet 15 mg PO QHS nystatin 1 APPLIC bottle 1 applic topical TID albuterol sulfate 1 PUFF inhaler 2 puff IH Q3H PRN (Reason: sob/wheezing) loratadine 10 MG tablet 10 mg PO QHS cholecalciferol (vitamin D3) 1,000 UNIT tablet 5,000 unit PO TH melatonin 5 MG tablet 5 mg PO QHS apixaban 5 MG tablet 5 mg PO BID Hold Instructions: Hold for 5 days. furosemide 40 MG tablet 40 mg PO BID Qty: 60 0RF acetaminophen 325 mg Tablet 650 mg PO Q4H PRN PRN (Reason: Fever, pain -07/14) Qty: 0 0RF pantoprazole 40 mg Tablet,Delayed Release (Dr/Ec) 40 mg PO BID 30 Days Qty: 60 1RF tramadol 50 MG tablet 50 mg PO Q8H PRN (Reason: Pain Or Fever) 3 Days Qty: 10 0RF Primary Care Provider: Aiden Bee Referrals: Aiden Bee MD [Primary Care Provider] - 3-5 Days
[2023-06-13 15:33] LABS: Absolute Lymphocyte Count 3.19 X10^3/uL (0.83-4.51); Absolute Neutrophil Count 11.6 X10^3/uL (2.0-7.7); Basophil# 0.08 X10^3/uL; Basophil% 0.5 % (0-1); Eosinophil# 0.01 X10^3/uL; Eosinophils% 0.1 % (0-5); Hematocrit 26.4 % (37-47); Hemoglobin 7.3 g/dL (12.0-15.0); Lymphocyte # 3.19 X10^3/ul (0.83-4.51); Mean Corp Hgb Conc 27.7 g/dL (32-36); Mean Corpuscular Hgb 20.6 pg (27.0-32.0); Mean Corpuscular Volume 74.4 fL (81-99); Mean Platelet Vol. 8.9 fl (6.2-12.0); Monocyte# 0.85 X10^3/uL; Monocyte% 5.3 % (0-10); NRBC Flagged by Analyzer 0 % (0-5); Neutrophil # 11.64 X10^3/uL (2.7-7.7); Neutrophil % 72.9 % (47-70); POSITIVE COUNT YES; RBC Distribution Width CV 19.8 % (11.6-14.6); RBC Distribution Width SD 50.6 fl (35.1-43.9); Red Blood Count 3.55 M/mm3 (4.2-5.4)
[2023-06-13 15:39] LABS: Platelet Count 937 K/mm3 (150-450)
[2023-06-13 15:40] LABS: Differential Indicated SCAN CRITERIA MET
[2023-06-13 15:44] LABS: International Normalized Ratio 1.5; Prothrombin Time (Protime)PT. 17.9 SECONDS (11.7-14.9)
[2023-06-13 15:57] LABS: ALB/GLOB Ratio 0.7 RATIO (0.9-2.4); AST(SGOT) 11 U/L (15-37); Alanine Aminotransfer ALT/SGPT 13 U/L (13-56); Albumin, Serum 2.6 g/dL (3.2-5.0); Alkaline Phosphatase 106 U/L (45-117); Anion Gap 7 (5-15); BUN 20 mg/dL (7-18); BUN/Creat Ratio 28.4 RATIO (10-20); Calcium,Total 8.8 mg/dL (8.5-10.1); Chloride 98 mmol/L (98-107); EST Glomerular Filtration Rate 84 mL/min (>60); Est Glom Filt Rate - Afr Amer 102 mL/min (>60); Globulin 3.8 g/dL (2.2-4.2); Glucose 182 mg/dL (74-106); Potassium 2.5 mmol/L (3.5-5.1); Protein, Total 6.4 g/dL (6.4-8.2); Sodium Level 137 mmol/L (136-145)
[2023-06-13] MEDS: 0.9% Normal Saline (500mL Bag) 500 ML 1000 ML IV (16:00)
[2023-06-13 16:16] LABS: Anisocytosis 2+; Differential Comment SCANNED; Hypochromasia 3+; Polychromasia RARE
[2023-06-13 16:17] LABS: Crenated RBC 1+; Macrocytosis RARE; Microcytosis 1+; Ovalocyte RARE
[2023-06-13 16:18] LABS: Target Cells RARE
[2023-06-13 16:35] VITALS: BP 116/74; PULSE 76; RESP 16; O2SAT 97
[2023-06-13 16:41] LABS: Mucous, Urine 0 SEEN /hpf (<or=2+); Red Blood Cells-Urine 0 SEEN /hpf (0-5); Squamous Epithelial Cells - UA 0 SEEN /hpf (5-10)
[2023-06-13 16:49] LABS: Color, Urine Yellow (Yellow); Glucose, Dipstick Normal (Normal); Ketone-Dipstick Negative (Negative); Leukocyte Esterase-Dipstick 25 /ul (Negative); Nitrite-Dipstick Negative (Negative); Occult Blood-Urine Negative /ul (Negative); Protein-Dipstick Negative (Negative); Specific Gravity, Urine 1.015 (1.002-1.030); Urine Bilirubin Dipstick Negative (Negative); Urine Clarity Clear (Clear); Urine Urobilinogen Normal (Normal)
[2023-06-13] MEDS: traMADol 50 MG Tablet PO (16:55)
[2023-06-13] MEDS: Potassium Chloride Oral Tablet 20 MEQ 60 MEQ PO (16:55)
[2023-06-13] MEDS: 0.9% Normal Saline (1000mL) 1,000 ML 999 ML IV (16:55)
[2023-06-13 16:59] LABS: Bacteria 3+ /hpf (None Seen); White Blood Cells 0-5 SEEN /hpf (0-5)
[2023-06-13 17:30] VITALS: BP 144/45; PULSE 104; RESP 17; O2SAT 98
[2023-06-15 13:05] LABS: Pathologist Review Reviewed
== END 2023-06-13 17:55 | disposition skilled nursing facility (03) ==
PROVIDERS: Emergency Provider Emergency Medicine; PCP Family Medicine; Visit Provider Emergency Medicine
DX: D64.9 Anemia, unspecified (principal); F03.90 Unspecified dementia, unspecified severity, without behavioral disturbance, psychotic disturbance, mood disturbance, and anxiety; I48.0 Paroxysmal atrial fibrillation; E11.9 Type 2 diabetes mellitus without complications; E86.0 Dehydration; I10 Essential (primary) hypertension; E87.6 Hypokalemia; E78.00 Pure hypercholesterolemia, unspecified; Z79.01 Long term (current) use of anticoagulants; Z79.899 Other long term (current) drug therapy; Z99.81 Dependence on supplemental oxygen; Z86.73 Personal history of transient ischemic attack (TIA), and cerebral infarction without residual deficits
CPT/HCPCS: 80053; 81001; 82274; 85025; 85610; 96360; 99285; J7040; P9612

== ENCOUNTER → 2023-06-13 | Outpatient (REF) | payer MEDICARE, MEDICAID, SELFPAY | LOC: OLS.SW 08:30 | PROVIDERS: PCP Family Medicine; Visit Provider Family Medicine | DX: D64.9 Anemia, unspecified (principal) | CPT/HCPCS: 36415; 86850; 86900; 86901 ==

== ENCOUNTER → 2023-06-15 | Outpatient (REF) | payer MEDICARE, MEDICAID, SELFPAY ==
[2023-06-15 08:59] LABS: Hematocrit 27.7 % (37-47); Hemoglobin 7.6 g/dL (12.0-15.0); Mean Corp Hgb Conc 27.4 g/dL (32-36); Mean Corpuscular Hgb 20.5 pg (27.0-32.0); Mean Corpuscular Volume 74.9 fL (81-99); Mean Platelet Vol. 9.4 fl (6.2-12.0); POSITIVE COUNT YES; POSITIVE MORPHOLOGY YES; RBC Distribution Width CV 20.7 % (11.6-14.6); RBC Distribution Width SD 53.1 fl (35.1-43.9)
[2023-06-15 11:20] LABS: Platelet Count 921 K/mm3 (150-450); Scan Indicated on CBC? Y/N YES- FLAGS NOTED
[2023-06-15 12:37] LABS: Differential Comment SCANNED
[2023-06-17 09:54] LABS: Pathologist Review Reviewed
== END ==
LOC: OLS.SW 05:00
PROVIDERS: PCP Family Medicine; Visit Provider Family Medicine
DX: D64.9 Anemia, unspecified (principal); R53.1 Weakness
CPT/HCPCS: 36415; 85027

== ENCOUNTER → 2023-06-17 | Outpatient (REF) | payer MEDICARE, MEDICAID, SELFPAY ==
[2023-06-17 09:38] LABS: Absolute Lymphocyte Count 3.79 X10^3/uL (0.83-4.51); Absolute Neutrophil Count 7.8 X10^3/uL (2.0-7.7); Basophil# 0.05 X10^3/uL; Basophil% 0.4 % (0-1); Eosinophil# 0.14 X10^3/uL; Eosinophils% 1.1 % (0-5); Hematocrit 24.8 % (37-47); Hemoglobin 6.8 g/dL (12.0-15.0); Lymphocyte # 3.79 X10^3/ul (0.83-4.51); Lymphocyte % 29.6 % (19-41); Mean Corp Hgb Conc 27.4 g/dL (32-36); Mean Corpuscular Hgb 21.1 pg (27.0-32.0); Mean Corpuscular Volume 76.8 fL (81-99); Mean Platelet Vol. 8.9 fl (6.2-12.0); NRBC Flagged by Analyzer 0 % (0-5); Neutrophil # 7.81 X10^3/uL (2.7-7.7); POSITIVE MORPHOLOGY YES; Platelet Count 738 K/mm3 (150-450); RBC Distribution Width CV 20.9 % (11.6-14.6); RBC Distribution Width SD 56.3 fl (35.1-43.9); Red Blood Count 3.23 M/mm3 (4.2-5.4); White Blood Count 12.8 K/mm3 (4.4-11.0)
[2023-06-17 09:39] LABS: Differential Indicated SCAN CRITERIA MET; Erythrocyte Sedimentation Rate 23 mm/hr (0-30)
[2023-06-17 10:36] LABS: Anisocytosis 2+; Differential Comment SCANNED; Hypochromasia 1+; Macrocytosis 1+; Microcytosis 1+
== END ==
LOC: OLS.SW 05:00
PROVIDERS: PCP Family Medicine; Visit Provider Family Medicine
DX: D47.3 Essential (hemorrhagic) thrombocythemia (principal)
CPT/HCPCS: 36415; 85025; 85652; 86140